=== PATIENT | female | born 1960 | race Caucasian/White ===

== ENCOUNTER → 2023-10-20 07:29 | Outpatient (REF) | payer OTHER, SELFPAY | LOC: DHCBC HW 07:29 | PROVIDERS: ATTENDING PHYSICIAN Internal Medicine; FAMILY PHYSICIAN Internal Medicine | DX: Z92.3 Personal history of irradiation (principal); R06.09 Other forms of dyspnea; I35.0 Nonrheumatic aortic (valve) stenosis; I35.1 Nonrheumatic aortic (valve) insufficiency; I44.0 Atrioventricular block, first degree | CPT/HCPCS: 93306 ==

== ENCOUNTER → 2023-11-06 09:04 | Outpatient (REF) | payer OTHER, SELFPAY | LOC: RCS 09:04 | PROVIDERS: ATTENDING PHYSICIAN Internal Medicine; FAMILY PHYSICIAN Internal Medicine | DX: R06.09 Other forms of dyspnea (principal); Z92.3 Personal history of irradiation; I35.0 Nonrheumatic aortic (valve) stenosis; I35.1 Nonrheumatic aortic (valve) insufficiency; I44.0 Atrioventricular block, first degree | CPT/HCPCS: 93017; 93350 ==

== ENCOUNTER → 2023-11-11 07:06 | Outpatient (REF) | payer OTHER, SELFPAY | LOC: RAD 07:06 | PROVIDERS: ATTENDING PHYSICIAN Internal Medicine | DX: M54.50 Low back pain, unspecified (principal) | CPT/HCPCS: 72110 ==

== ENCOUNTER → 2023-11-16 13:17 | Outpatient (REF) | payer OTHER, SELFPAY | LOC: RAD 13:17 | PROVIDERS: ATTENDING PHYSICIAN Internal Medicine; FAMILY PHYSICIAN Internal Medicine | DX: Z92.3 Personal history of irradiation (principal); I35.0 Nonrheumatic aortic (valve) stenosis; I35.1 Nonrheumatic aortic (valve) insufficiency | CPT/HCPCS: 93880 ==

== ENCOUNTER → 2023-11-24 18:39 | Outpatient (REF) | payer OTHER, SELFPAY | LOC: RAD 18:39 | PROVIDERS: ATTENDING PHYSICIAN Physician Assistant; FAMILY PHYSICIAN Internal Medicine; OTHER PHYSICIAN Nurse Practitioner Adult Health | DX: M25.511 Pain in right shoulder (principal); M54.2 Cervicalgia; M62.81 Muscle weakness (generalized); C81.00 Nodular lymphocyte predominant Hodgkin lymphoma, unspecified site; Z92.3 Personal history of irradiation; M54.9 Dorsalgia, unspecified; G89.29 Other chronic pain; R20.0 Anesthesia of skin; R20.2 Paresthesia of skin | CPT/HCPCS: 72052; 72072; 73030 ==

== ENCOUNTER → 2023-12-09 12:10 | Outpatient (REF) | payer OTHER, SELFPAY | LOC: MRI 3T 12:10 | PROVIDERS: ATTENDING PHYSICIAN Surgery; FAMILY PHYSICIAN Internal Medicine | DX: R92.2 Inconclusive mammogram (principal); Z91.89 Other specified personal risk factors, not elsewhere classified | CPT/HCPCS: 77049; A9585 ==

== ENCOUNTER → 2023-12-18 07:48 | Outpatient (REF) | payer OTHER, SELFPAY | LOC: PAVMRI 07:48 | PROVIDERS: ATTENDING PHYSICIAN Nurse Practitioner Adult Health; FAMILY PHYSICIAN Internal Medicine | DX: C81.00 Nodular lymphocyte predominant Hodgkin lymphoma, unspecified site (principal); M54.9 Dorsalgia, unspecified; G89.29 Other chronic pain; R20.0 Anesthesia of skin; R20.2 Paresthesia of skin; Z92.3 Personal history of irradiation | CPT/HCPCS: 72156; 72158; A9575 ==

== ENCOUNTER → 2023-12-21 07:38 | Outpatient (REF) | payer OTHER, SELFPAY | LOC: PAVMRI 07:38 | PROVIDERS: ATTENDING PHYSICIAN Nurse Practitioner Adult Health; FAMILY PHYSICIAN Internal Medicine | DX: C81.00 Nodular lymphocyte predominant Hodgkin lymphoma, unspecified site (principal); M54.9 Dorsalgia, unspecified; G89.29 Other chronic pain; R20.0 Anesthesia of skin; R20.2 Paresthesia of skin; Z92.3 Personal history of irradiation | CPT/HCPCS: 72157; A9575 ==

== ENCOUNTER → 2023-12-23 14:55 | Outpatient (REF) | payer OTHER, SELFPAY | LOC: HWRAD 14:55 | PROVIDERS: ATTENDING PHYSICIAN Nurse Practitioner Adult Health; FAMILY PHYSICIAN Internal Medicine | DX: C81.00 Nodular lymphocyte predominant Hodgkin lymphoma, unspecified site (principal); Z92.3 Personal history of irradiation | CPT/HCPCS: 76536 ==

== ENCOUNTER 2023-12-28 18:06 | Outpatient (RCR) | payer OTHER, SELFPAY | END 2023-12-28 23:59 | disposition home or self-care (01) | LOC: RPT 18:06 | PROVIDERS: ATTENDING PHYSICIAN Internal Medicine | DX: M54.51 Vertebrogenic low back pain (principal); M54.2 Cervicalgia; M54.16 Radiculopathy, lumbar region; M54.12 Radiculopathy, cervical region; Z73.6 Limitation of activities due to disability; M62.81 Muscle weakness (generalized) | CPT/HCPCS: 97110; 97163 ==

== ENCOUNTER 2024-01-25 16:14 | Outpatient (RCR) | payer OTHER, SELFPAY | END 2024-02-09 08:24 | disposition home or self-care (01) | LOC: RPT 16:14 | PROVIDERS: ATTENDING PHYSICIAN Internal Medicine | DX: M54.51 Vertebrogenic low back pain (principal); M54.2 Cervicalgia; M54.16 Radiculopathy, lumbar region; M54.12 Radiculopathy, cervical region; Z73.6 Limitation of activities due to disability | CPT/HCPCS: 97110 ==

== ENCOUNTER → 2024-05-18 14:01 | Outpatient (REF) | payer OTHER, SELFPAY | LOC: WDC 14:01 | PROVIDERS: ATTENDING PHYSICIAN Surgery; FAMILY PHYSICIAN Internal Medicine | DX: Z12.31 Encounter for screening mammogram for malignant neoplasm of breast (principal) | CPT/HCPCS: 77063; 77067 ==

== ENCOUNTER → 2024-05-20 13:44 | Outpatient (REF) | payer OTHER, SELFPAY | LOC: WDC 13:44 | PROVIDERS: ATTENDING PHYSICIAN Surgery; FAMILY PHYSICIAN Internal Medicine | DX: R92.8 Other abnormal and inconclusive findings on diagnostic imaging of breast (principal) | CPT/HCPCS: 76642 ==

== ENCOUNTER → 2024-06-06 17:56 | Outpatient (REF) | payer OTHER, SELFPAY | LOC: RAD 17:56 | PROVIDERS: ATTENDING PHYSICIAN Internal Medicine; FAMILY PHYSICIAN Internal Medicine | DX: Z95.2 Presence of prosthetic heart valve (principal) | CPT/HCPCS: 71046 ==

== ENCOUNTER 2024-06-10 19:19 | Observation (INO) | payer OTHER, SELFPAY ==
[2024-06-10] VITALS (12 sets, daily range): BP systolic 107–153; BP diastolic 47–71; BMI 20.3
[2024-06-10 13:52] LABS: % Basophils 0.7 % (0-2); % Eosinophils 0.2 % (0-6); % Immature Granulocytes 0.6 % (0-0.5); % Lymphocytes 9.9 % (20.5-51.1); % Neutrophils 77.6 % (42.2-75.2); Absolute Basophils 0.1 10^3/uL (0-0.2); Absolute Immature Granulocytes 0.1 10^3/uL (0-0.05); Absolute Lymphocytes 0.9 10^3/uL (1.2-3.4); Absolute Neutrophils 6.9 10^3/uL (1.4-6.5); Hematocrit 31.6 % (37.0-47.0); Hemoglobin 10.8 g/dL (12.0-16.0); Mean Corp Hgb Conc. 34.2 g/dL (33.0-37.0); Mean Corpuscular Hgb 29.8 pg (27.0-31.0); Mean Corpuscular Volume 87.3 fL (81.0-99.0); Mean Platelet Volume 9.1 fL (7.4-10.4); Nucleated Red Blood Cells % 0.2 %; Platelet Count 620 10^3/uL (130-400); Red Blood Cell Count 3.62 10^6/uL (4.20-5.40); White Blood Cell Count 8.9 10^3/uL (4.8-10.8)
[2024-06-10 13:55] LABS: ALT (SGPT) 36 U/L (0-35); AST (SGOT) 32 U/L (14-36); Alkaline Phosphatase 136 U/L (38-126); Blood Urea Nitrogen 31 mg/dl (7-17); Calcium 9.2 mg/dl (8.4-10.2); Carbon Dioxide 27 mmol/L (22-30); Chloride 97 mmol/L (98-107); Glucose 142 mg/dl (70-99); Sodium 137 mmol/L (135-145); Total Bilirubin 0.8 mg/dl (0.2-1.3); Total Protein 6.7 g/dl (6.3-8.2); eGFR > 60.00
--- NOTE | 2024-06-10 14:06 | ED.GENMED ---
History of Present Illness
General
Chief Complaint: Breathing Problem
Time Seen by Provider: 06/10/24 13:46
History of Present Illness
History of Present Illness:
Patient presents to the emergency department with dyspnea on exertion. She had mitral, aortic and tricuspid valves repaired on May 26 at [facility]. She was discharged 1 week ago. She notes that she did have a small amount of fluid in her
lung at that time. Since then she has noted worsening dyspnea on exertion. No chest pain. No fever. No leg swelling.
Past History
Past History
ED Past Medical History: Cancer
ED Past Surgical History: Other (Splenectomy)
Social History
Tobacco: Non-smoker
Alcohol: Occasional
Drug: None
Personal:
Living: with family
Employment: Employed
Family History
Family History: Other
Phy Exam
Physical Exam
Physical Exam:
GENERAL APPEARANCE: NAD, well developed/ well nourished
EYES lids/conjunctiva normal
EARS/NOSE/THROAT Mucous membranes moist, uvula midline without oral pharyngeal erythema, exudate or swelling
HEAD/NECK normocephalic atraumatic, neck is supple.
RESPIRATORY respiratory effort normal, speaks in full sentences, no accessory muscle use. Lungs clear to auscultation without rhonchi, wheezes, rales
CARDIAC Regular rate and rhythm, no edema, sternal scar well-healing without evidence of infection
ABDOMINAL Soft, ND/NT. No pulsatile masses on exam, rebound tenderness, Gomez sign or pain over Mcburney's point.
MUSCLES/EXTREMITIES No abnormal range of motion, no swelling.
SKIN Warm, pink and dry. No rashes
NEUROLOGICAL Speech is clear and appropriate. Normal level of consciousness. 5/5 strength in all extremities.
PSYCH Normal mood and affect. Judgement/competence is appropriate
Scores
Heart Failure Risk
Heart Failure Risk Score: Yes
History of Stroke or TIA: No
History of intubation for respiratory distress: No
Heart rate on ED arrival >/= 110: No
SaO2 <90% on arrival on room air: No
HR >/=110 during 3min walk test (or too ill to perform test): No
ECG has acute ischemic changes: No
Urea >/=12mmol/L (BUN 33.6mg/dL): Yes
Serum CO2>/=35mmol/L: No
Troponin I or T elevated to WI Level (0.4mg/dL): Yes
NT-proBNP >/=5,000ng/L (5,000pg/ml): No
HF Risk Score: 3
Admission Status: HIGH RISK 15.9% Consider SNF treatment or admission to hospital
Course
Orders/Labs/Results
Orders:
Orders
06/10/24 13:15
EKG [Electrocardiogram (*1)] Urgent
Reason for Study: Shortness of Breath
EKG- Treatment ONCE
06/10/24 13:35
Complete Blood Count/With Diff Urgent
Comprehensive Metabolic Panel Urgent
NT-proBNP Urgent
Comment: ADD ON
Troponin I Urgent
06/10/24 14:05
CR Chest - 2 Views Urgent
Comment:
Reason For Exam: sob
06/10/24 14:24
Add On- LAB Urgent
Tests Added?: Pro BNP
06/10/24 16:11
Furosemide [Lasix] 40 mg IV NOW STA
06/10/24 16:50
Troponin I Urgent
06/10/24 18:28
PT/INR [Prothrombin Time] Urgent
06/10/24 18:46
CARDIOLOGY CONSULT Routine
Consulting Provider: Darryl Carrasco
Was physician already notified: Yes
Reason for consult: Dyspnea post aortic, mitral valve replacement and tricuspid valve repair
06/10/24 18:50
Admit/Transfer Patient As Directed
Co-Sign Provider:
Level of Care: Observation services
Assign to:: Telemetry
Physician / Group: karoline bourne
Diagnosis: Dyspnea status post bioprosthetic valve repair/replace, suprath inr on coum
Reason for Telemetry: Arrhythmia
Date to Stop Telemetry: 06/13/24
Time to Stop Telemetry: 11:00
Reason for Hospitalization: Dyspnea status post bioprosthetic valve repair/replace, suprath inr on coum
Expected length of stay greater than two midnights?: Yes
ELOS- Estimated Length of Stay in days: 4
I certify the patient meets the requirements for IP care: Yes
Code Status As Directed
Resuscitation Status: Full Code
06/10/24 18:55
PRN Pain Medication Management As Directed
May give lesser potent ordered pain med per pt: Yes
preference::
Protocol:: Medication orders for pain may be administered in a
manner that supports deferring to patient preference
when the pt is:
- Requesting an ordered lesser potent pain medication.
Least to most potent pain medications are defined
as: acetaminophen < NSAID < tramadol < opioids
(morphine, oxycodone, hydromorphone).
- Requesting a lesser dose of the same medication IF
ORDERED.
- Requesting a less intrusive route of administration
if both routes are prescribed by the provider (PO <
IV).
06/11/24 06:00
Echo 2D MMode Color/Doppler IN AM
Reason for Study: recent valvular heart repair
06/13/24 11:00
DC Protocol for Telemetry ONCE
Abnormal Lab Results
06/10/24 06/10/24 06/10/24
13:35 16:50 18:28
RBC 3.62 L 10^6/uL
(4.20-5.40)
Hgb 10.8 L g/dL
(12.0-16.0)
Hct 31.6 L %
(37.0-47.0)
Plt Count 620 H 10^3/uL
(130-400)
Abs Immat Gran (auto) 0.1 H 10^3/uL
(0-0.05)
Absolute Neuts (auto) 6.9 H 10^3/uL
(1.4-6.5)
Absolute Lymphs (auto) 0.9 L 10^3/uL
(1.2-3.4)
Absolute Monos (auto) 1.0 H 10^3/uL
(0.1-0.6)
Immature Gran % 0.6 H %
(0-0.5)
Neutrophils % 77.6 H %
(42.2-75.2)
Lymphocytes % 9.9 L %
(20.5-51.1)
Monocytes % 11.0 H %
(1.7-9.3)
PT 52.3 H Sec
(11.4-14.6)
INR 5.78 H*
Chloride 97 L mmol/L
(98-107)
BUN 31 H mg/dl
(7-17)
Glucose 142 H mg/dl
(70-99)
ALT 36 H U/L
(0-35)
Alkaline Phosphatase 136 H U/L
(38-126)
Troponin I 0.174 H* ng/ml 0.154 H* ng/ml
06/10/24 13:35
06/10/24 13:35
Vital Signs
Initial and Last Documented VS:
Initial Vital Signs
Temp Pulse Resp BP Pulse Ox
98.7 F 51 18 107/47 100
06/10/24 13:21 06/10/24 13:21 06/10/24 13:21 06/10/24 13:21 06/10/24 13:21
Last Documented Vital Signs
Temp Pulse Resp BP Pulse Ox
98.7 F 50 20 153/56 97
06/10/24 13:21 06/10/24 19:00 06/10/24 19:00 06/10/24 19:00 06/10/24 19:00
*Critical Care Note
Total Time (30-74mins, 75-104mins- exclusive of procedures): Not Applicable
ED Attending Note
ED Attending Note
ED Attending Note:
Discussed case with cardiology on-call Dr. Carrasco, recommends diuresis, admission to hospitalist. Suspect patient is symptomatic from bilateral pleural effusions. Trop elevated in the setting of recent heart surgery, doubt ACS given lack of chest
pain or symptoms at rest
-
Portions of this chart may have been created with voice recognition software.� Occasional wrong word or��sound alike� substitutions may have occurred due to the inherent limitations of voice recognition software.
Discharge Plan
Departure
Patient Disposition: Admit
Date of Disposition: 06/10/24
Time of Disposition: 16:27
Presentation/result/management discussed w/ accepting MD/DO: Hospitalist
Discharge Problem:
Pleural effusion
Interventions
Interventions:
*Risk Screen - Suicide Last Done: 06/10/24 13:23
*General Assessment Last Done: 06/10/24 13:23
*Neglect/Abuse Screening Last Done: 06/10/24 13:23
ED- Fall Risk Assessment Last Done: 06/10/24 20:03
*ED COVID-19 Vaccine History Last Done: 06/10/24 13:56
*Nursing Disposition Last Done: 06/10/24 20:03
ED- Cardiac Assessment Last Done: 06/10/24 13:56
ED- Pulmonary Assessment Last Done: 06/10/24 13:56
[2024-06-10 14:26] LABS: Troponin I 0.174 ng/ml
[2024-06-10 15:02] LABS: NT-proBNP 1880 pg/ml
--- NOTE | 2024-06-10 16:18 | W.PN.CD ---
Addendum entered and electronically signed by Darryl Carrasco MD 06/10/24 17:39:
Patient seen and examined in collaboration with [employer]; agree with below.
-Patient referred from the Cardiology office after complaining of dyspnea; recently underwent bioprosthetic aortic valve replacement, bioprosthetic mitral valve replacement, and tricuspid valve repair on 05/16/2024 at [place].
-Patient has developed bilateral pleural effusions; patient also with postoperative atrial fibrillation and was placed on Coumadin-INR currently 6.69.
-Patient cannot undergo thoracentesis due to supratherapeutic INR.
-Continue IV Lasix; recommend 40 mg daily for now.
-Obtain medical records from [place].
-Echocardiogram this admission.
-scanning coordinator; will follow.
Original Note:
Today's Communication / Plan
-
Continue diuresis
Echocardiogram when we have achieved euvolemia
Impression / Plan
-
This is a consultation summary. Please see scanned consultation.
BACKGROUND: 63F with moderate/severe aortic stenosis and aortic regurgitation, moderate mitral regurgitation, mild mitral stenosis, moderate to severe tricuspid regurgitation, first-degree AV block, sinus tachycardia, dyslipidemia, stage Ia
Hodgkin's lymphoma status post extensive radiation (Mantle therapy with splenectomy) and hypothyroidism who underwent bioprosthetic mitral valve replacement, bioprosthetic aortic valve replacement, and tricuspid valvuloplasty with prosthetic ring on
05/16/[address] Prabhakar at [facility] in [place]. She had a course of postoperative atrial fibrillation and was placed on amiodarone. She also underwent a Medtronic leadless pacemaker. She is currently wearing a ZIO monitor. She is on warfarin
and has had elevated INRs. CXR a few days ago showed small to moderate bilateral pleural effusion. Her shortness of breath persisted and she presented to the emergency department.
Heart failure, presumed HFpEF, acute
-Diuresis with furosemide 40 mg IV twice daily
-Case management to [facility] SGLT2
-Trend daily weight, I/O, BMP with diuresis
-Heart failure education
Pleural effusion, left >right
-No thoracentesis due to elevated INR
-Diuresis with intravenous furosemide
Severe valve disease status post bioprosthetic MVR, bioprosthetic AVR, and tricuspid valvuloplasty with prosthetic ring, by Dr. Prabhakar at [facility] [place] (05/26/2024)
-Update echocardiogram we are closer to euvolemia
-Hold warfarin for elevated INR
Paroxysmal atrial fibrillation
-Stable in sinus rhythm, she is wearing ZIO monitor per [facility] [place] (atrial fibrillation monitoring?)
-Continue amiodarone at current dosing
-Warfarin for valve replacements as above
Abnormal coagulation profile, INR 6.69
-No abnormal bleeding
-She will need daily INRs while in the inpatient setting
Abnormal troponin, nonischemic myocardial injury in the setting of recent cardiac surgery and pacemaker placement
-Initial troponin 0.174, trend
Pacemaker, Medtronic leadless pacemaker implanted 06/02/[address] Elliott at [facility] [place]
Stage Ia Hodgkin's lymphoma status post extensive radiation without chemotherapy (1981)
Anemia, likely postoperative, per primary service
Subjective:
She endorses worsening shortness of breath. She denies dizziness.
We are still awaiting records.
Physical Exam
Vital Signs/Labs
Vital Signs
Temp Pulse Resp BP Pulse Ox
98.7 F 50 17 125/58 98
06/10/24 13:21 06/10/24 15:00 06/10/24 15:00 06/10/24 15:00 06/10/24 15:00
06/09/24 06/10/24 06/11/24
06:59 06:59 06:59
Actual Weight 55.9 kg
06/10/24 13:35
06/10/24 13:35
APTT Cancelled 06/10/24 13:25
06/10/24 06/10/24
13:35 14:05
[id number] Pept 1880 Cancelled
LAB Results
06/10/24
13:35
Troponin I 0.174 H*
Physical Exam
Constitutional: No acute distress and Comfortable
EENT: Anicteric and Moist mucous membranes
Cardiovascular: Rhythm & rate is regular, S1S2 is normal and Murmur/rub/gallop absent
Respiratory: Respiratory effort normal
GI: Soft, Distention absent, Flat and Non tender
Neuro/Psych: AO x 3
Other: Skin (Warm and dry without edema)
Data Reviewed
-
Date of Service: June 10, 2024
Labs: Labs Reviewed by me
Old Records: Requested
[2024-06-10] MEDS: LASIX 40 MG IV (16:41)
--- NOTE | 2024-06-10 17:17 | HPS.HSE ---
Family Physician
-
Family Physician: Kate Jade
Chief Complaint
-
Dyspnea on exertion post mitral, aortic tricuspid valve repair
History of Present Illness
63-year-old female S/P bioprosthetic mitral replacement,bioprosthetic aortic replacement, tricuspid valvuloplasty with prosthetic ring May 26, 2024 at [facility] [address]. Arthur Prabhakar cardiology. She was discharged 1 week ago and is
complaining of worsening dyspnea on exertion. She reports she had a small amount of fluid in her lung at that time. She developed postop A-fib and was placed on Coumadin on discharge 06/03. She had her Coumadin held for the past 2 days due to INR
elevation of 6 on 06/08. INR still elevated 6.69 she reports she has had no bowel movement in 1 week she also has some abdominal distention along with nausea and decreased appetite/metallic taste in mouth. She states all she had was a spoonful of
cottage cheese today. Only drinks approximately 32 ounces of water a day since this past week. She reports she had episode of constipation postsurgery that required MiraLAX and Dulcolax . she denies fever, chills, chest pain, palpitations,
abdominal pain, nausea, vomiting, diarrhea, urinary symptoms, leg swelling. She only has discharge papers from her recent admission but she has no medical records, consultation notes, imaging studies or physician notes regarding her recent surgery
or stay. She is requesting we speak with someone from her cardiology team at [place] [facility] but they are currently in surgery until an unknown time. I advised the patient that we will try to answer a phone call if they happen to call here about her
elbow on a Thursday evening they will unlikely be able to access her records to fax to us due to medical records being closed. She reports they absolutely will not fax records. She past medical history of Hodgkin's, hypothyroidism, anemia, CAD/CABG,
depression, HLD, GERD splenectomy, appendectomy
Medical History
Past Medical History
Past Medical History: Reports Other
Additional Past Medical History:
Valvular disorder
Hodgkin's
hypothyroidism
CAD/CABG
splenectomy
Appendectomy
Past Surgical History: Reports Other
Additional Past Surgical History:
bioprosthetic mitral replacement,bioprosthetic aortic replacement, tricuspid valvuloplasty with prosthetic ring May 26, 2024 at [facility] [address] Arthur Prabhakar cardiology
CABG
splenectomy
appendectomy
Social History
Tobacco: Non-smoker
Alcohol: None
Drug: None
Personal: Single
Living: Alone
Family History
Family History: Not pertinent
Allergies / Home Medications
Allergies reflects when Allergies were last updated in [employer].
Home Medications with original date entered in [employer]
Allergy/Medication List:
Allergies
Allergy/AdvReac Type Severity Reaction Status Date / Time
adhesive tape Allergy Rash Verified 06/10/24 13:48
nitrofurantoin Allergy Swelling Verified 06/10/24 13:49
Sulfa (Sulfonamide Allergy Nausea / Verified 06/10/24 13:49
Antibiotics) Vomiting
Home Medications
bupropion HCl 150 mg 24 hr tablet, extended release 150 mg PO DAILY Depression 11/23/13
levothyroxine 75 mcg tablet (Synthroid) 75 mcg PO DAILY@0600 Thyroid 11/23/13
amiodarone 200 mg tablet 200 mg PO DAILY@1000 Arrhythmia 06/10/24
aspirin 81 mg tablet,delayed release 81 mg PO Q48H Blood Clot Prevention/Tx 06/10/24
docusate sodium 50 mg capsule 50 mg PO DAILY Constipation 06/10/24
ezetimibe 10 mg tablet 10 mg PO DAILY@2100 High Cholesterol 06/10/24
furosemide 40 mg tablet 40 mg PO QPM Fluid Retention/Swelling 06/10/24
pantoprazole 40 mg tablet,delayed release 40 mg PO DAILY Gastrointestinal Issue 06/10/24
warfarin 3 mg tablet 3 mg PO QPM Blood Clot Prevention/Tx 06/10/24
Review of Systems
-
History Source: Patient and Family (Sister at bedside)
A 12 point ROS was completed and negative except as noted: Yes
Constitutional: Denies Fatigue or Chills
EENT: Denies Sore Throat or Runny Nose
Respiratory: Reports Trouble Breathing (POSADA intermittent at rest and with movement); Denies Cough
Cardiac: Reports Other (Scabbed sternal incision intact no surrounding erythema or drainage); Denies Chest Pain, Diaphoresis, Palpitations or Syncope
Abdomen/GI: Reports Abdominal Pain, Nausea, Constipated (X 1 week) and Other (Anorexia); Denies Vomiting, Diarrhea, Bloody Stools or Black Stools
: Denies Dysuria, Frequency, Flank Pain, Incontinence, Difficulty Voiding, Urgency or Bleeding
Musculoskeletal: Denies Joint Pain or Edema
Skin: Denies Itching or Rash
Neurological: Denies Dizzy, Headache or Weakness
Endocrine: Reports No Symptoms
Hematologic/Lymphatic: Reports No Symptoms
Psych: Reports Anxiety
Physical Exam
Vital Signs
Vital Signs
Temp Pulse Resp BP Pulse Ox
98.7 F 50 22 120/52 98
06/10/24 13:21 06/10/24 16:41 06/10/24 16:15 06/10/24 16:41 06/10/24 16:15
Physical Exam
General: Conversant; No Pain, Fever or Chills
HEENT: NormoCephalic, Anicteric, Moist mucous membranes, PERRLA, Larson Conjunctivae and No Ptosis
Respiratory: Clear; No Wheezes, Rales or Rhonchi
Cardiac: S1/S2, Regular Rhythm, Murmur (2/6 systolic), Peripheral Edema (Trace bilateral lower legs) and Other (Scabbed sternal incision intact no surrounding erythema or drainage); No Rub, Gallop, Ge's Sign or JVD
Breast: Deferred by me
GI: Soft, Normal Bowel Sounds, Distended and No Hepatosplenomegaly
Rectal: Deferred by Provider
Genito-urinary: Deferred by me
Musculoskeletal: No Clubbing, No Cyanosis, Edema, Left Lower Extremity (Trace) and Edema, Right Lower Extremity (Trace); No Edema, Left Upper Extremity or Edema, Right Upper Extremity
Skin: Warm and Dry; No Rash
Neuro: AO x 3, No Motor Deficits and No Sensory Deficits; No Slurred Speech, Facial Droop, Tremors or Sedated
Psych: Calm
Laboratory Results
-
06/10/24 13:35
06/10/24 13:35
Laboratory Results
APTT Cancelled 06/10/24 13:25
Total Bilirubin 0.8 mg/dl (0.2-1.3) 06/10/24 13:35
AST 32 U/L (14-36) 06/10/24 13:35
ALT 36 U/L (0-35) H 06/10/24 13:35
Alkaline Phosphatase 136 U/L (38-126) H 06/10/24 13:35
Troponin I 0.174 ng/ml H* 06/10/24 13:35
Impression/Plan
-
Impression/plan:
OBS telemetry
#Dyspnea on exertion status post multi valvular heart repair with acute CHF
#Had bioprosthetic mitral replacement,bioprosthetic aortic replacement, tricuspid valvuloplasty with prosthetic ring May 26, 2024 at [facility] [address]. Arthur Prabhakar cardiology
BNP 1879
--Check 2D echo
-Consult [facility] cardiology
-I/O, daily weight
-IV Lasix 40 mg now(patient on prior Lasix 40 mg every afternoon)
-IV 40 mg Lasix daily
-Obtain records from [place] Dr. Arthur Prabhakar service suppose to be on coumadin 3 months inr 2-[address] Arzate spoke with [facility] Dr Ramos [phone], Dr dobson [phone] was on the case for the pt
2D echo 10/20/2023: EF 60 to 65%, no wall normalities moderate to severe aortic stenosis peak mean gradients 30-21 mmHg. Moderate to severe AR. Moderate to severe TR
#Bilateral pleural effusions left> right post valvular heart repair/replacement
-Cannot undergo thoracentesis due to elevated INR 6.9
-Continue diuresis with IV Lasix
#Nonischemic myocardial injury likely secondary to recent valvular heart repair
Troponin 0.174 > 0.154 will continue to trend
-Check EKG
#Supratherapeutic INR on Coumadin /Hx postop A-fib 05/27/2024
INR 5.78 follow INR
- HOLD coumadin
-cont amiodarone 200 mg daily
#Acute constipation
-Check KUB
-Start bowel regimen
#Anemia hx normocytic
Hgb 10.8, MCV 87.3 at baseline
# CAD/CABG
-Continue aspirin 81 mg every 48 H, amiodarone 20 mg daily
#Hodgkin's hx
#History splenectomy
#Hypothyroidism
-Continue Synthroid 75 mcg p.o. daily
#Depression hx
Continue Wellbutrin 150 mg daily
#HLD
-Continue Zetia 10 mg daily
#GERD
-Continue Protonix 40 mg daily
DVT prophylaxis
Hold warfarin due to elevated INR
Full code
[2024-06-10 17:38] LABS: Troponin I 0.154 ng/ml
[2024-06-10 19:10] LABS: PT 52.3 Sec (11.4-14.6)
[2024-06-10 19:14] LABS: INR 5.78
--- NOTE | 2024-06-10 19:52 | W.PN.UPDATE ---
Update Note
Progress Note Update
The patient is seen and examined, and I have reviewed the patient with DICK Kruse, and agree with her history and physical, assessment and plan of care as per her note. See her note for details. The patient is a 63 year old status post tissue MR
replacement, bioprosthetic Aortic valve replacement w Bovine, and tricuspid valve banding performed at [facility] on 05/26/24. The patient had post-operative A.fib and was started on Amiodarone 400 BID for 5 days followed by Amiodarone 200 mg daily
(she is currently taking), Lasix 40 mg PO daily for a week (up until yesterday), and Coumadin for a total of 3 months post-operative. She weighed 117 lb at the time of dc, had hemoglobin of 10.2 at dc. She had constipation prior to discharge, and
was taking bowel regimen w Colace at home. She's had increased intermittent spells of dyspnea. I spoke to Dr. Arreola ([phone], Cardiology resident from [facility], and Dr. Tolbert is also on the team (she is preferred contact [phone]).
She received IV Lasix 40 mg in ED for b/l pleural effusions, otherwise she appears euvolemic at this time
VSS, AF, no respiratory distress, no POSADA when walking to the bathroom in ED room
Lungs CTA b/l, decreased BS at bases, CV murmur appreciated, normal rhythm, no edema, no JVD
EKG reviewed-paced
#Status post Bioprosthetic bovine aortic valve and tissue mitral valve replacement and tricuspid valve band 05/26 at [facility] presents with bilateral pleural effusions left> right
-Tele monitoring
-Cards cx appreciated
-cont IV Lasix
-Echo pending
-monitor I/O, daily weights
-obtain records from [facility]
-trend troponin
-EKG paced, rate 50
#Supratherapeutic INR
-hold Coumadin, repeat labs in am
#Constipation
-bowel regimen, monitor, hold KUB as abdomen is soft, normal at this time
[2024-06-10] MEDS: ZETIA 10 MG PO (21:22)
[2024-06-10] MEDS: ASPIR LOW (ENTERIC COATED) PO (21:35)
[2024-06-10] MEDS: SENOKOT-S 1 TABLET PO (22:08)
[2024-06-11] VITALS (8 sets, daily range): BP systolic 104–135; BP diastolic 47–70; PULSE 51; O2SAT 98; BMI 20.3
--- NOTE | 2024-06-11 01:13 | PTCARENOTE ---
Pt. arrived to unit via stretcher from ED. Pt. able to safely ambulate from stretcher to bed in 333 on . Pt. AAOx3, no c/o of pain. Able to answer all questions appropriately. Requested her amiodarone because she did not take it prior to
coming to the ED. MITCH Denise notified. No new orders. Oriented to unit. Call farah within reach. Plan of care ongoing.
[2024-06-11] MEDS: SYNTHROID 75 MCG PO (05:44)
[2024-06-11] MEDS: MIRALAX 17 GRAMS PO (08:46)
[2024-06-11] MEDS: PROTONIX 40 MG PO (08:46)
[2024-06-11] MEDS: WELLBUTRIN XL (24 hour extended release) 150 MG PO (08:46)
[2024-06-11] MEDS: SENOKOT-S 1 TABLET PO ×2 (08:46→21:08)
[2024-06-11] MEDS: LASIX 40 MG IV (08:46)
[2024-06-11] MEDS: PACERONE 200 MG PO (08:47)
--- NOTE | 2024-06-11 09:03 | W.PN.HOSP.TC ---
Today's Communication/Plan
-
see bold
Assessment / Plan
Assessment / Plan
Gen: NAD, AAOx3.
Eyes: EOMI, PERRLA, no scleral icterus.
Neck: supple.
CV: Bradycardic, regular rhythm, +S1/S2, no m/r/g.
Resp: Decreased breath sounds in the bases
Abd: +BS, soft, NT, ND
Skin: No rashes. No lower extremity edema
Neuro: CN 2-12 intact, non-focal.
Psych: Normal mood and affect.
CXR: Moderate left pleural effusion. Progressed. Small right pleural effusion. Stable.
SOB:
-s/p bioprosthetic MVR, bioprosthetic AVR, and TV banding at [facility] on 05/26/24. She had post-operative A.fib and was started on Amiodarone 400 BID for 5 days followed by Amiodarone 200 mg daily (she is currently taking), Lasix 40 mg PO daily for
a week (up until 06/09/24), and Coumadin for a total of 3 months post-operatively.
-CXR with B/L pleural effusions
-cont IV Lasix
-daily wts, I/Os
-check echo
-cardiology following
Post-op Afib:
-cont Amio
-holding coumadin with supratherapeutic INR
h/o CAD s/p CABG:
-cont Zetia
History of Hodgkin's disease s/p splenectomy
Depression: Continue Wellbutrin
Hyperlipidemia: cont Zetia
GERD: Continue Protonix
Hypothyroidism: Continue Synthroid
FULL
Anticipated Discharge: 24 - 48 hours
Subjective/Interval History
-
Date of Service: June 11, 2024
Currently denies chest pain or shortness of breath. She reports she was able to walk the burgos without shortness of breath.
Objective Data
-
Labs:
Laboratory Results
06/11/24 06/11/24
07:11 08:50
WBC Cancelled Pending
Hgb Cancelled Pending
Hct Cancelled Pending
Plt Count Cancelled Pending
PT Pending
INR Pending
Sodium Pending
Potassium Pending
Chloride Pending
Carbon Dioxide Pending
BUN Pending
Creatinine Pending
Glucose Pending
Calcium Pending
Vital Signs:
Vital Signs
Temp Pulse Resp BP Pulse Ox
98.4 F 51 16 131/56 98
06/11/24 07:48 06/11/24 07:48 06/11/24 07:48 06/11/24 07:48 06/11/24 07:48
I&O
06/10/24 06/11/24 06/12/24
06:59 06:59 06:59
Intake Total 400 / 400
Balance 400 / 400
[2024-06-11 09:07] LABS: PT 51.4 Sec (11.4-14.6)
[2024-06-11 09:11] LABS: INR 5.65
[2024-06-11 10:01] LABS: % Basophils 0.9 % (0-2); % Eosinophils 0.4 % (0-6); % Immature Granulocytes 0.6 % (0-0.5); % Lymphocytes 12.2 % (20.5-51.1); % Monocytes 13.5 % (1.7-9.3); % Neutrophils 72.4 % (42.2-75.2); Absolute Basophils 0.1 10^3/uL (0-0.2); Absolute Immature Granulocytes 0.1 10^3/uL (0-0.05); Absolute Monocytes 1.1 10^3/uL (0.1-0.6); Absolute Neutrophils 5.7 10^3/uL (1.4-6.5); Hemoglobin 10.7 g/dL (12.0-16.0); Mean Corp Hgb Conc. 34.5 g/dL (33.0-37.0); Mean Corpuscular Hgb 30.7 pg (27.0-31.0); Mean Corpuscular Volume 88.8 fL (81.0-99.0); Mean Platelet Volume 9.2 fL (7.4-10.4); Nucleated Red Blood Cells % 0.3 %; Platelet Count 580 10^3/uL (130-400); Red Blood Cell Count 3.49 10^6/uL (4.20-5.40); White Blood Cell Count 7.9 10^3/uL (4.8-10.8)
--- NOTE | 2024-06-11 11:24 | W.PN.CD ---
Today's Communication / Plan
-
-Continue diuresis
-Plan for echo on Thursday once close to euvolemic.
-Check INR daily
Impression / Plan
-
This is a consultation summary. Please see scanned consultation.
BACKGROUND: 63F with moderate/severe aortic stenosis and aortic regurgitation, moderate mitral regurgitation, mild mitral stenosis, moderate to severe tricuspid regurgitation, first-degree AV block, sinus tachycardia, dyslipidemia, stage Ia
Hodgkin's lymphoma status post extensive radiation (Mantle therapy with splenectomy) and hypothyroidism who underwent bioprosthetic mitral valve replacement, bioprosthetic aortic valve replacement, and tricuspid valvuloplasty with prosthetic ring on
05/16/[address] Prabhakar at [place] in [place]. She had a course of postoperative atrial fibrillation and was placed on amiodarone. She also underwent a Medtronic leadless pacemaker. She is currently wearing a ZIO monitor. She is on warfarin
and has had elevated INRs. CXR a few days ago showed small to moderate bilateral pleural effusion. Her shortness of breath persisted and she presented to the emergency department.
Heart failure, presumed HFpEF, acute
-Diuresis with furosemide 40 mg IV twice daily
-Case management to clifford SGLT2
-Trend daily weight, I/O, BMP with diuresis
-Heart failure education
Pleural effusion, left >right
-No thoracentesis due to elevated INR
-Diuresis with intravenous furosemide
Severe valve disease status post bioprosthetic MVR, bioprosthetic AVR, and tricuspid valvuloplasty with prosthetic ring, by Dr. Prabhakar at [facility] (05/26/2024)
-Update echocardiogram we are closer to euvolemia
-Hold warfarin for elevated INR
Paroxysmal atrial fibrillation
-Stable in sinus rhythm, she is wearing ZIO monitor per [facility] (atrial fibrillation monitoring?)
-Continue amiodarone at current dosing
-Warfarin for valve replacements as above
Abnormal coagulation profile,
-INR at admission was 6.69- today 5.6
-No abnormal bleeding
-She will need daily INRs while in the inpatient setting
Abnormal troponin, nonischemic myocardial injury in the setting of recent cardiac surgery and pacemaker placement
-Initial troponin 0.174, was peaked
- Follow up 0.15
Pacemaker, Medtronic leadless pacemaker implanted 06/02/[address] Elliott at [facility]
Stage Ia Hodgkin's lymphoma status post extensive radiation without chemotherapy (1981)
Anemia, likely postoperative, per primary service
Subjective:
She endorses worsening shortness of breath. She denies dizziness.
We are still awaiting records.
Physical Exam
Vital Signs/Labs
Vital Signs
Temp Pulse Resp BP Pulse Ox
98.4 F 51 16 131/56 98
06/11/24 07:48 06/11/24 07:48 06/11/24 07:48 06/11/24 07:48 06/11/24 07:48
06/10/24 06/11/24 06/12/24
06:59 06:59 06:59
Actual Weight 51.965 kg
06/11/24 09:39
PT 51.4 Sec (11.4-14.6) H 06/11/24 07:11
INR 5.65 H* 06/11/24 07:11
APTT Cancelled 06/10/24 13:25
TSH 12.80 uIU/ml (0.47-4.68) H 06/10/24 13:35
06/10/24 06/10/24
13:35 14:05
Oti-L-Czbrpsbwxzo Pept 1880 Cancelled
LAB Results
06/10/24 06/10/24
13:35 16:50
Troponin I 0.174 H* 0.154 H*
Physical Exam
Constitutional: No acute distress and Comfortable
EENT: Anicteric and Moist mucous membranes
Cardiovascular: Rhythm & rate is regular, Pedal edema is absent and JVD pressure is normal
Respiratory: Respiratory effort normal, Lungs clear to auscul., Wheeze Absent and Crackles Absent
GI: Soft, Non tender and Normal bowel sounds
Neuro/Psych: Alert, Oriented and AO x 3
Data Reviewed
-
Date of Service: June 11, 2024
Medical Decision Making: Reviewed Test Results, Independent Historian Assessment and Test Interpretation
EKG: Tracing Personally Visualized and interpreted
Echo: Report Reviewed by me
Labs: Labs Reviewed by me
Old Records: Reviewed
[2024-06-11 11:48] LABS: Blood Urea Nitrogen 28 mg/dl (7-17); Calcium 9.1 mg/dl (8.4-10.2); Carbon Dioxide 28 mmol/L (22-30); Chloride 96 mmol/L (98-107); Estimated Creatinine Clearance 53 ml/min; Glucose 123 mg/dl (70-99); Potassium 3.1 mmol/L (3.5-5.1); Sodium 136 mmol/L (135-145); eGFR > 60.00
--- NOTE | 2024-06-11 12:52 | PTCARENOTE ---
MD made aware of ciritical INR 5.65 and K of 3.1 as soon as it resulted. No orders as of yet.
[2024-06-11] MEDS: KCL 40 MEQ PO (14:50)
[2024-06-11] MEDS: ZOFRAN 4 MG IV (14:50)
--- NOTE | 2024-06-11 15:33 | CM ---
Alert awake oriented patient who lives alone in a 2 story home with 1 steps to enter and 13 steps to bed/bathroom. She is independent in driving and all activates of daily living.She has supportive sister Crissy.She had [facility] set up from prior
hospital.No adaptive devices.
Had [facility] . No SNF hx
Pharmacy [facility]
PCP Dr Jade
PLAN Home with [facility]
--- NOTE | 2024-06-11 17:37 | PTCARENOTE ---
Pt received as transfer from [facility]. Pt AAOx3. Able to ambulate on own to bed. V paced on nurse monitoring. HR 50. SpO2 98% on RA. VSS. Assessment documented. Pt resting in bed, call farah in reach.
[2024-06-11] MEDS: ZETIA 10 MG PO (21:08)
[2024-06-11] MEDS: LIDOCAINE 4% PATCH 1 PATCH TOPICAL (21:08)
[2024-06-11] MEDS: TYLENOL 650 MG PO (21:10)
[2024-06-11] MEDS: XANAX 0.125 MG PO (22:31)
[2024-06-12] VITALS (9 sets, daily range): BP systolic 108–143; BP diastolic 47–66; BMI 20.5
--- NOTE | 2024-06-12 01:55 | PTCARENOTE ---
Pt. V-paced on the monitor, VSS. Independent and ambulatory, complained of some SOB when ambulating in halls earlier this shift. Assisted back to room for assessment, lungs diminished bases, pulse ox 97% RA. Dyspnea resolved with rest. Also
complaining of left upper back pain made worse with deep breathing, requested Lidoderm patch. Order obtained and patch applied, Tylenol also given, pt. stated pain much improved on re-assessment. Pt. currently sleeping.
[2024-06-12 04:09] LABS: % Eosinophils 1.1 % (0-6); % Immature Granulocytes 0.6 % (0-0.5); % Lymphocytes 18.8 % (20.5-51.1); % Monocytes 13.8 % (1.7-9.3); % Neutrophils 64.7 % (42.2-75.2); Absolute Basophils 0.1 10^3/uL (0-0.2); Absolute Eosinophils 0.1 10^3/uL (0-0.7); Absolute Immature Granulocytes 0.1 10^3/uL (0-0.05); Absolute Lymphocytes 1.5 10^3/uL (1.2-3.4); Absolute Monocytes 1.1 10^3/uL (0.1-0.6); Absolute Neutrophils 5.2 10^3/uL (1.4-6.5); Hematocrit 30.3 % (37.0-47.0); Hemoglobin 10.3 g/dL (12.0-16.0); Mean Corpuscular Hgb 30.5 pg (27.0-31.0); Mean Corpuscular Volume 89.6 fL (81.0-99.0); Mean Platelet Volume 9.4 fL (7.4-10.4); Nucleated Red Blood Cells % 0 %; Platelet Count 547 10^3/uL (130-400); Red Blood Cell Count 3.38 10^6/uL (4.20-5.40); Red Cell Dist. Width 13.9 % (11.5-14.5)
[2024-06-12 04:21] LABS: INR 4.94; PT 46.2 Sec (11.4-14.6)
[2024-06-12 04:39] LABS: Blood Urea Nitrogen 32 mg/dl (7-17); Calcium 9.4 mg/dl (8.4-10.2); Carbon Dioxide 28 mmol/L (22-30); Chloride 96 mmol/L (98-107); Estimated Creatinine Clearance 48 ml/min; Glucose 102 mg/dl (70-99); Potassium 3.7 mmol/L (3.5-5.1); Sodium 137 mmol/L (135-145); eGFR > 60.00
[2024-06-12] MEDS: SYNTHROID 75 MCG PO (05:55)
--- NOTE | 2024-06-12 08:15 | W.PN.HOSP.TC ---
Today's Communication/Plan
-
see bold
Assessment / Plan
Assessment / Plan
Gen: NAD, AAOx3.
Eyes: EOMI, PERRLA, no scleral icterus.
Neck: supple.
CV: RRR, +S1/S2, no m/r/g.
Resp: Decreased breath sounds in the L base
Abd: +BS, soft, NT, ND
Skin: No rashes. remains No lower extremity edema
Neuro: CN 2-12 intact, non-focal.
Psych: Normal mood and affect.
CXR: Moderate left pleural effusion. Progressed. Small right pleural effusion. Stable.
SOB:
-s/p bioprosthetic MVR, bioprosthetic AVR, and TV banding at [facility] on 05/26/24. She had post-operative A.fib and was started on Amiodarone 400 BID for 5 days followed by Amiodarone 200 mg daily (she is currently taking), Lasix 40 mg PO daily for
a week (up until 06/09/24), and Coumadin for a total of 3 months post-operatively.
-CXR with B/L pleural effusions
-cont IV Lasix
-daily wts, I/Os
-check echo
-cardiology following
Post-op Afib:
-cont Amio
-holding coumadin with supratherapeutic INR
Other problems:
h/o CAD s/p CABG: cont Zetia
History of Hodgkin's disease s/p splenectomy
Depression: Continue Wellbutrin
Hyperlipidemia: cont Zetia
GERD: Continue Protonix
Hypothyroidism: Continue Synthroid
FULL
Anticipated Discharge: 24 - 48 hours
Subjective/Interval History
-
Date of Service: June 12, 2024
Reports intermittent SOB with ambulation which she states may be related to anxiety.
Objective Data
-
Labs:
Laboratory Results
06/12/24
03:37
WBC 8.0
Hgb 10.3 L
Hct 30.3 L
Plt Count 547 H
PT 46.2 H
INR 4.94
Sodium 137
Potassium 3.7
Chloride 96 L
Carbon Dioxide 28
BUN 32 H
Creatinine 1.0
Glucose 102 H
Calcium 9.4
Vital Signs:
Vital Signs
Temp Pulse Resp BP Pulse Ox
98.1 F 50 18 120/62 98
06/12/24 03:26 06/12/24 03:26 06/12/24 03:26 06/12/24 03:26 06/12/24 03:26
I&O
06/11/24 06/12/24 06/13/24
06:59 06:59 06:59
Intake Total 400 / 400 240 / 240
Output Total 200 / 200
Balance 400 / 400 40 / 40
[2024-06-12] MEDS: WELLBUTRIN XL (24 hour extended release) PO ×2 (08:47→08:55)
[2024-06-12] MEDS: PROTONIX 40 MG PO (08:47)
[2024-06-12] MEDS: SENOKOT-S 1 TABLET PO ×2 (08:47→20:26)
[2024-06-12] MEDS: LASIX 40 MG IV (08:47)
[2024-06-12] MEDS: MIRALAX PO (08:49)
--- NOTE | 2024-06-12 09:00 | W.PN.CD ---
Today's Communication / Plan
-
-No need for vitamin K at this time. No sign of bleeding. INR is trending down.
-Echo in the morning
Impression / Plan
-
This is a consultation summary. Please see scanned consultation.
BACKGROUND: 63F with moderate/severe aortic stenosis and aortic regurgitation, moderate mitral regurgitation, mild mitral stenosis, moderate to severe tricuspid regurgitation, first-degree AV block, sinus tachycardia, dyslipidemia, stage Ia
Hodgkin's lymphoma status post extensive radiation (Mantle therapy with splenectomy) and hypothyroidism who underwent bioprosthetic mitral valve replacement, bioprosthetic aortic valve replacement, and tricuspid valvuloplasty with prosthetic ring on
05/16/[address] Prabhakar at [place] in [place]. She had a course of postoperative atrial fibrillation and was placed on amiodarone. She also underwent a Medtronic leadless pacemaker. She is currently wearing a ZIO monitor. She is on warfarin
and has had elevated INRs. CXR a few days ago showed small to moderate bilateral pleural effusion. Her shortness of breath persisted and she presented to the emergency department.
Heart failure, presumed HFpEF, acute
-Diuresis with furosemide 40 mg IV twice daily
-Case management to clifford SGLT2
-Trend daily weight, I/O, BMP with diuresis
-Heart failure education
Pleural effusion, left >right
-No thoracentesis due to elevated INR
-Diuresis with intravenous furosemide
Severe valve disease status post bioprosthetic MVR, bioprosthetic AVR, and tricuspid valvuloplasty with prosthetic ring, by Dr. Prabhakar at [facility] (05/26/2024)
-Update echocardiogram in AM
-Hold warfarin for elevated INR
Paroxysmal atrial fibrillation
-Stable in sinus rhythm, she is wearing ZIO monitor per [facility] (atrial fibrillation monitoring?)
-Continue amiodarone at current dosing
-Warfarin for valve replacements as above
Abnormal coagulation profile,
-INR at admission was 6.69- today 4.9
-No abnormal bleeding
-She will need daily INRs while in the inpatient setting
Abnormal troponin, nonischemic myocardial injury in the setting of recent cardiac surgery and pacemaker placement
-Initial troponin 0.174, was peaked
- Follow up 0.15
Pacemaker, Medtronic leadless pacemaker implanted 06/02/[address] Elliott at [facility]
Stage Ia Hodgkin's lymphoma status post extensive radiation without chemotherapy (1981)
Anemia, likely postoperative, per primary service
Subjective:
She endorses worsening shortness of breath. She denies dizziness.
Physical Exam
Vital Signs/Labs
Vital Signs
Temp Pulse Resp BP Pulse Ox
98.1 F 56 18 108/52 98
06/12/24 03:26 06/12/24 08:47 06/12/24 03:26 06/12/24 08:47 06/12/24 03:26
06/11/24 06/12/24 06/13/24
06:59 06:59 06:59
Actual Weight 51.965 kg 52.4 kg
06/12/24 03:37
06/12/24 03:37
PT 46.2 Sec (11.4-14.6) H 06/12/24 03:37
INR 4.94 06/12/24 03:37
APTT Cancelled 06/10/24 13:25
TSH 12.80 uIU/ml (0.47-4.68) H 06/10/24 13:35
06/10/24 06/10/24
13:35 14:05
Ose-H-Hjldjtkkgmb Pept 1880 Cancelled
LAB Results
06/10/24 06/10/24
13:35 16:50
Troponin I 0.174 H* 0.154 H*
Physical Exam
Constitutional: No acute distress and Comfortable
EENT: Anicteric and Moist mucous membranes
Cardiovascular: Rhythm & rate is regular, Pedal edema is absent and JVD pressure is normal
Respiratory: Respiratory effort normal, Lungs clear to auscul., Wheeze Absent and Crackles Absent
GI: Soft, Non tender and Normal bowel sounds
Neuro/Psych: Alert, Oriented and AO x 3
Data Reviewed
-
Date of Service: June 12, 2024
Medical Decision Making: Reviewed Test Results, Independent Historian Assessment, Test Interpretation and Review of Case with other Provider
EKG: Tracing Personally Visualized and interpreted
Echo: Report Reviewed by me
Labs: Labs Reviewed by me
Old Records: Reviewed
[2024-06-12] MEDS: PACERONE 200 MG PO (10:23)
--- NOTE | 2024-06-12 13:14 | PTCARENOTE ---
Rec'd pt at change of shift. Pt on TELE monitor in A / AV paced rhythm, with VSS, and AAO*3. Pt denies any pain and ambulates in burgos with no assistance. Pt verbalized Pt with sternum site CDI with no drainage or pain at site. Pt sitting at
bedside for breakfast with call farah in reach.
--- NOTE | 2024-06-12 13:43 | PTCARENOTE ---
Pt complained of dizziness and lightheadedness at 1325. Vital signs taken and stable. Dr Gomez aware and pt sitting at bedside with call farah in reach. No new orders a this time. Pt agreed to call before ambulating for staff assistance.
[2024-06-12] MEDS: ASPIR LOW (ENTERIC COATED) 81 MG PO (20:26)
[2024-06-12] MEDS: ZETIA 10 MG PO (20:26)
[2024-06-12] MEDS: LIDOCAINE 4% PATCH 1 PATCH TOPICAL (20:26)
[2024-06-12] MEDS: XANAX 0.125 MG PO (22:28)
[2024-06-13] VITALS (8 sets, daily range): BP systolic 111–122; BP diastolic 49–64; BMI 20.5; BMI 20.4
--- NOTE | 2024-06-13 01:00 | PTCARENOTE ---
Pt.s' right groin puncture wound from leadless pacer insertion at previous hospital draining small amount of clear colorless serous fluid. Area mildly ecchymotic but not erythematic , no hematoma assessed, no pain.
--- NOTE | 2024-06-13 01:04 | PTCARENOTE ---
VSS, V-paced on the monitor. No complaints of SOB, RA pulse ox high 90's, ambulating without difficulty. Pt.'s right groin leadless pacer insertion site (puncture wound from previous hospitalization at [facility]) leaking small amount of
clear/colorless serous fluid. Area mildly ecchymotic but no erythema assessed, no hematoma, no pain. Pt. states this has been occurring off and on since discharge from [facility]. Area cleansed with NSS and sterile 4x4 and Tegaderm applied.
[2024-06-13 03:25] LABS: % Basophils 1.1 % (0-2); % Immature Granulocytes 0.7 % (0-0.5); % Lymphocytes 20.3 % (20.5-51.1); % Monocytes 11.7 % (1.7-9.3); % Neutrophils 65.2 % (42.2-75.2); Absolute Basophils 0.1 10^3/uL (0-0.2); Absolute Eosinophils 0.1 10^3/uL (0-0.7); Absolute Immature Granulocytes 0.1 10^3/uL (0-0.05); Absolute Lymphocytes 1.6 10^3/uL (1.2-3.4); Absolute Monocytes 0.9 10^3/uL (0.1-0.6); Absolute Neutrophils 5.3 10^3/uL (1.4-6.5); Hematocrit 30.3 % (37.0-47.0); Hemoglobin 10.4 g/dL (12.0-16.0); Mean Corp Hgb Conc. 34.3 g/dL (33.0-37.0); Mean Corpuscular Hgb 29.4 pg (27.0-31.0); Mean Corpuscular Volume 85.6 fL (81.0-99.0); Nucleated Red Blood Cells % 0 %; Platelet Count 534 10^3/uL (130-400); Red Blood Cell Count 3.54 10^6/uL (4.20-5.40); Red Cell Dist. Width 13.9 % (11.5-14.5); White Blood Cell Count 8.1 10^3/uL (4.8-10.8)
[2024-06-13 03:37] LABS: Blood Urea Nitrogen 31 mg/dl (7-17); Calcium 9.3 mg/dl (8.4-10.2); Carbon Dioxide 27 mmol/L (22-30); Chloride 95 mmol/L (98-107); Estimated Creatinine Clearance 48 ml/min; Glucose 108 mg/dl (70-99); Potassium 3.6 mmol/L (3.5-5.1); Sodium 136 mmol/L (135-145); eGFR > 60.00
[2024-06-13 03:38] LABS: PT 38.3 Sec (11.4-14.6)
[2024-06-13] MEDS: SYNTHROID 75 MCG PO (06:14)
--- NOTE | 2024-06-13 06:33 | PTCARENOTE ---
For the record, pt. states that she had a positive MRSA screen at [facility] in [place] during hospitalization there earlier this month. Modified contact precautions enforced.
[2024-06-13] MEDS: PROTONIX 40 MG PO (07:58)
[2024-06-13] MEDS: LASIX 40 MG IV (07:58)
[2024-06-13] MEDS: SENOKOT-S 1 TABLET PO ×2 (07:58→20:59)
[2024-06-13] MEDS: MIRALAX PO (08:00)
[2024-06-13] MEDS: WELLBUTRIN XL (24 hour extended release) PO (08:00)
--- NOTE | 2024-06-13 08:15 | W.PN.HOSP.TC ---
Today's Communication/Plan
-
see bold
Assessment / Plan
Assessment / Plan
Gen: NAD, AAOx3.
Eyes: EOMI, PERRLA, no scleral icterus.
Neck: supple.
CV: rene, reg rhythm, +S1/S2, no m/r/g.
Resp: CTAB
Abd: +BS, soft, NT, ND
Skin: No rashes. continues to remain No lower extremity edema
Neuro: CN 2-12 intact, non-focal.
Psych: Normal mood and affect.
CXR: Moderate left pleural effusion. Progressed. Small right pleural effusion. Stable.
SOB:
-s/p bioprosthetic MVR, bioprosthetic AVR, and TV banding at [facility] on 05/26/24. She had post-operative A.fib and was started on Amiodarone 400 BID for 5 days followed by Amiodarone 200 mg daily (she is currently taking), Lasix 40 mg PO daily for
a week (up until 06/09/24), and Coumadin for a total of 3 months post-operatively.
-CXR with B/L pleural effusions
-cont IV Lasix
-daily wts, I/Os
-check echo
-cardiology following
-interrogate PPM
Post-op Afib:
-cont Amio
-holding coumadin with supratherapeutic INR
Other problems:
Hypokalemia, resolved
h/o CAD s/p CABG: cont Zetia
History of Hodgkin's disease s/p splenectomy
Depression: Continue Wellbutrin
Hyperlipidemia: cont Zetia
GERD: Continue Protonix
Hypothyroidism: Continue Synthroid
FULL
Anticipated Discharge: Within 24 hours
Subjective/Interval History
-
Date of Service: June 13, 2024
No new complaints.
Objective Data
-
Labs:
Laboratory Results
06/13/24
03:15
WBC 8.1
Hgb 10.4 L
Hct 30.3 L
Plt Count 534 H
PT 38.3 H
INR 3.90
Sodium 136
Potassium 3.6
Chloride 95 L
Carbon Dioxide 27
BUN 31 H
Creatinine 1.0
Glucose 108 H
Calcium 9.3
Vital Signs:
Vital Signs
Temp Pulse Resp BP Pulse Ox
98.4 F 50 16 114/64 100
06/13/24 07:25 06/13/24 07:58 06/13/24 07:25 06/13/24 07:58 06/13/24 07:25
I&O
06/12/24 06/13/24 06/14/24
06:59 06:59 06:59
Intake Total 240 / 240 240 / 240
Output Total 200 / 200 750 / 750
Balance 40 / 40 -510 / -510
--- NOTE | 2024-06-13 09:13 | PTCARENOTE ---
Rec'd pt at change of shift. Pt on TELE monitor in AV paced rhythm with VSS and AAO*3. Pt denied any pain or discomfort ambulating unit without any assistance. Pt scheduled for bedside echo today and sitting at bedside for breakfast with call
farah in reach.
[2024-06-13] MEDS: PACERONE 200 MG PO (10:29)
--- NOTE | 2024-06-13 11:27 | W.PN.CD ---
Today's Communication / Plan
-
Resume warfarin tonight if right groin wont need intervention
Right groin drainage, concern for seroma with tract to skin => may need intervention, start with groin u/s, vascular surgery would be service I consult if needed
Pacer interrogation, see if we can promote AV synchrony, check AV conduction
Impression / Plan
-
Backgroud: 63F with moderate/severe aortic stenosis and aortic regurgitation, moderate mitral regurgitation, mild mitral stenosis, moderate to severe tricuspid regurgitation, first-degree AV block, sinus tachycardia, dyslipidemia, stage Ia Hodgkin's
lymphoma status post extensive radiation (Mantle therapy with splenectomy) and hypothyroidism who underwent bioprosthetic mitral valve replacement, bioprosthetic aortic valve replacement, and tricuspid valvuloplasty with prosthetic ring on 05/16/[address] Prabhakar at [facility] in [place]. She had a course of postoperative atrial fibrillation and was placed on amiodarone. She also underwent a Medtronic leadless pacemaker. She is currently wearing a [employer] monitor. She is on warfarin and has
had elevated INRs. CXR a few days ago showed small to moderate bilateral pleural effusion. Her shortness of breath persisted and she presented to the emergency department. Rm Humza
Heart failure, presumed HFpEF, acute
-Continue Diuresis with furosemide 40 mg IV twice daily
-Case management to clifford SGLT2
-Trend daily weight, I/O, BMP with diuresis
-Heart failure education
Right groin with serous drainage from venous site for micra implant
Pleural effusion, left >right
-Suspect diuresis will be adequate
S/p Bio MVR/AVR, and TV repair with ring by Dr. Prabhakar at [facility] (05/26/2024)
- Plan has been 30 days of ASA and nursing home warfarin
- She will check with surgeon if Eliquis option after 3 months
Paroxysmal atrial fibrillation
- I see PAF on tele
- I see some sinus complexes, some AV conduction, but mostly V paced at 50
Bradycardia
- Mostly V paced at 50 bpm with VVIR noted with activity
- I don't see AV synchrony
- MDT Micra to be interrogated
Abnormal coagulation profile,
-INR at admission was 6.69- today 4.9
-No abnormal bleeding
-She will need daily INRs while in the inpatient setting
Abnormal troponin, nonischemic myocardial injury in the setting of recent cardiac surgery and pacemaker placement
Stage Ia Hodgkin's lymphoma status post extensive radiation without chemotherapy (1981)
Anemia, likely postoperative, per primary service
Subjective:
Feeling better today
Physical Exam
Vital Signs/Labs
Vital Signs
Temp Pulse Resp BP Pulse Ox
98.3 F 50 16 111/49 97
06/13/24 10:26 06/13/24 10:29 06/13/24 10:26 06/13/24 10:29 06/13/24 10:26
06/12/24 06/13/24 06/14/24
06:59 06:59 06:59
Actual Weight 52.4 kg 52.3 kg
06/13/24 03:15
06/13/24 03:15
PT 38.3 Sec (11.4-14.6) H 06/13/24 03:15
INR 3.90 06/13/24 03:15
APTT Cancelled 06/10/24 13:25
TSH 12.80 uIU/ml (0.47-4.68) H 06/10/24 13:35
06/10/24 06/10/24
13:35 14:05
Eee-K-Wlobinkqytk Pept 1880 Cancelled
LAB Results
06/10/24 06/10/24
13:35 16:50
Troponin I 0.174 H* 0.154 H*
Physical Exam
Constitutional: No acute distress
EENT: Anicteric
Cardiovascular: Rhythm & rate is regular and Pedal edema is absent
Respiratory: Respiratory effort normal and Lungs clear to auscul. (decreased at both bases)
GI: Soft and Distention absent
Neuro/Psych: AO x 3
Data Reviewed
-
Date of Service: June 13, 2024
[2024-06-13] MEDS: NON-FORMULARY ITEM 1 UNIT PO (11:57)
--- NOTE | 2024-06-13 13:41 | PTCARENOTE ---
Pt with US of groin and echo complete. Pt resting comfortably in bed with call farah in reach and sister at bedside.
--- NOTE | 2024-06-13 14:45 | CM ---
Reviewed chart. Ms. Burt was transferred to IVU. Met withh Mrs. Burt and her sister to review discharge plans. She states prior to admission she resides alone in a two story home with one step to enter. Her sister is currently staying
with her. She states she has a full flight of steps to get to bedroom/full bathroom. She states she has a powder room on the first floor. She states prior to admission she was independent with ambulation and adls. She states she does not have any
DME in the home. She states she has a prescription plan and uses [facility]. She states she is current with [facility] for R.N. and P.T. She states she is planning on coming to the hospital for her INR blood work. She will need a
script for blood work. Dr. Ching Office managing her INR's. Medial work-up in progress. The discharge plan is to return home with her sister and resumption of [facility] when medically stable.
[2024-06-13] MEDS: DULCOLAX 10 MG PO (18:34)
[2024-06-13] MEDS: ZETIA 10 MG PO (20:59)
[2024-06-13] MEDS: LIDOCAINE 4% PATCH 1 PATCH TOPICAL (22:58)
[2024-06-13] MEDS: XANAX 0.125 MG PO (23:00)
--- NOTE | 2024-06-13 23:59 | PTCARENOTE ---
Received patient at change of shift. Patient awake, alert, and oriented in bed. Right groin dressing clean, dry, and intact. No ecchymosis, tenderness, or pain. Permanent pacemaker in place. Sternum incision open to air. BP 117/64, 60 V-paced, and
98% on room air. Discussed plan of care. Patient verbalized understanding. Call farah within reach.
[2024-06-14 03:49] VITALS: BP 117/61
[2024-06-14 03:57] VITALS: BMI 20.5
[2024-06-14 04:03] LABS: Hematocrit 29.5 % (37.0-47.0); Mean Corp Hgb Conc. 33.9 g/dL (33.0-37.0); Mean Corpuscular Hgb 30.1 pg (27.0-31.0); Mean Corpuscular Volume 88.9 fL (81.0-99.0); Mean Platelet Volume 8.9 fL (7.4-10.4); Platelet Count 479 10^3/uL (130-400); Red Blood Cell Count 3.32 10^6/uL (4.20-5.40); Red Cell Dist. Width 13.9 % (11.5-14.5); White Blood Cell Count 9.7 10^3/uL (4.8-10.8)
[2024-06-14 04:25] LABS: INR 3.31; PT 33.6 Sec (11.4-14.6)
[2024-06-14 04:29] LABS: Blood Urea Nitrogen 28 mg/dl (7-17); Carbon Dioxide 28 mmol/L (22-30); Chloride 97 mmol/L (98-107); Estimated Creatinine Clearance 54 ml/min; Glucose 102 mg/dl (70-99); Potassium 3.9 mmol/L (3.5-5.1); Sodium 136 mmol/L (135-145); eGFR > 60.00
[2024-06-14] MEDS: SYNTHROID 75 MCG PO (07:17)
--- NOTE | 2024-06-14 07:45 | W.PN.HOSP.TC ---
Addendum entered and electronically signed by Tyler Gomez MD 06/14/24 09:28:
Correction: Will d/c on coumadin 1.5mg HS starting 06/15/24PM
Original Note:
Today's Communication/Plan
-
d/c
Assessment / Plan
Assessment / Plan
Gen: NAD, AAOx3.
Eyes: EOMI, PERRLA, no scleral icterus.
Neck: supple.
CV: RRR, +S1/S2, no m/r/g.
Resp: decreased BS in the bases
Abd: +BS, soft, NT, ND
Skin: No rashes. No lower extremity edema
Neuro: CN 2-12 intact, non-focal.
Psych: Normal mood and affect.
CXR: Moderate left pleural effusion. Progressed. Small right pleural effusion. Stable.
Echo: Normal left ventricular size with concentric remodeling and normal systolic
function. No regional wall motion abnormalities are seen. LV ejection fraction
is 60-65% by visual assessment. Diastolic function indeterminate.
Normal right ventricular size and systolic function.
Mild left atrial dilation.
Normal atria.
Well seated, normally functioning bioprosthetic mitral valve.
Well seated, normally functioning bioprosthetic aortic valve.
Well seated, normally functioning tricuspid valve ring with a mean gradient of
2 mmHg and mild tricuspid regurgitation.
Structurally normal pulmonic valve with severe pulmonic regurgitation.
The IVC is mildly dilated and does not demonstrate normal respiratory
variation. Right atrial pressure estimated at 12 mmHg.
Pleural effusion present. There is an isolated echolucency along the anterior
aspect of the right ventricular free wall (seen in the subcostal view) which
appears to be an isolated pericardial effusion, less likely hepatic cyst.
Compared to prior study of 10/20/2023, the aortic and mitral valves have been
replaced. A tricuspid valve ring has placed with improvement of tricuspid
regurgitation. PThe IVC is now dilated with decreased inspiratory variation.
Right atrial pressure is now estimated at 12 mmHg compared to 3 mmHg on prior
study.
SOB:
-s/p bioprosthetic MVR, bioprosthetic AVR, and TV banding at [facility] on 05/26/24. She had post-operative A.fib and was started on Amiodarone 400 BID for 5 days followed by Amiodarone 200 mg daily (she is currently taking), Lasix 40 mg PO daily for
a week (up until 06/09/24), and Coumadin for a total of 3 months post-operatively.
-CXR with B/L pleural effusions
-echo above
-was on IV Lasix, transition to Lasix 60mg PO daily on d/c
-daily wts, I/Os
-cardiology following, discussed with Dr. Guerra today
-PPM programmed VVI 50 (unable to see atrial activity) so AV synchrony not possible. Underlying complete HB Noted. Device reprogrammed to VVIR 60-130.
Post-op Afib:
-cont Amio
-coumadin was on hold with supratherapeutic INR
-restart coumadin tomorrow at 2mg HS with repeat INR in 3 days
Other problems:
Hypokalemia, resolved
h/o CAD s/p CABG: cont Zetia
History of Hodgkin's disease s/p splenectomy
Depression: Continue Wellbutrin
Hyperlipidemia: cont Zetia
GERD: Continue Protonix
Hypothyroidism: Continue Synthroid
FULL
Total time spent on d/c = 38 min. This included today's physical exam, progress note, review of laboratory and diagnostic data, preparation of discharge documents and prescriptions, and discussions about the pt's hospital course and discharge plan
with the patient and other medical technologist microbiology involved in the patient's care.
Anticipated Discharge: Today
Subjective/Interval History
-
Date of Service: June 14, 2024
No new complaints.
Objective Data
-
Labs:
Laboratory Results
06/14/24
03:53
WBC 9.7
Hgb 10.0 L
Hct 29.5 L
Plt Count 479 H
PT 33.6 H
INR 3.31
Sodium 136
Potassium 3.9
Chloride 97 L
Carbon Dioxide 28
BUN 28 H
Creatinine 0.9
Glucose 102 H
Calcium 9.0
Vital Signs:
Vital Signs
Temp Pulse Resp BP Pulse Ox
98.2 F 60 16 117/61 98
06/14/24 03:48 06/14/24 06:00 06/14/24 03:48 06/14/24 03:49 06/14/24 03:48
I&O
06/13/24 06/14/24 06/15/24
06:59 06:59 06:59
Intake Total 240 / 240
Output Total 750 / 750
Balance -510 / -510
[2024-06-14 07:47] VITALS: BP 106/56
[2024-06-14] MEDS: SENOKOT-S 1 TABLET PO (08:31)
[2024-06-14] MEDS: PROTONIX 40 MG PO (08:31)
[2024-06-14] MEDS: LASIX 40 MG IV (08:31)
[2024-06-14] MEDS: MIRALAX 17 GRAMS PO (08:32)
[2024-06-14] MEDS: NON-FORMULARY ITEM 1 UNIT PO (08:32)
--- NOTE | 2024-06-14 09:47 | PTCARENOTE ---
Addendum entered by Josias Pink RN 06/14/24 09:49:
Rec'd pt at change of shift on TELE monitor in VPaced rhythm with VSS and AAO*3. Pt reported feeling of constipation. Miralax given per order. Pt denied any other pain or discomfort. Discussed discharge plan with patient and waiting for discharge
order. Pt resting at bed side with call farah in reach.
Original Note:
Rec'd pt at change of shift on TELE monitor in NSR with VSS and AAO*3. Pt reported feeling of constipation. Miralax given per order. Pt denied any other pain or discomfort. Discussed discharge plan with patient and waiting for discharge order.
Pt resting at bed side with call farah in reach.
--- NOTE | 2024-06-14 09:50 | PTCARENOTE ---
Rec'd pt at change of shift on TELE monitor in VPaced rhythm with VSS and AAO*3. Pt reported feeling of constipation. Miralax given per order. Pt denied any other pain or discomfort. Discussed discharge plan with patient and waiting for discharge
order. Pt resting at bed side with call farah in reach.
--- NOTE | 2024-06-14 10:12 | W.PN.CD ---
Today's Communication / Plan
-
OK for home on Lasix 60 mg PO daily
[place] will see pt as planned
Resume warfarin at lower dose
when further recovered from open heart surgery standard GDMT for HFpEF will be pursued by Dr. Ching
Impression / Plan
-
Backgroud: 63F with moderate/severe aortic stenosis and aortic regurgitation, moderate mitral regurgitation, mild mitral stenosis, moderate to severe tricuspid regurgitation, first-degree AV block, sinus tachycardia, dyslipidemia, stage Ia Hodgkin's
lymphoma status post extensive radiation (Mantle therapy with splenectomy) and hypothyroidism who underwent bioprosthetic mitral valve replacement, bioprosthetic aortic valve replacement, and tricuspid valvuloplasty with prosthetic ring on 05/16/[address] Prabhakar at [place] in [place]. She had a course of postoperative atrial fibrillation and was placed on amiodarone. She also underwent a Medtronic leadless pacemaker. She is currently wearing a AutoNaviO monitor. She is on warfarin and has
had elevated INRs. CXR a few days ago showed small to moderate bilateral pleural effusion. Her shortness of breath persisted and she presented to the emergency department. Rm Ching
Heart failure, presumed HFpEF, acute
-Continue Diuresis with furosemide 40 mg IV twice daily
-Case management to clifford SGLT2
-Trend daily weight, I/O, BMP with diuresis
-Heart failure education
Right groin with serous drainage from venous site for micra implant
- Ultrasound negative
- Drainage seems to be improving
- Pt aware if does not resolve in 5-10 days that more imaging will need to be pursued
Pleural effusion, left >right
-Suspect diuresis will be adequate
S/p Bio MVR/AVR, and TV repair with ring by Dr. Prabhakar at [facility] (05/26/2024)
- Plan has been 30 days of ASA and senior care warfarin
- She will check with surgeon if Eliquis option after 3 months
Paroxysmal atrial fibrillation
- I see PAF on tele but now mostly SINUS but COMPLETE heart block
- I see some sinus complexes, some AV conduction, but mostly V paced at 50
Bradycardia
- Mostly V paced
- Pacer interrogation by MDT:
- Rhythm sinus with complete heart block and V paced at 30 bpm
- Device doesn't see atrial activity so AV synchrony cannot be activated
- Pacer was reprogrammed: VVIR 60-130 bpm
Abnormal coagulation profile,
- For warfarin
- No abnormal bleeding
- She will need daily INRs while in the inpatient setting
Abnormal troponin, nonischemic myocardial injury in the setting of recent cardiac surgery and pacemaker placement
Stage Ia Hodgkin's lymphoma status post extensive radiation without chemotherapy (1981)
Anemia, likely postoperative, per primary service
Subjective:
Feeling better today
Physical Exam
Vital Signs/Labs
Vital Signs
Temp Pulse Resp BP Pulse Ox
98.0 F 61 18 106/56 98
06/14/24 07:45 06/14/24 08:31 06/14/24 07:45 06/14/24 08:31 06/14/24 09:15
06/13/24 06/14/24 06/15/24
06:59 06:59 06:59
Actual Weight 52.3 kg 52.5 kg
06/14/24 03:53
06/14/24 03:53
PT 33.6 Sec (11.4-14.6) H 06/14/24 03:53
INR 3.31 06/14/24 03:53
APTT Cancelled 06/10/24 13:25
TSH 12.80 uIU/ml (0.47-4.68) H 06/10/24 13:35
06/10/24 06/10/24
13:35 14:05
Ysf-S-Vcbktlqwwza Pept 1880 Cancelled
Physical Exam
Constitutional: No acute distress
EENT: Anicteric
Cardiovascular: Rhythm & rate is regular and Pedal edema is absent
Respiratory: Respiratory effort normal and Lungs clear to auscul. (diminished at bases)
GI: Soft and Distention absent
Neuro/Psych: AO x 3
Data Reviewed
-
Date of Service: June 14, 2024
[2024-06-14] MEDS: PACERONE PO (11:12)
--- NOTE | 2024-06-14 11:12 | PTCARENOTE ---
discussed at length concerning amiodarone and that Dr. uGerra would like her to continue until follow up appointment with Dr. Santos. patient understanding but refused to take the po amiodarone today.
[2024-06-14 11:13] VITALS: BP 116/72
--- NOTE | 2024-06-14 11:29 | W.DCSUMMARY ---
Discharge Summary
Discharge Data
Date of Admission: 06/10/24
Date of Discharge: 06/14/24
-
Pending Results: No
Hospital Course
Primary diagnoses:
Acute on chronic heart failure with preserved ejection fraction
Secondary diagnoses:
Bioprosthetic mitral valve and aortic valve replacements and tricuspid valve banding at [facility] on 05/26/24
Hypokalemia
h/o coronary artery disease s/p coronary artery bypass graft
History of Hodgkin's disease s/p splenectomy
Depression
Hyperlipidemia
Gastroesophageal reflux disease
Hypothyroidism
Consultants:
Cardiology
Imaging:
CXR: Moderate left pleural effusion. Progressed. Small right pleural effusion. Stable.
Echo: Normal left ventricular size with concentric remodeling and normal systolic
function. No regional wall motion abnormalities are seen. LV ejection fraction
is 60-65% by visual assessment. Diastolic function indeterminate.
Normal right ventricular size and systolic function.
Mild left atrial dilation.
Normal atria.
Well seated, normally functioning bioprosthetic mitral valve.
Well seated, normally functioning bioprosthetic aortic valve.
Well seated, normally functioning tricuspid valve ring with a mean gradient of
2 mmHg and mild tricuspid regurgitation.
Structurally normal pulmonic valve with severe pulmonic regurgitation.
The IVC is mildly dilated and does not demonstrate normal respiratory
variation. Right atrial pressure estimated at 12 mmHg.
Pleural effusion present. There is an isolated echolucency along the anterior
aspect of the right ventricular free wall (seen in the subcostal view) which
appears to be an isolated pericardial effusion, less likely hepatic cyst.
Compared to prior study of 10/20/2023, the aortic and mitral valves have been
replaced. A tricuspid valve ring has placed with improvement of tricuspid
regurgitation. PThe IVC is now dilated with decreased inspiratory variation.
Right atrial pressure is now estimated at 12 mmHg compared to 3 mmHg on prior
study.
R groin U/S: No evidence of pseudoaneurysm, seroma or hematoma within the right groin. The visualized portions of the right femoral artery and vein are patent. Mildly prominent right inguinal lymph nodes which may be reactive.
Hospital course: 61-year-old female who presented with chief complaint of dyspnea on exertion as on an H&P done on admission. Chest x-ray above and notable for pleural effusions. The patient recently underwent bioprosthetic MVR, bioprosthetic AVR,
and TV banding at [facility] on 05/26/24. She had post-operative A.fib and was started on Amiodarone 400 BID for 5 days followed by Amiodarone 200 mg daily, Lasix 40 mg PO daily for a week (up until 06/09/24), and Coumadin for a total of 3 months
post-operatively. Patient was diuresed with IV Lasix. Her symptoms improved. She was seen in consultation by cardiology. Her pacemaker was interrogated and had been programmed VVI 50 (unable to see atrial activity) so AV synchrony not possible.
Underlying complete heart block noted. Her device was reprogrammed to VVIR 60-130. Patient was discharged on Lasix 60mg daily in medically stable condition
Post-op Afib: Patient's amiodarone was continued. Her Coumadin was held with a supratherapeutic INR. Her INR trended down. She will restart Coumadin on the evening of November 14, 2023 at 1.5mg dosing.
Discharge Plan
-
Patient Disposition: Home (Routine Discharge)
Discharge Diagnosis/Procedures: Acute on chronic heart failure with preserved ejection fraction
Condition: Good
Diet: Low Cholesterol, Low Sodium and Restrict fluids to 48 oz
Additional Diets: fluid restrict to 1200cc/day
Activity: As tolerated
Driving Restrictions: As prior to admission
Blood Work: INR and BMP in 3 days, script from PCP
Specialty Instructions: Weigh Daily- Call MD for wt gain/loss 3 lbs overnight/5 lbs in 1 week
Activity Restrictions/Additional Instructions:
Start coumadin 10//24PM
Referrals:
[facility]Visiting Nurse [Outside]
Gopal,Kristi, SNATH HANDLE ASSEMBLER [Specified Professional Personl] - 06/28/24 9:20 am
Kate Jade MD [Family Provider] - in less than 1 week
Prescriptions:
New
furosemide [Lasix] 20 mg tablet
60 mg PO DAILY Qty: 90 0RF
warfarin 1 mg tablet
1.5 mg PO DAILY Qty: 90 0RF
Continued
levothyroxine [Synthroid] 75 mcg Tablet
75 mcg PO DAILY@0600
bupropion HCl 150 MG tablet extended release 24 hr
150 mg PO DAILY
amiodarone 200 mg tablet
200 mg PO DAILY@1000
docusate sodium 50 mg Capsule
50 mg PO DAILY
aspirin 81 mg Tablet,Delayed Release (Dr/Ec)
81 mg PO Q48H
pantoprazole 40 mg tablet,delayed release (DR/EC)
40 mg PO DAILY
ezetimibe 10 mg tablet
10 mg PO DAILY@2100
Xanax
0.125 mg PO HS
Discontinued
furosemide 40 mg tablet
40 mg PO QPM
warfarin 3 mg tablet
3 mg PO QPM
Patient Comments:
06/10/2024: On hold currently
Discharge Orders:
Discharge Patient (As Directed); Ordered 06/14/24
Ordered By: Tyler Gomez
Care Plan Goals
Care Plan Goals:
Problem: Readiness for enhanced knowledge related to diagnosis and treatment plan
Goal: Understand your diagnosis and treatment plan needs, including medications if applicable.
Instructions: Know your diagnosis, underlying causes and treatment plan options, including medications if applicable. Consult with your health care team to learn about your diagnosis and treatment plan, including medications if applicable.
Discharge Date and Time
Print Language: YI
--- NOTE | 2024-06-14 12:21 | PTCARENOTE ---
Addendum entered by Sharon Armenta RN 06/14/24 13:08:
D/C to home via wc accompanied by vol. services.
Original Note:
D/C instructions given to patient, verbalizes understanding. INT D/C'd, telemetry D/C'd. personal belongings packed and will be sent home with patient. right groin continues to drain, new dsg. applied. D/C faxed to [facility] by loading unit operator seating. patient
is waiting for sister.
== END 2024-06-14 12:38 | disposition home health service (06) ==
LOC: IVU 19:19
PROVIDERS: Clinical Nurse Specialist Family Health; ADMITTING PHYSICIAN Internal Medicine; ATTENDING PHYSICIAN Internal Medicine; EMERGENCY PHYSICIAN Emergency Medicine; FAMILY PHYSICIAN Internal Medicine
DX: I50.33 Acute on chronic diastolic (congestive) heart failure (principal); I97.190 Other postprocedural cardiac functional disturbances following cardiac surgery; R06.02 Shortness of breath; R06.09 Other forms of dyspnea; J90 Pleural effusion, not elsewhere classified; K59.09 Other constipation; I44.2 Atrioventricular block, complete; I5A Non-ischemic myocardial injury (non-traumatic); F32.A Depression, unspecified; E03.9 Hypothyroidism, unspecified; E78.5 Hyperlipidemia, unspecified; E87.6 Hypokalemia; R79.1 Abnormal coagulation profile; I37.1 Nonrheumatic pulmonary valve insufficiency; I48.0 Paroxysmal atrial fibrillation; R00.1 Bradycardia, unspecified; I25.10 Atherosclerotic heart disease of native coronary artery without angina pectoris; K21.9 Gastro-esophageal reflux disease without esophagitis; D64.9 Anemia, unspecified; Z88.1 Allergy status to other antibiotic agents; Z90.81 Acquired absence of spleen; Z95.3 Presence of xenogenic heart valve; Z79.01 Long term (current) use of anticoagulants; Z88.2 Allergy status to sulfonamides; Z88.3 Allergy status to other anti-infective agents; Z91.048 Other nonmedicinal substance allergy status; Z79.890 Hormone replacement therapy; Z79.82 Long term (current) use of aspirin; Z85.71 Personal history of Hodgkin lymphoma; Z95.1 Presence of aortocoronary bypass graft; Z60.2 Problems related to living alone
CPT/HCPCS: 93280; 36415; 71046; 80048; 80053; 83880; 84443; 84484; 85025; 85027; 85610; 93005; 93306; 93926; 96374; 97162; 99285; G0378

== ENCOUNTER → 2024-06-17 10:38 | Outpatient (REF) | payer OTHER, SELFPAY ==
[2024-06-17 11:39] LABS: PT 21.7 Sec (11.4-14.6)
== END ==
LOC: REG 10:38
PROVIDERS: ATTENDING PHYSICIAN Internal Medicine; FAMILY PHYSICIAN Internal Medicine
DX: I48.0 Paroxysmal atrial fibrillation (principal)
CPT/HCPCS: 36415; 85610

== ENCOUNTER → 2024-06-20 09:29 | Outpatient (REF) | payer OTHER, SELFPAY ==
[2024-06-20 10:21] LABS: INR 2.36; PT 25.7 Sec (11.4-14.6)
[2024-06-20 10:52] LABS: Blood Urea Nitrogen 20 mg/dl (7-17); Calcium 9.3 mg/dl (8.4-10.2); Carbon Dioxide 31 mmol/L (22-30); Chloride 98 mmol/L (98-107); Glucose 100 mg/dl (70-99); Potassium 4.1 mmol/L (3.5-5.1); Sodium 140 mmol/L (135-145); eGFR > 60.00
== END ==
LOC: REG 09:29
PROVIDERS: ATTENDING PHYSICIAN Internal Medicine; FAMILY PHYSICIAN Internal Medicine
DX: I50.33 Acute on chronic diastolic (congestive) heart failure (principal); I48.0 Paroxysmal atrial fibrillation; Z95.2 Presence of prosthetic heart valve
CPT/HCPCS: 36415; 80048; 85610

== ENCOUNTER → 2024-06-27 09:44 | Outpatient (REF) | payer OTHER, SELFPAY ==
[2024-06-27 10:42] LABS: INR 1.61
== END ==
LOC: REG 09:44
PROVIDERS: ATTENDING PHYSICIAN Internal Medicine; FAMILY PHYSICIAN Internal Medicine
DX: I48.0 Paroxysmal atrial fibrillation (principal); Z95.2 Presence of prosthetic heart valve
CPT/HCPCS: 36415; 85610

== ENCOUNTER → 2024-07-11 15:37 | Outpatient (REF) | payer OTHER, SELFPAY ==
[2024-07-11 16:46] LABS: % Basophils 1.7 % (0-2); % Eosinophils 3.1 % (0-6); % Immature Granulocytes 0.4 % (0-0.5); % Lymphocytes 14.6 % (20.5-51.1); % Monocytes 11.3 % (1.7-9.3); % Neutrophils 68.9 % (42.2-75.2); Absolute Basophils 0.2 10^3/uL (0-0.2); Absolute Eosinophils 0.3 10^3/uL (0-0.7); Absolute Lymphocytes 1.3 10^3/uL (1.2-3.4); Absolute Neutrophils 6.2 10^3/uL (1.4-6.5); Hematocrit 31.6 % (37.0-47.0); Mean Corp Hgb Conc. 31.6 g/dL (33.0-37.0); Mean Corpuscular Hgb 27.9 pg (27.0-31.0); Mean Platelet Volume 9.4 fL (7.4-10.4); Nucleated Red Blood Cells % 0 %; Platelet Count 512 10^3/uL (130-400); Red Blood Cell Count 3.59 10^6/uL (4.20-5.40); Red Cell Dist. Width 14.3 % (11.5-14.5)
[2024-07-11 16:47] LABS: ALT (SGPT) 26 U/L (0-35); AST (SGOT) 31 U/L (14-36); Alkaline Phosphatase 114 U/L (38-126); Blood Urea Nitrogen 31 mg/dl (7-17); Calcium 9.2 mg/dl (8.4-10.2); Carbon Dioxide 27 mmol/L (22-30); Chloride 102 mmol/L (98-107); Glucose 112 mg/dl (70-99); Sodium 142 mmol/L (135-145); Total Bilirubin 0.5 mg/dl (0.2-1.3); Total Protein 6.9 g/dl (6.3-8.2); eGFR > 60.00
== END ==
LOC: REG 15:37
PROVIDERS: ATTENDING PHYSICIAN Internal Medicine; FAMILY PHYSICIAN Internal Medicine
DX: I65.21 Occlusion and stenosis of right carotid artery (principal); Z95.2 Presence of prosthetic heart valve; Z98.890 Other specified postprocedural states
CPT/HCPCS: 36415; 71046; 80053; 85025

== ENCOUNTER → 2024-09-22 06:32 | Outpatient (REF) | payer OTHER, SELFPAY ==
[2024-09-22 07:14] LABS: % Basophils 2.4 % (0-2); % Eosinophils 3.6 % (0-6); % Immature Granulocytes 0.3 % (0-0.5); % Lymphocytes 15.2 % (20.5-51.1); % Monocytes 16.1 % (1.7-9.3); % Neutrophils 62.4 % (42.2-75.2); Absolute Basophils 0.1 10^3/uL (0-0.2); Absolute Eosinophils 0.2 10^3/uL (0-0.7); Absolute Lymphocytes 0.9 10^3/uL (1.2-3.4); Absolute Monocytes 0.9 10^3/uL (0.1-0.6); Absolute Neutrophils 3.6 10^3/uL (1.4-6.5); Hematocrit 30.9 % (37.0-47.0); Hemoglobin 9.6 g/dL (12.0-16.0); Mean Corp Hgb Conc. 31.1 g/dL (33.0-37.0); Mean Corpuscular Hgb 24.7 pg (27.0-31.0); Mean Corpuscular Volume 79.4 fL (81.0-99.0); Mean Platelet Volume 9.3 fL (7.4-10.4); Nucleated Red Blood Cells % 0 %; Platelet Count 541 10^3/uL (130-400); Red Blood Cell Count 3.89 10^6/uL (4.20-5.40); Red Cell Dist. Width 17.1 % (11.5-14.5); White Blood Cell Count 5.8 10^3/uL (4.8-10.8)
[2024-09-22 07:37] LABS: ALT (SGPT) 27 U/L (0-35); AST (SGOT) 30 U/L (14-36); Albumin 3.7 g/dl (3.5-5.0); Alkaline Phosphatase 123 U/L (38-126); Amylase 80 U/L (30-110); Blood Urea Nitrogen 22 mg/dl (7-17); Calcium 9.3 mg/dl (8.4-10.2); Carbon Dioxide 30 mmol/L (22-30); Chloride 101 mmol/L (98-107); Glucose 95 mg/dl (70-99); Lipase 73 U/L (23-300); Potassium 4.9 mmol/L (3.5-5.1); Sodium 139 mmol/L (135-145); Total Bilirubin 0.6 mg/dl (0.2-1.3); Total Protein 7.2 g/dl (6.3-8.2); eGFR > 60.00
[2024-09-23 13:25] LABS: H. pylori Breath Test Negative (Negative)
== END ==
LOC: REG 06:32
PROVIDERS: ATTENDING PHYSICIAN Nurse Practitioner Family; FAMILY PHYSICIAN Internal Medicine
DX: R14.0 Abdominal distension (gaseous) (principal); R10.84 Generalized abdominal pain
CPT/HCPCS: 36415; 80053; 82150; 83013; 83690; 85025

== ENCOUNTER → 2024-10-03 10:45 | Outpatient (REF) | payer OTHER, SELFPAY | LOC: HWRAD 10:45 | PROVIDERS: ATTENDING PHYSICIAN Nurse Practitioner Family | DX: R14.0 Abdominal distension (gaseous) (principal); R10.84 Generalized abdominal pain | CPT/HCPCS: 76700 ==

== ENCOUNTER → 2024-10-17 08:33 | Outpatient (REF) | payer OTHER, SELFPAY ==
[2024-10-17 15:24] LABS: ALT (SGPT) 39 U/L (0-35); AST (SGOT) 40 U/L (14-36); Albumin 4.2 g/dl (3.5-5.0); Alkaline Phosphatase 167 U/L (38-126); Direct Bilirubin 0.4 mg/dl (0.0-0.4); Total Bilirubin 0.9 mg/dl (0.2-1.3); Total Protein 7.9 g/dl (6.3-8.2)
== END ==
LOC: RAD 08:33
PROVIDERS: ATTENDING PHYSICIAN Nurse Practitioner Family; OTHER PHYSICIAN Internal Medicine Gastroenterology
DX: K82.8 Other specified diseases of gallbladder (principal); R10.84 Generalized abdominal pain; R10.10 Upper abdominal pain, unspecified
CPT/HCPCS: 36415; 74177; 80076; Q9967

== ENCOUNTER → 2024-10-21 13:04 | Outpatient (REF) | payer OTHER, SELFPAY | LOC: MRI 13:04 | PROVIDERS: ATTENDING PHYSICIAN Internal Medicine Gastroenterology; FAMILY PHYSICIAN Internal Medicine | DX: K80.00 Calculus of gallbladder with acute cholecystitis without obstruction (principal); R79.9 Abnormal finding of blood chemistry, unspecified; R10.10 Upper abdominal pain, unspecified | CPT/HCPCS: 74183; A9585 ==

== ENCOUNTER → 2024-11-07 13:12 | Outpatient (REF) | payer OTHER, SELFPAY ==
[2024-11-07 13:48] LABS: % Basophils 0.2 % (0-2); % Eosinophils 3.4 % (0-6); % Immature Granulocytes 0.4 % (0-0.5); % Lymphocytes 8.7 % (20.5-51.1); % Monocytes 19.9 % (1.7-9.3); % Neutrophils 67.4 % (42.2-75.2); Absolute Eosinophils 0.2 10^3/uL (0-0.7); Absolute Lymphocytes 0.4 10^3/uL (1.2-3.4); Absolute Neutrophils 3.4 10^3/uL (1.4-6.5); Hematocrit 36.5 % (37.0-47.0); Hemoglobin 11.6 g/dL (12.0-16.0); Mean Corp Hgb Conc. 31.8 g/dL (33.0-37.0); Mean Corpuscular Hgb 26.2 pg (27.0-31.0); Mean Corpuscular Volume 82.6 fL (81.0-99.0); Mean Platelet Volume 9.7 fL (7.4-10.4); Nucleated Red Blood Cells % 0 %; Platelet Count 456 10^3/uL (130-400); Red Blood Cell Count 4.42 10^6/uL (4.20-5.40); Red Cell Dist. Width 20.2 % (11.5-14.5)
[2024-11-07 14:56] LABS: ALT (SGPT) 34 U/L (0-35); AST (SGOT) 38 U/L (14-36); Albumin 3.9 g/dl (3.5-5.0); Alkaline Phosphatase 209 U/L (38-126); Blood Urea Nitrogen 21 mg/dl (7-17); Calcium 9.8 mg/dl (8.4-10.2); Carbon Dioxide 32 mmol/L (22-30); Chloride 100 mmol/L (98-107); Glucose 95 mg/dl (70-99); Iron 51 ug/dl (37-170); Potassium 4.8 mmol/L (3.5-5.1); Sodium 140 mmol/L (135-145); Total Bilirubin 0.8 mg/dl (0.2-1.3); Total Protein 8.1 g/dl (6.3-8.2); eGFR > 60.00
[2024-11-07 15:06] LABS: Percent Saturation 14 % (20-50); Total Iron Binding Capacity 358 ug/dl (265-497)
[2024-11-07 15:13] LABS: Vitamin D, 25-OH*** 24.8 ng/mL (30-80)
[2024-11-07 15:27] LABS: TSH Reflex To Free T4 1.57 uIU/ml (0.47-4.68)
[2024-11-07 15:31] LABS: Ferritin 67.7 ng/ml (11.1-264.0)
[2024-11-07 15:46] LABS: Vitamin B12 616 pg/ml (239-931)
== END ==
LOC: REG 13:12
PROVIDERS: ATTENDING PHYSICIAN Nurse Practitioner Family
DX: D50.8 Other iron deficiency anemias (principal); R79.89 Other specified abnormal findings of blood chemistry; R06.02 Shortness of breath; F41.1 Generalized anxiety disorder; I48.0 Paroxysmal atrial fibrillation; Z95.2 Presence of prosthetic heart valve; F51.01 Primary insomnia; E55.9 Vitamin D deficiency, unspecified; E53.8 Deficiency of other specified B group vitamins
CPT/HCPCS: 36415; 80053; 82306; 82607; 82728; 83540; 83550; 84443; 85025

== ENCOUNTER 2024-11-10 16:15 | Outpatient (RCR) | payer OTHER, SELFPAY | END 2024-11-11 10:18 | disposition home or self-care (01) | LOC: PURB 16:15 | PROVIDERS: ATTENDING PHYSICIAN Internal Medicine Critical Care Medicine; FAMILY PHYSICIAN Internal Medicine | DX: J98.4 Other disorders of lung (principal); R06.09 Other forms of dyspnea; R06.89 Other abnormalities of breathing | CPT/HCPCS: G0237; G0239 ==

== ENCOUNTER → 2024-11-22 08:38 | Outpatient (REF) | payer OTHER, SELFPAY ==
[2024-11-22 09:54] LABS: Hemoglobin 10.3 g/dL (12.0-16.0)
[2024-11-22 10:59] LABS: ALT (SGPT) 41 U/L (0-35); AST (SGOT) 41 U/L (14-36); Albumin 3.6 g/dl (3.5-5.0); Alkaline Phosphatase 161 U/L (38-126); Direct Bilirubin 0.2 mg/dl (0.0-0.4); GGTP 169 U/L (12-43); Total Bilirubin 0.6 mg/dl (0.2-1.3); Total Protein 7.5 g/dl (6.3-8.2)
[2024-11-22 11:15] LABS: Hepatitis B Surface Antigen Negative (Negative)
[2024-11-22 11:32] LABS: Hepatitis B Surface Antibody Negative; Hepatitis C Antibody Negative (Negative)
[2024-11-22 11:52] LABS: Folate 13.7 ng/ml (2.76-20); Vitamin B12 497 pg/ml (239-931)
[2024-11-23 10:15] LABS: Alk Phos Bone Specific Results 13.4 ug/L
[2024-11-23 14:10] LABS: tTG IgA Antibody <1.02 FLU (0.00-4.99)
[2024-11-23 16:32] LABS: Ceruloplasmin 44 mg/dL (16-45)
[2024-11-23 16:48] LABS: Endomysial IgA Antibody Titer <1:10 (<1:10)
[2024-11-23 18:20] LABS: Vitamin D 1,25 Dihydroxy 49.3 pg/mL (19.9-79.3)
[2024-11-23 23:43] LABS: IgA 165 mg/dl (70-400)
[2024-11-24 14:41] LABS: F-Actin Antibody IgG 28 Units (0-19); Mitochondrial M2 Ab, IgG 4.3 Units (0.0-24.9)
== END ==
LOC: REG 08:38
PROVIDERS: ATTENDING PHYSICIAN Internal Medicine Gastroenterology; FAMILY PHYSICIAN Internal Medicine
DX: R79.89 Other specified abnormal findings of blood chemistry (principal); D64.9 Anemia, unspecified
CPT/HCPCS: 36415; 80076; 82103; 82104; 82390; 82607; 82652; 82746; 82784; 82977; 83516; 84075; 85018; 86015; 86231; 86381; 86706; 86803; 87340

== ENCOUNTER → 2024-11-25 16:41 | Outpatient (REF) | payer OTHER, SELFPAY | LOC: REG 16:41 | PROVIDERS: ATTENDING PHYSICIAN Internal Medicine Gastroenterology; FAMILY PHYSICIAN Internal Medicine | DX: D64.9 Anemia, unspecified (principal) | CPT/HCPCS: 82270 ==

== ENCOUNTER 2024-12-01 06:23 | Day surgery (SDC) | payer OTHER, SELFPAY | END 2024-12-01 11:16 | disposition home or self-care (01) | LOC: GI 06:23 | PROVIDERS: ATTENDING PHYSICIAN Internal Medicine Gastroenterology | DX: K22.89 Other specified disease of esophagus (principal); R10.10 Upper abdominal pain, unspecified; K44.9 Diaphragmatic hernia without obstruction or gangrene | CPT/HCPCS: 43239; 88305; 88342 ==

== ENCOUNTER 2024-12-06 16:15 | Outpatient (RCR) | payer OTHER, SELFPAY | END 2024-12-12 09:22 | disposition home or self-care (01) | LOC: PURB 16:15 | PROVIDERS: ATTENDING PHYSICIAN Internal Medicine Critical Care Medicine; FAMILY PHYSICIAN Internal Medicine | DX: J98.4 Other disorders of lung (principal); R06.09 Other forms of dyspnea; R06.89 Other abnormalities of breathing | CPT/HCPCS: G0239 ==

== ENCOUNTER → 2024-12-08 13:18 | Outpatient (REF) | payer OTHER, SELFPAY ==
[2024-12-08 14:48] LABS: ALT (SGPT) 51 U/L (0-35); AST (SGOT) 46 U/L (14-36); Albumin 4.3 g/dl (3.5-5.0); Alkaline Phosphatase 174 U/L (38-126); Direct Bilirubin 0.3 mg/dl (0.0-0.4); Total Bilirubin 0.8 mg/dl (0.2-1.3); Total Protein 8.4 g/dl (6.3-8.2)
[2024-12-08 14:56] LABS: IgA 174 mg/dl (70-400); IgM 187 mg/dl (40-230)
[2024-12-08 15:15] LABS: IgG 2868 mg/dl (700-1600)
[2024-12-10 20:59] LABS: IgE 10 kU/L (<=214)
== END ==
LOC: REG 13:18
PROVIDERS: ATTENDING PHYSICIAN Internal Medicine Gastroenterology; FAMILY PHYSICIAN Internal Medicine
DX: R79.89 Other specified abnormal findings of blood chemistry (principal)
CPT/HCPCS: 36415; 80076; 82784; 82785

== ENCOUNTER → 2024-12-21 12:27 | Outpatient (REF) | payer OTHER, SELFPAY | LOC: RAD 12:27 | PROVIDERS: ATTENDING PHYSICIAN Internal Medicine Critical Care Medicine; FAMILY PHYSICIAN Internal Medicine | DX: R06.02 Shortness of breath (principal) | CPT/HCPCS: 71046 ==

== ENCOUNTER 2024-12-29 16:15 | Outpatient (RCR) | payer OTHER, SELFPAY | END 2025-01-11 11:09 | disposition home or self-care (01) | LOC: PURB 16:15 | PROVIDERS: ATTENDING PHYSICIAN Internal Medicine Critical Care Medicine; FAMILY PHYSICIAN Internal Medicine | DX: J98.4 Other disorders of lung (principal); R06.09 Other forms of dyspnea; R06.89 Other abnormalities of breathing | CPT/HCPCS: G0239 ==

== ENCOUNTER → 2025-01-09 10:57 | Outpatient (REF) | payer OTHER, SELFPAY | LOC: RAD 10:57 | PROVIDERS: ATTENDING PHYSICIAN Internal Medicine Gastroenterology; FAMILY PHYSICIAN Internal Medicine | DX: R10.10 Upper abdominal pain, unspecified (principal) | CPT/HCPCS: 74246 ==

== ENCOUNTER 2025-03-03 21:52 | Inpatient (IN) | payer OTHER, SELFPAY ==
[2025-03-03 15:42] VITALS: BP 137/65
[2025-03-03 16:07] LABS: % Basophils 0.3 % (0-2); % Eosinophils 0.4 % (0-6); % Immature Granulocytes 0.4 % (0-0.5); % Lymphocytes 8.6 % (20.5-51.1); % Monocytes 13.1 % (1.7-9.3); % Neutrophils 77.2 % (42.2-75.2); Absolute Lymphocytes 0.6 10^3/uL (1.2-3.4); Absolute Monocytes 0.9 10^3/uL (0.1-0.6); Absolute Neutrophils 5.4 10^3/uL (1.4-6.5); Hematocrit 36.2 % (37.0-47.0); Mean Corp Hgb Conc. 33.1 g/dL (33.0-37.0); Mean Corpuscular Hgb 29.1 pg (27.0-31.0); Mean Corpuscular Volume 87.7 fL (81.0-99.0); Mean Platelet Volume 9.6 fL (7.4-10.4); Nucleated Red Blood Cells % 0 %; Platelet Count 238 10^3/uL (130-400); Red Blood Cell Count 4.13 10^6/uL (4.20-5.40); Red Cell Dist. Width 15.9 % (11.5-14.5); White Blood Cell Count 6.9 10^3/uL (4.8-10.8)
[2025-03-03 16:20] LABS: ALT (SGPT) 29 U/L (0-35); AST (SGOT) 32 U/L (14-36); Alkaline Phosphatase 167 U/L (38-126); Blood Urea Nitrogen 25 mg/dl (7-17); Calcium 8.9 mg/dl (8.4-10.2); Carbon Dioxide 34 mmol/L (22-30); Chloride 99 mmol/L (98-107); Glucose 95 mg/dl (70-99); Potassium 3.2 mmol/L (3.5-5.1); Sodium 137 mmol/L (135-145); Total Bilirubin 1.3 mg/dl (0.2-1.3); Total Protein 7.8 g/dl (6.3-8.2); eGFR > 60.00
[2025-03-03 16:27] LABS: Urine Albumin 1+ (Neg - Trace); Urine Bilirubin Negative (Negative); Urine Character Clear (Clear); Urine Color Yellow; Urine Glucose Negative (Negative); Urine Ketone Negative (Negative); Urine Leukocyte Negative (Negative); Urine Nitrite Negative (Negative); Urine Occult Blood 2+ (Negative); Urine Urobilinogen Negative (Neg - 1+)
[2025-03-03 16:30] LABS: NT-proBNP 2100 pg/ml; Troponin I < 0.012 ng/ml
[2025-03-03 18:50] VITALS: BP 127/98
[2025-03-03 18:53] VITALS: BMI 20.7
[2025-03-03 19:00] VITALS: BP 125/72
--- NOTE | 2025-03-03 20:39 | ED.GENMED ---
History of Present Illness
General
Chief Complaint: Breathing Problem
Time Seen by Provider: 03/03/25 17:11
History of Present Illness
History of Present Illness:
Note:
CHIEF COMPLAINT(S)
Dyspnea and visual disturbances.
HISTORY OF PRESENT ILLNESS
The patient is a 64-year-old female with a significant past medical history of open-heart surgery in May, which included aortic and mitral valve replacement and tricuspid valve repair. She presents with ongoing difficulty breathing since the
surgery, attributed by her to restrictive lung disease resulting from previous thoracic procedures, including thoracentesis and subsequent pleurodesis. The patient also reports a recent onset of wheezing, which prompted her to seek medical care
today as advised by her primary care physician. She describes episodic visual disturbances as a 'white haze' in her vision, which has occurred twice today and was associated with a brief episode of dizziness, though these symptoms resolved
spontaneously within seconds. She denies associated loss of vision, double vision, or worsening shortness of breath during these episodes.
ADDITIONAL HISTORY OBTAINED FROM SOURCES OTHER THAN THE PATIENT
According to the patient, her physician noted her symptoms of wheezing and advised her to visit the ER today.
CHRONIC MEDICAL CONDITIONS SIGNIFICANTLY AFFECTING CARE
Chronic conditions affecting care: Restrictive lung disease and valvular heart disease post-surgery.
PHYSICAL EXAM
- Nursing notes reviewed and vital signs reviewed.
- Heart: Regular rate with systolic and diastolic murmurs present.
- Lungs: Diminished breath sounds bilaterally, no wheezing, and no rales noted.
- Neurologic: Normal [id number] exam, pupils equal and reactive, visual reardon intact, no pronator drift, and cranial nerves intact.
PLAN
Order laboratory work and a chest X-ray today. Consider a head CT to evaluate the visual disturbances to rule out acute neurological events. Review chest X-ray in detail with the radiologist, focusing on the history of restrictive lung disease.
DIFFERENTIAL DIAGNOSIS
The Differential Diagnosis includes, in no particular order and is not limited to:
1. Restrictive lung disease exacerbation
2. Pulmonary embolism
3. Congestive heart failure exacerbation
4. Stroke or transient ischemic attack
5. Retinal detachment or occlusion
6. Anemia
7. Medication side effects
8. Anxiety-related dyspnea
9. Hyperventilation syndrome
10. Asthma exacerbation
EKG
My independent EKG interpretation is:
- Rhythm: Ventricular paced rhythm
- Heart Rate: 68 bpm
- Comparison: Grossly unchanged from previous EKG
Disposition:
SUMMARY OF ENCOUNTER
The patient, a 64-year-old female, presented with dyspnea and episodic visual disturbances characterized by a 'white haze.' Historical notes reveal a significant cardiac surgical history and restrictive lung disease. Evaluation today included
additional history from a friend, noting that the patient discontinued warfarin post-surgery and didnt resume it. Radiology findings show an old infarct on CT, concerning for her symptoms.
DISPOSITION
Admission recommended for diuresis, potassium replacement, and consultation with neurology and cardiology.
ASSESSMENT
The patient exhibits signs consistent with left heart failure and a history of paroxysmal atrial fibrillation and restrictive lung disease.
PLAN
Admit for intravenous diuretics and diuresis. Initiate cardiology and neurology consultations, evaluate CT for chronic infarct implications, and manage hypochromic anemia and pacing rhythm.
INDEPENDENT REVIEW OF LABS AND INTERPRETATION OF TESTS
My independent review of labs shows hypochromic anemia, with renal function, blood sugar, and troponin levels within normal limits. BNP is elevated. The patients EKG rhythm is paced. My independent interpretation of the CT shows a chronic infarct.
MEDICAL DECISION MAKING
1. Number & Complexity of Problems:
Chronic conditions affecting care: Valvular heart disease post-surgery, restrictive lung disease, left heart failure, paroxysmal atrial fibrillation, and history of heart block.
2. Data Reviewed:
- Category 1: Labs, imaging, and EKG reviewed.
- Category 2: Additional history obtained from a friend and review of old cardiology evaluation records.
3. Risk:
Consideration of admission was made due to complex cases of heart-related symptoms and CT findings. The decision to admit was based on the need for IV Lasix, diuresis, and specialist evaluations. The patient initially resisted admission but agreed
to admit for necessary management.
PATHOLOGIES TO CONSIDER
1. Stroke or transient ischemic attack (concerning CT findings and neurologic symptoms).
2. Congestive heart failure exacerbation (dyspnea and elevated BNP).
3. Hypercoagulability and potential thromboembolic events due to discontinued warfarin.
Past History
Past History
ED Past Medical History: Cancer
ED Past Surgical History: Other (Splenectomy)
Social History
Tobacco: Non-smoker
Alcohol: Occasional
Drug: None
Personal:
Living: with family
Employment: Employed
Family History
Family History: Other
Phy Exam
Physical Exam
Physical Exam:
.
Scores
Heart Failure Risk
Heart Failure Risk Score: Yes
History of Stroke or TIA: Yes
History of intubation for respiratory distress: No
Heart rate on ED arrival >/= 110: No
SaO2 <90% on arrival on room air: No
HR >/=110 during 3min walk test (or too ill to perform test): No
ECG has acute ischemic changes: No
Urea >/=12mmol/L (BUN 33.6mg/dL): No
Serum CO2>/=35mmol/L: No
Troponin I or T elevated to VA Level (0.4mg/dL): No
NT-proBNP >/=5,000ng/L (5,000pg/ml): No
HF Risk Score: 1
Admission Status: MEDIUM RISK 5.1% Consider observation or discharge to home with homecare & f/u visit to PCP/Nuclear Worker Technician, or SNF for treatment
Course
Orders/Labs/Results
Orders:
Orders
03/03/25 Breakfast
Cholesterol Lowering
Fluid Restriction: 1200 mL/day (40 oz)
Cholesterol Lowering: Sodium, 2 Gram
03/03/25 15:47
Electrocardiogram (*1) Urgent
Reason for Study: Other
Other Reason for Exam: Respiratory Distress
EKG- Treatment ONCE
CR Chest - 2 Views Urgent
Comment:
Reason For Exam: respiratory distress
03/03/25 15:53
Complete Blood Count/With Diff Urgent
Comprehensive Metabolic Panel Urgent
NT-proBNP Urgent
Troponin I Urgent
03/03/25 16:00
Urinalysis Reflex To Culture Urgent
Date Specimen was Collected: 03/03/25
Time Specimen was Collected: 15:58
Urine Microscopic Reflex Cult Urgent
03/03/25 18:34
CT Head W/o Iv Contrast Urgent
Comment:
Reason For Exam: vision changes
03/03/25 20:33
Furosemide [Lasix] 20 mg IV NOW STA
Potassium Chloride 10% Elixir [KCl Elixir] 40 meq PO NOW STA
03/03/25 21:20
Admit/Transfer Patient As Directed
Co-Sign Provider:
Level of Care: Inpatient admission
Assign to:: Telemetry
Physician / Group: becky
Diagnosis: CHF exacerbation
Reason for Telemetry: Arrhythmia
Date to Stop Telemetry: 03/06/25
Time to Stop Telemetry: 11:00
Reason for Hospitalization: CHF exacerbation
Expected length of stay greater than two midnights?: Yes
ELOS- Estimated Length of Stay in days: 3
I certify the patient meets the requirements for IP care: Yes
PRN Pain Medication Management As Directed
May give lesser potent ordered pain med per pt: Yes
preference::
Protocol:: Medication orders for pain may be administered in a
manner that supports deferring to patient preference
when the pt is:
- Requesting an ordered lesser potent pain medication.
Least to most potent pain medications are defined
as: acetaminophen < NSAID < tramadol < opioids
(morphine, oxycodone, hydromorphone).
- Requesting a lesser dose of the same medication IF
ORDERED.
- Requesting a less intrusive route of administration
if both routes are prescribed by the provider (PO <
IV).
03/03/25 21:21
Code Status As Directed
Resuscitation Status: Full Code
03/03/25 21:27
Potassium Chloride [KCl] 40 meq 0.9% Sodium Chloride 250 ml [Nss] 250 ml IV NOW
03/03/25 21:39
CT Head & Neck Angio W/wo IV Routine
Comment:
Reason For Exam: dizzy, blurry vision
03/03/25 22:00
Flush (0.9% Sodium Chloride) [Flush (Nss)] See Dose Instructions IV PER PROTOCOL
03/03/25 23:10
Dapagliflozin [Farxiga] 10 mg PO QPM
03/03/25 23:10
Echo 2D MMode Color/Doppler Routine
Reason for Study: sob
CARDIOLOGY CONSULT Routine
Consulting Provider: Jeb Lynn
Was physician already notified: Yes
HF DIETARY CONSULT Routine
HF EDUCATOR CONSULT Routine
Comment:
Activity As Directed
Activity Level: As Tolerated
Intake/ Output As Directed
Frequency: Per unit guidelines
Orthostatic Vital Signs As Directed
Orthostatic VS Frequency: Daily
Patient Education As Directed
Type: CHF folder
Comment: give on admission. Document in Interdisciplinary Education record
Pneumatic Compression Sleeves As Directed
Type: Thigh high
Sleep Apnea Assessment by RN As Directed
Comment:
Physician Instructions:
Vital Signs As Directed
Frequency: Other
Additional Instructions:: Q12 or per unit guidelines if more frequent.
Weight As Directed
Frequency: Daily
Type of Scale: Standing Scale
Comment: Daily morning weight. If unable to stand, use balanced bed scale.
Weight As Directed
Frequency: Once
Type of Scale: Standing Scale
Comment: Upon Admission. If unable to stand, use balanced bed scale.
Pulse Ox/cont/shift [RESP] Routine
Quantity: 1
Special Instructions: Daily pulse oximetry at rest. If greater than 92% at rest also obtain pulse oximetry
while ambulating as tolerated.
DX Deep Vein Thrombosis Video Routine
03/04/25 04:00
Levothyroxine [Synthroid] 75 mcg PO DAILY@0400
03/04/25 06:00
BMP [Basic Metabolic Panel] IN AM
Cardiovascular Evaluation IN AM
Digoxin IN AM
Magnesium IN AM
TSH Reflex To Free T4 IN AM
03/04/25 08:00
Bupropion(24Hr)Extended Releas [WELLBUTRIN XL (24 hour extended release)] 150 mg PO DAILY
Ezetimibe [Zetia] 10 mg PO DAILY
Furosemide [Lasix] 40 mg IV BID AT 0800,1600
Pantoprazole [Protonix] 40 mg PO DAILY
Sertraline HCl [Zoloft] 50 mg PO DAILY
03/04/25 12:00
Digoxin [Lanoxin] 125 mcg PO NOON
03/04/25 18:00
Aspirin Low Dose EC [Aspir Low (Enteric Coated)] 81 mg PO QPM
Ferrous Sulfate [Feosol] 325 mg PO QPM
Potassium Chloride [KCl] 20 meq PO QPM
03/05/25 06:00
BMP [Basic Metabolic Panel] IN AM
03/06/25 06:00
BMP [Basic Metabolic Panel] IN AM
03/06/25 11:00
DC Protocol for Telemetry ONCE
Abnormal Lab Results
03/03/25 03/03/25
15:53 16:00
RBC 4.13 L 10^6/uL
(4.20-5.40)
Hct 36.2 L %
(37.0-47.0)
RDW 15.9 H %
(11.5-14.5)
Absolute Lymphs (auto) 0.6 L 10^3/uL
(1.2-3.4)
Absolute Monos (auto) 0.9 H 10^3/uL
(0.1-0.6)
Neutrophils % 77.2 H %
(42.2-75.2)
Lymphocytes % 8.6 L %
(20.5-51.1)
Monocytes % 13.1 H %
(1.7-9.3)
Potassium 3.2 L mmol/L
(3.5-5.1)
Carbon Dioxide 34 H mmol/L
(22-30)
BUN 25 H mg/dl
(7-17)
Alkaline Phosphatase 167 H U/L
(38-126)
Ur Occult Blood Reflex 2+ A
(Negative)
Urine RBC 7-10 A /HPF
(0-2)
Urine Albumin (Reflex) 1+ A
(Neg - Trace)
03/03/25 15:53
03/03/25 15:53
Vital Signs
Initial and Last Documented VS:
Initial Vital Signs
Temp Pulse Resp BP Pulse Ox
98.5 F 65 18 137/65 97
03/03/25 15:42 03/03/25 15:42 03/03/25 15:42 03/03/25 15:42 03/03/25 15:42
Last Documented Vital Signs
Temp Pulse Resp BP Pulse Ox
98.5 F 60 17 98/50 96
03/03/25 15:42 03/03/25 22:00 03/03/25 22:00 03/03/25 21:22 03/03/25 20:42
*Pulse Oximetry
SaO2: 96
Oxygen Mode of Delivery: Room air
Patient hypoxic: no
*[employer] Interpretation
Rate: normal
Interpretation: abnormal
Rhythm: ventricular paced
*Critical Care Note
Total Time (30-74mins, 75-104mins- exclusive of procedures): Not Applicable
Patient Management
Discussion with other providers: Hospitalist
ED Attending Note
-
Portions of this chart may have been created with voice recognition software.� Occasional wrong word or��sound alike� substitutions may have occurred due to the inherent limitations of voice recognition software.
Discharge Plan
Departure
Patient Disposition: Admit
Date of Disposition: 03/03/25
Time of Disposition: 20:44
Admit to: Telemetry
Presentation/result/management discussed w/ accepting MD/DO: Hospitalist
Discharge Problem:
Congestive heart failure (CHF), Hx of valvular heart disease, possible TIA
Interventions
Interventions:
*Risk Screen - Suicide Last Done: 03/03/25 15:42
*General Assessment Last Done: 03/03/25 18:55
*Neglect/Abuse Screening Last Done: 03/03/25 15:42
*ED- Fall Risk Assessment Last Done: 03/03/25 18:55
*ED COVID-19 Vaccine History Last Done: 03/03/25 18:55
*Nursing Disposition Last Done: 03/03/25 22:45
ED- Cardiac Assessment Last Done: 03/03/25 18:55
ED- Pulmonary Assessment Last Done: 03/03/25 18:55
Discharge Date and Time
Discharge Date/Time: 03/03/25 22:45
--- NOTE | 2025-03-03 20:53 | HPS.HSE ---
Family Physician
-
Family Physician: Kate Jade
Chief Complaint
-
sob
History of Present Illness
64-year-old female with a significant past medical history of open-heart surgery in May, which included aortic and mitral valve replacement and tricuspid valve repair, CHF, hypothyroidism, CAD worsening short of breath since Thursday. Short of
breath worse with exertion. Patient denied any chest pain. She gained 3 pounds in 1 day. Denied any lower extremities edema. patient denied any cough, congestion, fever, chills. On Thursday she got dizzy and vomited afterwards. Today he
noticed right blurry vision in the morning which lasted less than a minute and then bilateral blurry vision which also lasted less than a minute. Patient denied any focal weakness. Patient denied any abdominal pain, nausea, vomiting or diarrhea
dysuria hematuria.
Upon arrival she was noted in CHF exacerbation. Patient received a dose of Lasix in ER. Patient received KCl 40 mEq IV and p.o. admitted for further management
she is not on anticoagulants due to repeated thoracentesis and pleurodesis since the thoracic procedures.
Medical History
Past Medical History
Past Medical History: Reports Other
Additional Past Medical History:
Bipolar disorder
Hodgkin's
Hypothyroidism
Coronary artery disease
Past Surgical History: Reports Other
Additional Past Surgical History:
Coronary artery bypass graft
Splenectomy
Appendectomy
Bioprosthetic mitral replacement, bioprosthetic aortic valve placement, tricuspid valve plasty
Social History
Tobacco: Non-smoker
Alcohol: None
Drug: None
Family History
Family History: Not pertinent
Allergies / Home Medications
Allergies reflects when Allergies were last updated in [facility].
Home Medications with original date entered in [facility]
Allergy/Medication List:
Allergies
Allergy/AdvReac Type Severity Reaction Status Date / Time
adhesive tape Allergy Rash Verified 06/10/24 13:48
nitrofurantoin Allergy Swelling Verified 06/10/24 13:49
Sulfa (Sulfonamide Allergy Nausea / Verified 06/10/24 13:49
Antibiotics) Vomiting
Home Medications
bupropion HCl 150 mg 24 hr tablet, extended release 150 mg PO DAILY Depression 11/23/13
levothyroxine 75 mcg tablet (Synthroid) 75 mcg PO DAILY@0600 Thyroid 11/23/13
amiodarone 200 mg tablet 200 mg PO DAILY@1000 Arrhythmia 06/10/24
aspirin 81 mg tablet,delayed release 81 mg PO Q48H Blood Clot Prevention/Tx 06/10/24
docusate sodium 50 mg capsule 50 mg PO DAILY Constipation 06/10/24
ezetimibe 10 mg tablet 10 mg PO DAILY@2100 High Cholesterol 06/10/24
pantoprazole 40 mg tablet,delayed release 40 mg PO DAILY Gastrointestinal Issue 06/10/24
Xanax 0.125 mg PO HS 06/11/24
furosemide 20 mg tablet (Lasix) 60 mg (3 x 20 mg) PO DAILY #90 tabs 06/14/24
warfarin 1 mg tablet 1.5 mg (1.5 x 1 mg) PO DAILY #90 tabs 06/14/24
Review of Systems
-
Constitutional: Reports Weight Gain
EENT: Reports No Symptoms
Respiratory: Reports Trouble Breathing
Cardiac: Reports No Symptoms
Abdomen/GI: Reports No Symptoms
: Reports No Symptoms
Musculoskeletal: Reports No Symptoms
Skin: Reports No Symptoms
Neurological: Reports No Symptoms
Endocrine: Reports No Symptoms
Hematologic/Lymphatic: Reports No Symptoms
Psych: Reports No Symptoms
Physical Exam
Vital Signs
Vital Signs
Temp Pulse Resp BP Pulse Ox
98.5 F 60 25 125/72 96
03/03/25 15:42 03/03/25 20:15 03/03/25 20:15 03/03/25 19:00 03/03/25 20:42
Physical Exam
General: Well Developed, Well Nourished and No Apparent Distress
HEENT: NormoCephalic, Moist mucous membranes and Atraumatic
Respiratory: Clear
Cardiac: S1/S2 and Regular Rhythm; No Murmur or Rub
GI: Soft, Non Tender, Non Distended and Normal Bowel Sounds; No Organomegaly
Rectal: Deferred by Provider
Musculoskeletal: No Clubbing, No Cyanosis and No Edema
Skin: No Rash
Neuro: AO x 3 and Nonfocal/grossly intact
Psych: Calm
Laboratory Results
-
03/03/25 15:53
03/03/25 15:53
Laboratory Results
Total Bilirubin 1.3 mg/dl (0.2-1.3) 03/03/25 15:53
AST 32 U/L (14-36) 03/03/25 15:53
ALT 29 U/L (0-35) 03/03/25 15:53
Alkaline Phosphatase 167 U/L (38-126) H 03/03/25 15:53
Troponin I < 0.012 ng/ml 03/03/25 15:53
Data Reviewed
-
Diagnostic Radiology: Report Reviewed by me
Lab Data: Labs Reviewed by me
Impression/Plan
-
# Short of breath secondary to CHF exacerbation
- BNP 2100
- Chest x-ray with MODERATE ACUTE INTERSTITIAL and ALVEOLAR CARDIOGENIC PULMONARY EDEMA.Small bilateral pleural effusions.
- IV Lasix continued
-obtain ECHO
-Strict EMIGDIO, daily weight, fluid restriction
-Farxiga continued
-Cardiology consult
# Dizziness/blurry vision unclear cause
- CT head shows an old infract
- Obtain orthostatics
-obtain CTA head and neck
# Hypokalemia likely from nausea vomiting unclear cause
- K3.2
- IV and oral KCl in ER
- BMP in a.m.
# Coronary artery disease status post CABG
# History of valvular disease status post bioprosthetic MVR, bioprosthetic AVR, and TV banding
-asa continued
#Afib paroxysmal
-EKG with atrial sensed ventricular paced rhythm
-digoxin continued
#History of Hodgkin's disease s/p splenectomy
#Depression: Continue Wellbutrin,sertraline
#Hyperlipidemia: cont Zetia
#GERD: Continue Protonix
#Hypothyroidism: Continue Synthroid
# CODE STATUS
- DNR
# DVT prophylaxis
-lovenox
[2025-03-03] MEDS: KCL ELIXIR 40 MEQ PO (21:18)
[2025-03-03] MEDS: LASIX 20 MG IV (21:19)
[2025-03-03 21:22] VITALS: BP 98/50
[2025-03-03] MEDS: FLUSH (NSS) 1 FLUSH IV (21:25)
--- NOTE | 2025-03-03 21:54 | W.PN.UPDATE ---
Update Note
Progress Note Update
Patient seen in conjunction with [facility]. I agree with the findings on history and physical. I concur with assessment and plan unless stated otherwise.
This Is a 61-year-old with past Medical History of Atrial Fibrillation Not Currently on Anticoagulation, Controlled by Digoxin and Status Post ICD, CHF with Preserved EF, History of Aortic Stenosis and Mitral Valve Disease Status Post Aortic and
Mitral Valve Bioprosthetic Valve Replacement in May of Last Year, Not Currently Anticoagulated Secondary to History of Recurrent Pleural Effusion Requiring Multiple Thoracenteses after Surgery As Well As Now Status Post a Left Pleurodesis,
History of Breast Cancer Status Post Radiation to the Right with Subsequent Restrictive Lung Disease, Hypothyroid, Presenting to the Emergency Department with Shortness of Breath As Well As a Episode of [place] Vision and Vertigo Symptoms.
Patient reported that she recently traveled and when she arrived she noticed that she gained 3 pounds over about 1 week. She also reported that she has more fatigue dyspnea on exertion and orthopnea. She denies any lower extremity edema. She does
report that anytime she feels this way is associated with increased fluid retention and pulmonary edema. She had been otherwise compliant with torsemide 20 mg daily. She denies feeling any palpitations. She denies any chest pain. Patient denies
any cough fevers or chills.
She reported that she did have episode of vertigo 1 year ago associated with laying down that improved after she started up to walk around. Then she had an episode of blurry vision which she described as a 'initiating over the right eye initially
and then the left eye. This lasted for about 30 seconds to 1 minute. Is also occurred while she was visiting her PMD and at that time she had a vertigo episode. She was requested to go to the emergency department for evaluation.
She denied any other focal neurological deficits.
In the emergency department she was afebrile, blood pressure was 100/50 with a pulse of 63 and she was satting 98% on room air. Troponin was negative. BNP was elevated to over 2800 slightly higher than prior. Chest x-ray shows small bilateral
pleural effusions and interstitial pulmonary edema.
CT of the head shows no acute stroke but likely old chronic infarct.
ECG shows a paced rhythm at a rate of 68. CBC was unremarkable. Electrolytes were notable for potassium of 3.2, bicarb of 34 but otherwise unremarkable. BUN and creatinine were stable.
Patient's on examination has clear lungs with slightly increasing work of breathing but otherwise no overt volume overload on examination. A neurological exam was nonfocal. Currently NIHSS equals 0.
Assessment and plan
61-year-old with extensive cardiac history who has atrial fibrillation and status post bioprosthetic mitral aortic valve replacement and not currently on anticoagulation secondary to recent frequent thoracenteses according to the patient. She
presents to the emergency department with shortness of breath dyspnea on exertion orthopnea and elevated BNP consistent with mild CHF exacerbation in the setting of episode of recurrent blurry vision initially in the right eye and then bilaterally
lasting seconds to about 1 minute currently NIHSS reported, stated. She is not requiring supplemental oxygen and has no increased pleural effusion compared to prior.
CHF exacerbation -mild
- Telemetry observation
- Uptitrated diuretics to Lasix 40 mg twice daily, patient on torsemide 20 mg daily
- Ins and outs and daily weights
- Echocardiogram
- Continue GDMT
- Check digoxin level
Atrial fibrillation -patient on digoxin for rate control and rhythm control status post pacemaker
- Not currently anticoagulated, CHADS2 score requires some degree of anticoagulation but given recent procedures the patient has stopped taking anticoagulation for but otherwise for unclear
- Will have cardiology comment on the need for further anticoagulation especially in the setting of possible TIAs and a prior stroke
- Will continue digoxin, check digoxin level in a.m.
- Keep K and mag greater than 4 & 2 respectively
Transient blurry vision -possible TIAs
-Will obtain CTA angio of the head and neck
-Lipid panel, A1c
-Continue aspirin, continue ezetimibe
-Patient does have outpatient follow-up with neurology
-If CTA is normal, likely no further w/u unless symptoms recur and may mean AC required
DVT prophylaxis -Lovenox subcu
CODE STATUS�DNR
[2025-03-03] MEDS: KCL 270 MEQ IV (22:04)
[2025-03-03 23:33] VITALS: BP 105/51; BP 107/49; BP 111/54; BMI 20.4
[2025-03-03 23:54] VITALS: BMI 20.4
[2025-03-04] MEDS: FARXIGA 10 MG PO ×2 (00:19→17:57)
[2025-03-04] MEDS: FEOSOL 325 MG PO ×2 (00:56→17:56)
[2025-03-04] MEDS: VITAMIN D3 (cholecalciferol) 50 MCG PO (00:56)
[2025-03-04] MEDS: LOW STRENGTH ASPIRIN 81 MG PO (00:56)
--- NOTE | 2025-03-04 01:21 | PTCARENOTE ---
Received pt from ED via stretcher; telemetry orders> Paced on monitor- strip placed in chart. VSS, Orthos negative. No c/o pain, visual disturbances or dizziness. KRider infusing through RAC INT. Pt steady on feet. PMH and medications reviewed by
this RN and pt. Plan of care discussed. Call farah within reach.
[2025-03-04 03:22] VITALS: BP 110/46
[2025-03-04] MEDS: SYNTHROID 75 MCG PO (04:23)
[2025-03-04 06:00] VITALS: BMI 19.8
[2025-03-04 08:22] VITALS: BP 106/62
[2025-03-04] MEDS: PROTONIX 40 MG PO (08:26)
--- NOTE | 2025-03-04 09:07 | CON.CAR ---
Addendum entered and electronically signed by Jeb Lynn MD 03/04/25 13:14:
I saw and examined the patient.
The MODELING AND SIMULATION ANALYST's note was reviewed and I agree with the note.
Comment: 64 y/o female (circuit walker: Dr. Medhat Lynn. EP: Shane Gustafson) with moderate to severe and AR, moderate MR, mild MS, moderate to severe TR, 1st degree AVB, sinus tachycardia, dyslipidemia, Stage 1A Hodgkin lymphoma
1981 with hx extensive radiation, s/p bio MVR, bio AVR, and tricuspid valvuloplasty with prosthetic ring 05/26/24 (Dr. Prabhakar, [facility]), post-op had new AF on amio, as well as MDT leadless PPM implant.
She is here for CHF and found to have old CVA.
- IV diuresis today, home torsemide tomorrow
- Eliquis 5 mg bid when OK from neuro perspective
- Unclear why she was on warfarin and stopped? She does not appear to have had AF since surgery, but now CHADSVASC would indicate need for AC; will start and have her have discussion with her primary circuit walker
Please call with questions/concerns; we will sign off.
Original Note:
Consultation
Consultation Request
Date/Time Consultation Requested: 03/03/25 2310
Date/Time Consultation Performed: 03/04/25 0907
Requesting Provider: Elizabeth Dunham
Performing Provider: Chelsea MEYER for Dr. Lynn
Reason for Consultation: CHF
Medical History
-
Chief Complaint: SOB, right eye haze
History of Present Illness:
64 y/o female (circuit walker: Dr. Medhat Lynn. EP: Shane Gustafson) with moderate to severe and AR, moderate MR, mild MS, moderate to severe TR, 1st degree AVB, sinus tachycardia, dyslipidemia, Stage 1A Hodgkin lymphoma 1981 with
hx extensive radiation, s/p bio MVR, bio AVR, and tricuspid valvuloplasty with prosthetic ring 05/26/24 (Dr. Prabhakar, [facility]), post-op had new AF on amio, as well as MDT leadless PPM implant. In June, she had thoracenteses, and per chart, her
surgeon stopped warfarin and she was placed on ASA and indomethacin and colchicine at the time. Since then, her lasix was changed to torsemide in 12/2024 and she reports that about 3 weeks ago, her coreg was changed to digoxin. She does not know why.
She is here for SOB and dizziness with exertion. She was away at a conference and wasn't eating as healthy or weighing herself daily. She gained about 5 lbs with this and noted some edema. She saw her PCP since she had intermittent right eye 'haze'
yesterday and was sent to ER for further evaluation.
Past Medical History
Past Medical History: Arrhythmias, Cancer, CHF, Valvular Disease and Other (as above)
Social History
Tobacco: Non-Smoker
Family History
Family History: Reviewed & Not Pertinent
Allergies / Home Medications
Allergy/AdvReac Type Severity Reaction Status Date / Time
adhesive tape Allergy Rash Verified 06/10/24 13:48
nitrofurantoin Allergy Swelling Verified 06/10/24 13:49
Sulfa (Sulfonamide Allergy Nausea / Verified 06/10/24 13:49
Antibiotics) Vomiting
�Medication �Instructions �Recorded �Confirmed �Type
bupropion HCl 150 mg 24 hr tablet, 150 mg PO DAILY Depression 11/23/13 03/03/25 History
extended release
levothyroxine 75 mcg tablet 75 mcg PO DAILY@0400 Thyroid 11/23/13 03/03/25 History
(Synthroid)
aspirin 81 mg tablet,delayed 81 mg PO QPM Blood Clot 06/10/24 03/03/25 History
release Prevention/Tx
ezetimibe 10 mg tablet 10 mg PO DAILY High Cholesterol 06/10/24 03/03/25 History
pantoprazole 40 mg tablet,delayed 40 mg PO DAILY Gastrointestinal 06/10/24 03/03/25 History
release Issue
biotin 5,000 mcg chewable tablet 5,000 mcg PO DAILY 03/03/25 03/03/25 History
cholecalciferol (vitamin D3) 50 50 mcg PO QPM 03/03/25 03/03/25 History
mcg (2,000 unit) capsule
dapagliflozin propanediol 10 mg 10 mg PO QPM 03/03/25 03/03/25 History
tablet (Farxiga)
digoxin 125 mcg (0.125 mg) tablet 125 mcg PO NOON 03/03/25 03/03/25 History
efinaconazole 10 % topical 1 applic topical DAILY apply to R 03/03/25 03/03/25 History
solution with applicator (Jublia) big toe
ferrous sulfate 325 mg (65 mg 325 mg PO QPM 03/03/25 03/03/25 History
iron) tablet (iron)
potassium chloride 20 mEq 20 meq PO QPM 03/03/25 03/03/25 History
tablet,extended release
sertraline 50 mg tablet 50 mg PO DAILY 03/03/25 03/03/25 History
torsemide 20 mg tablet 20 mg PO DAILY 03/03/25 03/03/25 History
Review of Systems
-
History Source: Patient
All other systems: Negative unless noted
Constitutional: Weight Gain
Respiratory: Trouble Breathing
Neurological: Dizzy and Other (visual symptoms)
Physical Exam
Vital Signs
Temp Pulse Resp BP Pulse Ox
98 F 61 20 106/62 92
03/04/25 08:00 03/04/25 08:00 03/04/25 08:00 03/04/25 08:22 03/04/25 08:00
Lab Results
03/03/25 15:53
Troponin I < 0.012 ng/ml 03/03/25 15:53
Qkb-F-Bqhodruwldb Pept 2100 pg/ml 03/03/25 15:53
Physical Exam
General: Well Developed and No Apparent Distress
HEENT: Normocephalic and Anicteric
Respiratory: Crackles (right base)
Cardiac: Regular Rhythm and Murmur (II/ systolic murmur)
Musculoskeletal: No Edema
Skin: Warm and Dry
Neuro: AO x 3
Psych: Calm
Impression / Plan
-
Bvdsk-rr-bcsoals HFpEF:
-likely related to dietary indiscretion as noted
-agree with IV lasix, which requires intensive monitoring- I don't think she will need much more- consider transition to PO tomorrow
-echo ordered
-hypokalemia was noted, but replaced
Hx stroke on imaging, concern for TIA:
-this diagnosis is threat to bodily function
-recommend neuro evaluation
-imaging is pending
AFIB/flutter, type unknown, paroxysmal:
-noted post-op, then AC stopped. However, she was recently started on digoxin and details of this are unclear. She said she was not restarted on AC.
-[id number] score is 4 for female, stroke, CHF- so likely resume OAC, but would need neuro to comment since she is having new neurologic symptoms to ensure safety, though will discuss with Dr. Lynn.
Hx leadless PPM:
-continue to follow with EP at [facility]
S/p Bio MVR/AVR, and TV repair with ring by Dr. Prabhakar at [facility] (05/26/2024):
-echo ordered
Data:
Echo 06/13/24: EF 60-65% by visual assessment. Well seated, normally functioning bioprosthetic mitral valve. Well seated, normally functioning bioprosthetic aortic valve. Well seated, normally functioning tricuspid valve ring with a mean gradient of
2 mmHg and mild tricuspid regurgitation. Structurally normal pulmonic valve with severe pulmonic regurgitation. The IVC is mildly dilated and does not demonstrate normal respiratory variation. Right atrial pressure estimated at 12 mmHg.Pleural
effusion present. There is an isolated echolucency along the anterior aspect of the right ventricular free wall (seen in the subcostal view) which appears to be an isolated pericardial effusion, less likely hepatic cyst.
Data Reviewed
-
EKG: Tracing Personally Visualized and interpreted ( HOUSE NURSE 68 BPM)
Radiology: Report Reviewed by me (CXR: MODERATE ACUTE INTERSTITIAL and ALVEOLAR CARDIOGENIC PULMONARY EDEMA.)
Medical Tests (Nuc Med, Echo etc): Report Reviewed by me (echo as noted)
Labs: Labs Reviewed by me
[2025-03-04 09:11] LABS: Blood Urea Nitrogen 18 mg/dl (7-17); Calcium 8.8 mg/dl (8.4-10.2); Carbon Dioxide 34 mmol/L (22-30); Chloride 102 mmol/L (98-107); Digoxin 1.5 ng/ml (0.8-2.0); Estimated Creatinine Clearance 56 ml/min; Glucose 88 mg/dl (70-99); HDL Cholesterol 31 mg/dl; LDL Cholesterol, Calculated 71 mg/dl; Magnesium 2.2 mg/dl (1.6-2.3); Potassium 4.2 mmol/L (3.5-5.1); Sodium 140 mmol/L (135-145); Total Cholesterol 115 mg/dl (50-199); Triglyceride 67 mg/dl (10-149); Very Low Density Lipoprotein 13 mg/dl (0-30); eGFR > 60.00
[2025-03-04 09:56] LABS: Free T4 1.77 ng/dl (0.78-2.19)
[2025-03-04] MEDS: LASIX 40 MG IV ×2 (10:17→17:54)
[2025-03-04] MEDS: WELLBUTRIN XL (24 hour extended release) 150 MG PO (10:19)
[2025-03-04] MEDS: ZETIA 10 MG PO (10:20)
[2025-03-04] MEDS: ZOLOFT 50 MG PO (10:20)
[2025-03-04] MEDS: FLUSH (NSS) 2 FLUSH IV ×2 (10:21→17:56)
[2025-03-04 11:33] VITALS: BP 108/50; BP 94/50; BP 96/45; PULSE 62; PULSE 63; PULSE 66
--- NOTE | 2025-03-04 11:50 | W.PN.HOSP.TC ---
Today's Communication/Plan
-
MRI
ECHO
Lasix
Need to address AC
Assessment / Plan
Assessment / Plan
64-year-old with shortness of breath. Patient has a history of atrial fibrillation on digoxin. Not on anticoagulation. She gained 3 pounds in in 1 week. No edema. Patient is compliant with torsemide
Echo 06/13/2024-normal LV size and concentric remodeling and normal systolic function. EF 60 to 65%. Diastolic function indeterminate. Well-seated bioprosthetic mitral valve, aortic valve and tricuspid valve ring. Mild TR. Severe pulmonary
regurgitation. IVC mildly dilated. RA pressure 20 mmHg. Pleural effusion. Isolated echolucency along the anterior aspect of the right ventricular free wall appears to be isolated pericardial effusion less likely hepatic cyst.
Head CT-no evidence of acute intracranial hemorrhage or transcortical infarct. 2.7 cm chronic transcortical infarct in the anteromedial right frontal lobe. Mild cerebral and cerebellar volume loss.
Chest [id number] acute interstitial and alveolar cardiogenic pulmonary edema, small bilateral pleural effusions. Chronic bands/scarring right upper lobe. Previous mitral and tricuspid valve repair. Right intraventricular cardiac conduction
device in place. Bilateral breast implants in place.
CTA head and neck-6 mm thyroid nodule
No acute intracranial hemorrhage. Minor chronic microvascular white matter change. Stable mild focal encephalomalacia involving superior right paramidline frontal lobe which may be developmentally or traumatic insult. Cervical carotid and
vertebral arteries are patent. Right proximal ICA moderate calcific plaque and left proximal ICA mild noncalcific plaque. No [facility] aneurysm or stenosis no cervical artery significant plaque stenosis thrombus or occlusion.
EKG-Paced rhythm
CVS: S1-S2 normal, mr at apex
Chest: CTA B/L
Abdomen: Soft, NT / Bowel sounds present
Extremities: No edema, normal pulses
PRECINCT I POLICE SERGEANT: Non focal exam
# Acute on chronic HFpEF
proBNP 2100
Troponin negative
Watch on telemetry
Patient is on torsemide 20 mg daily as outpatient
Continue Lasix 40 mg IV twice daily
Intake and output charting and daily weights
Echo routine
Continue Farxiga.
# Hypokalemia-replaced.
# Episode of blurry vision-CT angiogram of the head and neck
Neurochecks
MRI of the brain
Check echo
# Paroxysmal atrial fibrillation
Patient is on digoxin for rate control
Unclear if she is off amiodarone and Coreg now
Follows with [facility] Dr. Medhat Cesar, EP- Dr. Darryl Kapoor at [facility]
History of [employer] leadless pacemaker placement
Not anticoagulated as she required some recent procedures?
[id number] Score at least 4-Needs AC
Was on warfarin in the past
Digoxin level-
# Bioprosthetic mitral valve replacement, bioprosthetic aortic valve replacement, tricuspid valvuloplasty with prosthetic ring on 06-[address] Prabhakar at [facility].
# History of pleural effusion with thoracentesis in the past
# Hyperlipidemia-continue Zetia
# Hypothyroidism-Increase levothyroxine to 88 mcg ( from 75 mcg)
# Bipolar disorder/depression-continue Wellbutrin, sertraline
# History of old stroke on CT-2.7 cm chronic transcortical infarct in the anteromedial right frontal lobe. On ASA. Not sure why not on a Statin
# History of stage Ia Hodgkin's disease status post mantle therapy and splenectomy 1983
# GERD-continue PPI
# History of splenectomy
# DVT prophylaxis-Lovenox. Need to address anticoagulation
# DNR
D/W RN at bed side
D/W Cards
Part of this note was created using voice recognition system. Occasional wrong word or��sound alike� substitutions may have inadvertently occurred due to the inherent limitations of voice recognition software. If noted kindly bring it to my
attention for correction.
Anticipated Discharge: 24 - 48 hours
Subjective/Interval History
-
Date of Service: March 04, 2025
Objective Data
-
Labs:
Laboratory Results
03/04/25
07:43
Sodium 140
Potassium 4.2 D
Chloride 102
Carbon Dioxide 34 H
BUN 18 H
Creatinine 0.8
Glucose 88
Calcium 8.8
Vital Signs:
Vital Signs
Temp Pulse Resp BP Pulse Ox
98.2 F 61 24 106/62 96
03/04/25 11:32 03/04/25 08:00 03/04/25 11:32 03/04/25 08:22 03/04/25 11:32
I&O
03/03/25 03/04/25 03/05/25
06:59 06:59 06:59
Intake Total 240 / 240
Output Total 225 / 225
Balance
[2025-03-04 12:02] VITALS: BMI 19.8
[2025-03-04] MEDS: LANOXIN 125 MCG PO (13:04)
[2025-03-04 15:27] VITALS: BP 98/53
--- NOTE | 2025-03-04 15:52 | CM ---
Patient seen bedside, initial assessment completed. Patient is a 64-year-old female with a significant past medical history of open-heart surgery in May, which included aortic and mitral valve replacement and tricuspid valve repair, CHF,
hypothyroidism, CAD worsening short of breath.
Patient resides alone in a 2STH, no steps. Independent in all areas, no DME use. Patient stated she has a shower chair in the basement, currently does not use. Patient prev engaged in pulmonary rehab at [facility]. Denies SNF hx, prev known to [facility] for
PT and VN almost a year ago.
Address, points of contact and insurance verified
PCP: Kate Jade
Pharmacy: [facility]
Plan: Home, no needs likely
[2025-03-04] MEDS: KCL 20 MEQ PO (17:56)
[2025-03-04] MEDS: LOVENOX 40 MG SC (17:57)
[2025-03-04] MEDS: ASPIR LOW (ENTERIC COATED) 81 MG PO (17:57)
[2025-03-04 19:37] VITALS: BP 114/55
[2025-03-04 23:03] VITALS: BP 106/56
[2025-03-05 03:41] VITALS: BP 101/62
[2025-03-05] MEDS: SYNTHROID 88 MCG PO (04:02)
[2025-03-05 06:00] VITALS: BMI 20.2
[2025-03-05 07:33] LABS: Blood Urea Nitrogen 17 mg/dl (7-17); Calcium 8.6 mg/dl (8.4-10.2); Carbon Dioxide 32 mmol/L (22-30); Chloride 103 mmol/L (98-107); Estimated Creatinine Clearance 57 ml/min; Glucose 98 mg/dl (70-99); Sodium 141 mmol/L (135-145); eGFR > 60.00
[2025-03-05] MEDS: ZOLOFT 50 MG PO (07:58)
[2025-03-05] MEDS: DEMADEX 20 MG PO (07:58)
[2025-03-05] MEDS: PROTONIX 40 MG PO (07:58)
[2025-03-05] MEDS: ZETIA 10 MG PO (07:58)
[2025-03-05 08:02] VITALS: BP 109/63; BP 113/50; BP 96/52; PULSE 68; PULSE 70; PULSE 82
[2025-03-05] MEDS: WELLBUTRIN XL (24 hour extended release) 150 MG PO (08:03)
[2025-03-05 11:04] VITALS: BP 124/70
[2025-03-05] MEDS: LANOXIN 125 MCG PO (12:28)
--- NOTE | 2025-03-05 14:03 | W.PN.HOSP.TC ---
Today's Communication/Plan
-
ECHO
MRI Brain
Neuro eval
Get records from [facility]
Address AC once MRI back
Assessment / Plan
Assessment / Plan
64-year-old with shortness of breath. Patient has a history of atrial fibrillation on digoxin. Not on anticoagulation. She gained 3 pounds in in 1 week. No edema. Patient is compliant with torsemide
Echo 06/13/2024-normal LV size and concentric remodeling and normal systolic function. EF 60 to 65%. Diastolic function indeterminate. Well-seated bioprosthetic mitral valve, aortic valve and tricuspid valve ring. Mild TR. Severe pulmonary
regurgitation. IVC mildly dilated. RA pressure 20 mmHg. Pleural effusion. Isolated echolucency along the anterior aspect of the right ventricular free wall appears to be isolated pericardial effusion less likely hepatic cyst.
Head CT-no evidence of acute intracranial hemorrhage or transcortical infarct. 2.7 cm chronic transcortical infarct in the anteromedial right frontal lobe. Mild cerebral and cerebellar volume loss.
Chest [id number] acute interstitial and alveolar cardiogenic pulmonary edema, small bilateral pleural effusions. Chronic bands/scarring right upper lobe. Previous mitral and tricuspid valve repair. Right intraventricular cardiac conduction
device in place. Bilateral breast implants in place.
CTA head and neck-6 mm thyroid nodule
No acute intracranial hemorrhage. Minor chronic microvascular white matter change. Stable mild focal encephalomalacia involving superior right paramidline frontal lobe which may be developmentally or traumatic insult. Cervical carotid and
vertebral arteries are patent. Right proximal ICA moderate calcific plaque and left proximal ICA mild noncalcific plaque. No [place] aneurysm or stenosis no cervical artery significant plaque stenosis thrombus or occlusion.
EKG-Paced rhythm
CVS: S1-S2 normal, mr at apex
Chest: CTA B/L
Abdomen: Soft, NT / Bowel sounds present
Extremities: No edema, normal pulses
DIRECTOR OF PHYSIOTHERAPY SERVICES: Non focal exam
# Acute on chronic HFpEF
proBNP 2100
Troponin negative
Watch on telemetry
Patient is on torsemide 20 mg daily as outpatient
Lasix 40 mg IV twice daily- changed to OP dose of Torsemide.
Intake and output charting and daily weights
Echo routine
Continue Farxiga.
# Hypokalemia-replaced.
# Episode of blurry vision- Transient.
CT angiogram of the head and neck neg
Neurochecks
Neuro eval
MRI of the brain
Check echo
# Paroxysmal atrial fibrillation
Patient is on digoxin for rate control
She is off amiodarone and Coreg now
Follows with [facility] cards Dr. Medhat Cesar, EP- Dr. Darryl Kapoor at [facility]
History of Medtronic leadless pacemaker placement
Not anticoagulated as she required some recent procedures?
[id number] Score at least 4-Needs AC
Was on warfarin in the past
Digoxin level-1.5
# Bioprosthetic mitral valve replacement, bioprosthetic aortic valve replacement, tricuspid valvuloplasty with prosthetic ring on 06-[address] Prabhakar at [facility].
# History of pleural effusion with thoracentesis in the past
# Hyperlipidemia-continue Zetia
# Hypothyroidism-Increase levothyroxine to 88 mcg ( from 75 mcg)
# Bipolar disorder/depression-continue Wellbutrin, sertraline
# History of old stroke on CT-2.7 cm chronic transcortical infarct in the anteromedial right frontal lobe. On ASA. Not sure why not on a Statin
# History of stage Ia Hodgkin's disease status post mantle therapy and splenectomy 1983
# GERD-continue PPI
# History of splenectomy
# DVT prophylaxis-Lovenox. Need to address anticoagulation
# DNR
D/W RN at bed side
Dr Arsenio Lynn- [phone]
Get records
D/W Cards and neuro
Time over 50 min
D/W Sister at bed side
Part of this note was created using voice recognition system. Occasional wrong word or��sound alike� substitutions may have inadvertently occurred due to the inherent limitations of voice recognition software. If noted kindly bring it to my
attention for correction.
Anticipated Discharge: Within 24 hours
Subjective/Interval History
-
Date of Service: March 05, 2025
Objective Data
-
Labs:
Laboratory Results
03/05/25
06:45
Sodium 141
Potassium 4.0
Chloride 103
Carbon Dioxide 32 H
BUN 17
Creatinine 0.8
Glucose 98
Calcium 8.6
Vital Signs:
Vital Signs
Temp Pulse Resp BP Pulse Ox
98 F 60 17 124/70 96
03/05/25 11:04 03/05/25 12:28 03/05/25 11:04 03/05/25 11:04 03/05/25 11:04
I&O
03/04/25 03/05/25 03/06/25
06:59 06:59 06:59
Intake Total 240 / 240 840 / 840
Output Total 225 / 225 1750 / 1750 290 / 290
Balance 15 / 15 -910 / -910 -290 / -290
[2025-03-05 15:00] VITALS: BP 91/51
--- NOTE | 2025-03-05 15:07 | CON.NEURO ---
Consultation
Order
Date of Consultation: 03/05/25
Requesting Provider: Jesus Martinez MD
Reason for Consult: Visual changes
Neurology Consultation Note.
This is a 64-year-old woman who presented to [facility] on 03/03/2025 with worsening of dyspnea on exertion.
Neurology consultation was requested for evaluation and management of visual symptoms.
Ms. Burt reports transient painless foggy haze on the R lasting approximately 30 seconds that started on the day of the presentation. She has had intermittent painless diplopia with left lateral gaze
as well as sensation of her eyes being crossed over at least 1 year.
Quin endorses a recent episode of vertigo during a business trip to [facility] on 03/01/2025, where she experienced room spinning and vomiting upon lying down. She has had intermittent left-sided tinnitus no reports of head trauma, ear
ache, headaches, fever. Ms. Burt attributes her mild dysphonia to dryness from diuretics. She also mentions choking on a potassium tab yesterday.
EKG: Atrial-sensed ventricular-paced rhythm with prolonged AV conduction
PDMP: No recently prescribed medication
Labs: Normal sodium, WBCs, creatinine, calcium, proBNP�2100, TSH�10.4, free T4-1 0.77, digoxin level�1.5 (0.8/2.0 ng/mL)
CT head wo contrast- 2.7 cm chronic transcortical infarct in the anteromedial right frontal lobe. Mild cerebral and cerebellar volume loss.
CTA head/neck�no hemodynamically significant stenosis
PMH: A-Fib, Stage 1A Hodgkin lymphoma, status post RT(1981), pulmonary fibrosis/restrictive lung disease, history of valvulopathy, CAD, hypothyroidism, BPPV, congenital amblyopia, vit D deficiency,JOHNATHAN
PSH: bio MVR, bio AVR(05/26/24), PPM, splenectomy: Left sided pleurodesis, oophorectomy
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
FH: Not contributory to current presentation
All: Sulfa's, nitrofurantoin,
ROS: Constitutional: Negative. Negative for chills, fever and unexpected weight change.
HENT: Positive for tinnitus, hearing impairment, intermittent vertigo
Eyes: Positive for visual disturbances
Respiratory: Positive for chronic dyspnea
Cardiovascular: Negative for chest pain, palpitations and leg swelling.
Gastrointestinal: Positive for intermittent dysphagia
Endocrine: Negative. Negative for cold intolerance.
Genitourinary: Negative for dysuria, flank pain and urgency.
Musculoskeletal: Negative for back pain, gait problem, neck pain and neck stiffness.
Skin: Negative for rash.
Allergic/Immunologic: Negative. Negative for immunocompromised state.
Neurological: Negative for dizziness, tremors, seizures, speech difficulty, numbness and headaches.
Psychiatric/Behavioral: Negative for behavioral problems, confusion and hallucinations.
General: Well developed. In no acute distress.
Cardio: Regular rate and rhythm without murmur. Extremities are without cyanosis or edema.
Neuro:
Mental Status: Alert, oriented to person, place, and date. Normal attention and recall. Good fund of knowledge. Follows complex requests across the midline. Comprehension, naming, and repetition intact. Immediate recall 3/3.
Cranial Nerves: Pupils are equally round and reactive to light. EOMs full. Visual reardon full to confrontation. No ptosis. Nonsustained nystagmus on left lateral gaze V1-V3 intact to light touch and pinprick bilaterally, symmetric. Face
symmetric. Mildly impaired hearing AU. The palate elevated well. SCMs and traps 5/5. Tongue midline. No dysarthria. Mild dysphonia
Motor: Normal bulk and tone. No pronator or arm drift. Strength 5/5 throughout. No clonus.
Reflexes: Negative clonus bilaterally
Sensory: Normal pinprick, vibration and JPS.
Coordination: No dysmetria or tremor.
Gait: deferred
Assessment and Plan:
I. Transient visual symptoms. Differential diagnosis includes refractive error, eyestrain, presbyopia, retinopathy or AMD.
II. Chronic right MCA territory infarct. Likely etiology�embolic.
III. BPPV
IV. PA-Fib
- Continue Telemetry monitoring
- Continue aspirin 81 mg once a day
- Please check ESR, CRP
- Brain MRI without johnathan
- Ophthalmology consult
- DVT prophylaxis.
I personally reviewed all radiology and labs along with past medical records pertinent to current medical problems. Total time spent in patient care is 60 minutes.
Thank you for allowing us to participate in the care of this patient. We will continue to follow. Please do not hesitate to contact us with any questions or concerns.
Subjective/Objective
Subjective Data
Date of Service: March 05, 2025
Objective Data
Vital Signs
Temp Pulse Resp BP Pulse Ox
36.6 C 60 17 124/70 96
03/05/25 11:04 03/05/25 12:28 03/05/25 11:04 03/05/25 11:04 03/05/25 11:04
Lab Results
03/03/25 15:53
03/05/25 06:45
Sodium 141 mmol/L (135-145) 03/05/25 06:45
Potassium 4.0 mmol/L (3.5-5.1) 03/05/25 06:45
BUN 17 mg/dl (7-17) 03/05/25 06:45
Glucose 98 mg/dl (70-99) 03/05/25 06:45
Calcium 8.6 mg/dl (8.4-10.2) 03/05/25 06:45
Smu-W-Ozkkezfbwls Pept 2100 pg/ml 03/03/25 15:53
LDL Cholesterol, Calc 71 mg/dl 03/04/25 07:43
Patient Allergies
adhesive tape Allergy (Verified 06/10/24 13:48)
Rash
nitrofurantoin Allergy (Verified 06/10/24 13:49)
Swelling
Sulfa (Sulfonamide Antibiotics) Allergy (Verified 06/10/24 13:49)
Nausea / Vomiting
Medications
-
Active Medications
Generic Name Dose Route Start Last Admin
Trade Name Radha MONTEZN Reason Stop Dose Admin
Aspirin 81 mg 03/04/25 18:00 03/04/25 17:57
Aspirin 81 Mg (Enteric Coated) Tablet PO 04/01/25 17:59 81 mg
QPM JASEN Administration
Bupropion HCl 150 mg 03/04/25 08:00 03/05/25 08:03
Bupropion (24hr) Extended Release 150 Mg Tablet PO 04/01/25 07:59 150 mg
DAILY JASEN Administration
Dapagliflozin 10 mg 03/03/25 23:10 03/04/25 17:57
Dapagliflozin (Farxiga) 10 Mg Tablet PO 03/31/25 23:09 10 mg
QPM JASEN Administration
Digoxin 125 mcg 03/04/25 12:00 03/05/25 12:28
Digoxin 125 Mcg Tablet PO 04/01/25 11:59 125 mcg
NOON JASEN Administration
Ezetimibe 10 mg 03/04/25 08:00 03/05/25 07:58
Ezetimibe (Zetia) 10 Mg Tablet PO 04/01/25 07:59 10 mg
DAILY JASEN Administration
Enoxaparin Sodium 40 mg 03/04/25 18:00 03/04/25 17:57
Enoxaparin Sodium 40 Mg/0.4 Ml Syringe SC 04/01/25 17:59 40 mg
QPM JASEN Administration
Ferrous Sulfate 325 mg 03/04/25 18:00 03/04/25 17:56
Ferrous Sulfate 325 Mg Tablet PO 04/01/25 17:59 325 mg
QPM JASEN Administration
Levothyroxine Sodium 88 mcg 03/05/25 04:00 03/05/25 04:02
Levothyroxine 88 Mcg Tablet PO 04/02/25 03:59 88 mcg
DAILY@0400 JASEN Administration
Pantoprazole Sodium 40 mg 03/04/25 08:00 03/05/25 07:58
Pantoprazole 40 Mg Delayed Release Tablet PO 04/01/25 07:59 40 mg
DAILY JASEN Administration
Potassium Chloride 20 meq 03/04/25 18:00 03/04/25 17:56
Potassium Chloride 20 Meq Extended Release Tablet PO 04/01/25 17:59 20 meq
QPM JASEN Administration
Sertraline HCl 50 mg 03/04/25 08:00 03/05/25 07:58
Sertraline 50 Mg Tablet PO 04/01/25 07:59 50 mg
DAILY JASEN Administration
Sodium Chloride 0 flush 03/03/25 22:00 03/04/25 17:56
Sodium Chloride 0.9% (Flush) Syringe IV 03/31/25 21:59 2 flush
PER PROTOCOL JASEN Administration
Torsemide 20 mg 03/05/25 08:00 03/05/25 07:58
Torsemide 20 Mg Tablet PO 04/02/25 07:59 20 mg
DAILY JASEN Administration
Home Medications
�Medication �Instructions �Recorded
bupropion HCl 150 mg 24 hr tablet, 150 mg PO DAILY Depression 11/23/13
extended release
levothyroxine 75 mcg tablet 75 mcg PO DAILY@0400 Thyroid 11/23/13
(Synthroid)
aspirin 81 mg tablet,delayed 81 mg PO QPM Blood Clot 06/10/24
release Prevention/Tx
ezetimibe 10 mg tablet 10 mg PO DAILY High Cholesterol 06/10/24
pantoprazole 40 mg tablet,delayed 40 mg PO DAILY Gastrointestinal 06/10/24
release Issue
biotin 5,000 mcg chewable tablet 5,000 mcg PO DAILY 03/03/25
cholecalciferol (vitamin D3) 50 50 mcg PO QPM 03/03/25
mcg (2,000 unit) capsule
dapagliflozin propanediol 10 mg 10 mg PO QPM 03/03/25
tablet (Farxiga)
digoxin 125 mcg (0.125 mg) tablet 125 mcg PO NOON 03/03/25
efinaconazole 10 % topical 1 applic topical DAILY apply to R 03/03/25
solution with applicator (Jublia) big toe
ferrous sulfate 325 mg (65 mg 325 mg PO QPM 03/03/25
iron) tablet (iron)
potassium chloride 20 mEq 20 meq PO QPM 03/03/25
tablet,extended release
sertraline 50 mg tablet 50 mg PO DAILY 03/03/25
torsemide 20 mg tablet 20 mg PO DAILY 03/03/25
[2025-03-05] MEDS: ASPIR LOW (ENTERIC COATED) 81 MG PO (17:40)
[2025-03-05] MEDS: KCL 20 MEQ PO (17:40)
[2025-03-05] MEDS: FARXIGA 10 MG PO (17:41)
[2025-03-05] MEDS: FEOSOL 325 MG PO (17:41)
[2025-03-05] MEDS: LOVENOX 40 MG SC (17:42)
[2025-03-05 19:00] VITALS: BP 112/47
[2025-03-05 23:00] VITALS: BP 93/49
[2025-03-06] VITALS (9 sets, daily range): BP systolic 86–155; BP diastolic 45–79; PULSE 62–75; O2SAT 98; BMI 19.9
[2025-03-06] MEDS: SYNTHROID 88 MCG PO (04:31)
[2025-03-06] MEDS: WELLBUTRIN XL (24 hour extended release) 150 MG PO (07:56)
[2025-03-06] MEDS: ZETIA 10 MG PO (07:56)
[2025-03-06] MEDS: ZOLOFT 50 MG PO (07:56)
[2025-03-06] MEDS: DEMADEX 20 MG PO (07:56)
[2025-03-06] MEDS: PROTONIX 40 MG PO (07:56)
[2025-03-06 08:22] LABS: Erythrocyte Sed Rate 82 mm/hour (0-20)
[2025-03-06 09:15] LABS: Blood Urea Nitrogen 22 mg/dl (7-17); Calcium 8.5 mg/dl (8.4-10.2); Carbon Dioxide 29 mmol/L (22-30); Chloride 106 mmol/L (98-107); Estimated Creatinine Clearance 56 ml/min; Glucose 95 mg/dl (70-99); Potassium 3.9 mmol/L (3.5-5.1); Sodium 142 mmol/L (135-145); eGFR > 60.00
--- NOTE | 2025-03-06 10:40 | W.PN.HOSP.TC ---
Today's Communication/Plan
-
see A/P
Assessment / Plan
Assessment / Plan
HPI: 64-year-old p/w shortness of breath. She gained 3 pounds in in 1 week. No edema. Patient is compliant with torsemide
Patient has PMH atrial fibrillation on digoxin, not on anticoagulation.
Echo 06/13/2024-normal LV size and concentric remodeling and normal systolic function. EF 60 to 65%. Diastolic function indeterminate. Well-seated bioprosthetic mitral valve, aortic valve and tricuspid valve ring. Mild TR. Severe pulmonary
regurgitation. IVC mildly dilated. RA pressure 20 mmHg. Pleural effusion. Isolated echolucency along the anterior aspect of the right ventricular free wall appears to be isolated pericardial effusion less likely hepatic cyst.
Head CT-no evidence of acute intracranial hemorrhage or transcortical infarct. 2.7 cm chronic transcortical infarct in the anteromedial right frontal lobe. Mild cerebral and cerebellar volume loss.
Chest e-xfg-[id number] acute interstitial and alveolar cardiogenic pulmonary edema, small bilateral pleural effusions. Chronic bands/scarring right upper lobe. Previous mitral and tricuspid valve repair. Right intraventricular cardiac conduction
device in place. Bilateral breast implants in place.
CTA head and neck-6 mm thyroid nodule
No acute intracranial hemorrhage. Minor chronic microvascular white matter change. Stable mild focal encephalomalacia involving superior right paramidline frontal lobe which may be developmentally or traumatic insult. Cervical carotid and
vertebral arteries are patent. Right proximal ICA moderate calcific plaque and left proximal ICA mild noncalcific plaque. No [place] aneurysm or stenosis no cervical artery significant plaque stenosis thrombus or occlusion.
A/P:
# Acute on chronic HFpEF
proBNP 2100
Troponin negative
Cont monitoring tech
Patient is on torsemide 20 mg daily as outpatient
s/p Lasix 40 mg IV twice daily- changed to OP dose of Torsemide 20 mg daily
Intake and output charting and daily weights
Follow routine Echo
Continue Farxiga.
# Hypokalemia-replaced.
# Episode of blurry vision- Transient.
CT angiogram of the head and neck neg
Neurochecks
MRI of the brain
Neuro eval
Check echo as above
Consider ophth eval outpt
# Paroxysmal atrial fibrillation
# History of Medtronic leadless pacemaker placement
Patient is on digoxin for rate control
She is off amiodarone and Coreg now
Follows with [facility] cards Dr. Medhat Cesar, EP- Dr. Darryl Kapoor at [facility]
Per pt, she was taken off Coumadin since Jun 2024 following thoracentesis/pleurodesis and was informed to not restart
[id number] Score at least 4, hence needs AC
consider restart Coumadin after MRI brain
Card CS for OAC recc
Digoxin level at 1.5
# Bioprosthetic mitral valve replacement, bioprosthetic aortic valve replacement, tricuspid valvuloplasty with prosthetic ring on 06/[address] Prabhakar at [facility].
# History of pleural effusion with thoracentesis in the past
# Hyperlipidemia
continue Zetia
# Hypothyroidism
Increase levothyroxine to 88 mcg (from 75 mcg)
# Bipolar disorder/depression
continue Wellbutrin, sertraline
# History of old stroke on CT-2.7 cm chronic transcortical infarct in the anteromedial right frontal lobe.
On ASA.
Not sure why not on a Statin
# History of stage Ia Hodgkin's disease status post mantle therapy and splenectomy 1983
# GERD-continue PPI
# History of splenectomy
DVT prophylaxis-Lovenox. Need to address anticoagulation
DNR
Dr Cesar Shane- [phone]
total time spent 51 min
Anticipated Discharge: Within 24 hours
Subjective/Interval History
-
Date of Service: March 06, 2025
Objective Data
-
Labs:
Laboratory Results
03/06/25
07:31
Sodium 142
Potassium 3.9
Chloride 106
Carbon Dioxide 29
BUN 22 H
Creatinine 0.8
Glucose 95
Calcium 8.5
Vital Signs:
Vital Signs
Temp Pulse Resp BP Pulse Ox
36.6 C 61 16 105/54 94
03/06/25 07:54 03/06/25 07:54 03/06/25 07:54 03/06/25 07:54 03/06/25 08:00
I&O
03/05/25 03/06/25 03/07/25
06:59 06:59 06:59
Intake Total 840 / 840 420 / 420
Output Total 1750 / 1750 1390 / 1390
Balance -910 / -910 -970 / -970
Review of Systems
-
History Source: Patient
All other systems: Reviewed and negative
Physical Exam
-
General: Well Developed, Well Nourished, No Apparent Distress, Comfortable and Conversant; Negative Respiratory Distress
HEENT: Normocephalic, Atraumatic, Nose Appears Normal and Ears Appear Normal; Negative Oxygen
Respiratory: Clear to Auscultation and Non Labored Respirations; Negative Accessory Resp Muscle Use
Cardiac: Regular Rhythm and S1/S2
GI: Soft, Nontender, Nondistended and Normal Bowel Sounds
Skin: Warm and Dry
Neuro: Awake, Alert, Oriented and AO x 3
Psych: Calm and Intact Judgement/Insight
Data Reviewed
-
Labs: Labs Reviewed by me
--- NOTE | 2025-03-06 11:50 | W.PN.CD ---
Addendum entered and electronically signed by Isaac Ching MD 03/06/25 16:48:
64 yo female with paroxysmal A fib, radiation induced valvular heart disease s/p bio-AVR and MVR, and TV repair, h/o TIA, admitted with acute on chronic HFPEF, prior CVA, possible TIA. She feels better after IV diuresis. There are plans for MRI to
evaluate transient visual symptoms, possible TIA. Tele: As, Stop Attacher.
Given prior A fib, findings of prior CVA (chronic), and now possible TIA sxs, would start eliquis 5mg bid once MRI completed and safe from neurologic perspective.
Acute on chronic HFPEF. Improved s/p IV diuresis. Continue torsemide.
Please call us back with additional questions.
Addendum entered and electronically signed by MITCH Rodriguez 03/06/25 12:14:
Per CM, Eliquis has zero dollar co-pay for patient.
Original Note:
Today's Communication / Plan
-
Start Eliquis 5 mg PO BID when okay from neuro standpoint (MRI is pending). CM consulted for clifford check on this. When starting Eliquis, okay to stop ASA. Follow-up with her usual cardiology team after d/c: Drs. Cesar and Antwon (EP).
Impression / Plan
-
Sddll-qt-[id number] HFpEF: improved, she is feeling much better
-likely related to dietary indiscretion as detailed
-echo today pending
-now back on her typical PO diuretic- continue
Hx stroke on imaging, concern for TIA:
-this diagnosis is threat to bodily function
-neuro is following and MRI is pending
-OAC discussion as below
AFIB/flutter, type unknown, paroxysmal:
-noted post-op, then AC stopped (was warfarin immediately post-op). [id number] score is now 4 for female, stroke, CHF- so plan to start Eliquis 5 mg PO BID when safe from neuro standpoint- MRI is pending. I have consulted CM for pricing assistance.
When starting Eliquis, can stop aspirin.
Hx leadless PPM:
-continue to follow with EP at [facility]
S/p Bio MVR/AVR, and TV repair with ring by Dr. Prabhakar at [facility] (05/26/2024):
-echo pending
Data:
Echo 06/13/24: EF 60-65% by visual assessment. Well seated, normally functioning bioprosthetic mitral valve. Well seated, normally functioning bioprosthetic aortic valve. Well seated, normally functioning tricuspid valve ring with a mean gradient of
2 mmHg and mild tricuspid regurgitation. Structurally normal pulmonic valve with severe pulmonic regurgitation. The IVC is mildly dilated and does not demonstrate normal respiratory variation. Right atrial pressure estimated at 12 mmHg.Pleural
effusion present. There is an isolated echolucency along the anterior aspect of the right ventricular free wall (seen in the subcostal view) which appears to be an isolated pericardial effusion, less likely hepatic cyst.
Physical Exam
Vital Signs/Labs
Vital Signs
Temp Pulse Resp BP Pulse Ox
97.9 F 95 14 109/63 95
03/06/25 11:19 03/06/25 11:19 03/06/25 11:19 03/06/25 11:19 03/06/25 11:19
03/05/25 03/06/25 03/07/25
06:59 06:59 06:59
Actual Weight 49.924 kg 49.243 kg
03/03/25 15:53
03/06/25 07:31
Magnesium 2.2 mg/dl (1.6-2.3) 03/04/25 07:43
Triglycerides 67 mg/dl (10-149) 03/04/25 07:43
LDL Cholesterol, Calc 71 mg/dl 03/04/25 07:43
VLDL Cholesterol, Calc 13 mg/dl (0-30) 03/04/25 07:43
HDL Cholesterol 31 mg/dl 03/04/25 07:43
Free T4 1.77 ng/dl (0.78-2.19) 03/04/25 07:43
Digoxin 1.5 ng/ml (0.8-2.0) 03/04/25 07:43
03/03/25
15:53
[id number]-A-[id number] Pept 2100
LAB Results
03/03/25
15:53
Troponin I < 0.012
Physical Exam
Constitutional: No acute distress
EENT: Anicteric
Cardiovascular: Rhythm & rate is regular
Respiratory: Respiratory effort normal and Wheeze Absent
Neuro/Psych: AO x 3
Data Reviewed
-
Date of Service: March 06, 2025
EKG: Other (paced)
Labs: Labs Reviewed by me
--- NOTE | 2025-03-06 12:13 | CM ---
Cost of Eliquis is zero copay. Cardiology is aware.
Plan; Home when stable.
[2025-03-06] MEDS: LANOXIN 125 MCG PO (12:26)
[2025-03-06] MEDS: ASPIR LOW (ENTERIC COATED) 81 MG PO (17:14)
[2025-03-06] MEDS: LOVENOX 40 MG SC (17:14)
[2025-03-06] MEDS: KCL 20 MEQ PO (17:14)
[2025-03-06] MEDS: FEOSOL 325 MG PO (17:14)
[2025-03-06] MEDS: FARXIGA 10 MG PO (17:14)
[2025-03-07 03:36] VITALS: BP 111/64
[2025-03-07] MEDS: SYNTHROID 88 MCG PO (04:59)
[2025-03-07 06:00] VITALS: BMI 19.8
[2025-03-07 07:05] VITALS: BP 94/57; BP 94/64; BP 99/51; PULSE 62; PULSE 66; PULSE 67
[2025-03-07] MEDS: WELLBUTRIN XL (24 hour extended release) 150 MG PO (08:36)
[2025-03-07] MEDS: PROTONIX 40 MG PO (08:36)
[2025-03-07] MEDS: ZOLOFT 50 MG PO (08:36)
[2025-03-07] MEDS: ZETIA 10 MG PO (08:36)
[2025-03-07] MEDS: DEMADEX PO (08:47)
--- NOTE | 2025-03-07 09:07 | W.PN.HOSP.TC ---
Today's Communication/Plan
-
see A/P
Assessment / Plan
Assessment / Plan
HPI: 64-year-old p/w shortness of breath. She gained 3 pounds in in 1 week. No edema. Patient is compliant with torsemide
Patient has PMH atrial fibrillation on digoxin, not on anticoagulation.
Echo 06/13/2024-normal LV size and concentric remodeling and normal systolic function. EF 60 to 65%. Diastolic function indeterminate. Well-seated bioprosthetic mitral valve, aortic valve and tricuspid valve ring. Mild TR. Severe pulmonary
regurgitation. IVC mildly dilated. RA pressure 20 mmHg. Pleural effusion. Isolated echolucency along the anterior aspect of the right ventricular free wall appears to be isolated pericardial effusion less likely hepatic cyst.
Head CT-no evidence of acute intracranial hemorrhage or transcortical infarct. 2.7 cm chronic transcortical infarct in the anteromedial right frontal lobe. Mild cerebral and cerebellar volume loss.
Chest [id number] acute interstitial and alveolar cardiogenic pulmonary edema, small bilateral pleural effusions. Chronic bands/scarring right upper lobe. Previous mitral and tricuspid valve repair. Right intraventricular cardiac conduction
device in place. Bilateral breast implants in place.
CTA head and neck-6 mm thyroid nodule
No acute intracranial hemorrhage. Minor chronic microvascular white matter change. Stable mild focal encephalomalacia involving superior right paramidline frontal lobe which may be developmentally or traumatic insult. Cervical carotid and
vertebral arteries are patent. Right proximal ICA moderate calcific plaque and left proximal ICA mild noncalcific plaque. No [place] aneurysm or stenosis no cervical artery significant plaque stenosis thrombus or occlusion.
A/P:
# Acute on chronic HFpEF
proBNP 2100
Troponin negative
Patient is on torsemide 20 mg daily as outpatient
s/p Lasix 40 mg IV twice daily- changed back to OP dose of Torsemide 20 mg daily (add holding parameter)
Intake and output charting and daily weights
routine Echo this admission: EF 55%. Bioprosthetic mitral valve. Peak/mean gradients across the mitral valve are 26/6 mmHg. Compared to 06/03/24: RV now looks dilated with reduced function. RV dilation and dysfunction is described on echo report
08/2024 from [facility].
Continue Farxiga.
# Hypokalemia-replaced.
# Episode of blurry vision- Transient.
CT angiogram of the head and neck neg
Pending MRI of the brain
Neuro on board
echo as above
Recc ophth eval outpt- informed pt
# Paroxysmal atrial fibrillation
# History of Medtronic leadless pacemaker placement
Patient is on digoxin for rate control. Digoxin level at 1.5
She is off amiodarone and Coreg now
Follows with [facility] Dr. Medhat Cesar, EP- Dr. Darryl Kapoor at [facility]
Per pt, she was taken off Coumadin since Jun 2024 following thoracentesis/pleurodesis and was informed to not restart
[id number] Score at least 4, hence needs AC
appreciate Card input, recc Eliquis 5 mg BID if MRI brain negative
# Bioprosthetic mitral valve replacement, bioprosthetic aortic valve replacement, tricuspid valvuloplasty with prosthetic ring on 06/[address] Prabhakar at [facility].
# History of pleural effusion with thoracentesis in the past
# Hyperlipidemia
continue Zetia
# Hypothyroidism
Increased levothyroxine to 88 mcg (from 75 mcg)
# Bipolar disorder/depression
continue Wellbutrin, sertraline
# History of old stroke on CT-2.7 cm chronic transcortical infarct in the anteromedial right frontal lobe.
On ASA.
Not sure why not on a Statin
# History of stage Ia Hodgkin's disease status post mantle therapy and splenectomy 1983
# GERD-continue PPI
# History of splenectomy
DVT prophylaxis-Lovenox. Eliquis 5 mg BID if MRI brain negative
DNR
Dr Arsenio Lynn- [phone]
DW RN
Anticipated Discharge: Within 24 hours
Subjective/Interval History
-
Date of Service: March 07, 2025
Objective Data
-
Vital Signs:
Vital Signs
Temp Pulse Resp BP Pulse Ox
36.9 C 62 20 99/51 97
03/07/25 07:05 03/07/25 07:05 03/07/25 07:05 03/07/25 07:05 03/07/25 07:05
I&O
03/06/25 03/07/25 03/08/25
06:59 06:59 06:59
Intake Total 420 / 420 880 / 880
Output Total 1390 / 1390
Balance -970 / -970 880 / 880
Review of Systems
-
History Source: Patient
All other systems: Reviewed and negative
Physical Exam
-
General: Well Developed, Well Nourished, No Apparent Distress, Comfortable and Conversant; Negative Respiratory Distress
HEENT: Normocephalic, Atraumatic, Nose Appears Normal and Ears Appear Normal; Negative Oxygen
Respiratory: Clear to Auscultation and Non Labored Respirations; Negative Accessory Resp Muscle Use
Cardiac: Regular Rhythm and S1/S2
GI: Soft, Nontender, Nondistended and Normal Bowel Sounds
Skin: Warm and Dry
Neuro: Awake, Alert, Oriented and AO x 3
Psych: Calm and Intact Judgement/Insight
Data Reviewed
-
Labs: Labs Reviewed by me
[2025-03-07 11:05] VITALS: BP 99/51
[2025-03-07] MEDS: LANOXIN 125 MCG PO (12:18)
--- NOTE | 2025-03-07 14:14 | W.DCSUMMARY ---
Discharge Summary
Discharge Data
Date of Admission: 03/03/25
Date of Discharge: 03/07/25
-
Pending Results: No
Hospital Course
Principal Diagnosis:
Acute on chronic HFpEF
Transient episode of blurry vision
Chronic Diagnoses:�
Paroxysmal atrial fibrillation. On digoxin for rate control. Off amiodarone and Coreg
History of Medtronic leadless pacemaker placement
Bioprosthetic mitral valve replacement, bioprosthetic aortic valve replacement, tricuspid valvuloplasty with prosthetic ring on 06/[address] Prabhakar at [facility].
History of pleural effusion with thoracentesis
Hyperlipidemia
Hypothyroidism, levothyroxine increased to 88 mcg (from 75 mcg)
Bipolar disorder/depression, continue Wellbutrin, sertraline
History of old stroke on CT- 2.7 cm chronic transcortical infarct in the anteromedial right frontal lobe.
History of stage Ia Hodgkin's disease status post mantle therapy and splenectomy 1983
GERD
History of splenectomy
Consultations:�
Cardiology
Neurology
Procedures:�
None
Clinical course:�
This is a 64-year-old female with past medical history as stated above who presented with shortness of breath and weight gain.
Problem 1:
Acute on chronic HFpEF.
The patient briefly received IV Lasix twice daily while in the hospital, and this was changed back to her outpatient torsemide at 20 mg daily.
Her routine Echo this admission showed: EF 55%. Bioprosthetic mitral valve. Peak/mean gradients across the mitral valve are 26/6 mmHg. Compared to 06/03/24: RV now looks dilated with reduced function. RV dilation and dysfunction is described on echo
report 08/2024 from [facility].
In addition to Lasix, she can also continue Farxiga.
Problem 2:
Transient episode of blurry vision.
Her CT angiogram head and neck was negative.
Her MRI brain also showed no acute intracranial abnormality.
She has been informed to follow-up with ophthalmology outpatient.
Problem 3:
Paroxysmal atrial fibrillation.
She can continue digoxin for rate control.
She is off amiodarone and Coreg.
She was started with Eliquis 5 mg twice daily for her paroxysmal A-fib.
As for the rest of her medical problems, they were stable during her hospital stay.
Discharge Plan
-
Patient Disposition: Home (Routine Discharge)
Discharge Diagnosis/Procedures: Acute on chronic heart failure with preserved ejection fraction;
Transient episode of blurry vision;
Paroxysmal atrial fibrillation;
History of Medtronic leadless pacemaker placement;
Bioprosthetic mitral valve replacement, bioprosthetic aortic valve replacement, tricuspid valvuloplasty with prosthetic ring on 06/07
Condition: Fair
Diet: As tolerated, Low Fat, Low Cholesterol and Low Sodium
Activity: As tolerated
Driving Restrictions: As prior to admission
Activity Restrictions/Additional Instructions:
Follow up with ophthalmology outpatient
Instructions: *PCP/Other Character Impersonator Heart Failure Instructions
Referrals:
Kate Jade MD [Family Provider, Internal Medicine] - in less than 1 week
Additional Discharge Medication Instructions: We have added Eliquis 5 mg twice daily.
Stop aspirin.
We have increased Synthroid from 75 mcg to 88 mcg daily
Prescriptions:
New
levothyroxine 88 mcg Tablet
88 mcg PO DAILY@0400 Qty: 30 0RF
Eliquis 5 mg tablet
5 mg PO BID Qty: 60 0RF
Continued
bupropion HCl 150 MG tablet extended release 24 hr
150 mg PO DAILY
pantoprazole 40 mg tablet,delayed release (DR/EC)
40 mg PO DAILY
ezetimibe 10 mg tablet
10 mg PO DAILY
torsemide 20 mg Tablet
20 mg PO DAILY
ferrous sulfate [iron] 325 mg (65 mg iron) Tablet
325 mg PO QPM
digoxin 125 mcg (0.125 mg) Tablet
125 mcg PO NOON
sertraline 50 mg Tablet
50 mg PO DAILY
cholecalciferol (vitamin D3) 50 mcg (2,000 unit) Capsule
50 mcg PO QPM
dapagliflozin propanediol [Farxiga] 10 mg Tablet
10 mg PO QPM
potassium chloride 20 mEq Tablet Extended Release
20 meq PO QPM
Jublia 10 % Solution With Applicator
1 applic TOPICAL DAILY
biotin 5,000 mcg Tablet,Chewable
5,000 mcg PO DAILY
Discontinued
levothyroxine [Synthroid] 75 mcg Tablet
75 mcg PO DAILY@0400
aspirin 81 mg Tablet,Delayed Release (Dr/Ec)
81 mg PO QPM
Discharge Orders:
Discharge Patient (As Directed); Ordered 03/07/25
Ordered By: Amairani Bingham
Discharge Date and Time
Discharge Date/Time: 03/07/25 15:00
Print Language: TURKISH
--- NOTE | 2025-03-07 14:24 | CM ---
CM reviewed chart and noted dc order
Bedside meeting with pt- no dc needs noted
Pt's ride already bedside
Discharge Disposition- home, no needs- friend transport
--- NOTE | 2025-03-08 10:01 | W.HF.CON ---
Heart Failure
- LV Function
Left ventricular function study result: LV Ejection fraction >/= 50%
Ejection Fraction Percentage: 55
- ARNI
Patient already on ARNI: No
Heart Failure ARNI Not Indicated: LV Ejection Fraction >/= 40%
- ACEI/ARB
Patient already on ACEI/ARB: No
Heart Failure ACEI/ARB Not Indicated: LV Ejection Fraction > 40%
- Beta Johnathan
Patient already on Evidence Based Beta Johnathan: No
Heart Failure Evidence Based Beta Johnathan Not Indicated: LV Ejection Fraction > 40%
- Mineralocorticord Receptor Antagonist
Patient already on MRA: No
Heart Failure MRA Not Indicated: LV Ejection Fraction > 40%
- SGLT-2 Inhibitor
Patient already on SGLT-2 Inhibitor: Yes
- Afib Anticoagulation
Patient already on Anticoagulation for Afib: Yes
- NYHA CHF Classification
NYHA CHF Classification Level: Class III - Symptoms w/ min exertion, interferes w/ nml daily activity
- ACC/AHA Stage
ACC/AHA Stage: Stage C: Symptomatic Heart Failure
== END 2025-03-07 15:00 | disposition home or self-care (01) | DRG 292 ==
LOC: 4 WEST ACU 21:52
PROVIDERS: Registered Nurse; Student in an Organized Health Care Education/Training Program; ADMITTING PHYSICIAN Internal Medicine; ATTENDING PHYSICIAN Internal Medicine; CONSULT PHYSICIAN Internal Medicine Cardiovascular Disease; CONSULT PHYSICIAN Psychiatry & Neurology Neurology; EMERGENCY PHYSICIAN Emergency Medicine; FAMILY PHYSICIAN Internal Medicine
DX: I50.33 Acute on chronic diastolic (congestive) heart failure (principal); I31.39 Other pericardial effusion (noninflammatory); I48.0 Paroxysmal atrial fibrillation; Z95.0 Presence of cardiac pacemaker; E78.00 Pure hypercholesterolemia, unspecified; E03.9 Hypothyroidism, unspecified; F31.9 Bipolar disorder, unspecified; Z79.890 Hormone replacement therapy; Z86.73 Personal history of transient ischemic attack (TIA), and cerebral infarction without residual deficits; K21.9 Gastro-esophageal reflux disease without esophagitis; Z90.81 Acquired absence of spleen; Z95.3 Presence of xenogenic heart valve; I25.10 Atherosclerotic heart disease of native coronary artery without angina pectoris; Z95.1 Presence of aortocoronary bypass graft; Z88.3 Allergy status to other anti-infective agents; Z88.2 Allergy status to sulfonamides; Z79.82 Long term (current) use of aspirin; Z79.84 Long term (current) use of oral hypoglycemic drugs; Z79.899 Other long term (current) drug therapy; Z79.01 Long term (current) use of anticoagulants; Z91.048 Other nonmedicinal substance allergy status; E87.6 Hypokalemia; Z66 Do not resuscitate; D50.9 Iron deficiency anemia, unspecified; I44.0 Atrioventricular block, first degree
CPT/HCPCS: 70450; 70496; 70498; 70551; 71046; 80048; 80053; 80061; 80162; 81003; 81015; 83735; 83880; 84439; 84443; 84484; 85025; 85652; 86140; 93005; 93306; 96374; 96375; 97162; 99285; Q9967

== ENCOUNTER 2025-03-24 18:09 | Emergency (ER) | payer OTHER, SELFPAY ==
[2025-03-24 18:18] VITALS: BP 104/56
[2025-03-24 18:38] LABS: Hematocrit 33.1 % (37.0-47.0); Hemoglobin 10.8 g/dL (12.0-16.0); Mean Corp Hgb Conc. 32.6 g/dL (33.0-37.0); Mean Corpuscular Volume 91.2 fL (81.0-99.0); Nucleated Red Blood Cells % 0 %; Platelet Count 200 10^3/uL (130-400); Red Cell Dist. Width 15.9 % (11.5-14.5)
[2025-03-24 18:59] LABS: ALT (SGPT) 24 U/L (0-35); AST (SGOT) 32 U/L (14-36); Albumin 3.8 g/dl (3.5-5.0); Alkaline Phosphatase 190 U/L (38-126); Blood Urea Nitrogen 27 mg/dl (7-17); Calcium 8.4 mg/dl (8.4-10.2); Carbon Dioxide 30 mmol/L (22-30); Chloride 98 mmol/L (98-107); Glucose 127 mg/dl (70-99); Potassium 3.8 mmol/L (3.5-5.1); Sodium 135 mmol/L (135-145); Total Protein 7.9 g/dl (6.3-8.2); eGFR > 60.00
== END 2025-03-24 20:31 ==
LOC: EMR 18:09
PROVIDERS: Emergency Medicine
DX: R06.00 Dyspnea, unspecified (principal); M79.89 Other specified soft tissue disorders; R63.5 Abnormal weight gain; Z53.21 Procedure and treatment not carried out due to patient leaving prior to being seen by health care provider
CPT/HCPCS: 80053; 83880; 85025

== ENCOUNTER → 2025-03-30 17:08 | Outpatient (REF) | payer OTHER, SELFPAY | LOC: RAD 17:08 | PROVIDERS: ATTENDING PHYSICIAN Nurse Practitioner Family; FAMILY PHYSICIAN Internal Medicine | DX: R06.02 Shortness of breath (principal); R05.3 Chronic cough | CPT/HCPCS: 71046 ==

== ENCOUNTER → 2025-04-04 11:51 | Outpatient (REF) | payer OTHER, SELFPAY ==
[2025-04-04 13:05] LABS: ALT (SGPT) 22 U/L (0-35); AST (SGOT) 36 U/L (14-36); Albumin 3.9 g/dl (3.5-5.0); Alkaline Phosphatase 201 U/L (38-126); Total Protein 8.0 g/dl (6.3-8.2)
== END ==
LOC: REG 11:51
PROVIDERS: ATTENDING PHYSICIAN Internal Medicine Gastroenterology; FAMILY PHYSICIAN Internal Medicine
DX: R10.10 Upper abdominal pain, unspecified (principal)
CPT/HCPCS: 36415; 80076

== ENCOUNTER → 2025-04-10 16:08 | Outpatient (REF) | payer OTHER, SELFPAY ==
[2025-04-10 16:33] LABS: Hematocrit 31.9 % (37.0-47.0); Hemoglobin 10.8 g/dL (12.0-16.0); Mean Corp Hgb Conc. 33.9 g/dL (33.0-37.0); Mean Corpuscular Volume 92.7 fL (81.0-99.0); Nucleated Red Blood Cells % 0.2 %; Platelet Count 208 10^3/uL (130-400); Red Cell Dist. Width 17.0 % (11.5-14.5)
[2025-04-10 16:59] LABS: Blood Urea Nitrogen 18 mg/dl (7-17); Calcium 8.2 mg/dl (8.4-10.2); Carbon Dioxide 31 mmol/L (22-30); Chloride 96 mmol/L (98-107); Glucose 103 mg/dl (70-99); Potassium 3.4 mmol/L (3.5-5.1); Sodium 135 mmol/L (135-145); eGFR > 60.00
[2025-04-10 17:08] LABS: C-Reactive Protein 49.80 mg/L (0.0-10.00)
[2025-04-10 17:20] LABS: Vitamin D, 25-OH*** 66.5 ng/mL (30-80)
[2025-04-10 17:54] LABS: Vitamin B12 > 1000 pg/ml (239-931)
[2025-04-11 14:54] LABS: Urine Character Clear (Clear)
== END ==
LOC: REG 16:08
PROVIDERS: ATTENDING PHYSICIAN Nurse Practitioner Family; FAMILY PHYSICIAN Internal Medicine
DX: I50.23 Acute on chronic systolic (congestive) heart failure (principal); E03.9 Hypothyroidism, unspecified; I48.0 Paroxysmal atrial fibrillation; F51.01 Primary insomnia; R41.3 Other amnesia; F32.A Depression, unspecified; F41.1 Generalized anxiety disorder; Z95.2 Presence of prosthetic heart valve; R35.0 Frequency of micturition; I77.6 Arteritis, unspecified
CPT/HCPCS: 36415; 80048; 81003; 81015; 82306; 82607; 83880; 85025; 85610; 85613; 85652; 85730; 86038; 86140; 86430; 87086

== ENCOUNTER → 2025-04-26 13:42 | Outpatient (REF) | payer OTHER, SELFPAY | LOC: REG 13:42 | PROVIDERS: ATTENDING PHYSICIAN Nurse Practitioner Family; FAMILY PHYSICIAN Internal Medicine | DX: R05.3 Chronic cough (principal) | CPT/HCPCS: 87070; 87205 ==

== ENCOUNTER → 2025-04-28 13:23 | Outpatient (REF) | payer OTHER, SELFPAY ==
[2025-04-28 14:05] LABS: Hematocrit 27.2 % (37.0-47.0); Hemoglobin 9.1 g/dL (12.0-16.0); Mean Corp Hgb Conc. 33.5 g/dL (33.0-37.0); Mean Corpuscular Volume 100.7 fL (81.0-99.0); Nucleated Red Blood Cells % 1.0 %; Platelet Count 210 10^3/uL (130-400); Red Cell Dist. Width 20.4 % (11.5-14.5)
[2025-04-28 14:09] LABS: Urine Character Clear (Clear)
[2025-04-28 14:22] LABS: Urine Red Blood Cell 0-2 /HPF (0-2); Urine White Cell 0-2 /HPF (0-5)
[2025-04-28 14:39] LABS: ASO Quantitative 200 IU/ml (<200)
[2025-04-28 14:44] LABS: ALT (SGPT) 30 U/L (0-35); AST (SGOT) 54 U/L (14-36); Albumin 3.9 g/dl (3.5-5.0); Alkaline Phosphatase 194 U/L (38-126); Blood Urea Nitrogen 29 mg/dl (7-17); Calcium 8.5 mg/dl (8.4-10.2); Carbon Dioxide 27 mmol/L (22-30); Chloride 97 mmol/L (98-107); Glucose 106 mg/dl (70-99); Potassium 4.1 mmol/L (3.5-5.1); Sodium 134 mmol/L (135-145); Total Protein 8.0 g/dl (6.3-8.2); eGFR > 60.00
[2025-04-28 14:46] LABS: C-Reactive Protein 67.20 mg/L (0.0-10.00)
== END ==
LOC: REG 13:23
PROVIDERS: ATTENDING PHYSICIAN Dermatology; FAMILY PHYSICIAN Internal Medicine
DX: L30.9 Dermatitis, unspecified (principal)
CPT/HCPCS: 36415; 80053; 81003; 81015; 82595; 82784; 83516; 83521; 84155; 84165; 85025; 85652; 86060; 86063; 86140; 86334; 86430

== ENCOUNTER 2025-05-05 02:57 | Inpatient (IN) | payer OTHER, SELFPAY ==
[2025-05-04 21:39] VITALS: BP 119/59; BMI 19.7
[2025-05-04 22:15] LABS: Hematocrit 28.0 % (37.0-47.0); Hemoglobin 9.4 g/dL (12.0-16.0); Mean Corp Hgb Conc. 33.6 g/dL (33.0-37.0); Mean Corpuscular Volume 98.9 fL (81.0-99.0); Nucleated Red Blood Cells % 1.5 %; Platelet Count 204 10^3/uL (130-400); Red Cell Dist. Width 19.5 % (11.5-14.5)
[2025-05-04 22:36] LABS: INR 1.97; PT 22.9 Sec (11.4-14.6)
[2025-05-04 22:37] LABS: APTT 36.9 Sec (23.4-35.0)
[2025-05-04 22:37] LABS: ALT (SGPT) 49 U/L (0-35); AST (SGOT) 78 U/L (14-36); Albumin 3.9 g/dl (3.5-5.0); Alkaline Phosphatase 193 U/L (38-126); Blood Urea Nitrogen 24 mg/dl (7-17); Calcium 8.7 mg/dl (8.4-10.2); Carbon Dioxide 29 mmol/L (22-30); Chloride 96 mmol/L (98-107); Estimated Creatinine Clearance 56 ml/min; Glucose 98 mg/dl (70-99); Potassium 3.5 mmol/L (3.5-5.1); Sodium 133 mmol/L (135-145); Total Protein 8.1 g/dl (6.3-8.2); eGFR > 60.00
[2025-05-04 22:48] LABS: Troponin I < 0.012 ng/ml
[2025-05-04 23:03] VITALS: BP 118/61
--- NOTE | 2025-05-04 23:41 | ED.GENMED ---
History of Present Illness
General
Chief Complaint: Swelling
Source: patient and records
Exam Limitations: none
Time Seen by Provider: 05/04/25 23:31
Nursing documentation reviewed up to this point in time: agreed with
History of Present Illness
History of Present Illness:
64-year-old female with past medical history as noted presents to the ER for evaluation of leg swelling and shortness of breath. Patient reports symptoms have been worsening over the past 24 hours. She reports lower extremity edema to some extent
chronically but this morning woke up with swelling much worse than usual. She reports 2 pound weight gain (dry weight 105, currently 107). She reports increasing shortness of breath and orthopnea. She denies any chest pain. Denies any cough.
She denies any other acute complaints. She normally takes torsemide 20 mg daily�will occasionally take 30 mg when symptoms are severe. No recent adjustments. Denies any recent dietary indiscretions or any other lifestyle changes. She was notably
just admitted for congestive heart failure exacerbation in late February. She had been seeing a log rider through [place] but recently changed to Dr. Ching.
Past History
Past History
ED Past Medical History: Cancer
ED Past Surgical History: Other (Splenectomy)
Social History
Tobacco: Non-smoker
Alcohol: Occasional
Drug: None
Personal:
Living: with family
Employment: Employed
Family History
Family History: Other
Review of Systems
Review of Systems
All Other Systems: ROS reviewed and negative except as documented in HPI and ROS
Constitutional: Reports weight gain; Denies fever
Respiratory: Reports trouble breathing; Denies cough
Cardiac: Denies chest pain
ABD/GI: Denies abdominal pain, nausea or vomiting
: Denies flank pain
Musculoskeletal: Reports edema; Denies neck pain or back pain
Neurological: Denies dizzy or headache
Phy Exam
Physical Exam
Physical Exam:
General: Awake, alert, oriented x3; no acute distress
Head: Normocephalic, atraumatic
Eyes: Conjunctiva normal, sclera anicteric
Throat: Airway intact, handling secretions
Neck: Trachea midline, no JVD
Lungs: No tachypnea or hypoxia, breath sounds are diminished at the lung bases
Heart: Regular rate and rhythm, systolic murmur noted
Abd: Soft, non distended, nontender
Neuro: Grossly intact
Extremities: +2 edema in the legs bilaterally, good pulses throughout
Scores
Heart Failure Risk
Heart Failure Risk Score: Yes
History of Stroke or TIA: No
History of intubation for respiratory distress: No
Heart rate on ED arrival >/= 110: No
SaO2 <90% on arrival on room air: No
HR >/=110 during 3min walk test (or too ill to perform test): Yes
ECG has acute ischemic changes: No
Urea >/=12mmol/L (BUN 33.6mg/dL): No
Serum CO2>/=35mmol/L: No
Troponin I or T elevated to [place] Level (0.4mg/dL): No
NT-proBNP >/=5,000ng/L (5,000pg/ml): No
HF Risk Score: 2
Admission Status: MEDIUM RISK 9.2% Consider observation or discharge to home with homecare & f/u visit to PCP/Line Service Technician, or SNF for treatment
Heart Score for Chest Pain Patients
STEMI patient?: Not applicable
Withdrawal Assessment of Alcohol
Withdrawal Assessment Completed?: Not applicable
Course
Orders/Labs/Results
Orders:
Orders
05/04/25 22:01
Electrocardiogram (*1) Urgent
Reason for Study: Other
Other Reason for Exam: Respiratory Distress
Cardiac Monitoring- Treatment ONCE
EKG- Treatment ONCE
IV Insert/Care/Rem.- Treatment PRN
CR Chest - 2 Views Urgent
Comment:
Reason For Exam: respiratory distress
O2 Therapy [RESP] Urgent
Titrate/Wean O2 to maintain O2 sat greater than (%): 93
Special Instructions: TO MAINTAIN CONTINUOUS O2 SATS >/= 93%
Pulse Ox/cont/shift [RESP] Urgent
Quantity: 1
Special Instructions: continuous pulse ox
05/04/25 22:07
Complete Blood Count/With Diff Urgent
Comprehensive Metabolic Panel Urgent
NT-proBNP Urgent
Troponin I Urgent
05/04/25 22:11
PTT Urgent
Prothrombin Time Urgent
05/04/25 23:40
Furosemide [Lasix] 40 mg IV NOW STA
Abnormal Lab Results
05/04/25 05/04/25
22:07 22:11
WBC 11.0 H 10^3/uL
(4.8-10.8)
RBC 2.83 L 10^6/uL
(4.20-5.40)
Hgb 9.4 L g/dL
(12.0-16.0)
Hct 28.0 L %
(37.0-47.0)
MCH 33.2 H pg
(27.0-31.0)
RDW 19.5 H %
(11.5-14.5)
Abs Immat Gran (auto) 0.4 H 10^3/uL
(0-0.05)
Absolute Neuts (auto) 9.4 H 10^3/uL
(1.4-6.5)
Absolute Lymphs (auto) 0.3 L 10^3/uL
(1.2-3.4)
Absolute Monos (auto) 0.9 H 10^3/uL
(0.1-0.6)
Immature Gran % 3.2 H %
(0-0.5)
Neutrophils % 85.0 H %
(42.2-75.2)
Lymphocytes % 3.1 L %
(20.5-51.1)
PT 22.9 H Sec
(11.4-14.6)
APTT 36.9 H Sec
(23.4-35.0)
Sodium 133 L mmol/L
(135-145)
Chloride 96 L mmol/L
(98-107)
BUN 24 H mg/dl
(7-17)
Total Bilirubin 7.0 H mg/dl
(0.2-1.3)
AST 78 H U/L
(14-36)
ALT 49 H U/L
(0-35)
Alkaline Phosphatase 193 H U/L
(38-126)
05/04/25 22:07
05/04/25 22:07
Vital Signs
Initial and Last Documented VS:
Initial Vital Signs
Temp Pulse Resp BP Pulse Ox
37.3 C 74 20 119/59 97
05/04/25 21:39 05/04/25 21:39 05/04/25 21:39 05/04/25 21:39 05/04/25 21:39
Last Documented Vital Signs
Temp Pulse Resp BP Pulse Ox
37.3 C 60 22 118/61 98
05/04/25 21:39 05/04/25 23:03 05/04/25 23:03 05/04/25 23:03 05/04/25 23:03
MDM/Problems Addressed
Differential Diagnosis Includes:
Congestive heart failure, pneumonia, pulmonary embolism
MDM/Problems Addressed:
64-year-old female presents for evaluation of increased leg swelling, shortness of breath, orthopnea and weight gain over the past few days much worse over the past 24 hours. Vitals and exam as above. Certainly by exam she appears to be in
congestive heart failure. EKG shows a paced rhythm�will interrogate device. Labs were sent off including CBC which shows stable anemia, CMP which showed no clinically significant abnormalities. Marginal transaminitis likely on the basis of
hepatic congestion from CHF. Chest x-ray shows pleural effusions no giselle edema, increased pulmonary vascularity. proBNP 3780 which is higher than any previous. Overall clinical picture is consistent with congestive heart failure exacerbation.
Had a long discussion with the patient�fortunately she is not hypoxic has reassuring vital signs. We discussed potentially increasing diuretic and treating on outpatient basis but patient does not feel comfortable with this plan prefers to be
treated in the hospital because she says her symptoms are worse than ever. Will plan to treat with IV Lasix and admit for continued management. Case discussed with hospitalist.
Chronic conditions affecting care:
Congestive heart failure, valvular disease, atrial fibrillation, pacemaker
Acute Exacerbation and/or Progression of Chronic Illness:
Acute CHF managed as above
*Radiology
Radiology exam reviewed: preliminary read by ED provider and radiology read reviewed
*Pulse Oximetry
SaO2: 98
Oxygen Mode of Delivery: Room air
Patient hypoxic: no (98%)
*EKG
Interpreted by ED Provider?: Yes
Heart Rate: 64
Rate: normal
Rhythm: ventricular paced
*Critical Care Note
Total Time (30-74mins, 75-104mins- exclusive of procedures): Not Applicable
Data Reviewed
Review of Other/Old Records Reveals: Labs and Records
Source: patient and records
Patient Management
Discussion with other providers: Hospitalist (Discussed with hospitalist)
Escalation/DeEscalation of care consider admission/obs:
Admission indicated
ED Attending Note
-
Portions of this chart may have been created with voice recognition software.� Occasional wrong word or��sound alike� substitutions may have occurred due to the inherent limitations of voice recognition software.
Discharge Plan
Departure
Patient Disposition: Admit
Date of Disposition: 05/04/25
Time of Disposition: 23:48
Admit to doctor: Gigi
Presentation/result/management discussed w/ accepting MD/DO: Hospitalist
Discharge Problem:
CHF exacerbation
Prescriptions:
No Action
bupropion HCl 150 MG tablet extended release 24 hr
150 mg PO DAILY
pantoprazole 40 mg tablet,delayed release (DR/EC)
40 mg PO DAILY
ezetimibe 10 mg tablet
10 mg PO DAILY
torsemide 20 mg Tablet
20 mg PO DAILY
ferrous sulfate [iron] 325 mg (65 mg iron) Tablet
325 mg PO QPM
digoxin 125 mcg (0.125 mg) Tablet
125 mcg PO NOON
sertraline 50 mg Tablet
50 mg PO DAILY
cholecalciferol (vitamin D3) 50 mcg (2,000 unit) Capsule
50 mcg PO QPM
dapagliflozin propanediol [Farxiga] 10 mg Tablet
10 mg PO QPM
potassium chloride 20 mEq Tablet Extended Release
20 meq PO QPM
biotin 5,000 mcg Tablet,Chewable
5,000 mcg PO DAILY
levothyroxine 88 mcg Tablet
88 mcg PO DAILY@0400 Qty: 30 0RF
Eliquis 5 mg tablet
5 mg PO BID Qty: 60 0RF
Referrals:
Kate Jade MD [Family Provider, Internal Medicine]
Interventions
Interventions:
*Risk Screen - Suicide Last Done: 05/04/25 21:39
*General Assessment Last Done: 05/04/25 21:39
*Neglect/Abuse Screening Last Done: 05/04/25 21:39
*ED- Fall Risk Assessment Last Done: 05/04/25 21:39
*ED COVID-19 Vaccine History Last Done: 05/04/25 21:39
ED- Cardiac Assessment Last Done: 05/04/25 23:05
ED- Pulmonary Assessment Last Done: 05/04/25 23:05
ED-Skin Assessment Last Done: 05/04/25 23:05
Discharge Date and Time
Print Language: [place]
[2025-05-04 23:58] VITALS: BP 108/60
[2025-05-04 23:59] VITALS: BP 108/60
[2025-05-05] VITALS (8 sets, daily range): BP systolic 101–112; BP diastolic 47–57; BMI 19.6
[2025-05-05] MEDS: LASIX 40 MG IV ×3 (00:08→16:43)
--- NOTE | 2025-05-05 02:28 | HPS.HSE ---
Family Physician
-
Family Physician: Kate Jade
Chief Complaint
-
Swelling
History of Present Illness
Patient is a 64y F with PMH significant for CHF / valvular heart disease, hypothyroidism and Hodgkin's disease who presents to ED complaining of increased LE swelling over the past 2 days. Patient states that she has taken her usual torsemide
without missing doses. She notes that she has taken 1 1/2 tabs (30mg) for the past two days - but with no notable change in urine output. She reports increased swelling in both LEs. Her weight has increased from 105 to 108. She complains of
fatigue and SOB with any activity / exertion. Patient denies any chest pain, resting dyspnea, orthopnea, etc.
Medical History
Past Medical History
Past Medical History: Reports Other
Additional Past Medical History:
Bipolar disorder
Hodgkin's
Hypothyroidism
Valvular Heart Disease
Chronic HFpEF
Past Surgical History: Reports Other
Additional Past Surgical History:
Splenectomy
Appendectomy
Bioprosthetic mitral replacement, bioprosthetic aortic valve placement, tricuspid valve ring annuloplasty
Leadless PPM
Social History
Tobacco: Non-smoker
Alcohol: None
Drug: None
Family History
Family History: Not pertinent
Allergies / Home Medications
Allergies reflects when Allergies were last updated in [facility].
Home Medications with original date entered in [facility]
Allergy/Medication List:
Allergies
Allergy/AdvReac Type Severity Reaction Status Date / Time
adhesive tape Allergy Rash Verified 05/04/25 23:09
nitrofurantoin Allergy Swelling Verified 05/04/25 23:09
Sulfa (Sulfonamide Allergy Nausea / Verified 05/04/25 23:09
Antibiotics) Vomiting
Home Medications
bupropion HCl 150 mg 24 hr tablet, extended release 150 mg PO DAILY Depression 11/23/13
ezetimibe 10 mg tablet 10 mg PO DAILY High Cholesterol 06/10/24
pantoprazole 40 mg tablet,delayed release 40 mg PO DAILY Gastrointestinal Issue 06/10/24
biotin 5,000 mcg chewable tablet 5,000 mcg PO DAILY 03/03/25
cholecalciferol (vitamin D3) 50 mcg (2,000 unit) capsule 50 mcg PO QPM 03/03/25
dapagliflozin propanediol 10 mg tablet (Farxiga) 10 mg PO QPM 03/03/25
digoxin 125 mcg (0.125 mg) tablet 125 mcg PO NOON 03/03/25
ferrous sulfate 325 mg (65 mg iron) tablet (iron) 325 mg PO QPM 03/03/25
potassium chloride 20 mEq tablet,extended release 20 meq PO QPM 03/03/25
sertraline 50 mg tablet 50 mg PO DAILY 03/03/25
torsemide 20 mg tablet 20 mg PO DAILY 03/03/25
apixaban 5 mg tablet (Eliquis) 5 mg PO BID #60 tabs 03/07/25
levothyroxine 88 mcg tablet 88 mcg PO DAILY@0400 #30 tabs 03/07/25
Review of Systems
-
History Source: Patient
A 12 point ROS was completed and negative except as noted: Yes
Constitutional: Reports Weight Gain and Fatigue; Denies Fever or Chills
Respiratory: Reports Trouble Breathing; Denies Cough
Cardiac: Denies Chest Pain, Diaphoresis, Palpitations or Syncope
Abdomen/GI: Denies Abdominal Pain, Nausea, Vomiting or Diarrhea
: Denies Dysuria or Frequency
Musculoskeletal: Reports Edema; Denies Joint Pain
Neurological: Denies Dizzy or Headache
Psych: Denies Depression or Anxiety
Physical Exam
Vital Signs
Vital Signs
Temp Pulse Resp BP Pulse Ox
99.1 F 64 20 108/53 93
05/04/25 21:39 05/05/25 02:15 05/04/25 23:59 05/05/25 02:00 05/05/25 02:15
Physical Exam
General: Other (64y F in no acute distress.)
HEENT: Moist mucous membranes, PERRLA and Other (Pos JVD.)
Respiratory: Clear; No Wheezes, Rales or Rhonchi
Cardiac: S1/S2, Regular Rhythm and Murmur (III/ SAL, diastolic murmur)
GI: Soft, Non Tender, Non Distended and Normal Bowel Sounds
Musculoskeletal: No Clubbing, No Cyanosis and Other (2+ pitting edema b/l LEs.)
Neuro: AO x 3
Laboratory Results
-
05/04/25 22:07
05/04/25 22:07
Laboratory Results
PT 22.9 Sec (11.4-14.6) H 05/04/25 22:11
INR 1.97 05/04/25 22:11
APTT 36.9 Sec (23.4-35.0) H 05/04/25 22:11
Total Bilirubin 7.0 mg/dl (0.2-1.3) H 05/04/25 22:07
AST 78 U/L (14-36) H 05/04/25 22:07
ALT 49 U/L (0-35) H 05/04/25 22:07
Alkaline Phosphatase 193 U/L (38-126) H 05/04/25 22:07
Troponin I < 0.012 ng/ml 05/04/25 22:07
Impression/Plan
-
A/P: Patient is a 64y F with PMH significant for CHF / valvular heart disease who presents to ED complaining of increased LE swelling and weight gain.
Acute on Chronic HFpEF
Valvular Heart Disease
- Admit for further evaluation and treatment.
- Weight increase, LE swelling and exertional dyspnea.
- IV Lasix BID.
- Follow daily weights, I/Os, etc.
- Echo was done in February - defer any repeat at present to Cardiology.
- Cardiology eval for additional recommendations.
Abnormal LFTs
- LFTs gradually increasing since last admission / February 2025.
- ? passive hepatic congestion - though bilirubin elevation seems excessive.
- Check abdominal US in AM for further evaluation.
- Follow for changes with diuresis.
Paroxysmal Atrial Fibrillation
- Stable. Continue digoxin and Eliquis.
Hypothyroidism
- T4 dose increased during most recent admission (February).
- Continue current dose and update TFTs.
Bipolar Depression
- Stable. Continue Wellbutrin.
DVT Prophylaxis: On Eliquis
Code Status: Full
[2025-05-05 05:50] LABS: Hematocrit 27.2 % (37.0-47.0); Hemoglobin 8.6 g/dL (12.0-16.0); Mean Corp Hgb Conc. 31.6 g/dL (33.0-37.0); Mean Corpuscular Volume 98.6 fL (81.0-99.0); Platelet Count 191 10^3/uL (130-400); Red Cell Dist. Width 19.1 % (11.5-14.5)
[2025-05-05 06:06] LABS: Blood Urea Nitrogen 21 mg/dl (7-17); Calcium 7.9 mg/dl (8.4-10.2); Carbon Dioxide 30 mmol/L (22-30); Chloride 99 mmol/L (98-107); Estimated Creatinine Clearance 55 ml/min; Glucose 85 mg/dl (70-99); Potassium 3.2 mmol/L (3.5-5.1); Sodium 136 mmol/L (135-145); eGFR > 60.00
[2025-05-05 06:27] LABS: Troponin I < 0.012 ng/ml
--- NOTE | 2025-05-05 06:37 | PTCARENOTE ---
Patient received from ED via stretcher and was assisted to bed by staff. She was oriented to room and surroundings. Patient refused am Levothyroxine because she needs to take Synthroid Brand. She has her own meds in parking lot. Security will
try to assist patient in obtaining today. See nursing assessment for physical findings. Patient resting quietly at this time
[2025-05-05] MEDS: CALCIUM GLUCONATE 100 IV (08:19)
[2025-05-05] MEDS: KCL 20 MEQ PO ×4 (08:21→20:01)
[2025-05-05] MEDS: ZETIA 10 MG PO (08:22)
[2025-05-05] MEDS: PROTONIX 40 MG PO (08:22)
[2025-05-05] MEDS: ELIQUIS 5 MG PO ×2 (08:22→20:01)
[2025-05-05] MEDS: ZOLOFT 50 MG PO (08:22)
[2025-05-05] MEDS: WELLBUTRIN XL (24 hour extended release) 150 MG PO (08:25)
--- NOTE | 2025-05-05 08:31 | W.PN.HOSP.TC ---
Today's Communication/Plan
-
Continue IV Lasix
Assessment / Plan
Assessment / Plan
Impression:
Patient is a 64y F with PMH significant for CHF / valvular heart disease who presents to ED complaining of increased LE swelling and weight gain.
Assessment/plan:
Acute on Chronic HFpEF
Valvular Heart Disease
- Admit for further evaluation and treatment.
- Weight increase, LE swelling and exertional dyspnea.
- IV Lasix BID.
- Follow daily weights, I/Os, etc.
- Echo was done in February - defer any repeat at present to Cardiology.
- Cardiology consulted, appreciate input.
Abnormal LFTs
- LFTs gradually increasing since last admission / February 2025.
- ? passive hepatic congestion - though bilirubin elevation seems excessive.
- Check abdominal US :
Hepatic echotexture appears within normal limits. 1 cm right lobe hepatic cyst.
Large volume Biliary sludge. Top normal gallbladder wall thickness (Gallbladder wall thickening was also present previously). Negative sonographic Gomez sign. No bile duct dilatation.
Paroxysmal Atrial Fibrillation
- Stable. Continue Eliquis.
Cardio recommends to discontinue
Hypothyroidism
- T4 dose increased during most recent admission (February).
- TSH 2.08
Bipolar Depression
- Stable. Continue Wellbutrin.
CODE STATUS: Full code
DVT prophylaxis: Eliquis
Diet: Regular diet
Disposition: Continue IV Lasix
Total time spent on today's encounter was 65 minutes which included time spent in counseling the patient/family regarding diagnosis and treatment plan as listed above, goals of care, and symptom management. Case was discussed with nursing staff,
specialists, and care coordinators/case management. All labs and imaging personally reviewed by me. Remainder the time spent in detailed review of previous records, lab data, imaging, and other medical provider documentation.
Anticipated Discharge: > 48 hours
Subjective/Interval History
-
Date of Service: May 05, 2025
Patient seen and examined at bedside, denies any chest pain , shortness of breath Improved, no abdominal pain, no nausea, no vomiting, no diarrhea or constipation.
lower extremity edema improved.
Objective Data
-
Labs:
Laboratory Results
05/04/25 05/04/25 05/05/25
22:07 22:11 05:40
WBC 11.0 H 10.0
Hgb 9.4 L 8.6 L
Hct 28.0 L 27.2 L
Plt Count 204 191
PT 22.9 H
INR 1.97
APTT 36.9 H
Sodium 133 L 136
Potassium 3.5 3.2 L
Chloride 96 L 99
Carbon Dioxide 29 30
BUN 24 H 21 H
Creatinine 0.8 0.8
Glucose 98 85
Calcium 8.7 7.9 L
Total Bilirubin 7.0 H
AST 78 H
ALT 49 H
Alkaline Phosphatase 193 H
Vital Signs:
Vital Signs
Temp Pulse Resp BP Pulse Ox
98.1 F 74 16 112/57 96
05/05/25 05:06 05/05/25 05:06 05/05/25 05:06 05/05/25 05:06 05/05/25 05:06
I&O
05/04/25 05/05/25 05/06/25
06:59 06:59 06:59
Intake Total 240 / 240
Balance 240 / 240
Physical Exam
-
General: Well Developed, Well Nourished, No Apparent Distress and Comfortable
HEENT: Normocephalic, Atraumatic, Moist Mucous Membranes, No Ptosis, PERRLA and Nose Appears Normal
Respiratory: Rales, Rhonchi and Non Labored Respirations
Cardiac: Regular Rhythm and S1/S2
Breast: Deferred by me
GI: Soft, Nontender, Nondistended and Normal Bowel Sounds
Genito-urinary: No Costovertebral Tender
Musculoskeletal: No Clubbing, No Cyanosis, Edema, Right Lower Extrem and Edema, Left Lower Extrem
Skin: Warm
Neuro: Awake, Alert, Oriented, AO x 3 and No Motor Deficits
Psych: Calm
Data Reviewed
-
Diagnostic Radiology: Image personally visualized and interpreted and Report Reviewed by me
CT Scan: Image personally visualized and interpreted and Report Reviewed by me
Ultrasound: Image personally visualized and interpreted and Report Reviewed by me
MRI: Image personally visualized and interpreted and Report Reviewed by me
Medical Tests (Nuc Med, Echo etc): Image personally visualized and interpreted and Report Reviewed by me
Labs: Labs Reviewed by me
Old Records: Reviewed
--- NOTE | 2025-05-05 08:56 | CON.CAR ---
Addendum entered and electronically signed by Sekou Rodriguez MD 05/05/25 09:57:
I saw and examined the patient.
The [employer]PECT[employer]'s note was reviewed and I agree with the note.
Comment:
64 y/o female with multi-valve disease from radiation s/p bio MVR, bio AVR, and tricuspid valvuloplasty with prosthetic ring 05/26/24 (Dr. Prabhakar, [facility]), post-op and leadless PPM. Here with HFpEF exacerbation. She is on torsemide 20 mg daily at
home. No dietary indiscretion or medication noncompliance; weight has been stable. Unclear what the trigger for her HF exacerbation was.
Physical exam: RRR, systolic murmur, crackles at bilateral lung bases, bilateral lower extremity edema
Continue IV diuresis and SGLT2 inhibitor. She had a recent echocardiogram in February. No need to update. We will likely need to increase her OP diuretic regimen (maybe torsemide twice daily on MWF).
Original Note:
Consultation
Consultation Request
Date/Time Consultation Requested: 05/05/25 0502
Date/Time Consultation Performed: 05/05/25 0856
Requesting Provider: Dr. Yu
Performing Provider: Chelsea MEYER for Dr. Rodriguez
Reason for Consultation: CHF
Medical History
-
Chief Complaint: LE edema, POSADA
History of Present Illness:
64 y/o female (telephone messenger: Dr. Medhat Lynn, but she plans to follow back up with Dr. Ching who she formerly followed with, EP: Shane Gustafson) with moderate to severe and AR, moderate MR, mild MS, moderate to severe TR, s/p bio
MVR, bio AVR, and tricuspid valvuloplasty with prosthetic ring 05/26/24 (Dr. Prabhakar, [facility]), post-op had new AF on amio, as well as MDT leadless PPM implant, 1st degree AVB, sinus tachycardia, dyslipidemia, and Stage 1A Hodgkin lymphoma 1981 with
hx extensive radiation. She was here about 2 months ago with CHF exacerbation in setting of dietary indiscretion, as well as symptoms concerning for TIA, then old stroke seen on imaging, so Sharon initiated with her AF and stroke hx. She is here
since she started having POSADA since earlier this week and yesterday AM, noted LE edema. She has been compliant with meds and diet. She is admitted for [id number] HFpEF. She is in no distress at the time of my assessment.
Past Medical History
Past Medical History: Arrhythmias, Cancer, CHF, Valvular Disease and Other (as above)
Social History
Tobacco: Non-Smoker
Family History
Family History: Reviewed & Not Pertinent
Allergies / Home Medications
Allergy/AdvReac Type Severity Reaction Status Date / Time
adhesive tape Allergy Rash Verified 05/04/25 23:09
nitrofurantoin Allergy Swelling Verified 05/04/25 23:09
Sulfa (Sulfonamide Allergy Nausea / Verified 05/04/25 23:09
Antibiotics) Vomiting
�Medication �Instructions �Recorded �Confirmed �Type
bupropion HCl 150 mg 24 hr tablet, 150 mg PO DAILY Depression 11/23/13 05/04/25 History
extended release
ezetimibe 10 mg tablet 10 mg PO DAILY High Cholesterol 06/10/24 05/04/25 History
pantoprazole 40 mg tablet,delayed 40 mg PO DAILY Gastrointestinal 06/10/24 05/04/25 History
release Issue
biotin 5,000 mcg chewable tablet 5,000 mcg PO DAILY 03/03/25 05/04/25 History
cholecalciferol (vitamin D3) 50 50 mcg PO QPM 03/03/25 05/04/25 History
mcg (2,000 unit) capsule
dapagliflozin propanediol 10 mg 10 mg PO QPM 03/03/25 05/04/25 History
tablet (Farxiga)
digoxin 125 mcg (0.125 mg) tablet 125 mcg PO NOON 03/03/25 05/04/25 History
ferrous sulfate 325 mg (65 mg 325 mg PO QPM 03/03/25 05/04/25 History
iron) tablet (iron)
potassium chloride 20 mEq 20 meq PO QPM 03/03/25 05/04/25 History
tablet,extended release
sertraline 50 mg tablet 50 mg PO DAILY 03/03/25 05/04/25 History
torsemide 20 mg tablet 20 mg PO DAILY 03/03/25 05/04/25 History
apixaban 5 mg tablet (Eliquis) 5 mg PO BID #60 tabs 03/07/25 05/04/25 Rx
levothyroxine 88 mcg tablet 88 mcg PO DAILY@0400 #30 tabs 03/07/25 05/04/25 Rx
Review of Systems
-
History Source: Patient
All other systems: Negative unless noted
Respiratory: Trouble Breathing
Musculoskeletal: Edema
Physical Exam
Vital Signs
Temp Pulse Resp BP Pulse Ox
98.2 F 61 16 101/47 94
05/05/25 08:37 05/05/25 08:37 05/05/25 08:37 05/05/25 08:37 05/05/25 08:37
Lab Results
05/05/25 05:40
05/05/25 05:40
Troponin I < 0.012 ng/ml 05/05/25 05:40
Plr-O-Voomygqjeyg Pept 3780 pg/ml 05/04/25 22:07
Physical Exam
General: Well Developed and No Apparent Distress
HEENT: Normocephalic and Anicteric
Respiratory: Crackles (b/l bases)
Cardiac: Regular Rhythm, Murmur and Peripheral Edema (mild L, moderate R ( right always worse than left per patient))
Skin: Warm and Dry
Neuro: AO x 3
Psych: Calm
Impression / Plan
-
Npjab-ez-lmvalxm HFpEF:
-Echo 03/06/25: Normal left ventricular size, wall thickness and systolic function. Estimated LVEF 55%. Bioprosthetic mitral valve. Peak/mean gradients across the mitral valve are 26/6 mmHg. No mitral regurgitation is seen. Bioprosthetic aortic
valve. Peak/mean gradients across the aortic valve are 6/3 mmHg. No aortic regurgitation is seen. Enlarged right ventricular size. Reduced right ventricular systolic function. Abnormal (paradoxical) septal motion consistent with RV pacemaker. s/p
tricuspid valve ring with mean gradient of 3 mmHg. Mild/moderate tricuspid regurgitation. Mildly elevated PASP. Estimated pulmonary artery pressure of 35-40 mmHg. Small pericardial effusion without evidence of hemodynamic compromise.
-CXR and BNP suggestive CHF. She reports compliance with diet and meds, so likely will need higher dose diuretic at d/c. Continue torsemide. Continue SGLT2I.
-agree with IV Lasix, which requires intensive monitoring
-hypokalemia is noted. Replace and monitor.
Anemia:
-denies blood in urine or stool. W/u and management per primary team.
AFIB/flutter, type unknown, paroxysmal:
-stable in SR
-noted post-op. [id number] score is now 4 for female, stroke, CHF. Continue Eliquis for OAC. She is on digoxin per her primary telephone messenger.
Hx leadless PPM:
-stable by interrogation
-continue to follow with EP
S/p Bio MVR/AVR, and TV repair with ring by Dr. Prabhakar at [place] (05/26/2024):
-most recent echo as noted
Data Reviewed
-
EKG: Tracing Personally Visualized and interpreted (V Paced)
Radiology: Report Reviewed by me (CXR: Stable small bilateral pleural effusions.)
Labs: Labs Reviewed by me
--- NOTE | 2025-05-05 10:40 | W.PN.UPDATE ---
Update Note
Progress Note Update
Discussed EKG with Dr. Guerra and stopping digoxin recommended and [employer] to assess device.
--- NOTE | 2025-05-05 11:13 | CM ---
senior program manager reviewed patient's chart and met with patient and patient lives alone in a 2 story home, patient is independent with adl's and ambulation, no dme, plan is to home when stable, caser in offered patient visiting nurses at home but
patient declined visiting nurses.
Plan; Home when stable.
PCP: Dr. Jade
Pharmacy: [facility] on [address].
[2025-05-05 12:11] LABS: Troponin I < 0.012 ng/ml
[2025-05-05] MEDS: FEOSOL 325 MG PO (18:22)
[2025-05-05] MEDS: FARXIGA 10 MG PO (18:22)
[2025-05-05 20:02] LABS: Troponin I 0.012 ng/ml
[2025-05-06] VITALS (7 sets, daily range): BP systolic 96–125; BP diastolic 49–61; BMI 19.5
[2025-05-06] MEDS: NON-FORMULARY ITEM 1 UNIT PO (03:40)
[2025-05-06 08:58] LABS: Hematocrit 25.7 % (37.0-47.0); Hemoglobin 8.4 g/dL (12.0-16.0); Mean Corp Hgb Conc. 32.7 g/dL (33.0-37.0); Mean Corpuscular Volume 102.8 fL (81.0-99.0); Platelet Count 187 10^3/uL (130-400); Red Cell Dist. Width 20.9 % (11.5-14.5)
[2025-05-06 09:27] LABS: ALT (SGPT) 40 U/L (0-35); AST (SGOT) 57 U/L (14-36); Albumin 3.4 g/dl (3.5-5.0); Alkaline Phosphatase 161 U/L (38-126); Blood Urea Nitrogen 23 mg/dl (7-17); Calcium 8.2 mg/dl (8.4-10.2); Carbon Dioxide 30 mmol/L (22-30); Chloride 101 mmol/L (98-107); Estimated Creatinine Clearance 55 ml/min; Glucose 99 mg/dl (70-99); Potassium 3.5 mmol/L (3.5-5.1); Sodium 137 mmol/L (135-145); Total Protein 7.1 g/dl (6.3-8.2); eGFR > 60.00
[2025-05-06] MEDS: PROTONIX 40 MG PO (09:34)
[2025-05-06] MEDS: WELLBUTRIN XL (24 hour extended release) 150 MG PO (09:34)
[2025-05-06] MEDS: ELIQUIS 5 MG PO ×2 (09:36→20:11)
[2025-05-06] MEDS: ZOLOFT 50 MG PO (09:36)
[2025-05-06] MEDS: KCL 20 MEQ PO ×2 (09:36→20:11)
[2025-05-06] MEDS: LASIX 40 MG IV ×2 (09:37→17:02)
[2025-05-06] MEDS: ZETIA 10 MG PO (09:38)
--- NOTE | 2025-05-06 12:07 | W.PN.HOSP.TC ---
Today's Communication/Plan
-
Continue IV Lasix
Assessment / Plan
Assessment / Plan
Impression:
Patient is a 64y F with PMH significant for CHF / valvular heart disease who presents to ED complaining of increased LE swelling and weight gain.
Assessment/plan:
Acute on Chronic HFpEF
Valvular Heart Disease
- Admit for further evaluation and treatment.
- Weight increase, LE swelling and exertional dyspnea.
- IV Lasix BID.
- Follow daily weights, I/Os, etc.
- Echo was done in February - defer any repeat at present to Cardiology.
- Cardiology consulted, appreciate input.
Abnormal LFTs
- LFTs gradually increasing since last admission / February 2025.
- ? passive hepatic congestion - though bilirubin elevation seems excessive.
- Check abdominal US :
Hepatic echotexture appears within normal limits. 1 cm right lobe hepatic cyst.
Large volume Biliary sludge. Top normal gallbladder wall thickness (Gallbladder wall thickening was also present previously). Negative sonographic Gomez sign. No bile duct dilatation.
05/06
LFTs improved
Paroxysmal Atrial Fibrillation
- Stable. Continue Eliquis.
Cardio recommends to discontinue Digoxin.
Hypothyroidism
- T4 dose increased during most recent admission (February).
- TSH 2.08
Bipolar Depression
- Stable. Continue Wellbutrin.
CODE STATUS: Full code
DVT prophylaxis: Eliquis
Diet: Regular diet
Disposition: Continue IV Lasix
Total time spent on today's encounter was 65 minutes which included time spent in counseling the patient/family regarding diagnosis and treatment plan as listed above, goals of care, and symptom management. Case was discussed with nursing staff,
specialists, and care coordinators/case management. All labs and imaging personally reviewed by me. Remainder the time spent in detailed review of previous records, lab data, imaging, and other medical provider documentation.
Anticipated Discharge: Within 24 hours
Subjective/Interval History
-
Date of Service: May 06, 2025
Patient seen and examined at bedside, denies any chest pain , shortness of breath Improved, no abdominal pain, no nausea, no vomiting, no diarrhea or constipation.
lower extremity edema improved.
Objective Data
-
Labs:
Laboratory Results
05/06/25
08:31
WBC 10.0
Hgb 8.4 L
Hct 25.7 L
Plt Count 187
Sodium 137
Potassium 3.5
Chloride 101
Carbon Dioxide 30
BUN 23 H
Creatinine 0.8
Glucose 99
Calcium 8.2 L
Total Bilirubin 4.2 H
AST 57 H
ALT 40 H
Alkaline Phosphatase 161 H
Vital Signs:
Vital Signs
Temp Pulse Resp BP Pulse Ox
97.6 F 61 16 125/61 94
05/06/25 08:00 05/06/25 08:00 05/06/25 08:00 05/06/25 08:00 05/06/25 08:00
I&O
05/05/25 05/06/25 05/07/25
06:59 06:59 06:59
Intake Total 240 / 240 720 / 720
Balance 240 / 240 720 / 720
Physical Exam
-
General: Well Developed, Well Nourished, No Apparent Distress and Comfortable
HEENT: Normocephalic, Atraumatic, Moist Mucous Membranes, No Ptosis, PERRLA and Nose Appears Normal
Respiratory: Rales, Rhonchi and Non Labored Respirations
Cardiac: Regular Rhythm and S1/S2
Breast: Deferred by me
GI: Soft, Nontender, Nondistended and Normal Bowel Sounds
Genito-urinary: No Costovertebral Tender
Musculoskeletal: No Clubbing, No Cyanosis, Edema, Right Lower Extrem and Edema, Left Lower Extrem
Skin: Warm
Neuro: Awake, Alert, Oriented, AO x 3 and No Motor Deficits
Psych: Calm
--- NOTE | 2025-05-06 13:41 | W.PN.CD ---
Today's Communication / Plan
-
Continue IV diuresis today
Can likely convert to p.o. tomorrow
Impression / Plan
-
Ojjos-mp-gclypqf HFpEF:
- Severe exacerbation requiring IV diuresis and close monitoring of labs and telemetry
- CXR and BNP suggestive CHF. She reports compliance with diet and meds, so likely will need higher dose diuretic at d/c.
- Continue SGLT2I. No MRA due to borderline blood pressures.
- agree with IV Lasix, which requires intensive monitoring
- Can likely switch to p.o. torsemide tomorrow with BID dosing MWF on discharge
Anemia:
-denies blood in urine or stool. W/u and management per primary team.
AFIB/flutter, type unknown, paroxysmal:
- stable in SR
- [id number] score is now 4 for female, stroke, CHF. Continue Eliquis for OAC.
- Digoxin stopped to improve AV synchrony
Hx leadless PPM:
-stable by interrogation
-continue to follow with EP
S/p Bio MVR/AVR, and TV repair with ring by Dr. Prabhakar at [place] (05/26/2024):
-Echo 03/06/25: Normal left ventricular size, wall thickness and systolic function. Estimated LVEF 55%. Bioprosthetic mitral valve. Peak/mean gradients across the mitral valve are 26/6 mmHg. No mitral regurgitation is seen. Bioprosthetic aortic
valve. Peak/mean gradients across the aortic valve are 6/3 mmHg. No aortic regurgitation is seen. Enlarged right ventricular size. Reduced right ventricular systolic function. Abnormal (paradoxical) septal motion consistent with RV pacemaker. s/p
tricuspid valve ring with mean gradient of 3 mmHg. Mild/moderate tricuspid regurgitation. Mildly elevated PASP. Estimated pulmonary artery pressure of 35-40 mmHg. Small pericardial effusion without evidence of hemodynamic compromise.
Subjective: lower extremity edema has improved from yesterday. Does not feel totally back to baseline.
Physical Exam
Vital Signs/Labs
Vital Signs
Temp Pulse Resp BP Pulse Ox
98.0 F 61 16 114/51 95
05/06/25 12:00 05/06/25 12:00 05/06/25 12:00 05/06/25 12:00 05/06/25 12:00
05/05/25 05/06/25 05/07/25
06:59 06:59 06:59
Actual Weight 106 lb 12.8 oz 106 lb 9 oz
05/06/25 08:31
05/06/25 08:31
PT 22.9 Sec (11.4-14.6) H 05/04/25 22:11
INR 1.97 05/04/25 22:11
APTT 36.9 Sec (23.4-35.0) H 05/04/25 22:11
05/04/25
22:07
Fky-C-Zgftmpbebtj Pept 3780
LAB Results
05/04/25 05/05/25 05/05/25
22:07 05:40 11:37
Troponin I < 0.012 < 0.012 < 0.012
05/05/25
19:04
Troponin I 0.012
Physical Exam
Constitutional: No acute distress and Comfortable
Cardiovascular: Rhythm & rate is regular, Pedal edema present (Improved), Systolic murmur present and S1S2 is normal
Respiratory: Respiratory effort normal and Lungs clear to auscul.
Neuro/Psych: AO x 3
Data Reviewed
-
Date of Service: May 06, 2025
Medical Decision Making: Reviewed Test Results, Independent Historian Assessment, Test Interpretation and Review of Case with other Provider
EKG: Tracing Personally Visualized and interpreted
Echo: Report Reviewed by me
Labs: Labs Reviewed by me
[2025-05-06] MEDS: FARXIGA 10 MG PO (18:11)
[2025-05-06] MEDS: FEOSOL 325 MG PO (18:11)
[2025-05-07 03:24] VITALS: BP 98/45
[2025-05-07] MEDS: NON-FORMULARY ITEM 1 UNIT PO (03:42)
[2025-05-07 05:21] VITALS: BMI 19.6
[2025-05-07 07:30] VITALS: BP 110/50
[2025-05-07] MEDS: ELIQUIS 5 MG PO (07:59)
[2025-05-07] MEDS: KCL 20 MEQ PO (08:00)
[2025-05-07] MEDS: WELLBUTRIN XL (24 hour extended release) 150 MG PO (08:00)
[2025-05-07] MEDS: ZETIA 10 MG PO (08:00)
[2025-05-07] MEDS: LASIX 40 MG IV (08:00)
[2025-05-07] MEDS: PROTONIX 40 MG PO (08:00)
[2025-05-07] MEDS: ZOLOFT 50 MG PO (08:00)
[2025-05-07 09:18] LABS: Hematocrit 26.2 % (37.0-47.0); Hemoglobin 8.4 g/dL (12.0-16.0); Mean Corp Hgb Conc. 32.1 g/dL (33.0-37.0); Mean Corpuscular Volume 105.2 fL (81.0-99.0); Platelet Count 175 10^3/uL (130-400); Red Cell Dist. Width 21.4 % (11.5-14.5)
[2025-05-07 09:43] LABS: ALT (SGPT) 37 U/L (0-35); AST (SGOT) 54 U/L (14-36); Albumin 3.4 g/dl (3.5-5.0); Alkaline Phosphatase 173 U/L (38-126); Blood Urea Nitrogen 21 mg/dl (7-17); Calcium 8.3 mg/dl (8.4-10.2); Carbon Dioxide 31 mmol/L (22-30); Chloride 101 mmol/L (98-107); Estimated Creatinine Clearance 55 ml/min; Glucose 96 mg/dl (70-99); Potassium 3.9 mmol/L (3.5-5.1); Sodium 139 mmol/L (135-145); Total Protein 7.1 g/dl (6.3-8.2); eGFR > 60.00
--- NOTE | 2025-05-07 10:17 | W.PN.CD ---
Addendum entered and electronically signed by Sekou Rodriguez MD 05/07/25 10:34:
Digoxin stopped this admission to improve AV synchrony per EP.
Original Note:
Today's Communication / Plan
-
Switch back to p.o. torsemide 20 mg daily
Add spironolactone 12.5 mg daily and stop supplemental K
BMP in 2 weeks
Impression / Plan
-
[id number] HFpEF:
- Now improved with IV diuresis. Unclear trigger for CHF exacerbation. We will add MRA.
- Continue SGLT2I.
- Start spironolactone 12.5 mg daily and stop supplemental K. BMP prior to office visit in 2 weeks. Will need to monitor for hypotension.
- Switch back to p.o. torsemide 20 mg daily
Anemia:
-denies blood in urine or stool. W/u and management per primary team.
AFIB/flutter, type unknown, paroxysmal:
- stable in SR
- [id number] score is now 4 for female, stroke, CHF. Continue Eliquis for OAC.
- Digoxin stopped to improve AV synchrony
Hx leadless PPM:
-stable by interrogation
-continue to follow with EP
S/p Bio MVR/AVR, and TV repair with ring by Dr. Prabhakar at [facility] (05/26/2024):
-Echo 03/06/25: Normal left ventricular size, wall thickness and systolic function. Estimated LVEF 55%. Bioprosthetic mitral valve. Peak/mean gradients across the mitral valve are 26/6 mmHg. No mitral regurgitation is seen. Bioprosthetic aortic
valve. Peak/mean gradients across the aortic valve are 6/3 mmHg. No aortic regurgitation is seen. Enlarged right ventricular size. Reduced right ventricular systolic function. Abnormal (paradoxical) septal motion consistent with RV pacemaker. s/p
tricuspid valve ring with mean gradient of 3 mmHg. Mild/moderate tricuspid regurgitation. Mildly elevated PASP. Estimated pulmonary artery pressure of 35-40 mmHg. Small pericardial effusion without evidence of hemodynamic compromise.
Subjective: Feels improved. Swelling not totally back to baseline but better.
Physical Exam
Vital Signs/Labs
Vital Signs
Temp Pulse Resp BP Pulse Ox
98.0 F 63 18 110/50 95
05/07/25 07:30 05/07/25 07:30 05/07/25 07:30 05/07/25 07:30 05/07/25 08:00
05/06/25 05/07/25 05/08/25
06:59 06:59 06:59
Actual Weight 106 lb 9 oz 107 lb
05/07/25 08:39
05/07/25 08:39
PT 22.9 Sec (11.4-14.6) H 05/04/25 22:11
INR 1.97 05/04/25 22:11
APTT 36.9 Sec (23.4-35.0) H 05/04/25 22:11
05/04/25
22:07
Gug-F-Grlsubvpwkf Pept 3780
LAB Results
05/04/25 05/05/25 05/05/25
22:07 05:40 11:37
Troponin I < 0.012 < 0.012 < 0.012
05/05/25
19:04
Troponin I 0.012
Physical Exam
Constitutional: No acute distress and Comfortable
Cardiovascular: Rhythm & rate is regular, Pedal edema present, Systolic murmur present and S1S2 is normal
Respiratory: Respiratory effort normal and Lungs clear to auscul.
Neuro/Psych: AO x 3
Data Reviewed
-
Date of Service: May 07, 2025
Medical Decision Making: Reviewed Test Results, Independent Historian Assessment, Test Interpretation and Review of Case with other Provider
EKG: Tracing Personally Visualized and interpreted
Echo: Report Reviewed by me
Labs: Labs Reviewed by me
--- NOTE | 2025-05-07 10:21 | W.PN.HOSP.TC ---
Today's Communication/Plan
-
Dc home today
Assessment / Plan
Assessment / Plan
Impression:
Patient is a 64y F with PMH significant for CHF / valvular heart disease who presents to ED complaining of increased LE swelling and weight gain. Seen by cardiology and treated for CHF exacerbation, has recent echo done in February 2025, patient was
given IV Lasix, symptoms improved, plan to be discharged on oral Lasix but will add spironolactone as per cardio recommendation.
Follow-up with BMP in 2 weeks.
Follow-up with clinical secretary in 2 week.
Assessment/plan:
Acute on Chronic HFpEF
Valvular Heart Disease
- Admit for further evaluation and treatment.
- Weight increase, LE swelling and exertional dyspnea.
- IV Lasix BID.
- Follow daily weights, I/Os, etc.
- Echo was done in February - defer any repeat at present to Cardiology.
- Cardiology consulted, appreciate input.
05/07
plan to be discharged on oral Lasix but will add spironolactone as per cardio recommendation.
Follow-up with BMP in 2 weeks.
Follow-up with clinical secretary in 2 week.
Abnormal LFTs
- LFTs gradually increasing since last admission / February 2025.
- ? passive hepatic congestion - though bilirubin elevation seems excessive.
- Check abdominal US :
Hepatic echotexture appears within normal limits. 1 cm right lobe hepatic cyst.
Large volume Biliary sludge. Top normal gallbladder wall thickness (Gallbladder wall thickening was also present previously). Negative sonographic Gomez sign. No bile duct dilatation.
05/06
LFTs improved
Paroxysmal Atrial Fibrillation
- Stable. Continue Eliquis.
Cardio recommends to discontinue Digoxin.
Hypothyroidism
- T4 dose increased during most recent admission (February).
- TSH 2.08
Bipolar Depression
- Stable. Continue Wellbutrin.
CODE STATUS: Full code
DVT prophylaxis: Eliquis
Diet: Regular diet
Disposition: Dc home
Total time spent on today's encounter was 65 minutes which included time spent in counseling the patient/family regarding diagnosis and treatment plan as listed above, goals of care, and symptom management. Case was discussed with nursing staff,
specialists, and care coordinators/case management. All labs and imaging personally reviewed by me. Remainder the time spent in detailed review of previous records, lab data, imaging, and other medical provider documentation.
Anticipated Discharge: Today
Subjective/Interval History
-
Date of Service: May 07, 2025
Patient seen and examined at bedside, denies any chest pain , shortness of breath Improved, no abdominal pain, no nausea, no vomiting, no diarrhea or constipation.
lower extremity edema improved.
Objective Data
-
Labs:
Laboratory Results
05/07/25
08:39
WBC 10.1
Hgb 8.4 L
Hct 26.2 L
Plt Count 175
Sodium 139
Potassium 3.9
Chloride 101
Carbon Dioxide 31 H
BUN 21 H
Creatinine 0.8
Glucose 96
Calcium 8.3 L
Total Bilirubin 4.7 H
AST 54 H
ALT 37 H
Alkaline Phosphatase 173 H
Vital Signs:
Vital Signs
Temp Pulse Resp BP Pulse Ox
98.0 F 63 18 110/50 95
05/07/25 07:30 05/07/25 07:30 05/07/25 07:30 05/07/25 07:30 05/07/25 08:00
I&O
05/06/25 05/07/25 05/08/25
06:59 06:59 06:59
Intake Total 720 / 720 1080 / 1080
Balance 720 / 720 1080 / 1080
Physical Exam
-
General: Well Developed, Well Nourished, No Apparent Distress and Comfortable
HEENT: Normocephalic, Atraumatic, Moist Mucous Membranes, No Ptosis, PERRLA and Nose Appears Normal
Respiratory: Rales, Rhonchi and Non Labored Respirations
Cardiac: Regular Rhythm and S1/S2
Breast: Deferred by me
GI: Soft, Nontender, Nondistended and Normal Bowel Sounds
Genito-urinary: No Costovertebral Tender
Musculoskeletal: No Clubbing, No Cyanosis, Edema, Right Lower Extrem and Edema, Left Lower Extrem
Skin: Warm
Neuro: Awake, Alert, Oriented, AO x 3 and No Motor Deficits
Psych: Calm
--- NOTE | 2025-05-07 10:27 | W.DCSUMMARY ---
Discharge Summary
Discharge Data
Date of Admission: 05/05/25
Date of Discharge: 05/07/25
Total time spent discharging patient (in min): 40
-
Pending Results: No
Hospital Course
Hospital course
Patient is a 64y F with PMH significant for CHF / valvular heart disease who presents to ED complaining of increased LE swelling and weight gain. Seen by cardiology and treated for CHF exacerbation, has recent echo done in February 2025, patient was
given IV Lasix, symptoms improved, plan to be discharged on oral Lasix but will add spironolactone as per cardio recommendation.
Follow-up with BMP in 2 weeks.
Follow-up with director school of nursing in 2 week.
During hospitalization patient was treated from the following
Acute on Chronic HFpEF
Valvular Heart Disease
- Admit for further evaluation and treatment.
- Weight increase, LE swelling and exertional dyspnea.
- IV Lasix BID.
- Follow daily weights, I/Os, etc.
- Echo was done in February - defer any repeat at present to Cardiology.
- Cardiology consulted, appreciate input.
05/07
plan to be discharged on oral Lasix but will add spironolactone as per cardio recommendation.
Follow-up with BMP in 2 weeks.
Follow-up with director school of nursing in 2 week.
Abnormal LFTs
- LFTs gradually increasing since last admission / February 2025.
- ? passive hepatic congestion - though bilirubin elevation seems excessive.
- Check abdominal US :
Hepatic echotexture appears within normal limits. 1 cm right lobe hepatic cyst.
Large volume Biliary sludge. Top normal gallbladder wall thickness (Gallbladder wall thickening was also present previously). Negative sonographic Gomez sign. No bile duct dilatation.
05/06
LFTs improved
Paroxysmal Atrial Fibrillation
- Stable. Continue Eliquis.
Cardio recommends to discontinue Digoxin.
Hypothyroidism
- T4 dose increased during most recent admission (February).
- TSH 2.08
Bipolar Depression
- Stable. Continue Wellbutrin.
CODE STATUS: Full code
DVT prophylaxis: Eliquis
Diet: Regular diet
Disposition: Dc home
Total time spent on today's encounter was 40 minutes which included time spent in counseling the patient/family regarding diagnosis and treatment plan as listed above, goals of care, and symptom management. Case was discussed with nursing staff,
specialists, and care coordinators/case management. All labs and imaging personally reviewed by me. Remainder the time spent in detailed review of previous records, lab data, imaging, and other medical provider documentation.
Anticipated Discharge: Today
Discharge Plan
-
Patient Disposition: Home (Routine Discharge)
Discharge Diagnosis/Procedures: CHF exacerbation.
Elevated LFTs.
Paroxysmal
Condition: Fair
Diet: Low Cholesterol and Low Sodium
Activity: As tolerated
Blood Work: BMP in 2 weeks
Referrals:
Kate Jade MD [Family Provider, Internal Medicine]
Prescriptions:
New
spironolactone 25 mg Tablet
12.5 mg PO DAILY Qty: 30 0RF
Continued
bupropion HCl 150 MG tablet extended release 24 hr
150 mg PO DAILY
pantoprazole 40 mg tablet,delayed release (DR/EC)
40 mg PO DAILY
ezetimibe 10 mg tablet
10 mg PO DAILY
torsemide 20 mg Tablet
20 mg PO DAILY
ferrous sulfate [iron] 325 mg (65 mg iron) Tablet
325 mg PO QPM
sertraline 50 mg Tablet
50 mg PO DAILY
cholecalciferol (vitamin D3) 50 mcg (2,000 unit) Capsule
50 mcg PO QPM
dapagliflozin propanediol [Farxiga] 10 mg Tablet
10 mg PO QPM
potassium chloride 20 mEq Tablet Extended Release
20 meq PO QPM
biotin 5,000 mcg Tablet,Chewable
5,000 mcg PO DAILY
levothyroxine 88 mcg Tablet
88 mcg PO DAILY@0400 Qty: 30 0RF
Eliquis 5 mg tablet
5 mg PO BID Qty: 60 0RF
Discontinued
digoxin 125 mcg (0.125 mg) Tablet
125 mcg PO NOON
Discharge Orders:
Discharge Patient (As Directed); Ordered 05/07/25
Ordered By: Piyush Rodrigues
Discharge Date and Time
Print Language: VINCENTIAN
[2025-05-07] MEDS: ALDACTONE 12.5 MG PO (11:09)
--- NOTE | 2025-05-07 11:44 | CM ---
Chart reviewed and [place] is for discharge today home no needs.
Plan; Home no needs.
== END 2025-05-07 13:03 | disposition home or self-care (01) | DRG 292 ==
LOC: 4 WEST ACU 02:57
PROVIDERS: Emergency Medicine; Nurse Practitioner; ADMITTING PHYSICIAN Hospitalist; ATTENDING PHYSICIAN General Practice; EMERGENCY PHYSICIAN Emergency Medicine; FAMILY PHYSICIAN Internal Medicine; OTHER PHYSICIAN Student in an Organized Health Care Education/Training Program
DX: I50.33 Acute on chronic diastolic (congestive) heart failure (principal); F31.30 Bipolar disorder, current episode depressed, mild or moderate severity, unspecified; I48.0 Paroxysmal atrial fibrillation; Z79.01 Long term (current) use of anticoagulants; E03.9 Hypothyroidism, unspecified; K76.1 Chronic passive congestion of liver; K76.89 Other specified diseases of liver; Z79.84 Long term (current) use of oral hypoglycemic drugs; Z79.890 Hormone replacement therapy; Z95.3 Presence of xenogenic heart valve; Z90.81 Acquired absence of spleen; Z88.3 Allergy status to other anti-infective agents; Z88.2 Allergy status to sulfonamides; E78.00 Pure hypercholesterolemia, unspecified; I44.0 Atrioventricular block, first degree; Z91.048 Other nonmedicinal substance allergy status; Z79.899 Other long term (current) drug therapy
CPT/HCPCS: 71046; 76700; 80048; 80053; 83880; 84443; 84484; 85025; 85027; 85610; 85730; 93005; 94760; 96374; 99285

== ENCOUNTER 2025-05-10 23:18 | Inpatient (IN) | payer OTHER, SELFPAY ==
[2025-05-10 20:31] VITALS: BP 108/75
[2025-05-10 20:45] LABS: Hematocrit 28.2 % (37.0-47.0); Hemoglobin 9.2 g/dL (12.0-16.0); Mean Corp Hgb Conc. 32.6 g/dL (33.0-37.0); Mean Corpuscular Volume 102.2 fL (81.0-99.0); Nucleated Red Blood Cells % 1.5 %; Platelet Count 167 10^3/uL (130-400); Red Cell Dist. Width 20.8 % (11.5-14.5)
[2025-05-10 20:55] LABS: APTT 37.6 Sec (23.4-35.0)
[2025-05-10 21:16] LABS: ALT (SGPT) 33 U/L (0-35); AST (SGOT) 64 U/L (14-36); Albumin 3.7 g/dl (3.5-5.0); Alkaline Phosphatase 180 U/L (38-126); Blood Urea Nitrogen 24 mg/dl (7-17); Calcium 8.1 mg/dl (8.4-10.2); Carbon Dioxide 30 mmol/L (22-30); Chloride 97 mmol/L (98-107); Glucose 132 mg/dl (70-99); Potassium 4.2 mmol/L (3.5-5.1); Sodium 133 mmol/L (135-145); Total Protein 7.6 g/dl (6.3-8.2); eGFR > 60.00
--- NOTE | 2025-05-10 22:13 | ED.GENMED ---
History of Present Illness
General
Chief Complaint: Swelling
Source: patient
Exam Limitations: none
Time Seen by Provider: 05/10/25 22:04
History of Present Illness
History of Present Illness:
See MDM
Past History
Past History
ED Past Medical History: Cancer and CHF
ED Past Surgical History: Other (Splenectomy)
Social History
Tobacco: Non-smoker
Alcohol: Occasional
Drug: None
Personal:
Living: with family
Employment: Employed
Family History
Family History: Other
Phy Exam
Physical Exam
Physical Exam:
See MDM
Scores
Heart Failure Risk
Heart Failure Risk Score: Yes
History of Stroke or TIA: No
History of intubation for respiratory distress: No
Heart rate on ED arrival >/= 110: No
SaO2 <90% on arrival on room air: No
HR >/=110 during 3min walk test (or too ill to perform test): Yes
ECG has acute ischemic changes: No
Urea >/=12mmol/L (BUN 33.6mg/dL): No
Serum CO2>/=35mmol/L: No
Troponin I or T elevated to NC Level (0.4mg/dL): No
NT-proBNP >/=5,000ng/L (5,000pg/ml): No
HF Risk Score: 2
Admission Status: MEDIUM RISK 9.2% Consider observation or discharge to home with homecare & f/u visit to PCP/[facility], or SNF for treatment
Course
Orders/Labs/Results
Orders:
Orders
05/10/25 20:38
BNP [NT-proBNP] Urgent
Complete Blood Count/With Diff Urgent
Comprehensive Metabolic Panel Urgent
PTT Urgent
05/10/25 22:11
Furosemide [Lasix] 40 mg IV NOW STA
05/10/25 22:13
CR Chest - 2 Views Urgent
Comment:
Reason For Exam: SOB
Abnormal Lab Results
05/10/25
20:38
RBC 2.76 L 10^6/uL
(4.20-5.40)
Hgb 9.2 L g/dL
(12.0-16.0)
Hct 28.2 L %
(37.0-47.0)
MCV 102.2 H fL
(81.0-99.0)
MCH 33.3 H pg
(27.0-31.0)
MCHC 32.6 L g/dL
(33.0-37.0)
RDW 20.8 H %
(11.5-14.5)
MPV 10.8 H fL
(7.4-10.4)
Abs Immat Gran (auto) 0.1 H 10^3/uL
(0-0.05)
Absolute Neuts (auto) 7.5 H 10^3/uL
(1.4-6.5)
Absolute Lymphs (auto) 0.4 L 10^3/uL
(1.2-3.4)
Absolute Monos (auto) 1.0 H 10^3/uL
(0.1-0.6)
Immature Gran % 1.5 H %
(0-0.5)
Neutrophils % 82.3 H %
(42.2-75.2)
Lymphocytes % 4.5 L %
(20.5-51.1)
Monocytes % 10.7 H %
(1.7-9.3)
APTT 37.6 H Sec
(23.4-35.0)
Sodium 133 L mmol/L
(135-145)
Chloride 97 L mmol/L
(98-107)
BUN 24 H mg/dl
(7-17)
Glucose 132 H mg/dl
(70-99)
Calcium 8.1 L mg/dl
(8.4-10.2)
Total Bilirubin 5.9 H mg/dl
(0.2-1.3)
AST 64 H U/L
(14-36)
Alkaline Phosphatase 180 H U/L
(38-126)
05/10/25 20:38
05/10/25 20:38
Vital Signs
Initial and Last Documented VS:
Initial Vital Signs
Temp Pulse Resp BP Pulse Ox
98.4 F 93 20 108/75 93
05/10/25 20:31 05/10/25 20:31 05/10/25 20:31 05/10/25 20:31 05/10/25 20:31
Last Documented Vital Signs
Temp Pulse Resp BP Pulse Ox
98.4 F 93 20 108/75 93
05/10/25 20:31 05/10/25 20:31 05/10/25 20:31 05/10/25 20:31 05/10/25 20:31
MDM/Problems Addressed
Differential Diagnosis Includes:
Note:
CHIEF COMPLAINT(S)
Leg swelling and shortness of breath.
HISTORY OF PRESENT ILLNESS
The patient is a 64-year-old female with chronic restrictive lung disease who presents with recurrent leg swelling and mild shortness of breath. She reports that her symptoms improved after her last hospital discharge but have since worsened. The
patient has a history of radiation therapy from 1983, which caused heart valve damage. She describes her heart as zev well but not relaxing properly, which she attributes to the current cardiac issues. She is under the care of Dr. Aj
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 Her lungs are trapped due to fluid accumulation, affecting expansion.
The patients previous hospitalization resulted in a change from furosemide (Lasix) to torsemide and spironolactone. She states, 'I was doing really good,' but notices a recurrence of symptoms despite following her medication regimen.
PAST MEDICAL AND SURIGICAL HISTORY
- History of heart valve damage secondary to radiation therapy.
- Restrictive lung disease.
- Right-sided pulmonary fibrosis.
- Left-sided pleuradesis.
CHRONIC MEDICAL CONDITIONS SIGNIFICANTLY AFFECTING CARE
- Restrictive lung disease.
- Radiation-induced heart valve damage.
REVIEW OF SYSTEMS
- Cardiovascular: Leg swelling.
- Respiratory: Shortness of breath.
PHYSICAL EXAM
General: Alert, no acute distress.
Skin: Warm, dry.
Head: Normocephalic, atraumatic
Neck: Appears supple, trachea midline.
Eyes, Ears, Nose, Mouth, and Throat: Oral mucosa moist.
Cardiovascular: No signs of cyanosis. Regular rate and rhythm
Respiratory: Respirations are non-labored.
Abdomen: Non-distended
Musculoskeletal: +2 pitting edema bilateral lower extremities
Neurological: No focal neurological deficit observed.
Psychiatric: Cooperative, appropriate mood and affect.
PROBLEM LIST
Acute:
- Recurrent leg swelling
- Shortness of breath
Chronic:
- Restrictive lung disease
- Radiation-induced heart valve damage
PLAN
- Administer intravenous Lasix.
- Arrange for a chest X-ray to assess the condition of the lungs and heart.
- Review past hospital records to determine previous doses of diuretics and adjust as necessary.
- Consider contacting a specialist for further evaluation of the potential role of congestive heart failure in the current presentation.
- Monitor to avoid over-diuresis to prevent renal injury.
DIFFERENTIAL DIAGNOSIS
The Differential Diagnosis includes, in no particular order and is not limited to:
- Congestive heart failure
- Cardiac valve insufficiency
- Pulmonary edema
- Chronic obstructive pulmonary disease exacerbation
- Restrictive lung disease
- Pulmonary fibrosis
- Medication side effect
- Acute kidney injury
- Pulmonary embolism
- Primary pulmonary hypertension
SUMMARY OF ENCOUNTER
The patient, a 64-year-old female with a history of restrictive lung disease and radiation-induced heart valve damage, presented to the emergency department with recurrent leg swelling and mild shortness of breath. Despite an increased dosage of
torsemide and the addition of spironolactone, her edema has returned, causing significant discomfort. The patients lung and cardiac history contribute significantly to her current presentation. Given the discomfort and persistence of symptoms, the
decision was made to initiate treatment with intravenous furosemide (Lasix) and re-admit her for further management and monitoring.
DISPOSITION
The patient will be admitted for further evaluation and management.
EMERGENCY TREATMENTS ADMINISTERED
Intravenous furosemide (Lasix) was administered to address the edema.
PLAN
The plan includes admitting the patient for continuous monitoring and management of her edema and shortness of breath. Initiate intravenous furosemide therapy and consult with specialists as necessary to optimize her management while hospitalized.
MEDICAL DECISION MAKING
- Number and Complexity of Problems Addressed: Chronic conditions affecting care include restrictive lung disease and radiation-induced heart valve damage. Differential diagnosis includes congestive heart failure, cardiac valve insufficiency,
pulmonary edema, chronic obstructive pulmonary disease exacerbation, restrictive lung disease, pulmonary fibrosis, medication side effect, acute kidney injury, pulmonary embolism, and primary pulmonary hypertension.
DATA
Category 1: Previous medication regimens, including increased dosages of torsemide and the addition of spironolactone, were reviewed to understand previous management efforts.
RISK
Hospitalization was decided upon due to the complexity and risk of the patients symptoms and underlying conditions, which warranted close monitoring and further intervention to prevent potential complications.
DIAGNOSIS
- Recurrent leg edema (possibly secondary to heart failure or renal impairment; ICD-10: R60.9)
- Shortness of breath (unresolved, possibly related to restrictive lung disease; ICD-10: R06.02)
- History of restrictive lung disease (ICD-10: J98.4)
- Radiation-induced heart valve damage (ICD-10: T66.XXXA)
*Pulse Oximetry
SaO2: 93
Oxygen Mode of Delivery: Room air
Patient hypoxic: no
*Critical Care Note
Total Time (30-74mins, 75-104mins- exclusive of procedures): Not Applicable
ED Attending Note
-
Portions of this chart may have been created with voice recognition software.� Occasional wrong word or��sound alike� substitutions may have occurred due to the inherent limitations of voice recognition software.
Discharge Plan
Departure
Patient Disposition: Admit
Date of Disposition: 05/10/25
Time of Disposition: 22:20
Admit to: Telemetry
Presentation/result/management discussed w/ accepting MD/DO: Hospitalist
Discharge Problem:
CHF exacerbation
Prescriptions:
No Action
bupropion HCl 150 MG tablet extended release 24 hr
150 mg PO DAILY
pantoprazole 40 mg tablet,delayed release (DR/EC)
40 mg PO DAILY
ezetimibe 10 mg tablet
10 mg PO DAILY
torsemide 20 mg Tablet
20 mg PO DAILY
ferrous sulfate [iron] 325 mg (65 mg iron) Tablet
325 mg PO QPM
sertraline 50 mg Tablet
50 mg PO DAILY
cholecalciferol (vitamin D3) 50 mcg (2,000 unit) Capsule
50 mcg PO QPM
dapagliflozin propanediol [Farxiga] 10 mg Tablet
10 mg PO QPM
potassium chloride 20 mEq Tablet Extended Release
20 meq PO QPM
biotin 5,000 mcg Tablet,Chewable
5,000 mcg PO DAILY
levothyroxine 88 mcg Tablet
88 mcg PO DAILY@0400 Qty: 30 0RF
Eliquis 5 mg tablet
5 mg PO BID Qty: 60 0RF
spironolactone 25 mg Tablet
12.5 mg PO DAILY Qty: 30 0RF
Referrals:
Kate Jade MD [Family Provider, Internal Medicine]
Interventions
Interventions:
*General Assessment Last Done: 05/10/25 20:31
Discharge Date and Time
Print Language: ALBANIAN
[2025-05-10] MEDS: LASIX 40 MG IV (22:30)
[2025-05-10 22:34] VITALS: BP 114/61
--- NOTE | 2025-05-10 22:49 | HPS.HSE ---
Family Physician
-
Family Physician: Kate Jade
Chief Complaint
-
LE swelling / rash
History of Present Illness
Patient is a 64y F with PMH significant for CHF / valvular heart disease, hypothyroidism and Hodgkin's disease who presents to ED complaining of LE swelling and petechiae. Patient was recently admitted 05/05 - 05/07 for LE swelling. She was
treated with IV Lasix with improvement in her edema and was discharged on Torsemide and spironolactone. Patient states that her LE swelling has rapidly recurred. She has been taking medications as prescribed and feels that she is urinating
significantly. She weighs herself daily and notes that her weight has not changed despite evident edema accumulation.
She denies any new SOB, chest pain, palpitations, etc.
Patient has also noted recurrence of 'rash' / petechiae on the lower extremities. She states that she woke one morning three weeks ago with these same lesions. She was seen by her Senior Asset Manager 2 weeks ago (prior to last admission) - Dr. Dominguez
Cruz.
The rash apparently improved / resolved in the interim and was not present during her recent admission.
She states that it has recurred since her discharge. It is not painful or raised. No lesions outside of the lower extremities.
Medical History
Past Medical History
Past Medical History: Reports Other
Additional Past Medical History:
Bipolar disorder
Hodgkin's
Hypothyroidism
Valvular Heart Disease
Chronic HFpEF
Past Surgical History: Reports Other
Additional Past Surgical History:
Splenectomy
Appendectomy
Bioprosthetic mitral replacement, bioprosthetic aortic valve placement, tricuspid valve ring annuloplasty
Leadless PPM
Social History
Tobacco: Non-smoker
Alcohol: None
Drug: None
Family History
Family History: Not pertinent
Allergies / Home Medications
Allergies reflects when Allergies were last updated in [facility].
Home Medications with original date entered in [facility]
Allergy/Medication List:
Allergies
Allergy/AdvReac Type Severity Reaction Status Date / Time
adhesive tape Allergy Rash Verified 05/10/25 20:31
nitrofurantoin Allergy Swelling Verified 05/10/25 20:31
Sulfa (Sulfonamide Allergy Nausea / Verified 05/10/25 20:31
Antibiotics) Vomiting
Home Medications
bupropion HCl 150 mg 24 hr tablet, extended release 150 mg PO DAILY Depression 11/23/13
ezetimibe 10 mg tablet 10 mg PO DAILY High Cholesterol 06/10/24
pantoprazole 40 mg tablet,delayed release 40 mg PO DAILY Gastrointestinal Issue 06/10/24
biotin 5,000 mcg chewable tablet 5,000 mcg PO DAILY 03/03/25
cholecalciferol (vitamin D3) 50 mcg (2,000 unit) capsule 50 mcg PO QPM 03/03/25
dapagliflozin propanediol 10 mg tablet (Farxiga) 10 mg PO QPM 03/03/25
ferrous sulfate 325 mg (65 mg iron) tablet (iron) 325 mg PO QPM 03/03/25
potassium chloride 20 mEq tablet,extended release 20 meq PO QPM 03/03/25
sertraline 50 mg tablet 50 mg PO DAILY 03/03/25
torsemide 20 mg tablet 20 mg PO DAILY 03/03/25
apixaban 5 mg tablet (Eliquis) 5 mg PO BID #60 tabs 03/07/25
levothyroxine 88 mcg tablet 88 mcg PO DAILY@0400 #30 tabs 03/07/25
spironolactone 25 mg tablet 12.5 mg (1/2 x 25 mg) PO DAILY #30 tabs 05/07/25
Review of Systems
-
History Source: Patient
A 12 point ROS was completed and negative except as noted: Yes
Constitutional: Reports Fatigue; Denies Fever, Weight Gain, Weight Loss or Chills
Respiratory: Reports Trouble Breathing (chronic dyspnea / ILD); Denies Cough
Cardiac: Denies Chest Pain or Palpitations
Abdomen/GI: Denies Abdominal Pain, Nausea, Vomiting or Diarrhea
: Denies Dysuria, Frequency or Flank Pain
Musculoskeletal: Reports Edema; Denies Joint Pain
Skin: Reports Rash
Neurological: Denies Dizzy or Headache
Psych: Denies Depression or Anxiety
Physical Exam
Vital Signs
Vital Signs
Temp Pulse Resp BP Pulse Ox
98.4 F 73 22 114/61 99
05/10/25 20:31 05/10/25 22:34 05/10/25 22:36 05/10/25 22:34 05/10/25 22:36
Physical Exam
General: Other (Thin, frail, chronically ill-appearing female in no acute distress. Pos jaundice apparing.)
HEENT: Moist mucous membranes and PERRLA
Respiratory: Other (Scattered rales throughout bilaterally.)
Cardiac: S1/S2, Regular Rhythm and Murmur (III/ SAL)
GI: Soft, Non Tender, Non Distended and Normal Bowel Sounds
Musculoskeletal: Other (2+ pitting edema of the b/l LEs to the mid-thighs.)
Skin: Other (Scattered petechiae - flat, not tender - b/l LEs extending above the knees.)
Neuro: AO x 3
Laboratory Results
-
05/10/25 20:38
05/10/25 20:38
Laboratory Results
APTT 37.6 Sec (23.4-35.0) H 05/10/25 20:38
Total Bilirubin 5.9 mg/dl (0.2-1.3) H 05/10/25 20:38
AST 64 U/L (14-36) H 05/10/25 20:38
ALT 33 U/L (0-35) 05/10/25 20:38
Alkaline Phosphatase 180 U/L (38-126) H 05/10/25 20:38
Impression/Plan
-
A/P: Patient is a 64y F with PMH significant for valvular heart disease and CHF who presents to ED complaining of recurrent LE edema and rash.
Acute on Chronic HFpEF
Valvular Heart Disease
- Admit for further evaluation and treatment.
- Weight increase, LE swelling from recent admission despite increased diuretic regimen.
- IV Lasix BID. Continue spironolactone.
- Follow daily weights, I/Os, etc.
- Echo was done in February - normal LVEF (55%) bioprosthetic mitral and aortic valves.
- Cardiology eval for additional recommendations.
Abnormal LFTs
Vasculitis
Suspected Hemolytic Anemia
- Patient with significant bilirubin elevation following hospitalization in February for CHF.
- Only new med at that time was Eliquis - will hold for now.
- Developed vasculitic rash of the lower extremities 3 weeks ago - waxes and wanes.
- Obtain outpatient records / biopsy results from Derm.
- Check hemolysis labs with jaundice, rising bilirubin, vasculitis, etc.
- Hematology evaluation for additional recommendations.
Paroxysmal Atrial Fibrillation
- Stable. Digoxin discontinued last admission.
- Hold Eliquis acutely as noted above with new vasculitis +/- hemolysis since this was added in February.
Hypothyroidism
- Continue current T4 replacement.
- TFTs normal last admission.
Bipolar Depression
- Stable. Continue Wellbutrin.
DVT Prophylaxis: SCDs
Code Status: Full
[2025-05-10 23:02] VITALS: BP 102/61
[2025-05-10 23:55] VITALS: BP 96/54; BMI 19.6
[2025-05-11] VITALS (7 sets, daily range): BP systolic 95–108; BP diastolic 46–56; BMI 19.6; BMI 19.5
[2025-05-11 00:50] LABS: Reticulocyte Count 11.1 % (0.4-2.8)
[2025-05-11 00:51] LABS: LDH 943 U/L (120-246)
--- NOTE | 2025-05-11 00:53 | PTCARENOTE ---
Pt arrived from the ED via stretcher. Patient ambulated into the room with assistance. Weakness to her LE's. Some SOB on exertion. AAOx3, VSS. Patient has recurrence of 'rash' / petechiae on the lower extremities. 2 bandages to the LLE (covering
stitches from biopsies) are intact. Patient oriented to the room, updated on medications, call farah is within reach.
[2025-05-11 01:04] LABS: Troponin I < 0.012 ng/ml
[2025-05-11] MEDS: NON-FORMULARY ITEM 88 UNIT PO (03:55)
[2025-05-11 06:31] LABS: ALT (SGPT) 32 U/L (0-35); AST (SGOT) 57 U/L (14-36); Albumin 3.4 g/dl (3.5-5.0); Alkaline Phosphatase 175 U/L (38-126); Blood Urea Nitrogen 23 mg/dl (7-17); Calcium 8.2 mg/dl (8.4-10.2); Carbon Dioxide 32 mmol/L (22-30); Chloride 99 mmol/L (98-107); Estimated Creatinine Clearance 55 ml/min; Glucose 89 mg/dl (70-99); Magnesium 2.1 mg/dl (1.6-2.3); Potassium 3.6 mmol/L (3.5-5.1); Sodium 135 mmol/L (135-145); Total Protein 6.9 g/dl (6.3-8.2); eGFR > 60.00
[2025-05-11 06:33] LABS: Hematocrit 24.5 % (37.0-47.0); Hemoglobin 7.8 g/dL (12.0-16.0); Mean Corp Hgb Conc. 31.8 g/dL (33.0-37.0); Mean Corpuscular Volume 102.5 fL (81.0-99.0); Platelet Count 165 10^3/uL (130-400); Red Cell Dist. Width 19.7 % (11.5-14.5)
[2025-05-11 06:42] LABS: Troponin I < 0.012 ng/ml
--- NOTE | 2025-05-11 07:03 | W.PN.HOSP.TC ---
Addendum entered and electronically signed by Darius Brewster MD 05/11/25 22:30:
Attending Addendum-
I saw and evaluated the patient. I reviewed the resident�s note and agree with findings and plan as documented in the resident�s note. Sub: feels fatigued. Denies CP palps bleeding SOB. Full 12 point ROS reviewed and negative except as documented
Exam: Vitals reviewed in chart GEN-NAD heart RRR no MRG lungs fine crackles at bases abd soft ND ND pos BS LE- Rt>Left pitting edema b/l LE non blanchable purpura
Plan:
# Mild Acute on Chronic HFpEF exacerbation
# Valvular Heart Disease
- cont IV Lasix BID. Continue spironolactone and dapag.
- Follow daily weights, I/Os
- Echo was done in February - normal LVEF (55%) bioprosthetic mitral and aortic valves ring valvuloplasty TV
- appreciate cards input
#Abnormal LFTs
#Vasculitis
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
- Only new med at that time was Eliquis - will hold for now.
- Developed vasculitic rash of the lower extremities 3 weeks ago - waxes and wanes.
- Obtain biopsy results from Derm
- Check hemolysis labs- rea JORGE haptoglobin periph smear LDH retic count
- Hematology evaluation for additional recommendations.
#RLE Edema - r/o DVT
#Paroxysmal Atrial Fibrillation
- Stable. Digoxin discontinued last admission
- has PPM
- Hold Eliquis acutely as noted above with new vasculitis +/- hemolysis since this was added in February.
#Hypothyroidism
- Continue levothyroxine
#Bipolar Depression
- Stable. Continue Wellbutrin and Seroquel
DVT Prophylaxis: SCDs
CODE Full->DNR
ACP
Patient consented to discuss, was alone, time spent explanation of advance directives, changes in health status, patient�s health care wishes if the patient becomes unable to make health decisions, goals of care, code status, and prognosis 'i dont
want to be resuscitated i have a living will'- 16 minutes
Time spent coordinating care, review of plan of care with resident, personally reviewed previous records in EMR, med rec, labs, radiology, d/w nursing, family total time documented is exclusive of any additional time listed that was spent in advance
care planning discussion -�52 minutes
Original Note:
Today's Communication/Plan
-
Awaiting labs, monitor hemoglobin levels
Transfuse if Hgb levels <7
Continue IV Lasix, Aldactone
Will obtain Derm biopsy results
Oxygen supplementation as needed
Assessment / Plan
Assessment / Plan
Assessment: 64-year-old female with past medical history of CHF/valvular heart disease, hypothyroidism and Hodgkin's disease who presented to the ED due to lower extremity swelling and petechia. Had recently been admitted in the hospital from
05/05 to 05/07 for lower extremity swelling. She had been treated with IV Lasix and was discharged following improvement in her swelling. She was started on torsemide and spironolactone but patient states that her swelling rapidly came back. Has
some rash/petechia on her lower extremities for which she saw dermatology, Dr. Angelica Cruz. Patient was admitted for further management of possible acute on chronic HFpEF. Patient's hemoglobin dropped from 9.2-7.8 and a large increase in
bilirubin levels due to possible hemolysis. Hematology and cardiology were consulted for further management.
Plan:
#Acute on Chronic HFpEF
- Since being in the ER and initiation of Lasix therapy, weight decreased from 52.6 kg to 48.3 EKGs
- Continue IV Lasix BID. Continue spironolactone. Continue dapagliflozin
- Follow daily weights, I/Os, etc.
- Echo in February - normal LVEF (55%) bioprosthetic mitral and aortic valves.
- Cardiology consulted, input appreciated
#Hemolytic anemia in the presence of valvular heart disease
-Significant direct bilirubin elevation, likely due to hemolysis. Was high during the last admission as well
-Awaiting haptoglobin, fibrinogen within normal limits, platelet normal
-Hematology consulted, input appreciated
-Antistreptolysin O antibodies positive, proteinase 3 antibody (ANCA) pending
-possibly suspect Granulomatosis with Polyangiitis (GPA) cause of respiratory and vasculitic symptoms
-MVR/AVR, and TV repair with ring by Dr. Prabhakar at [place] (05/26/2024)
-May need follow-up echo to check replaced valves
-Repeat H&H at 12pm, transfuse if hemoglobin< 7, will continue to monitor hemoglobin
#Paroxysmal Atrial Fibrillation
- Stable
- Holding Eliquis acutely due to vasculitis, hemolysis
- Digoxin was stopped to improve AV synchrony at last visit
#Hypothyroidism
- Continue levothyroxine
- TFTs normal last admission.
#Bipolar Depression
- Stable. Continue Wellbutrin.
#DVT Prophylaxis: SCDs
Code Status: Full
Anticipated Discharge: 24 - 48 hours
Subjective/Interval History
-
Date of Service: May 11, 2025
Patient seen this morning, was not in any acute distress when seen. Which is a bit concerned about her right lower extremity swelling as well as wanting to know about her dermatology biopsy results. Did not have any chest pain, shortness of
breath, but did have some left rib pain which she says that she had a fall few weeks back and it has been hurting since then. She reports that she did have her spleen removed due to her history of stage Ia Hodgkin's disease status post medical
therapy and splenectomy 1983. She does not have any pain in her lower extremities but does have the nonblanching petechial rash on bilateral lower extremities. Overall was not in any distress chest but was a bit concerned about the lab findings.
Objective Data
-
Labs:
Laboratory Results
05/10/25 05/11/25
20:38 05:59
WBC 9.1 9.2
Hgb 9.2 L 7.8 L
Hct 28.2 L 24.5 L
Plt Count 167 165
APTT 37.6 H
Sodium 133 L 135
Potassium 4.2 3.6
Chloride 97 L 99
Carbon Dioxide 30 32 H
BUN 24 H 23 H
Creatinine 0.9 0.8
Glucose 132 H 89
Calcium 8.1 L 8.2 L
Total Bilirubin 5.9 H 5.8 H
AST 64 H 57 H
ALT 33 32
Alkaline Phosphatase 180 H 175 H
Vital Signs:
Vital Signs
Temp Pulse Resp BP Pulse Ox
98.2 F 66 16 98/56 95
05/11/25 03:57 05/11/25 03:57 05/11/25 03:57 05/11/25 04:02 05/11/25 03:57
I&O
05/10/25 05/11/25 05/12/25
06:59 06:59 06:59
Output Total 300 / 300
Balance -300 / -300
Review of Systems
-
History Source: Patient
Constitutional: Reports No Symptoms
EENT: Reports No Symptoms Reported
Respiratory: Reports No Symptoms
Cardiac: Reports No Symptoms
Abdomen/GI: Reports No Symptoms
Genitourinary: Reports No Symptoms
Musculoskeletal: Reports Edema (Right lower extremity pitting edema starting from right lower louie) and Other (Left lower rib pain)
Skin: Reports Other (Bilateral lower extremity nonblanching petechia/rash)
Neuro: Reports No Symptoms
Hematologic / Lymphatic: Reports Lymphedema (Right lower extremity)
Psych: Reports Anxious
Physical Exam
-
General: Well Developed, No Apparent Distress, Comfortable and Conversant
HEENT: Normocephalic and Atraumatic
Respiratory: Clear to Auscultation and Non Labored Respirations
Cardiac: Regular Rhythm, S1/S2 and Murmur (Systolic murmur)
Breast: Deferred by me
GI: Soft, Nontender, Nondistended and Normal Bowel Sounds
Genito-urinary: No Costovertebral Tender
Musculoskeletal: No Clubbing, No Cyanosis and Edema, Right Lower Extrem (1+ pitting edema right foot)
Skin: Other (Nonblanching numerous 1-2 cm circular petechia on bilateral lower extremities)
Neuro: Awake, Alert, Oriented, AO x 3, No Motor Deficits and No Sensory Deficits
Psych: Calm
Data Reviewed
-
Diagnostic Radiology: Report Reviewed by me, Discussed with Physician, Discussed with Nurse and Discussed with Patient
Labs: Labs Reviewed by me, Discussed with Physician, Discussed with Nurse and Discussed with Patient
[2025-05-11] MEDS: ZOLOFT 50 MG PO (08:04)
[2025-05-11] MEDS: ALDACTONE 12.5 MG PO (08:04)
[2025-05-11] MEDS: LASIX 40 MG IV ×2 (08:04→16:59)
[2025-05-11] MEDS: WELLBUTRIN XL (24 hour extended release) 150 MG PO (08:04)
--- NOTE | 2025-05-11 08:15 | CON.CAR ---
Addendum entered and electronically signed by Kg Nguyen MD 05/11/25 13:48:
I saw and evaluated the patient, and I provided the substantive portion of the medical decision making.
I reviewed and agree with the note by Chelsea Shane and it accurately reflects our care.
I personally performed the medical decision making of the this encounter and my assessment and plan is below:
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 Ching who she formerly followed with, EP: Dr. Darryl Kapoor, [place]) with moderate to severe and AR, moderate MR, mild MS, moderate to severe TR, s/p bio
MVR, bio AVR, and tricuspid valvuloplasty with prosthetic ring 05/26/24 (Dr. Prabhakar, [facility]), post-op had new AF, as well as MDT leadless PPM implant, 1st degree AVB, chronic restrictive lung disease, dyslipidemia, and Stage 1A Hodgkin lymphoma 1982
with hx extensive radiation. She was just discharged on 05/07/25 after diuresis and MRA addition. However she returns with le edema and sob. More notable is the diffuse nonblanching petechial rash over b/l le. She reports this comes and goes and she
is under going evaluation with derm.
On exam she is jaundice with mild scleral icterus. She has a rrr, III/ systolic)murmur and Peripheral Edema (+1 on Lt, +2 Rt-chronic asymmetry), nonblanching <1 cm erythematous diffuse round lesion over legs>thighs b/l.
Labs notable for Hgb 8, TB 5.8 Clark 3.2 AST 57 LDL 943 BNP 3210
Overall issues are:
Acute on chronic HFPEF, continue IV lasix bid with intensive monitoring. SGLT2 and MRA
Anemia: likely hemolytic, transfusing per heme
rash: likely c/w vasculitis. steroids per medicine and heme
paf wtih CAF: holding doac and asa with hemolytic process occuring.
will follow
[ ]
Original Note:
Consultation
Consultation Request
Date/Time Consultation Requested: 05/10/25 2760
Date/Time Consultation Performed: 05/11/25 0815
Requesting Provider: Dr. Yu
Performing Provider: Chelsea MEYER for Dr. Nguyen
Reason for Consultation: CHF
Medical History
-
Chief Complaint: SOB, swelling
History of Present Illness:
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 Medhat Cesar- [place], but she plans to follow back up with Dr. Ching who she formerly followed with, EP: Dr. Darryl Kapoor, [place]) with moderate to severe and AR, moderate MR, mild MS, moderate to severe TR, s/p bio
MVR, bio AVR, and tricuspid valvuloplasty with prosthetic ring 05/26/24 (Dr. Prabhakar, [facility]), post-op had new AF, as well as MDT leadless PPM implant, 1st degree AVB, chronic restrictive lung disease, dyslipidemia, and Stage 1A Hodgkin lymphoma 1982
with hx extensive radiation. She was here about 2 months ago with CHF exacerbation in setting of dietary indiscretion, as well as symptoms concerning for TIA, then old stroke seen on imaging, so Eliquis initiated with her AF and stroke hx. Then she
came in last week with POSADA and LE edema and was admitted for [id number] HFpEF. She was diuresed and sent home with addition of spironolactone. She was d/c on 05/07/25, but is back with recurrence of SOB and LE edema. She has also been having
issues with BLE rash, for which she has seen dermatology and had biopsy (no results yet).
Past Medical History
Past Medical History: Arrhythmias, Cancer, CHF, Valvular Disease and Other (as above)
Social History
Tobacco: Non-Smoker
Family History
Family History: Reviewed & Not Pertinent
Allergies / Home Medications
Allergy/AdvReac Type Severity Reaction Status Date / Time
adhesive tape Allergy Rash Verified 05/10/25 20:31
nitrofurantoin Allergy Swelling Verified 05/10/25 20:31
Sulfa (Sulfonamide Allergy Nausea / Verified 05/10/25 20:31
Antibiotics) Vomiting
�Medication �Instructions �Recorded �Confirmed �Type
bupropion HCl 150 mg 24 hr tablet, 150 mg PO DAILY Depression 11/23/13 05/10/25 History
extended release
ezetimibe 10 mg tablet 10 mg PO DAILY High Cholesterol 06/10/24 05/10/25 History
pantoprazole 40 mg tablet,delayed 40 mg PO DAILY Gastrointestinal 06/10/24 05/10/25 History
release Issue
biotin 5,000 mcg chewable tablet 5,000 mcg PO DAILY Supplement 03/03/25 05/10/25 History
cholecalciferol (vitamin D3) 50 50 mcg PO QPM Supplement 03/03/25 05/10/25 History
mcg (2,000 unit) capsule
dapagliflozin propanediol 10 mg 10 mg PO QPM Diabetes 03/03/25 05/10/25 History
tablet (Farxiga)
ferrous sulfate 325 mg (65 mg 325 mg PO QPM Supplement 03/03/25 05/10/25 History
iron) tablet (iron)
potassium chloride 20 mEq 20 meq PO QPM Supplement 03/03/25 05/10/25 History
tablet,extended release
sertraline 50 mg tablet 50 mg PO DAILY Mental 03/03/25 05/10/25 History
Health/Anxiety
torsemide 20 mg tablet 20 mg PO DAILY Fluid 03/03/25 05/10/25 History
Retention/Swelling
apixaban 5 mg tablet (Eliquis) 5 mg PO BID #60 tabs 03/07/25 05/10/25 Rx
levothyroxine 88 mcg tablet 88 mcg PO DAILY@0400 #30 tabs 03/07/25 05/10/25 Rx
spironolactone 25 mg tablet 12.5 mg (1/2 x 25 mg) PO DAILY #30 05/07/25 05/10/25 Rx
tabs
Review of Systems
-
History Source: Patient
All other systems: Negative unless noted
Respiratory: Trouble Breathing
Musculoskeletal: Edema
Skin: Rash
Physical Exam
Vital Signs
Temp Pulse Resp BP Pulse Ox
98 F 64 18 99/52 94
05/11/25 08:05 05/11/25 08:05 05/11/25 08:05 05/11/25 08:05 05/11/25 08:05
Lab Results
05/11/25 05:59
05/11/25 05:59
Troponin I Cancelled 05/11/25 11:50
[id number]-P-[id number] Pept 3210 pg/ml 05/10/25 20:38
Physical Exam
General: Well Developed and No Apparent Distress
HEENT: Normocephalic and Anicteric
Respiratory: Crackles (mild bibasilar)
Cardiac: Regular Rhythm, Murmur (III/ systolic) and Peripheral Edema (+1 L, +2 R (right typically worse than left per patient)))
Skin: Rash (BLE's- spotted red dots )
Neuro: AO x 3
Psych: Calm
Impression / Plan
-
[id number] HFpEF:
-weight is back down s/p 1 dose of IV Lasix, but she does have LE edema and some mild crackles, so will continue for now.
-agree with IV Lasix, which requires intensive monitoring
-Continue SGLT2I.
-OP diuretics include torsemide 20 mg PO daily and spironolactone 12.5 mg PO daily.
-recent echo as below
Rash:
-BLE's, she has seen derm and had biopsy as OP, but no known results yet
-management per primary team
Anemia:
-worsened
-suspected hemolytic per hospitalists and heme is consulted
-Eliquis is held in this setting
AFIB/flutter, type unknown, paroxysmal:
- stable in SR
- [id number] score is now 4 for female, stroke, CHF. Eliquis held as above
- Digoxin recently stopped to improve AV synchrony
Hx leadless PPM:
-stable by interrogation
-continue to follow with EP
S/p Bio MVR/AVR, and TV repair with ring by Dr. Prabhakar at [place] (05/26/2024):
-Echo 03/06/25: Normal left ventricular size, wall thickness and systolic function. Estimated LVEF 55%. Bioprosthetic mitral valve. Peak/mean gradients across the mitral valve are 26/6 mmHg. No mitral regurgitation is seen. Bioprosthetic aortic
valve. Peak/mean gradients across the aortic valve are 6/3 mmHg. No aortic regurgitation is seen. Enlarged right ventricular size. Reduced right ventricular systolic function. Abnormal (paradoxical) septal motion consistent with RV pacemaker. s/p
tricuspid valve ring with mean gradient of 3 mmHg. Mild/moderate tricuspid regurgitation. Mildly elevated PASP. Estimated pulmonary artery pressure of 35-40 mmHg. Small pericardial effusion without evidence of hemodynamic compromise.
Data Reviewed
-
EKG: Tracing Personally Visualized and interpreted (SR with 1st degree AVB with PVC's and occ v paced complexes, NS ST and T abnormality)
Radiology: Report Reviewed by me (CXR: Stable chronic findings, as described. No radiographically demonstrable superimposed acute cardiopulmonary process.)
Medical Tests (Nuc Med, Echo etc): Report Reviewed by me (echo as noted)
Labs: Labs Reviewed by me
[2025-05-11 08:25] LABS: Fibrinogen 411 MG/DL (199-459)
[2025-05-11] MEDS: FLUSH (NSS) 2 FLUSH IV ×2 (08:28→17:01)
--- NOTE | 2025-05-11 08:46 | CON.ONC ---
Consultation
-
Date Consultation Requested: 05/10/25
Date Consultation Performed: 05/11/25
Requesting Provider: Gigi Garg DO
Performing Provider: Dr. Matamoros
Reason for Consultation: Hemolytic Anemia
Impression
Impression
This is a 64 y/o female with pmhx of CHD with valvular heart disease, hypothyroidism and Hodgkin�s lymphoma who presented to the ED on 05/10/2025 with shortness of breath on exertion and lower extremity swelling and weakness with recent
hospitalization from 05/05-06/07 for the same concern.
Plan
Plan
Hemolytic Anemia
-Reticulocyte count, RDW and Bilirubin suggests hemolytic process
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
-While antibody screen was negative, it did show significant rouleaux.
-Ordered Vitamin B12, Folate, JORGE
-Await biopsy results to confirm vasculitis
-Start pulse Dexamethasone 40mg x 4 days
-Will monitor
History of Hodgkin's Disease in Remission
-Unclear if s/p radiation and chemotherapy or just radiation
-Unclear diagnosis date of 1979, 1981 or 1983, but at this point it is clear it is more than 5 years in remission
Patient History
History of Present Illness
This is a 64 y/o female with pmhx of CHD with valvular heart disease, hypothyroidism and Hodgkin�s lymphoma who presented to the ED on 05/10/2025 with shortness of breath on exertion and lower extremity swelling and weakness. She was recently
hospitalized at this same hospital from 05/05-06/07 for the same concern.
She was treated with IV lasix at that time and discharged on torsemide and spironolactone. She has been taking these medications as prescribed, but had a recurrence of her symptoms prompting her visit to the ED on 05/10. She does also have a
bilateral lower extremity rash which is being managed by outpatient dermatology and has had a biopsy with no results to date.
X-ray in the ED showed stable, chronic findings including thin band of linear parenchymal scarring in the right upper lobe, mild chronic thickening along the major fissures.
Patient reports she was diagnosed with Hodgkin�s lymphoma in 1981. She states she had a lump under her left armpit which she had thought was a reaction to deodorant at first. She reports she received radiation to her chest, as well as to her
abdomen, and followed with [facility] (Dr. Valle) for oncology. She followed with them routinely for many years before she was told she no longer had to see them several years ago. She is not certain when her last outpatient oncology appointment
was. She does not recall having any other treatment aside from radiation. Chart review from a H&P from 10/18/2012 states she is status post appendectomy and splenectomy.
She was doing well today when I arrived. She states that following her heart surgery 1 year ago she was initially able to walk 5-7 miles without difficulty, but in recent history has had much difficulty with ambulating due to weakness in her legs
and shortness of breath only on exertion. She reports if she bends over she has to pull herself back up with her arms as her legs are too weak to lift her on her own. She does report a personal history of anemia, but is uncertain when her last
outpatient CBC was. She confirms her leg rash is being managed by dermatology, and is not sure what it is due to pending biopsy. She is feeling better today than she did yesterday.
Past-Medical/Surgical History
Bipolar Disorder
Hodgkin�s Lymphoma s/p radiation (Diagnosed in 1983)
Hypothyroidism
Valvular Heart Disease
HFpEF
Leadless PPM placed in 05/2024
Splenectomy
Appendectomy
Patient Medication
�Medication �Instructions �Recorded �Confirmed �Last Taken �Type
bupropion HCl 150 mg 24 hr tablet, 150 mg PO DAILY Depression 11/23/13 05/10/25 03/03/25 History
extended release
ezetimibe 10 mg tablet 10 mg PO DAILY High Cholesterol 06/10/24 05/10/25 03/03/25 History
pantoprazole 40 mg tablet,delayed 40 mg PO DAILY Gastrointestinal 06/10/24 05/10/25 03/03/25 History
release Issue
biotin 5,000 mcg chewable tablet 5,000 mcg PO DAILY Supplement 03/03/25 05/10/25 03/03/25 History
cholecalciferol (vitamin D3) 50 50 mcg PO QPM Supplement 03/03/25 05/10/25 03/02/25 History
mcg (2,000 unit) capsule
dapagliflozin propanediol 10 mg 10 mg PO QPM Diabetes 03/03/25 05/10/25 03/02/25 History
tablet (Farxiga)
ferrous sulfate 325 mg (65 mg 325 mg PO QPM Supplement 03/03/25 05/10/25 03/02/25 History
iron) tablet (iron)
potassium chloride 20 mEq 20 meq PO QPM Supplement 03/03/25 05/10/25 03/02/25 History
tablet,extended release
sertraline 50 mg tablet 50 mg PO DAILY Mental 03/03/25 05/10/25 03/03/25 History
Health/Anxiety
torsemide 20 mg tablet 20 mg PO DAILY Fluid 03/03/25 05/10/25 03/03/25 History
Retention/Swelling
apixaban 5 mg tablet (Eliquis) 5 mg PO BID #60 tabs 03/07/25 05/10/25 Unknown Rx
levothyroxine 88 mcg tablet 88 mcg PO DAILY@0400 #30 tabs 03/07/25 05/10/25 Unknown Rx
spironolactone 25 mg tablet 12.5 mg (1/2 x 25 mg) PO DAILY #30 05/07/25 05/10/25 Unknown Rx
tabs
Active Medications
Generic Name Dose Route Start Last Admin
Trade Name Freq PRN Reason Stop Dose Admin
Acetaminophen 650 mg 05/10/25 23:50
Acetaminophen 325 Mg Tablet PO 06/07/25 23:49
Q4HPRN PRN
Mild Pain / Temp > 101
Bupropion HCl 150 mg 05/11/25 08:00 05/11/25 08:04
Bupropion (24hr) Extended Release 150 Mg Tablet PO 06/08/25 07:59 150 mg
DAILY JASEN Administration
Dapagliflozin 10 mg 05/11/25 18:00
Dapagliflozin (Farxiga) 10 Mg Tablet PO 06/08/25 17:59
QPM JASEN
Furosemide 40 mg 05/11/25 08:00 05/11/25 08:04
Furosemide 40 Mg (10 Mg/Ml) 4 Ml Vial IV 06/08/25 07:59 40 mg
BID AT 0800,1600 JASEN Administration
Synthroid 88 Mcg- 88 unit 05/11/25 04:00 05/11/25 03:55
Take 1 Tab Po Every PO 06/08/25 03:59 88 unit
Morning @0400 DAILY@0400 JASEN Administration
Potassium Chloride 20 meq 05/11/25 18:00
Potassium Chloride 20 Meq Extended Release Tablet PO 06/08/25 17:59
QPM JASEN
Sertraline HCl 50 mg 05/11/25 08:00 05/11/25 08:04
Sertraline 50 Mg Tablet PO 06/08/25 07:59 50 mg
DAILY JASEN Administration
Sodium Chloride 0 flush 05/11/25 09:00 05/11/25 08:28
Sodium Chloride 0.9% (Flush) Syringe IV 06/08/25 08:59 2 flush
PER PROTOCOL JASEN Administration
Spironolactone 12.5 mg 05/11/25 08:00 05/11/25 08:04
Spironolactone 25 Mg Tablet PO 06/08/25 07:59 12.5 mg
DAILY JASEN Administration
Review of Systems
-
History Source: Patient
Constitutional: Reports Weight Gain, Fatigue and Weakness; Denies Fever or Chills
Respiratory: Reports Trouble Breathing; Denies Cough
Cardiac: Denies Chest Pain or Palpitations
GI: Denies Nausea or Vomiting
Skin: Reports Rash; Denies Itching or Sores
Neuro: Reports Weakness; Denies Numbness
Hematologic/Lymphatic: Denies Bleeding
Physical Exam
-
General: Well Developed, Well Nourished, No Apparent Distress and Comfortable
Cardiology: Normal Sinus Rhythm, S1, S2 and Murmur (Systolic ejection murmur III)
Pulmonary: Clear
Musculoskeletal: Edema, Right Lower Extrem (Worse than left, to the knee) and Edema, Left Lower Extrem (To the knee)
Skin: Warm, Dry and Rash (Multiple petechiae bilaterally on lower extremities, most prevalent below the knee )
Psych: Calm and Intact Judgement/Insight
Labs
Lab Results
WBC 9.2 10^3/uL (4.8-10.8) 05/11/25 05:59
RBC 2.39 10^6/uL (4.20-5.40) L 05/11/25 05:59
Hgb 7.8 g/dL (12.0-16.0) L 05/11/25 05:59
Hct 24.5 % (37.0-47.0) L 05/11/25 05:59
MCV 102.5 fL (81.0-99.0) H 05/11/25 05:59
MCH 32.6 pg (27.0-31.0) H 05/11/25 05:59
MCHC 31.8 g/dL (33.0-37.0) L 05/11/25 05:59
RDW 19.7 % (11.5-14.5) H 05/11/25 05:59
Plt Count 165 10^3/uL (130-400) 05/11/25 05:59
MPV 10.6 fL (7.4-10.4) H 05/11/25 05:59
Abs Immat Gran (auto) 0.1 10^3/uL (0-0.05) H 05/10/25 20:38
Absolute Neuts (auto) 7.5 10^3/uL (1.4-6.5) H 05/10/25 20:38
Absolute Lymphs (auto) 0.4 10^3/uL (1.2-3.4) L 05/10/25 20:38
Absolute Monos (auto) 1.0 10^3/uL (0.1-0.6) H 05/10/25 20:38
Absolute Eos (auto) 0.1 10^3/uL (0-0.7) 05/10/25 20:38
Absolute Basos (auto) 0.0 10^3/uL (0-0.2) 05/10/25 20:38
Immature Gran % 1.5 % (0-0.5) H 05/10/25 20:38
Neutrophils % 82.3 % (42.2-75.2) H 05/10/25 20:38
Lymphocytes % 4.5 % (20.5-51.1) L 05/10/25 20:38
Monocytes % 10.7 % (1.7-9.3) H 05/10/25 20:38
Eosinophils % 0.7 % (0-6) 05/10/25 20:38
Basophils % 0.3 % (0-2) 05/10/25 20:38
Creatinine 0.8 mg/dL (0.6-1.0) 05/11/25 05:59
Vital Signs
Vital Signs
Temp Pulse Resp BP Pulse Ox
98 F 64 18 99/52 94
05/11/25 08:05 05/11/25 08:05 05/11/25 08:05 05/11/25 08:05 05/11/25 08:05
--- NOTE | 2025-05-11 11:35 | HFEDUCATE ---
64 yo female admitted with POSADA and increased LE edema. Past medical history includes PPM, chronic restrictive lung disease, dyslipidemia, A-fib, Bio MVR/AVR and TV repair. Her current echocardiogram shows an ejection fraction of 55 %. She reports
following a low sodium diet and a 48oz fluid restriction per day. She has a scale and weighs herself daily.
I provided HF education and discussed the usual lifestyle recommendations. I advised she continue her low sodium diet of 2000-3000mg. per day and follow a 500-750mg. per meal restriction. I provided her with a sample menu plan with sodium amounts
per meal. I advised a 48 oz. fluid restriction per day and discussed ways to achieve the recommendations. I also advised she continue weighing herself daily and monitoring for any slight weight gain. I reviewed how to monitor for exacerbations. We
discussed other alarming symptoms to watch for and when to notify her provider. We discussed need for medications.
Recommendations:
Continue all HF recommended medications as ordered on discharge.
Limit sodium intake to <500-750 mg. per meal.
Limit fluid intake to <48 oz per day.
Daily weights and contact provider for any weight gain >3lbs in one day or 5lbs in one week.
Follow up with provider as recommended.
[2025-05-11 11:49] LABS: Hematocrit 23.6 % (37.0-47.0); Hemoglobin 8.0 g/dL (12.0-16.0)
[2025-05-11 13:21] LABS: Folate 15.5 ng/ml (2.76-20); Vitamin B12 > 1000 pg/ml (239-931)
[2025-05-11] MEDS: PROTONIX 40 MG PO (13:48)
[2025-05-11] MEDS: DECADRON 60 MG IV (13:48)
--- NOTE | 2025-05-11 16:28 | CM ---
Chart reviewed patient admitted with CHF, Vasculitis, from home recently discharge from hospital, patient lives alone in a 2 story home, is independent with adl's and ambulation, no dme.
PCP: Dr Jade
Pharmacy: [facility]
[2025-05-11] MEDS: KCL 20 MEQ PO (17:00)
[2025-05-11] MEDS: FARXIGA 10 MG PO (17:00)
[2025-05-12 03:24] VITALS: BP 103/57
[2025-05-12] MEDS: NON-FORMULARY ITEM 88 UNIT PO (03:35)
[2025-05-12 05:15] VITALS: BMI 19.8
[2025-05-12 07:30] VITALS: BP 112/65
[2025-05-12 07:40] LABS: Hematocrit 25.0 % (37.0-47.0); Hemoglobin 8.2 g/dL (12.0-16.0); Mean Corp Hgb Conc. 32.8 g/dL (33.0-37.0); Mean Corpuscular Volume 104.2 fL (81.0-99.0); Nucleated Red Blood Cells % 1.5 %; Platelet Count 168 10^3/uL (130-400); Red Cell Dist. Width 20.3 % (11.5-14.5)
--- NOTE | 2025-05-12 07:55 | W.PN.HOSP.TC ---
Addendum entered and electronically signed by Darius Brewster MD 05/12/25 20:54:
Attending Addendum-
I saw and evaluated the patient. I reviewed the resident�s note and agree with findings and plan as documented in the resident�s note. Sub: feels improved. Denies CP palps bleeding SOB. Full 12 point ROS reviewed and negative except as documented
Exam: Vitals reviewed in chart GEN-NAD heart RRR no MRG lungs fine crackles at bases abd soft ND ND pos BS LE- Rt>Left pitting edema b/l LE non blanchable palpable purpura starting to fade
Plan:
# Mild Acute on Chronic HFpEF exacerbation
# Valvular Heart Disease
- cont IV Lasix BID. Continue spironolactone and dapagliflozin.
- Follow daily weights, I/Os
- Echo was done in February - normal LVEF (55%) bioprosthetic mitral and aortic valves, TV valvuloplasty
- appreciate cards input
- increase torsemide from 20->40mg on DC
#Abnormal LFTs
#Vasculitis
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
- Developed vasculitic rash of the lower extremities 3 weeks ago
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 Etiology likely autoimmune and a component of process driving hemolytic anemia. Appearance c/w small vessel vasculitis. Ddx includes: IgA (HSP), UV, CSVV
- started on IV steroids 2/
- transition to PO steroids on DC
- tx for HB < 8.5
#RLE Edema - neg for DVT
#Paroxysmal Atrial Fibrillation
- Stable
- has PPM
- restart eliquis
#Hypothyroidism
- Continue levothyroxine
#Bipolar Depression
- Stable. Continue Wellbutrin and Seroquel
DVT Prophylaxis: SCDs
CODE Full->DNR
Dispo Likely DC in am
Time spent coordinating care, review of plan of care with resident, personally reviewed records in EMR, med rec, consults, notes, labs, radiology, d/w nursing heme � 52 mins
Original Note:
Today's Communication/Plan
-
- Continue IV Lasix 40mg BID
- Continue spironolactone 12.5mg daily
- Continue dapagliflozin 10mg daily
- Continue 40mg dexamethasone for 4 days (day 2/4; started 05/11)
- Haptoglobin pending
- Peripheral smear pending
- ANCA pending
- Ishmael pending
- Monitor H&H, transfuse if hgb<8.5 (per heme/onc)
- Dispo today or tomorrow
Assessment / Plan
Assessment / Plan
Quin Burt is a 64yo F with pmh of HFpEF, valvular dz (s/p bio AVR, MVR, & tricuspid valvuloplasty w prosthetic ring), & Hodgkin's disease who presented with exertional dyspnea, FEDERICO, and petechial LE rash, now being managed for acute on
chronic HFpEF and evaluated for suspected immune-mediated hemolytic anemia.
#Acute on Chronic HFpEF
Recently admitted 05/05- for FEDERICO, improved s/p IV lasix and discharged w torsemide & spironolactone. Swelling returned at home. This admission, weight decreased 52.6kg>49kg s/p lasix. Echo in February - normal LVEF (55%) bioprosthetic mitral and
aortic valves. Hx of moderate to severe and AR, moderate MR, mild MS, moderate to severe TR, s/p bio MVR, bio AVR, and tricuspid valvuloplasty with prosthetic ring 05/26/24 (Dr. Prabhakar, [facility]). LE US negative DVT.
- Continue IV Lasix 40mg BID
- Continue spironolactone 12.5mg daily
- Continue dapagliflozin 10mg daily
- Per heme-onc, maintain ferritin >100 (pending ferritin levels)
- Follow daily weights, I/Os
- Cardiology consulted, appreciate recs
#Hemolytic anemia, suspected autoimmune
Hgb from 7.8 on admission, 8.2 today. Elevated direct bilirubin (4.3 today, downtrend). Plt, fibrinogen wnl. Alk phos elevated (172), RDW elevated (20.3), retic elevated (11.1). Antistreptolysin O ab positive. Elevated polyclonal gammaglobulin.
Light chain ratio from prior admission wnl. Per heme/onc (05/11): likely autoimmune process, given elevated reticulocyte count, RDW, & bilirubin (although direct). Polyclonal gammopathy supports autoimmune process, as does rouleaux on antibody
screen. Babesia negative. B12>1000. Folate 15.5 wnl.
- Continue 40mg dexamethasone for 4 days (day 24; started 05/11)
- Haptoglobin pending
- Peripheral smear pending
- ANCA pending
- Ishmael pending
- Monitor H&H, transfuse if hgb<8.5 (per heme/onc) - 1 unit pRBC today, given hgb 8.2
- Heme/onc following, appreciate recs
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
Has been following OP w Dr. Angelica Cruz. Non-blanching petechial purpuric rash on bilateral calves/shins (feet spared, nothing at level of knee up). Has been present for [address] Cruz - prelim results: leukocytoclastic
vasculitis. Pending immunofluorescence. C/f early leukocytoclastic vasculitis. Etiology likely autoimmune and a component of process driving hemolytic anemia as above. Apparance c/w small vessel vasculitis. Ddx includes: IgA (HSP), UV, CSVV. Given
lack of other systemic sx or urticaria, favoring CSVV. Would expect C3, IgG, IgA, IgM possible on immunofluorescence.
- Mgmt of presumed autoimmune process as above
- F/u final bx results with Dr. Cruz derm
#Chronic
#Paroxysmal Atrial Fibrillation - holding eliquis in s/o hemolysis; Digoxin was stopped to improve AV synchrony at last visit
#Hypothyroidism - continue levothyroxine
#Bipolar Depression - continue Wellbutrin, sertraline.
#Global
- DVT Prophylaxis: SCDs
- Code Status: full
- Dispo: to home (pt lives alone), today or tomorrow pending heme-onc clearance
Anticipated Discharge: Within 24 hours
Subjective/Interval History
-
Date of Service: May 12, 2025
Pt feeling okay this am. Says that no longer having SOB at rest. Speaking comfortably. Says FEDERICO has improved, although R still more swollen than L. Endorses some L side pain where she fell recently at home. Requesting removal of sutures in skin bx
sites on L calf.
Objective Data
-
Labs:
Laboratory Results
05/12/25
06:28
WBC 8.6
Hgb 8.2 L
Hct 25.0 L
Plt Count 168
Sodium Pending
Potassium Pending
Chloride Pending
Carbon Dioxide Pending
BUN Pending
Creatinine Pending
Glucose Pending
Calcium Pending
Total Bilirubin Pending
AST Pending
ALT Pending
Alkaline Phosphatase Pending
Vital Signs:
Vital Signs
Temp Pulse Resp BP Pulse Ox
98.0 F 62 16 103/57 96
05/12/25 03:24 05/12/25 03:24 05/12/25 03:24 05/12/25 03:24 05/12/25 03:24
I&O
05/11/25 05/12/25 05/13/25
06:59 06:59 06:59
Intake Total 1440 / 1440
Output Total 300 / 300 880 / 880
Balance -300 / -300 560 / 560
Physical Exam
-
General: No Apparent Distress, Comfortable and Conversant
HEENT: Normocephalic, Atraumatic and Anicteric (very mild jaundice )
Respiratory: Crackles (crackles/rub heard in L lower lobe; all else clear to auscultation )
Cardiac: Regular Rhythm and S1/S2
GI: Nontender and Nondistended
Musculoskeletal: No Edema (FEDERICO R>L; pitting to mid-louie +1 )
Skin: Rash (petechial rash on bilateral shins, non-blanching )
Neuro: Awake, Alert and Oriented
Psych: Calm
Data Reviewed
-
Total Time Spent with Patient (in minutes): 20
Critical Care Time (in minutes): 45
Labs: Labs Reviewed by me and Discussed with Patient
[2025-05-12 08:07] LABS: ALT (SGPT) 33 U/L (0-35); AST (SGOT) 50 U/L (14-36); Albumin 3.3 g/dl (3.5-5.0); Alkaline Phosphatase 172 U/L (38-126); Blood Urea Nitrogen 27 mg/dl (7-17); Calcium 8.6 mg/dl (8.4-10.2); Carbon Dioxide 30 mmol/L (22-30); Chloride 99 mmol/L (98-107); Estimated Creatinine Clearance 50 ml/min; Glucose 134 mg/dl (70-99); Potassium 3.7 mmol/L (3.5-5.1); Sodium 136 mmol/L (135-145); Total Protein 6.9 g/dl (6.3-8.2); eGFR > 60.00
[2025-05-12] MEDS: PROTONIX 40 MG PO (08:56)
[2025-05-12] MEDS: LASIX 40 MG IV ×2 (08:56→16:22)
[2025-05-12] MEDS: WELLBUTRIN XL (24 hour extended release) 150 MG PO (08:56)
[2025-05-12] MEDS: ZOLOFT 50 MG PO (08:56)
[2025-05-12] MEDS: FLUSH (NSS) 2 FLUSH IV ×2 (08:57→16:25)
[2025-05-12] MEDS: ALDACTONE 12.5 MG PO (09:05)
[2025-05-12] MEDS: DECADRON 60 MG IV (09:06)
--- NOTE | 2025-05-12 10:11 | W.PN.CD ---
Today's Communication / Plan
-
transition to torsemide 40mg daily tomorrow and asses response
-Eliquis is held in this setting, resume when ok with Heme
Impression / Plan
-
[id number]-crllosz HFpEF:
-weight is back down s/p 1 dose of IV Lasix, but she does have LE edema and some mild crackles, so will continue for now.
-agree with IV Lasix, which requires intensive monitoring
-Continue SGLT2I.
-OP diuretics include torsemide 20 mg PO daily and spironolactone 12.5 mg PO daily.
-will transtion to 40mg of Torsemide in the am.
-not certain the wt is accurate she reports improved symptoms and good response.
-recent echo as below
Rash:
-BLE's, she has seen derm and had biopsy as OP, but no known results yet
-management per primary team
Anemia:
-stable
-suspected hemolytic per hospitalists and heme is consulted
-Eliquis is held in this setting, resume when ok with Heme
AFIB/flutter, type unknown, paroxysmal:
- stable in SR
- [id number] score is now 4 for female, stroke, CHF. Eliquis held as above
- Digoxin recently stopped to improve AV synchrony
Hx leadless PPM:
-stable by interrogation
-continue to follow with EP
S/p Bio MVR/AVR, and TV repair with ring by Dr. Prabhakar at [facility] (05/26/2024):
Subjective:
She is feeling better, thinks she is urinating a lot.
Data:
-Echo 03/06/25: Normal left ventricular size, wall thickness and systolic function. Estimated LVEF 55%. Bioprosthetic mitral valve. Peak/mean gradients across the mitral valve are 26/6 mmHg. No mitral regurgitation is seen. Bioprosthetic aortic
valve. Peak/mean gradients across the aortic valve are 6/3 mmHg. No aortic regurgitation is seen. Enlarged right ventricular size. Reduced right ventricular systolic function. Abnormal (paradoxical) septal motion consistent with RV pacemaker. s/p
tricuspid valve ring with mean gradient of 3 mmHg. Mild/moderate tricuspid regurgitation. Mildly elevated PASP. Estimated pulmonary artery pressure of 35-40 mmHg. Small pericardial effusion without evidence of hemodynamic compromise.
Physical Exam
Vital Signs/Labs
Vital Signs
Temp Pulse Resp BP Pulse Ox
97.9 F 62 18 112/65 94
05/12/25 07:30 05/12/25 09:05 05/12/25 07:30 05/12/25 09:05 05/12/25 07:30
05/11/25 05/12/25 05/13/25
06:59 06:59 06:59
Actual Weight 106 lb 8 oz 108 lb 1 oz
05/12/25 06:28
05/12/25 06:28
APTT 37.6 Sec (23.4-35.0) H 05/10/25 20:38
Magnesium 2.1 mg/dl (1.6-2.3) 05/11/25 05:59
05/10/25
20:38
Ttg-[id number]-Lqvzjawzaky Pept 3210
LAB Results
05/11/25 05/11/25 05/11/25
00:12 05:59 11:50
Troponin I < 0.012 < 0.012 Cancelled
Physical Exam
Constitutional: No acute distress
Cardiovascular: Rhythm & rate is regular and Pedal edema present (traceb/l, rash improved but persists)
Respiratory: Respiratory effort normal, Lungs clear to auscul., Wheeze Absent, Crackles Absent and Rhonchi Absent
Neuro/Psych: AO x 3
Data Reviewed
-
Date of Service: May 12, 2025
EKG: Other (pacing)
[2025-05-12 11:12] VITALS: BP 107/60
--- NOTE | 2025-05-12 11:38 | CM ---
Home when stable, no needs.
Plan; Home at discharge
--- NOTE | 2025-05-12 11:45 | W.PN.ONC ---
Documented by User: Hayde Johnson DO, Resident 05/12/25 13:21
Today's Communication / Plan
-
Continue dexamethasone 40mg x 4 day course
Impression
Impression
This is a 64 y/o female with pmhx of CHD with valvular heart disease, hypothyroidism and Hodgkin�s lymphoma who presented to the ED on 05/10/2025 with shortness of breath on exertion and lower extremity swelling and weakness with recent
hospitalization from 05/05-06/07 for the same concer found to have hemolytic anemia concerning for autoimmune origin.
Plan
Plan
Hemolytic Anemia
-Reticulocyte count, RDW and Bilirubin suggests hemolytic process
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
-While antibody screen was negative, it did show significant rouleaux.
-On chart review, KIMANI and other lupus panels from 03/2025 were positive. She does have rheumatology appointment scheduled for 07/2025, but has had no other outpatient workup so far.
-Vitamin B12: >1000
-Folate: 15.5
-Reordered JORGE, which will be sent out to the [facility] for analysis
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
-Continue pulse Dexamethasone 40mg x 4 days (Day 2)
-Ultimately, patient would benefit from early rheumatology outpatient appointment
-Will monitor
Subjective/Objective
Subjective/Objective
Patient reports feeling well today following initiation of Dexamethasone 40mg x4 yesterday. She has had 2 doses so far including one earlier this AM. She states she is not happy that she has to take steroids, but has no side effects at this point.
She did have her skin biopsy with Dr. Cruz, but has not heard any results yet personally. She does report a family history of Lupus in her sister. She did have positive KIMANI and lupus panel in 03/2025, and had a rheumatology appointment scheduled
for 07/2025.
Vital Signs:
Vital Signs
Temp Pulse Resp BP Pulse Ox
98.0 F 65 16 107/60 93
05/12/25 11:12 05/12/25 11:12 05/12/25 11:12 05/12/25 11:12 05/12/25 11:12
Lab Results:
Laboratory Data
WBC 8.6 10^3/uL (4.8-10.8) 05/12/25 06:28
Hgb 8.2 g/dL (12.0-16.0) L 05/12/25 06:28
Plt Count 168 10^3/uL (130-400) 05/12/25 06:28
APTT 37.6 Sec (23.4-35.0) H 05/10/25 20:38
eGFR > 60.00 05/12/25 06:28
Orders
Orders
Orders From Last 24 Hours
05/11/25 11:00
Dexamethasone Sod Phosphate [Decadron] 40 mg 0.9% Sodium Chloride 50 ml [Nss] 50 ml IV DAILY
05/11/25 11:40
B12 [Vitamin B12] Routine
Folate Routine
Babesia Smear [Blood Parasites] Routine
05/11/25 13:00
Pantoprazole [Protonix] 40 mg PO DAILY
05/11/25 14:00
Dexamethasone Sod Phosphate [Decadron] 40 mg 0.9% Sodium Chloride 50 ml [Nss] 50 ml IV DAILY

Documented by User: Paul Clark MD 05/12/25 16:40
Plan
Plan
Hemolytic Anemia
-Reticulocyte count, RDW and Bilirubin suggests hemolytic process
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
-While antibody screen was negative, it did show significant rouleaux.
-On chart review, KIMANI and other lupus panels from 03/2025 were positive. She does have rheumatology appointment scheduled for 07/2025, but has had no other outpatient workup so far.
-Vitamin B12: >1000
-Folate: 15.5
-Reordered JORGE, which will be sent out to the [facility] for analysis
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
-Continue pulse Dexamethasone 40mg x 4 days (Day 2)
-Ultimately, patient would benefit from early rheumatology outpatient appointment
-Will monitor
Hematology Addendum:
Patient seen and evaluated w/ resident
-anemia - possible autoimmune hemolysis - w/positive hemolytic parameters in setting of possible autoimmune rheumatologic process - positive KIMANI
-haptoglobin pending
-JORGE - attempted 3 times at w/ inability to obtain results - sample sent to [facility] for complex antibody analysis
-hemoglobin improved slightly today - 8.2g/dl
-cont dex 40mg daily
-follow CBC
[2025-05-12 11:49] LABS: Ferritin 71.7 ng/ml (11.1-264.0)
--- NOTE | 2025-05-12 12:57 | PTCARENOTE ---
blood bank informed nurse that unit of PR[facility] will not be available today- further testing needs to be done by [facility] . Dr Brewster and Dr Benson notified.
[2025-05-12 15:22] VITALS: BP 110/54
--- NOTE | 2025-05-12 16:01 | W.PN.UPDATE ---
Update Note
Progress Note Update
- Removed sutures from 2 L leg biopsy sites at bedside
- Left voicemail w Dr. Angelica Cruz's office requesting updated bx IHC results
- Per heme-onc team, will wait to discharge until tmrw, monitor hgb overnight & await JORGE results from [place] to optimize steroid regimen
[2025-05-12] MEDS: FEOSOL 325 MG PO (16:21)
[2025-05-12] MEDS: KCL 20 MEQ PO (17:25)
[2025-05-12] MEDS: FARXIGA 10 MG PO (17:25)
[2025-05-12 19:45] VITALS: BP 98/58
[2025-05-12] MEDS: ELIQUIS 5 MG PO (20:14)
[2025-05-12 23:30] VITALS: BP 117/60
[2025-05-13] VITALS (8 sets, daily range): BP systolic 99–117; BP diastolic 46–70; PULSE 67; O2SAT 95; BMI 19.4
[2025-05-13] MEDS: NON-FORMULARY ITEM 88 UNIT PO (05:07)
[2025-05-13 07:44] LABS: Hematocrit 27.5 % (37.0-47.0); Hemoglobin 8.6 g/dL (12.0-16.0); Mean Corp Hgb Conc. 31.3 g/dL (33.0-37.0); Mean Corpuscular Volume 104.2 fL (81.0-99.0); Nucleated Red Blood Cells % 0.8 %; Platelet Count 163 10^3/uL (130-400); Red Cell Dist. Width 19.7 % (11.5-14.5)
[2025-05-13 08:23] LABS: Blood Urea Nitrogen 29 mg/dl (7-17); Calcium 8.6 mg/dl (8.4-10.2); Carbon Dioxide 32 mmol/L (22-30); Chloride 99 mmol/L (98-107); Estimated Creatinine Clearance 55 ml/min; Glucose 107 mg/dl (70-99); Potassium 3.6 mmol/L (3.5-5.1); Sodium 137 mmol/L (135-145); eGFR > 60.00
[2025-05-13] MEDS: ALDACTONE 12.5 MG PO (09:30)
[2025-05-13] MEDS: ELIQUIS 5 MG PO ×2 (09:31→20:37)
[2025-05-13] MEDS: WELLBUTRIN XL (24 hour extended release) 150 MG PO (09:31)
[2025-05-13] MEDS: FEOSOL 325 MG PO (09:31)
[2025-05-13] MEDS: ZOLOFT 50 MG PO (09:31)
[2025-05-13] MEDS: PROTONIX 40 MG PO (09:31)
[2025-05-13] MEDS: DECADRON 60 MG IV (09:32)
[2025-05-13] MEDS: FLUSH (NSS) 2 FLUSH IV (09:32)
[2025-05-13] MEDS: DEMADEX 40 MG PO (09:34)
--- NOTE | 2025-05-13 10:53 | W.PN.ONC ---
Today's Communication / Plan
-
hemoglobin improved - 8.6g/dl
cont pulse dex - to finish 4 days
await JORGE analysis from [facility]
repeat retic count today
f/u as outpt
Impression
Impression
anemia - w/ positivve hemolytic parameters
positive KIMANI
LE vasculitis
hypothyroidism
Plan
Plan
1. Anemia - w/positive hemolytic parameters
-possible autoimmune hemolysis - w/positive hemolytic parameters in setting of possible autoimmune rheumatologic process - positive KIAMNI
-haptoglobin pending
-JORGE - attempted 3 times at w/ inability to obtain results - sample sent to [facility] for complex antibody analysis
-hemoglobin improved slightly today - 8.6g/dl on steroids
-cont dex 40mg daily - day 3 today
-would continue po dexamethasone x 1 more day if d/c
-outpt CBC next week - 05/16 w/ results to [facility] [place]
Will arrange for outpt f/u
Subjective/Objective
Subjective/Objective
feels better
Vital Signs:
Vital Signs
Temp Pulse Resp BP Pulse Ox
97.7 F 83 18 112/70 100
05/13/25 08:44 05/13/25 09:30 05/13/25 08:44 05/13/25 09:30 05/13/25 08:44
Lab Results:
Laboratory Data
WBC 17.4 10^3/uL (4.8-10.8) H 05/13/25 06:09
Hgb 8.6 g/dL (12.0-16.0) L 05/13/25 06:09
Plt Count 163 10^3/uL (130-400) 05/13/25 06:09
APTT 37.6 Sec (23.4-35.0) H 05/10/25 20:38
eGFR > 60.00 05/13/25 06:09
Exam: unchanged
[2025-05-13 12:09] LABS: Reticulocyte Count 11.1 % (0.4-2.8)
--- NOTE | 2025-05-13 12:55 | W.PN.HOSP.TC ---
Addendum entered and electronically signed by Kyle Holloway MD 05/14/25 12:23:
Early leukocytoclastic small vessel vasculitis now on high-dose steroids.
4 days of dexamethasone. Additionally noted to have hemolytic anemia followed by hematology oncology. Peripheral smear ANCA Ishmael pending.
Does not require any supplemental blood transfusions. Will need outpatient rheumatologic follow-up
Acute on chronic HFpEF now converted to torsemide oral
Continue Aldactone Farxiga
Follow urinary output Daily weight
Keep K greater than 4 magnesium greater than 2
Original Note:
Today's Communication/Plan
-
Continue Dexamethasone, oral diuresis, check chest CT, C3 and C4 complement, urine protein-Cr ratio
Assessment / Plan
Assessment / Plan
Quin Burt is a 64yo F with pmh of HFpEF, valvular dz (s/p bio AVR, MVR, & tricuspid valvuloplasty w prosthetic ring), & Hodgkin's disease who presented with exertional dyspnea, FEDERICO, and petechial LE rash, now being managed for acute on
chronic HFpEF and evaluated for suspected immune-mediated hemolytic anemia.
#Acute on Chronic HFpEF:
Recently admitted 05/05- for LE edema, improved s/p IV lasix and discharged w torsemide & spironolactone. Swelling returned at home. .
Echo in February - normal LVEF (55%) bioprosthetic mitral and aortic valves. LE US negative DVT.
- Was on Lasix 40mg BID, converted to PO Torsemide 40mg daily, continues to respond to diuresis
- Continue spironolactone 12.5mg daily
- Continue dapagliflozin 10mg daily
- Follow daily weights, I/Os
- Cardiology consulted, appreciate recs - Okay to discharge on this current regimen
#Hemolytic anemia, suspected autoimmune
Elevated Alk phos, retic count, RDW, bilirubin, low haptoglobin
Hgb continues to improve, 8.6 today. Bilirubin downtrend.
Elevated polyclonal gammaglobulin. Light chain ratio from prior admission wnl. Polyclonal gammopathy supports autoimmune process, as does rouleaux on antibody screen. Babesia negative. B12>1000. Folate 15.5 wnl.
- Continue 40mg dexamethasone for 4 days (day 3/4)
- Peripheral smear pending
- ANCA pending
- Ishmael pending
- Monitor H&H
- Heme/onc following, appreciate recs. will follow up with outpt hemonc
- Rheumatology consult for recs and discharge planning. Upcoming outpt appt in May
#Petechial rash on bilateral LE,
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
Has been following OP w Dr. Angelica Cruz (derm). Etiology likely autoimmune and a component of process driving hemolytic anemia as above. Appearance c/w small vessel vasculitis.
- Pt noted to have quarter-sized amount of brown/possibly blood-tinged sputum at 1:30pm today. Will check chest CT without contrast. Low risk Wells score for PE.
- Consulted rheumatology (Dr. Salas), await JORGE, get C3, C4 complement and urine protein-Cr ratio. Okay to stick with Dexamethasone 40mg x 4 days therapy per hemonc. Pt is known to her practice from a year ago. Will likely get follow up outpt rheum
appt next week.
- F/u final bx results with Dr. Cruz derm
- Appreciate rheum recs
Valvular disease:
Hx of moderate to severe and AR, moderate MR, mild MS, moderate to severe TR
- s/p bio MVR, bio AVR, and tricuspid valvuloplasty with prosthetic ring 05/26/24 (Dr. Prabhakar, [facility])
#Chronic
#Paroxysmal Atrial Fibrillation - okay to restart Eliquis from hematologic and cardiology standpoint. will restart
#Hypothyroidism - continue levothyroxine
#Bipolar Depression - continue Wellbutrin, sertraline.
#Global
- DVT Prophylaxis: SCDs
- Code Status: full
- Dispo: to home (pt lives alone), today or tomorrow
Anticipated Discharge: Within 24 hours
Subjective/Interval History
-
Date of Service: May 13, 2025
Pt feels well. She reports that she feels weak in her legs but wants to attempt ambulation today and requests assistance.
Reports to be at baseline SOB from pulmonary fibrosis 2/2 radiation pneumonitis.
Objective Data
-
Labs:
Laboratory Results
05/13/25
06:09
WBC 17.4 H
Hgb 8.6 L
Hct 27.5 L
Plt Count 163
Sodium 137
Potassium 3.6
Chloride 99
Carbon Dioxide 32 H
BUN 29 H
Creatinine 0.8
Glucose 107 H
Calcium 8.6
Vital Signs:
Vital Signs
Temp Pulse Resp BP Pulse Ox
98 F 67 18 103/46 98
05/13/25 11:59 05/13/25 11:59 05/13/25 11:59 05/13/25 11:59 05/13/25 11:59
I&O
05/12/25 05/13/25 05/14/25
06:59 06:59 06:59
Intake Total 1440 / 1440 1380 / 1380
Output Total 880 / 880 2500 / 2500
Balance 560 / 560 -1120 / -1120
Review of Systems
-
History Source: Patient
Constitutional: Reports Weakness
Respiratory: Reports Trouble Breathing (chronic, at baseline); Denies Pleurisy
Cardiac: Denies Chest Pain
Abdomen/GI: Denies Abdominal Pain, Nausea or Vomiting
Skin: Reports Rash
Physical Exam
-
General: No Apparent Distress and Comfortable
HEENT: Normocephalic, Atraumatic, Moist Mucous Membranes and Anicteric
Respiratory: Crackles (mild crackles on left lung base) and Non Labored Respirations; Negative Wheezes or Rales
Cardiac: Regular Rhythm and S1/S2; Negative Murmur, Rub or Calf Tenderness
GI: Soft, Nontender, Nondistended and Normal Bowel Sounds
Musculoskeletal: No Clubbing, No Cyanosis and No Edema
Skin: Rash (non-blanching petichial rash on bilateral legs)
Neuro: Awake, Alert and Oriented
Psych: Calm
--- NOTE | 2025-05-13 13:43 | W.PN.CD ---
Today's Communication / Plan
-
OK for home on current cardiac regimen
She has an appointment soon in our office that she will keep
Cardiology will sign off
Impression / Plan
-
Cxiuw-dx-amxppct HFpEF:
- Improved
- Now on oral regimen
Rash:
-BLE's, she has seen derm and had biopsy as OP, but no known results yet
-management per primary team
Anemia:
-stable
-suspected hemolytic per hospitalists and heme is consulted
-She is back on Eliquis
AFIB/flutter, type unknown, paroxysmal:
- stable in SR
- [id number] score is now 4 for female, stroke, CHF. Eliquis held as above
- Digoxin recently stopped to improve AV synchrony
Hx leadless PPM:
-stable by interrogation
-continue to follow with EP
S/p Bio MVR/AVR, and TV repair with ring by Dr. Prabhakar at [place] (05/26/2024):
Subjective:
She is feeling better, thinks she is urinating a lot.
Data:
-Echo 03/06/25: Normal left ventricular size, wall thickness and systolic function. Estimated LVEF 55%. Bioprosthetic mitral valve. Peak/mean gradients across the mitral valve are 26/6 mmHg. No mitral regurgitation is seen. Bioprosthetic aortic
valve. Peak/mean gradients across the aortic valve are 6/3 mmHg. No aortic regurgitation is seen. Enlarged right ventricular size. Reduced right ventricular systolic function. Abnormal (paradoxical) septal motion consistent with RV pacemaker. s/p
tricuspid valve ring with mean gradient of 3 mmHg. Mild/moderate tricuspid regurgitation. Mildly elevated PASP. Estimated pulmonary artery pressure of 35-40 mmHg. Small pericardial effusion without evidence of hemodynamic compromise.
Physical Exam
Vital Signs/Labs
Vital Signs
Temp Pulse Resp BP Pulse Ox
98 F 67 18 103/46 98
05/13/25 11:59 05/13/25 11:59 05/13/25 11:59 05/13/25 11:59 05/13/25 11:59
05/12/25 05/13/25 05/14/25
06:59 06:59 06:59
Actual Weight 49.016 kg 48.137 kg
05/13/25 06:09
05/13/25 06:09
APTT 37.6 Sec (23.4-35.0) H 05/10/25 20:38
Magnesium 2.1 mg/dl (1.6-2.3) 05/11/25 05:59
05/10/25
20:38
Eun-B-Cuncfsdfdbj Pept 3210
LAB Results
05/11/25 05/11/25 05/11/25
00:12 05:59 11:50
Troponin I < 0.012 < 0.012 Cancelled
Physical Exam
Constitutional: No acute distress
EENT: Anicteric
Cardiovascular: Rhythm & rate is regular and Pedal edema is absent
Respiratory: Respiratory effort normal and Lungs clear to auscul.
GI: Soft and Distention absent
Neuro/Psych: Alert
Data Reviewed
-
Date of Service: May 13, 2025
--- NOTE | 2025-05-13 14:10 | PTCARENOTE ---
"When physical therapy was just working with this pt, SPO2 was 89% on RA with exertion, up to 92% once at rest. She is POSADA, no chest discomfort. Also, pt produced a quarter size amount of brown sputum, possibly blood tinged. Made Dr. Angeles and Dr. Benz"Holloway aware, will continue to monitor."
[2025-05-13 15:26] LABS: Urine Character Clear (Clear)
[2025-05-13 15:34] LABS: Urine Red Blood Cell 0-2 /HPF (0-2)
[2025-05-13] MEDS: FARXIGA 10 MG PO (18:29)
[2025-05-13] MEDS: KCL 20 MEQ PO (18:29)
[2025-05-14 01:43] LABS: Serine Protease-3, IgG 3 AU/mL (0-19)
[2025-05-14 03:32] VITALS: BP 98/56
[2025-05-14] MEDS: NON-FORMULARY ITEM 88 UNIT PO (04:10)
[2025-05-14 06:00] VITALS: BMI 18.9
[2025-05-14 07:33] LABS: Hematocrit 27.5 % (37.0-47.0); Hemoglobin 8.9 g/dL (12.0-16.0); Mean Corp Hgb Conc. 32.4 g/dL (33.0-37.0); Mean Corpuscular Volume 103.4 fL (81.0-99.0); Nucleated Red Blood Cells % 1.0 %; Platelet Count 171 10^3/uL (130-400); Red Cell Dist. Width 19.2 % (11.5-14.5)
[2025-05-14 08:00] VITALS: BP 114/69
[2025-05-14 08:10] LABS: ALT (SGPT) 40 U/L (0-35); AST (SGOT) 59 U/L (14-36); Albumin 3.3 g/dl (3.5-5.0); Alkaline Phosphatase 177 U/L (38-126); Blood Urea Nitrogen 37 mg/dl (7-17); Calcium 8.1 mg/dl (8.4-10.2); Carbon Dioxide 31 mmol/L (22-30); Chloride 102 mmol/L (98-107); Estimated Creatinine Clearance 47 ml/min; Glucose 96 mg/dl (70-99); Potassium 3.5 mmol/L (3.5-5.1); Sodium 138 mmol/L (135-145); Total Protein 6.8 g/dl (6.3-8.2); eGFR > 60.00
[2025-05-14] MEDS: ZOLOFT 50 MG PO (09:32)
[2025-05-14] MEDS: PROTONIX 40 MG PO (09:33)
[2025-05-14] MEDS: FEOSOL 325 MG PO (09:33)
[2025-05-14] MEDS: DEMADEX 40 MG PO (09:33)
[2025-05-14] MEDS: ALDACTONE 12.5 MG PO (09:33)
[2025-05-14] MEDS: WELLBUTRIN XL (24 hour extended release) 150 MG PO (09:34)
[2025-05-14] MEDS: ELIQUIS 5 MG PO ×2 (09:34→19:59)
[2025-05-14] MEDS: DECADRON 60 MG IV (09:35)
[2025-05-14] MEDS: FLUSH (NSS) 2 FLUSH IV (09:35)
[2025-05-14 11:26] LABS: LDH 901 U/L (120-246)
--- NOTE | 2025-05-14 11:33 | W.PN.HOSP.TC ---
Addendum entered and electronically signed by Kyle Holloway MD 05/14/25 12:36:
Pleural effusion�loculated
Could be an infected empyema or related to autoimmune loculated effusion
Will consult IR for thoracentesis
Will need cytology, blood culture, cell count, LDH, protein
Early leukocytoclastic small vessel vasculitis complicated by hemolytic anemia
Today is day 4/4 of dexamethasone
Original Note:
Today's Communication/Plan
-
For thoracentesis
Assessment / Plan
Assessment / Plan
Quin Burt is a 64yo F with pmh of HFpEF, valvular dz (s/p bio AVR, MVR, & tricuspid valvuloplasty w prosthetic ring), & Hodgkin's disease who presented with exertional dyspnea, FEDERICO, and petechial LE rash, now being managed for acute on
chronic HFpEF and evaluated for suspected immune-mediated hemolytic anemia. Noted to have hemoptysis
#Acute on Chronic HFpEF:
Recently admitted 05/05- for LE edema, improved s/p IV lasix and discharged w torsemide & spironolactone. Swelling returned at home. .
Echo in February - normal LVEF (55%) bioprosthetic mitral and aortic valves. LE US negative DVT.
- Continue Torsemide 40mg daily, continues to respond to diuresis
- Continue spironolactone 12.5mg daily
- Continue dapagliflozin 10mg daily
- Follow daily weights, I/Os
- Cardiology is satisfied with this regimen and recommends continuing upon discharge
#Hemolytic anemia, suspected autoimmune
Elevated Alk phos, retic count, RDW, bilirubin, low haptoglobin
Hgb continues to improve, 8.6 today. Bilirubin downtrend.
Elevated polyclonal gammaglobulin. Light chain ratio from prior admission wnl. Polyclonal gammopathy supports autoimmune process, as does rouleaux on antibody screen. Babesia negative. B12>1000. Folate 15.5 wnl.
- Continue 40mg dexamethasone for 4 days (day 3/4)
- Peripheral smear pending
- Proteinase 3 and myeloperoxidase wnl, C3 and C4 complements pending
- Awaiting JORGE result
- Monitor H&H
- Heme/onc following, appreciate recs. will follow up with outpt hemonc
- Rheumatology consult for recs and discharge planning. Upcoming outpt appt in May, get eary appt
#Petechial rash on bilateral LE,
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
Has been following OP w Dr. Angelica Cruz (derm). Etiology likely autoimmune and a component of process driving hemolytic anemia as above. Appearance c/w small vessel vasculitis.
- Completed 4 days Dexamethasone 40mg IV today
- Appreciate rheum recs
- F/u final bx results with Dr. Cruz derm
Hemoptysis:
Brown/bloody sputum noted on 05/13
-CT chest shows loculated pleural effusions on anterior right hemithorax, small basilar affusion, bilateral ground glass opacities.
- Known history of radiation pneumonitis and scarring. However, there is concern for pneumonia given above findings.
- IRAD consult. thoracentesis with fluid studies including cytology and culture.
Valvular disease:
Hx of moderate to severe and AR, moderate MR, mild MS, moderate to severe TR
- s/p bio MVR, bio AVR, and tricuspid valvuloplasty with prosthetic ring 05/26/24 (Dr. Prabhakar, [facility])
#Chronic
#Paroxysmal Atrial Fibrillation - back on Eliquis
#Hypothyroidism - continue levothyroxine
#Bipolar Depression - continue Wellbutrin, sertraline.
#Global
- DVT Prophylaxis: SCDs
- Code Status: full
- Dispo: to home (pt lives alone)
Anticipated Discharge: > 48 hours
Subjective/Interval History
-
Date of Service: May 14, 2025
Objective Data
-
Labs:
Laboratory Results
05/14/25
06:21
WBC 14.6 H
Hgb 8.9 L
Hct 27.5 L
Plt Count 171
Sodium 138
Potassium 3.5
Chloride 102
Carbon Dioxide 31 H
BUN 37 H
Creatinine 0.9
Glucose 96
Calcium 8.1 L
Total Bilirubin 3.0 H
AST 59 H
ALT 40 H
Alkaline Phosphatase 177 H
Vital Signs:
Vital Signs
Temp Pulse Resp BP Pulse Ox
97.4 F 84 16 114/69 92
05/14/25 08:00 05/14/25 08:00 05/14/25 08:00 05/14/25 08:00 05/14/25 08:00
I&O
05/13/25 05/14/25 05/15/25
06:59 06:59 06:59
Intake Total 1380 / 1380 720 / 720
Output Total 2500 / 2500 1750 / 1750
Balance -1120 / -1120 -1030 / -1030
Review of Systems
-
History Source: Patient
Constitutional: Denies Fever
Respiratory: Reports Other (mild dyspnea on exertion); Denies Cough, Hemoptysis or Pleurisy
Cardiac: Denies Chest Pain or Palpitations
Abdomen/GI: Denies Abdominal Pain, Nausea, Vomiting or Constipated
Genitourinary: Reports No Symptoms
Skin: Reports Rash (LE peticheal rash)
Physical Exam
-
General: No Apparent Distress and Comfortable; Negative Respiratory Distress
HEENT: Normocephalic, Atraumatic and Other (scleral icterus)
Respiratory: Crackles (left lower lobe) and Non Labored Respirations; Negative Wheezes, Rales or Rhonchi
Cardiac: S1/S2; Negative Murmur, Rub or Calf Tenderness
GI: Soft, Nontender, Nondistended and Normal Bowel Sounds
Musculoskeletal: No Clubbing, No Cyanosis and No Edema
Skin: Warm, Dry and Rash (petichial nonblanchable rash on bilateral legs)
Neuro: Awake and Alert
Psych: Calm
[2025-05-14 11:52] VITALS: BP 104/53
[2025-05-14 15:55] VITALS: BP 110/64
[2025-05-14] MEDS: FARXIGA 10 MG PO (17:40)
[2025-05-14] MEDS: KCL 20 MEQ PO (17:40)
[2025-05-14 20:21] VITALS: BP 108/64
[2025-05-14 23:23] VITALS: BP 107/66
[2025-05-15] VITALS (10 sets, daily range): BP systolic 89–116; BP diastolic 50–75; O2SAT 97–99; BMI 18.4
[2025-05-15] MEDS: NON-FORMULARY ITEM 88 UNIT PO (05:13)
--- NOTE | 2025-05-15 07:09 | W.PN.HOSP.TC ---
Today's Communication/Plan
-
-Plan for thoracentesis R-side on Thursday
-Continue to follow-up JORGE results from [place]
-Replete K
-F/u outpatient rheumatology, dermatology, cardiology
Assessment / Plan
Assessment / Plan
Quin Burt is a 64yo F with pmh of HFpEF, valvular dz (s/p bio AVR, MVR, & tricuspid valvuloplasty w prosthetic ring), & Hodgkin's disease who presented with exertional dyspnea, FEDERICO, and petechial LE rash, now being managed for improving
acute on chronic HFpEF and suspected immune-mediated hemolytic anemia & small cell vasculitis, now with hemoptysis found to have loculated R-sided pleural effusions, planning for thoracentesis.
#Hemoptysis
#Loculated R-sided pleural effusions
Brown/bloody sputum noted on 05/13. CT chest (05/13): loculated pleural effusions on anterior right hemithorax, small basilar affusion, bilateral ground glass opacities. Pt w known history of radiation pneumonitis and scarring in s/o Hodgkin's.
Current ddx includes infected empyema vs. autoimmune-related loculated effusion. Favor latter given afebrile, lack of sx, and elevated WBC (12.7) likely 2/2 4-day steroid course. Pt states that has hx of chronic pleural effusion, s/p pleurodesis R
side.
- IR consult for thoracentesis, likely planned for 05/16
- Follow pleural fluid studies, cytology and culture
#Hemolytic anemia, suspected autoimmune
Elevated Alk phos, retic count, RDW, bilirubin (downtrending); low haptoglobin. Today, Hgb continues uptrending (8.2>8.6>8.9>9.4).
Elevated polyclonal gammaglobulin. Light chain ratio from prior admission wnl. Polyclonal gammopathy supports autoimmune process, as does rouleaux on antibody screen. Babesia negative. B12>1000. Folate 15.5 wnl. Hypocomplementemia (C3 56, C4 <8).
p-ANCA & m-ANCA wnl. Elevated KIMANI from prior admission (04/10). Pt s/p 4-day 40mg/day dexamethasone course (last day 05/14).
- Awaiting JORGE result from [place]
- Monitor H&H
- Heme/onc following, appreciate recs
- Rheumatology consult for recs and discharge planning (upcoming rheum outpt appt w Dr. Guaman 05/23); appreciate recs
#Petechial rash on bilateral LE, leukocytoclastic small vessel vasculitis
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 Has been following OP w Dr. Angelica Cruz (derm). Etiology likely autoimmune and a component of process driving hemolytic anemia as above. Appearance c/w small vessel
vasculitis. S/p 4 days Dexamethasone 40mg IV (finished 05/14).
- Rheum consulted, appreciate recs
- F/u final IHC bx results with Dr. Cruz derm
#Acute on Chronic HFpEF, improving
#Valvular disease, chronic
Recently admitted 05/05- for LE edema, improved s/p IV lasix and discharged w torsemide & spironolactone. Swelling returned at home. Echo in February - normal LVEF (55%) bioprosthetic mitral and aortic valves. LE US negative DVT. Hx of moderate to
severe and AR, moderate MR, mild MS, moderate to severe TR (S/p bio MVR, bio AVR, and tricuspid valvuloplasty with prosthetic ring 05/26/24; Dr. Prabhakar, [facility]).
- Continue Torsemide 40mg daily
- Continue spironolactone 12.5mg daily
- Continue dapagliflozin 10mg daily
- Follow daily weights, I/Os
- Cardiology is satisfied with this regimen and recommends continuing upon discharge
#Hypokalemia
3.2 today from 3.5 yesterday. Likely 2/2 increased torsemide dose.
- Replete K
#Chronic
#Paroxysmal Atrial Fibrillation - on Eliquis (per IR, no need to hold pre-thora)
#Hypothyroidism - continue levothyroxine
#Bipolar Depression - continue Wellbutrin, sertraline.
#Global
- DVT Prophylaxis: SCDs
- Code Status: full
- Dispo: to home (pt lives alone), pending thora
Anticipated Discharge: 24 - 48 hours
Subjective/Interval History
-
Date of Service: May 15, 2025
A bit down about remaining in hospital. Said she had been trying to clear out the bloody sputum 'for awhile.' Otherwise, no cough. Denies fever/chills, denies CP. Nervous about planned thoracentesis tmrw. Endorses good appetite inpt.
Objective Data
-
Labs:
Laboratory Results
05/15/25
06:56
WBC Pending
Hgb Pending
Hct Pending
Plt Count Pending
Sodium Pending
Potassium Pending
Chloride Pending
Carbon Dioxide Pending
BUN Pending
Creatinine Pending
Glucose Pending
Calcium Pending
Total Bilirubin Pending
AST Pending
ALT Pending
Alkaline Phosphatase Pending
Vital Signs:
Vital Signs
Temp Pulse Resp BP Pulse Ox
98.3 F 87 16 102/60 95
05/15/25 04:04 05/15/25 04:04 05/15/25 04:04 05/15/25 04:04 05/15/25 04:04
I&O
05/14/25 05/15/25 05/16/25
06:59 06:59 06:59
Intake Total 720 / 720 960 / 960
Output Total 1750 / 1750 2950 / 2950
Balance -1030 / -1030 -1989 /
Review of Systems
-
History Source: Patient
Constitutional: Reports Fever (denies)
Respiratory: Reports No Symptoms
Cardiac: Reports No Symptoms
Skin: Reports Rash (purpuric petechial rash on bilateral LE, improving )
Psych: Reports Anxious
Physical Exam
-
General: Well Nourished (thin) and Conversant
HEENT: Normocephalic, Atraumatic and Anicteric
Respiratory: Clear to Auscultation and Decreased Breath Sounds (moderately diminished RLL)
Cardiac: Regular Rhythm
GI: Nontender and Nondistended
Skin: Rash (bilateral LE with purpuric petechial rash mostly on calves/shins with minimal spread to upper thighs; improved since Thursday )
Neuro: AO x 3
Psych: Anxious
Data Reviewed
-
Total Time Spent with Patient (in minutes): 15
Critical Care Time (in minutes): 40
CT Scan: Image personally visualized and interpreted and Report Reviewed by me
Labs: Labs Reviewed by me and Discussed with Patient
[2025-05-15 08:08] LABS: Hematocrit 29.6 % (37.0-47.0); Hemoglobin 9.4 g/dL (12.0-16.0); Mean Corp Hgb Conc. 31.8 g/dL (33.0-37.0); Mean Corpuscular Volume 102.1 fL (81.0-99.0); Platelet Count 196 10^3/uL (130-400); Red Cell Dist. Width 18.2 % (11.5-14.5)
[2025-05-15 08:33] LABS: ALT (SGPT) 48 U/L (0-35); AST (SGOT) 67 U/L (14-36); Albumin 3.3 g/dl (3.5-5.0); Alkaline Phosphatase 177 U/L (38-126); Blood Urea Nitrogen 39 mg/dl (7-17); Calcium 8.3 mg/dl (8.4-10.2); Carbon Dioxide 37 mmol/L (22-30); Chloride 101 mmol/L (98-107); Estimated Creatinine Clearance 52 ml/min; Glucose 94 mg/dl (70-99); LDH 901 U/L (120-246); Potassium 3.2 mmol/L (3.5-5.1); Sodium 142 mmol/L (135-145); Total Protein 7.0 g/dl (6.3-8.2); eGFR > 60.00
[2025-05-15] MEDS: PROTONIX 40 MG PO (10:02)
[2025-05-15] MEDS: DEMADEX 40 MG PO (10:02)
[2025-05-15] MEDS: FEOSOL 325 MG PO (10:02)
[2025-05-15] MEDS: ALDACTONE 12.5 MG PO (10:02)
[2025-05-15] MEDS: ELIQUIS 5 MG PO ×2 (10:02→19:43)
[2025-05-15] MEDS: WELLBUTRIN XL (24 hour extended release) 150 MG PO (10:03)
[2025-05-15] MEDS: FLUSH (NSS) 1 FLUSH IV (10:03)
[2025-05-15] MEDS: ZOLOFT 50 MG PO (10:03)
--- NOTE | 2025-05-15 12:01 | PTCARENOTE ---
Pt's BP 89/52 at 1100, pt asymptomatic. Rechecked BP and 97/55, HR 60s, SR with V-pacing on telemetry. Made Dr. Obrien and Dr. Benson aware of BP readings, no change in orders at this time, continuing to monitor.
[2025-05-15 12:33] LABS: INR 1.76; PT 20.8 Sec (11.4-14.6)
[2025-05-15 12:34] LABS: APTT 32.8 Sec (23.4-35.0)
[2025-05-15] MEDS: KCL ELIXIR 40 MEQ PO (13:06)
--- NOTE | 2025-05-15 14:31 | W.PN.ONC ---
Today's Communication / Plan
-
hemoglobin improved
follow CBC
Impression
Impression
anemia - w/ positive hemolytic parameters
positive KIMANI
LE vasculitis
hypothyroidism
loculated pleural effusion
Plan
Plan
1. Anemia - w/positive hemolytic parameters
-possible autoimmune hemolysis - w/positive hemolytic parameters in setting of possible autoimmune rheumatologic process - positive KIMANI
-haptoglobin <10
-JORGE - attempted 3 times at w/ inability to obtain results - sample sent to [facility] for complex antibody analysis
-hemoglobin improved slightly today - 9.4g/dl
-s/p 4 days dex 40mg daily
-monitor off steroids for now
2. Loculated pleural effusion - unclear etiology - for thoracentesis tomorrow
Subjective/Objective
Subjective/Objective
no new complaints
Vital Signs:
Vital Signs
Temp Pulse Resp BP Pulse Ox
97.8 F 66 18 97/55 97
05/15/25 11:05 05/15/25 11:25 05/15/25 11:05 05/15/25 11:25 05/15/25 11:05
Lab Results:
Laboratory Data
WBC 12.7 10^3/uL (4.8-10.8) H 05/15/25 06:56
Hgb 9.4 g/dL (12.0-16.0) L 05/15/25 06:56
Plt Count 196 10^3/uL (130-400) 05/15/25 06:56
PT 20.8 Sec (11.4-14.6) H 05/15/25 12:17
INR 1.76 05/15/25 12:17
APTT 32.8 Sec (23.4-35.0) 05/15/25 12:17
eGFR > 60.00 05/15/25 06:56
[2025-05-15] MEDS: FARXIGA 10 MG PO (17:59)
[2025-05-15] MEDS: KCL 20 MEQ PO (17:59)
--- NOTE | 2025-05-15 18:30 | PTCARENOTE ---
Pt ambulated [address] with supervision only from staff. SpO2 99% on RA at rest, 97% SpO2 with ambulation. HR max at 120 with exertion, minimal POSADA. BP 116/75 after ambulating. Pt denied any dizziness.
[2025-05-16] VITALS (7 sets, daily range): BP systolic 86–102; BP diastolic 45–59; BMI 18.2
[2025-05-16] MEDS: NON-FORMULARY ITEM 88 UNIT PO (04:55)
[2025-05-16 08:08] LABS: Hematocrit 28.7 % (37.0-47.0); Hemoglobin 9.1 g/dL (12.0-16.0); Mean Corp Hgb Conc. 31.7 g/dL (33.0-37.0); Mean Corpuscular Volume 106.7 fL (81.0-99.0); Nucleated Red Blood Cells % 1.3 %; Platelet Count 180 10^3/uL (130-400); Red Cell Dist. Width 18.5 % (11.5-14.5)
[2025-05-16] MEDS: ELIQUIS 5 MG PO (08:29)
[2025-05-16] MEDS: WELLBUTRIN XL (24 hour extended release) 150 MG PO (08:29)
[2025-05-16] MEDS: ZOLOFT 50 MG PO (08:29)
[2025-05-16] MEDS: PROTONIX 40 MG PO (08:29)
[2025-05-16] MEDS: FEOSOL 325 MG PO (08:29)
[2025-05-16] MEDS: DEMADEX PO (08:41)
[2025-05-16] MEDS: ALDACTONE PO (08:41)
[2025-05-16 08:52] LABS: ALT (SGPT) 55 U/L (0-35); AST (SGOT) 66 U/L (14-36); Albumin 3.2 g/dl (3.5-5.0); Alkaline Phosphatase 171 U/L (38-126); Blood Urea Nitrogen 41 mg/dl (7-17); Calcium 8.1 mg/dl (8.4-10.2); Carbon Dioxide 36 mmol/L (22-30); Chloride 100 mmol/L (98-107); Estimated Creatinine Clearance 46 ml/min; Glucose 73 mg/dl (70-99); Magnesium 2.2 mg/dl (1.6-2.3); Potassium 3.7 mmol/L (3.5-5.1); Sodium 140 mmol/L (135-145); Total Protein 6.5 g/dl (6.3-8.2); eGFR > 60.00
--- NOTE | 2025-05-16 09:03 | W.PN.HOSP.TC ---
Today's Communication/Plan
-
- Pending outpatient steroid recs on discharge for AIHA
- Holding torsemide today
- Discharge tomorrow or today
Assessment / Plan
Assessment / Plan
Quin Burt is a 64yo F with pmh of HFpEF, valvular dz (s/p bio AVR, MVR, & tricuspid valvuloplasty w prosthetic ring), SLE (positive KIMANI), & Hodgkin's disease who presented with exertional dyspnea, FEDERICO, and petechial LE rash, now being
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
#Hemoptysis
#Loculated R-sided pleural effusions
Brown/bloody sputum noted on 05/13. CT chest (05/13): loculated pleural effusions on anterior right hemithorax, small basilar affusion, bilateral ground glass opacities. Pt w known history of radiation pneumonitis and scarring in s/o Hodgkin's.
Current ddx includes infected empyema vs. autoimmune-related loculated effusion. Favor latter given afebrile, lack of sx, and elevated WBC (12.7) likely 2/2 4-day steroid course. Pt states that has hx of chronic pleural effusion, s/p pleurodesis R
side.
- Thoracentesis initially planned for today - defer to outpatient per pt request
- Follow pleural fluid studies, cytology and culture
#Hemolytic anemia, suspected autoimmune
#Positive KIMANI, SLE
Elevated Alk phos, retic count, RDW, bilirubin; low haptoglobin. Today, Hgb slight downtrend (8.2>8.6>8.9>9.4>9.1).
Elevated polyclonal gammaglobulin. Light chain ratio from prior admission wnl. Polyclonal gammopathy supports autoimmune process, as does rouleaux on antibody screen. Babesia negative. B12>1000. Folate 15.5 wnl. Hypocomplementemia (C3 56, C4 <8).
p-ANCA & m-ANCA wnl. Elevated KIMANI from prior admission (04/10). Pt s/p 4-day 40mg/day dexamethasone course (last day 05/14). JORGE results returned (05/16): 'anti-IgG positive, anti-C3 positive, polyspecific AHG. Serum plasma studies anti-e-like.'
Recommend E negative blood transfusions moving forward to prevent formation of anti-E abs.
- Monitor H&H
- Heme/onc following, appreciate recs - holding steroids for now, will update on discharge
- Rheumatology consult for recs & discharge planning (upcoming rheum outpt appt w Dr. Guaman 05/23); appreciate recs
#Petechial rash on bilateral LE, leukocytoclastic small vessel vasculitis
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 Has been following OP w Dr. Angelica Cruz (derm). Etiology likely autoimmune and a component of process driving hemolytic anemia as above. Appearance c/w small vessel
vasculitis. S/p 4 days Dexamethasone 40mg IV (finished 05/14).
- Rheum consulted, appreciate recs
- F/u final IHC bx results with Dr. Cruz derm
#Hypotension
Pt systolic BPs in the 80s overnight, low 90s this am. Potentially 2/2 increased diuretic regimen inpt.
- Hold torsemide today
- Consider decreasing dosing of diuresis, t/b with cards, pending recs
#Acute on Chronic HFpEF, improved
#Valvular disease, chronic
Recently admitted 05/05- for LE edema, improved s/p IV lasix and discharged w torsemide & spironolactone. Swelling returned at home. Echo in February - normal LVEF (55%) bioprosthetic mitral and aortic valves. LE US negative DVT. Hx of moderate to
severe and AR, moderate MR, mild MS, moderate to severe TR (S/p bio MVR, bio AVR, and tricuspid valvuloplasty with prosthetic ring 05/26/24; Dr. Prabhakar, [facility]). FEDERICO resolved.
- Hold Torsemide 40mg today; likely reduce on discharge
- Continue spironolactone 12.5mg daily
- Continue dapagliflozin 10mg daily
- Follow daily weights, I/Os
- Cardiology is satisfied with this regimen and recommends continuing upon discharge
#Hypokalemia, resolved
Normalized today 3.5>3.2>3.7 s/p repletion. Decrease likely 2/2 increased torsemide dose.
- Monitor CMP
#Chronic
#Paroxysmal Atrial Fibrillation - on Eliquis (per IR, no need to hold pre-thora)
#Hypothyroidism - continue levothyroxine
#Bipolar Depression - continue Wellbutrin, sertraline.
#Global
- DVT Prophylaxis: SCDs
- Code Status: full
- Dispo: to home (pt lives alone), pending thora
Anticipated Discharge: Within 24 hours
Subjective/Interval History
-
Date of Service: May 16, 2025
Pt feeling anxious about thoracentesis, requesting to defer to outpatient. Otherwise feeling well, states that FEDERICO & rash are much improved.
Objective Data
-
Labs:
Laboratory Results
05/16/25
06:17
WBC 8.9
Hgb 9.1 L
Hct 28.7 L
Plt Count 180
Sodium 140
Potassium 3.7
Chloride 100
Carbon Dioxide 36 H
BUN 41 H
Creatinine 0.9
Glucose 73
Calcium 8.1 L
Total Bilirubin 3.0 H
AST 66 H
ALT 55 H
Alkaline Phosphatase 171 H
Vital Signs:
Vital Signs
Temp Pulse Resp BP Pulse Ox
98.3 F 62 16 94/53 96
05/16/25 07:00 05/16/25 08:41 05/16/25 07:00 05/16/25 08:41 05/16/25 07:00
I&O
05/15/25 05/16/25 05/17/25
06:59 06:59 06:59
Intake Total 960 / 960 900 / 900
Output Total 2950 / 2950 2725 / 2725
Balance -1989 / -1989 -1824 / -1824
Review of Systems
-
History Source: Patient
Constitutional: Reports Weight Loss
Respiratory: Reports No Symptoms
Cardiac: Reports No Symptoms
Abdomen/GI: Reports No Symptoms
Musculoskeletal: Reports Other (FEDERICO, improving)
Skin: Reports Other (petechial/purpuric rash on bilateral LEs, improving)
Psych: Reports Anxious
Physical Exam
-
General: Conversant and Other (thin)
HEENT: Normocephalic, Atraumatic and Anicteric
Respiratory: Clear to Auscultation and Non Labored Respirations
Cardiac: Regular Rhythm
GI: Nondistended
Musculoskeletal: Other (FEDERICO resolved )
Skin: Rash (purpuric rash on bilateral LEs largely faded, faint lesions still visible )
Neuro: AO x 3
Psych: Anxious
Data Reviewed
-
Total Time Spent with Patient (in minutes): 10
Critical Care Time (in minutes): 35
Labs: Labs Reviewed by me
--- NOTE | 2025-05-16 09:52 | W.PN.CD ---
Today's Communication / Plan
-
agree with torsemide hold today
will reduce to 20mg daily tomorrow
will follow up with Dr Ching this week
ok to discharge from a cardiac perspective
will sign off
Impression / Plan
-
[id number] HFpEF:
- Improved
- Now on oral regimen, with ongoing weight loss
-Will reduce Torsemide to 20mg daily. Discussed holding dose for ongoing weight loss, has followup this week with Dr Ching.
Rash:
-BLE's, she has seen derm and had biopsy as OP, but no known results yet
-management per primary team
Anemia:
-stable
-suspected hemolytic per hospitalists and heme is consulted
-She is back on Eliquis
AFIB/flutter, type unknown, paroxysmal:
- stable in SR
- [id number] score is now 4 for female, stroke, CHF. Eliquis held as above
- Digoxin recently stopped to improve AV synchrony
Hx leadless PPM:
-stable by interrogation
-continue to follow with EP
S/p Bio MVR/AVR, and TV repair with ring by Dr. Prabhakar at [place] (05/26/2024):
Subjective:
She is feeling well, no dizziness
Data:
-Echo 03/06/25: Normal left ventricular size, wall thickness and systolic function. Estimated LVEF 55%. Bioprosthetic mitral valve. Peak/mean gradients across the mitral valve are 26/6 mmHg. No mitral regurgitation is seen. Bioprosthetic aortic
valve. Peak/mean gradients across the aortic valve are 6/3 mmHg. No aortic regurgitation is seen. Enlarged right ventricular size. Reduced right ventricular systolic function. Abnormal (paradoxical) septal motion consistent with RV pacemaker. s/p
tricuspid valve ring with mean gradient of 3 mmHg. Mild/moderate tricuspid regurgitation. Mildly elevated PASP. Estimated pulmonary artery pressure of 35-40 mmHg. Small pericardial effusion without evidence of hemodynamic compromise.
Physical Exam
Vital Signs/Labs
Vital Signs
Temp Pulse Resp BP Pulse Ox
98.3 F 62 16 94/53 96
05/16/25 07:00 05/16/25 08:41 05/16/25 07:00 05/16/25 08:41 05/16/25 07:00
05/15/25 05/16/25 05/17/25
06:59 06:59 06:59
Actual Weight 100 lb 8 oz 99 lb 7 oz
05/16/25 06:17
05/16/25 06:17
PT 20.8 Sec (11.4-14.6) H 05/15/25 12:17
INR 1.76 05/15/25 12:17
APTT 32.8 Sec (23.4-35.0) 05/15/25 12:17
Magnesium 2.2 mg/dl (1.6-2.3) 05/16/25 06:17
05/10/25
20:38
Wlb-S-Avdkrprzmfz Pept 3210
Physical Exam
Constitutional: No acute distress
Cardiovascular: Rhythm & rate is regular, Pedal edema is absent, JVD pressure is normal, Systolic murmur absent and Diastolic murmur absent
Respiratory: Respiratory effort normal, Lungs clear to auscul., Wheeze Absent, Crackles Absent and Rhonchi Absent
Neuro/Psych: AO x 3
Data Reviewed
-
Date of Service: May 16, 2025
Medical Decision Making: Review of Case with other Provider (Dr Benson, will hold hold torsemide today and reduce dose for tomorow. f/u with [facility] this week)
--- NOTE | 2025-05-16 10:25 | W.PN.ONC ---
Today's Communication / Plan
-
[facility] confirms that this is a positive Ishmael test, most likely related to her lupus. It is positive both for IgG and complement, which is typical for lupus associated hemolytic anemia. I did find 1 case report of dapagliflozin causing
drug-induced hemolytic anemia, but that was direct Ishmael negative. She has completed 4 days of pulsed dexamethasone. I will have further recommendations about steroids on discharge.
Impression
Impression
anemia - w/ positive hemolytic parameters; JORGE positive
positive KIMANI
LE vasculitis
hypothyroidism
loculated pleural effusion
Plan
Plan
1. Anemia - w/positive hemolytic parameters
-possible autoimmune hemolysis - w/positive hemolytic parameters in setting of possible autoimmune rheumatologic process - positive KIMANI
-haptoglobin <10
-JORGE - attempted 3 times at w/ inability to obtain results - sample sent to [facility] for complex antibody analysis
-hemoglobin improved slightly today - 9.4g/dl
-s/p 4 days dex 40mg daily
-monitor off steroids for now
2. Loculated pleural effusion - unclear etiology - for thoracentesis tomorrow
Subjective/Objective
Subjective/Objective
She is feeling reasonably well. She reports no new symptoms. Examination is unchanged.
Vital Signs:
Vital Signs
Temp Pulse Resp BP Pulse Ox
98.3 F 62 16 94/53 96
05/16/25 07:00 05/16/25 08:41 05/16/25 07:00 05/16/25 08:41 05/16/25 07:00
Lab Results:
Laboratory Data
WBC 8.9 10^3/uL (4.8-10.8) 05/16/25 06:17
Hgb 9.1 g/dL (12.0-16.0) L 05/16/25 06:17
Plt Count 180 10^3/uL (130-400) 05/16/25 06:17
PT 20.8 Sec (11.4-14.6) H 05/15/25 12:17
INR 1.76 05/15/25 12:17
APTT 32.8 Sec (23.4-35.0) 05/15/25 12:17
eGFR > 60.00 05/16/25 06:17
--- NOTE | 2025-05-16 13:49 | W.DCSUMMARY ---
Documented by User: Kristen Benson MD, Resident 05/16/25 14:51
Discharge Summary
Discharge Data
Date of Admission: 05/10/25
Date of Discharge: 05/16/25
Total time spent discharging patient (in min): 30
-
Pending Results: No
Hospital Course
Discharging Physician : Paul Obrien; Kristen Bensno
Disposition : to home
Primary care physician : Kate Jade
Principal Discharge diagnoses : Autoimmune hemolytic anemia; leukocytoclastic small vessel vasculitis; acute on chronic HFpEF; loculated right-sided pleural effusions/hemoptysis
Chronic Discharge diagnoses : Valvular disease; paroxysmal A-fib; bipolar depression; hypothyroidism; history of Hodgkin's lymphoma
Hospital Course :
1. Autoimmune hemolytic anemia
Patient with hemoglobin 9.2, BP 108/75 on admission (05/10). Hgb decreased to 7.8 the next day. Found to have elevated alk phos, reticulocyte count, RDW, bilirubin and decreased haptoglobin. Suspected autoimmune etiology due to elevated polyclonal
gammaglobulin, as well as rouleaux on antibody screen. Patient with hypocomplementemia (C3 56, C4 <8). KIMANI positive on prior admission (04/10).
B12 >1000, folate within normal limits, p-ANCA and m-ANCA negative. Light chain ratio normal on prior admission (04/10). Due to presumed autoimmune etiology of hemolytic anemia patient started on 4-day 40mg/day dexamethasone course (05/11-05/14).
Patient hemoglobin had katheryn of 7.8 on 05/11, trended steadily upward since then to 9.4 on 05/15. Decreased slightly to 9.1 on day of discharge. JORGE results returned 05/16: 'anti-IgG positive, anti-C3 positive, polyspecific AHG. Serum plasma studies
anti-e-like.'
Given Ishmael+ confirmation of AIHA, likely 2/2 SLE given +KIMANI and hypocomplementemia, patient discharged on a 40mg/day prednisone course to continue for 1-2 weeks until seen by rheumatology & heme-onc outpatient to develop long-term treatment plan &
steroid taper. In the future, recommend E negative blood transfusions to prevent formation of anti-E abs in this pt. To follow with rheumatology and heme-onc.
2. Leukocytoclastic small vessel vasculitis
Patient has been following with outpatient grain processor Dr. Angelica Cruz for rash on bilateral lower extremities present for approximately 3 weeks. Rash is petechial, purpuric in nature, nonblanching, extending from ankles to upper thighs. Per
preliminary biopsy results from outpatient grain processor, diagnosis leukocytoclastic small vessel vasculitis. Immunohistochemistry staining is pending. Appearance of rash did not improve while inpatient status post 4-day course of dexamethasone.
Rash still present but faint, less violaceous on discharge. To follow-up results of IHC staining of skin biopsy with outpatient grain processor.
3. Acute on chronic HFpEF; hypotension
Patient had been discharged on 824 for CHF exacerbation. Then readmitted on 05/10 (this admission) for return of bilateral lower extremity edema, presumed HFpEF exacerbation. Patient had been discharged on 20 mg daily of torsemide and 12.5 mg daily
spironolactone, which she had been taking, along with dapagliflozin. However lower extremity edema rapidly returned. Weight had not changed at time of prior discharge on time of admission. Denied any dyspnea. Was given IV 40 mg Lasix twice daily
while inpatient from 05/10 through 05/13, when she was converted to p.o. torsemide 40 mg daily. Patient continued on 40 mg torsemide throughout remainder of admission until 05/16 when it was held due to hypotension (systolic BP in the 80s and low 90s).
Over the course of this admission patient's lower extremity edema fully resolved, patient never had dyspnea or orthopnea. Plan to continue 20 mg daily torsemide upon discharge and to hold spironolactone pending outpatient appointment with
shovel engineer Dr. Ching tomorrow (05/17). Patient instructed to hold torsemide if systolic blood pressure below 100, measured at home. To continue management per outpatient shovel engineer.
4. Loculated right-sided pleural effusions/hemoptysis
Patient reported brown/bloody sputum on 05/13. CT chest on 05/13 demonstrated loculated pleural effusions on anterior right hemithorax, small basilar affusion, bilateral ground glass opacities. Per patient loculated pleural effusions on right side
have been present, had pleurodesis procedure and attempted to address. Patient with known history of radiation pneumonitis and scarring in setting of Hodgkin's. Favored autoimmune related loculated effusion rather than infectious given patient
clinical picture, known history, afebrile, lack of respiratory symptoms. IR was consulted for right-sided thoracentesis for fluid evaluation, however, per patient preference this was deferred to the outpatient setting. To be followed up.
Important imaging findings :
CXR 05/10: Stable chronic findings, as described. No radiographically demonstrable superimposed acute cardiopulmonary process.
CT chest without IV contrast (): 'There are loculated pleural effusions which extends anteriorly on the right. There is associated mild pleural thickening which can be seen with infection/empyema although may be secondary to chronic effusions.
There are small nodular opacities with surrounding groundglass opacities within the bilateral lower lobes, right middle lobe and lingula which likely represent multifocal pneumonia. There appears to be an additional element of mild vascular
congestion.'
Procedure findings : N/A
Discharge Plan
-
Patient Disposition: Home (Routine Discharge)
Discharge Diagnosis/Procedures: Acute on chronic HFpEF; autoimmune hemolytic anemia; small vessel leukocytoclastic vasculitis
Condition: Good
Diet: No restrictions
Activity: As tolerated
Driving Restrictions: As prior to admission
Bathing Restrictions: None
Other Services: VN
Activity Restrictions/Additional Instructions:
If patient requires future blood transfusions, ensure that transfused blood is E negative to avoid formation of anti-E Abs.
Follow up with IR or lining vamper outpatient to schedule thoracentesis of loculated R-sided pleural effusion.
Referrals:
Isaac Ching MD [Active, Cardiology] - 05/18/25 2:00 pm
Sarah Jacquse MD [Consulting Staff, Rheumatology] - in one day
Martinez Scott MD [Non-Admitting Privileges, Interventional Radiology] - in one week
Referral Note: For R-sided effusion thoracentesis
Alexis Maldonado MD [Active, Hematology / Oncology] - in one to two weeks
Kate Jade MD [Family Provider, Internal Medicine]
Angelica Cruz MD [Non-Admitting Privileges, Dermatology] - in one to two weeks
Additional Discharge Medication Instructions: Take 40mg of prednisone daily until you see heme-onc/rheum, so that they can design a taper & long-term plan. This is for your autoimmune condition, which is causing your hemolytic anemia & your
vasculitis rash.
Follow up as soon as possible (1-2 weeks) with outpatient rheumatology & heme-onc to solidify a treatment plan for your autoimmune hemolytic anemia.
Continue taking 20mg of torsemide. Hold if your Blood pressure is < 100 (on the top number).
Stop taking spironolactone until you see your shovel engineer in office this week.
Prescriptions:
New
prednisone 20 mg tablet
40 mg PO DAILY 21 Days Qty: 42 0RF
Continued
bupropion HCl 150 MG tablet extended release 24 hr
150 mg PO DAILY
pantoprazole 40 mg tablet,delayed release (DR/EC)
40 mg PO DAILY
ezetimibe 10 mg tablet
10 mg PO DAILY
torsemide 20 mg Tablet
20 mg PO DAILY
ferrous sulfate [iron] 325 mg (65 mg iron) Tablet
325 mg PO QPM
sertraline 50 mg Tablet
50 mg PO DAILY
cholecalciferol (vitamin D3) 50 mcg (2,000 unit) Capsule
50 mcg PO QPM
dapagliflozin propanediol [Farxiga] 10 mg Tablet
10 mg PO QPM
potassium chloride 20 mEq Tablet Extended Release
20 meq PO QPM
biotin 5,000 mcg Tablet,Chewable
5,000 mcg PO DAILY
levothyroxine 88 mcg Tablet
88 mcg PO DAILY@0400 Qty: 30 0RF
Eliquis 5 mg tablet
5 mg PO BID Qty: 60 0RF
Held
spironolactone 25 mg Tablet
12.5 mg PO DAILY Qty: 30 0RF
Hold Instructions: Until seen by Dr. Ching in office
Discharge Orders:
Discharge Patient (As Directed); Ordered 05/16/25
Ordered By: Kristen Benson
Discharge Date and Time
Discharge Date/Time: 05/16/25 18:03
Print Language: PALESTINIAN

Documented by User: Paul Obrien DO 05/17/25 14:19
Discharge Summary
Discharge Data
Date of Admission: 05/10/25
Date of Discharge: 05/16/25
Total time spent discharging patient (in min): 37
Discharge Plan
-
Patient Disposition: Home (Routine Discharge)
Discharge Diagnosis/Procedures: Acute on chronic HFpEF; autoimmune hemolytic anemia; small vessel leukocytoclastic vasculitis
Condition: Good
Diet: No restrictions
Activity: As tolerated
Driving Restrictions: As prior to admission
Bathing Restrictions: None
Other Services: VN
Activity Restrictions/Additional Instructions:
If patient requires future blood transfusions, ensure that transfused blood is E negative to avoid formation of anti-E Abs.
Follow up with IR or lining vamper outpatient to schedule thoracentesis of loculated R-sided pleural effusion.
Referrals:
Isaac Ching MD [Active, Cardiology] - 05/18/25 2:00 pm
Sarah Jacques MD [Consulting Staff, Rheumatology] - in one day
Martinez Scott MD [Non-Admitting Privileges, Interventional Radiology] - in one week
Referral Note: For R-sided effusion thoracentesis
Alexis Maldonado MD [Active, Hematology / Oncology] - in one to two weeks
Kate Jade MD [Family Provider, Internal Medicine]
Angelica Cruz MD [Non-Admitting Privileges, Dermatology] - in one to two weeks
Additional Discharge Medication Instructions: Take 40mg of prednisone daily until you see heme-onc/rheum, so that they can design a taper & long-term plan. This is for your autoimmune condition, which is causing your hemolytic anemia & your
vasculitis rash.
Follow up as soon as possible (1-2 weeks) with outpatient rheumatology & heme-onc to solidify a treatment plan for your autoimmune hemolytic anemia.
Continue taking 20mg of torsemide. Hold if your Blood pressure is < 100 (on the top number).
Stop taking spironolactone until you see your shovel engineer in office this week.
Prescriptions:
New
prednisone 20 mg tablet
40 mg PO DAILY 21 Days Qty: 42 0RF
Continued
bupropion HCl 150 MG tablet extended release 24 hr
150 mg PO DAILY
pantoprazole 40 mg tablet,delayed release (DR/EC)
40 mg PO DAILY
ezetimibe 10 mg tablet
10 mg PO DAILY
torsemide 20 mg Tablet
20 mg PO DAILY
ferrous sulfate [iron] 325 mg (65 mg iron) Tablet
325 mg PO QPM
sertraline 50 mg Tablet
50 mg PO DAILY
cholecalciferol (vitamin D3) 50 mcg (2,000 unit) Capsule
50 mcg PO QPM
dapagliflozin propanediol [Farxiga] 10 mg Tablet
10 mg PO QPM
potassium chloride 20 mEq Tablet Extended Release
20 meq PO QPM
biotin 5,000 mcg Tablet,Chewable
5,000 mcg PO DAILY
levothyroxine 88 mcg Tablet
88 mcg PO DAILY@0400 Qty: 30 0RF
Eliquis 5 mg tablet
5 mg PO BID Qty: 60 0RF
Held
spironolactone 25 mg Tablet
12.5 mg PO DAILY Qty: 30 0RF
Hold Instructions: Until seen by Dr. Ching in office
Discharge Orders:
Discharge Patient (As Directed); Ordered 05/16/25
Ordered By: Kristen Benson
Discharge Date and Time
Discharge Date/Time: 05/16/25 18:03
Print Language: PALESTINIAN
--- NOTE | 2025-05-16 14:03 | CM ---
Md entered order for discharge .
spoke with patient she said her friend will drive her home.
Offered VN she requested [facility]
Referral
placed on care port
PLAN Home with [facility] VN fax [phone]
[2025-05-16] MEDS: NSS 250 IV (14:11)
--- NOTE | 2025-05-17 10:13 | CM ---
TC from [facility] re referral for VN. ([phone].
Requested updated clinicals, H+P, PCP, VN order be faxed to [phone].
Order requested via TT to MD.
Information faxed.
== END 2025-05-16 18:03 | disposition home health service (06) | DRG 808 ==
LOC: 4 EAST ACU 23:18
PROVIDERS: Family Medicine; Nurse Practitioner; Student in an Organized Health Care Education/Training Program; ADMITTING PHYSICIAN Hospitalist; ATTENDING PHYSICIAN Internal Medicine; EMERGENCY PHYSICIAN Student in an Organized Health Care Education/Training Program; FAMILY PHYSICIAN Internal Medicine; OTHER PHYSICIAN Internal Medicine Cardiovascular Disease; OTHER PHYSICIAN Internal Medicine Hematology & Oncology
DX: D59.10 Autoimmune hemolytic anemia, unspecified (principal); I50.33 Acute on chronic diastolic (congestive) heart failure; J18.9 Pneumonia, unspecified organism; F31.30 Bipolar disorder, current episode depressed, mild or moderate severity, unspecified; M31.0 Hypersensitivity angiitis; I48.0 Paroxysmal atrial fibrillation; E03.9 Hypothyroidism, unspecified; Z79.899 Other long term (current) drug therapy; Z92.3 Personal history of irradiation; Z85.71 Personal history of Hodgkin lymphoma; Z79.84 Long term (current) use of oral hypoglycemic drugs; Z79.890 Hormone replacement therapy; Z79.01 Long term (current) use of anticoagulants; Z90.81 Acquired absence of spleen; Z95.3 Presence of xenogenic heart valve; Z88.3 Allergy status to other anti-infective agents; Z88.2 Allergy status to sulfonamides; E11.9 Type 2 diabetes mellitus without complications; E78.00 Pure hypercholesterolemia, unspecified; Z86.73 Personal history of transient ischemic attack (TIA), and cerebral infarction without residual deficits; Z90.49 Acquired absence of other specified parts of digestive tract; Z91.048 Other nonmedicinal substance allergy status
CPT/HCPCS: 71046; 71250; 80048; 80053; 81003; 81015; 82248; 82570; 82607; 82728; 82746; 83010; 83516; 83615; 83735; 83880; 84100; 84156; 84484; 85014; 85018; 85025; 85027; 85045; 85384; 85610; 85652; 85730; 86160; 86850; 86870; 86900; 86901; 87015; 87070; 87207; 93005; 93971; 96374; 97163; 97166; 97535; 99285

== ENCOUNTER → 2025-05-22 08:10 | Outpatient (REF) | payer OTHER, SELFPAY | LOC: WDC 08:10 | PROVIDERS: ATTENDING PHYSICIAN Internal Medicine | DX: Z12.31 Encounter for screening mammogram for malignant neoplasm of breast (principal) | CPT/HCPCS: 77063; 77067 ==

== ENCOUNTER → 2025-05-29 12:32 | Outpatient (REF) | payer OTHER, SELFPAY ==
[2025-05-29 14:56] LABS: Blood Urea Nitrogen 31 mg/dl (7-17); Calcium 9.2 mg/dl (8.4-10.2); Carbon Dioxide 35 mmol/L (22-30); Chloride 96 mmol/L (98-107); Glucose 80 mg/dl (70-99); HDL Cholesterol 67 mg/dl; LDL Cholesterol, Calculated 67 mg/dl; Potassium 4.1 mmol/L (3.5-5.1); Sodium 137 mmol/L (135-145); Very Low Density Lipoprotein 16 mg/dl (0-30); eGFR > 60.00
== END ==
LOC: REG 12:32
PROVIDERS: ATTENDING PHYSICIAN Internal Medicine; FAMILY PHYSICIAN Internal Medicine; REFERRING PHYSICIAN Nurse Practitioner Family
DX: I50.32 Chronic diastolic (congestive) heart failure (principal); I65.21 Occlusion and stenosis of right carotid artery; E03.9 Hypothyroidism, unspecified
CPT/HCPCS: 36415; 80048; 80061; 84443

== ENCOUNTER 2025-05-31 08:32 | Outpatient (RCR) | payer OTHER, SELFPAY | END 2025-05-31 23:59 | disposition home or self-care (01) | LOC: RPT 08:32 | PROVIDERS: ATTENDING PHYSICIAN Internal Medicine; FAMILY PHYSICIAN Nurse Practitioner Family | DX: C81.90 Hodgkin lymphoma, unspecified, unspecified site (principal); R26.89 Other abnormalities of gait and mobility; Z73.6 Limitation of activities due to disability; R53.0 Neoplastic (malignant) related fatigue; M62.81 Muscle weakness (generalized); R26.2 Difficulty in walking, not elsewhere classified; Z92.3 Personal history of irradiation; Z95.2 Presence of prosthetic heart valve | CPT/HCPCS: 97163; 97530 ==

== ENCOUNTER → 2025-06-13 16:56 | Outpatient (REF) | payer OTHER, SELFPAY | LOC: RAD 16:56 | PROVIDERS: ATTENDING PHYSICIAN Internal Medicine Critical Care Medicine; FAMILY PHYSICIAN Internal Medicine | DX: J90 Pleural effusion, not elsewhere classified (principal) | CPT/HCPCS: 71046 ==

== ENCOUNTER → 2025-07-11 12:24 | Outpatient (REF) | payer OTHER, SELFPAY ==
[2025-07-11 13:39] LABS: Blood Urea Nitrogen 23 mg/dl (7-17); Calcium 8.7 mg/dl (8.4-10.2); Carbon Dioxide 31 mmol/L (22-30); Chloride 92 mmol/L (98-107); Glucose 86 mg/dl (70-99); Potassium 3.2 mmol/L (3.5-5.1); Sodium 132 mmol/L (135-145); eGFR > 60.00
== END ==
LOC: REG 12:24
PROVIDERS: ATTENDING PHYSICIAN Internal Medicine; FAMILY PHYSICIAN Internal Medicine
DX: I50.32 Chronic diastolic (congestive) heart failure (principal)
CPT/HCPCS: 36415; 80048

== ENCOUNTER → 2025-07-14 17:12 | Outpatient (REF) | payer OTHER, SELFPAY ==
[2025-07-14 18:22] LABS: Blood Urea Nitrogen 14 mg/dl (7-17); Calcium 8.9 mg/dl (8.4-10.2); Carbon Dioxide 35 mmol/L (22-30); Chloride 91 mmol/L (98-107); Glucose 120 mg/dl (70-99); Potassium 3.3 mmol/L (3.5-5.1); Sodium 133 mmol/L (135-145); eGFR > 60.00
== END ==
LOC: REG 17:12
PROVIDERS: ATTENDING PHYSICIAN Internal Medicine; FAMILY PHYSICIAN Internal Medicine
DX: I50.32 Chronic diastolic (congestive) heart failure (principal)
CPT/HCPCS: 36415; 80048

== ENCOUNTER 2025-07-18 21:06 | Inpatient (IN) | payer OTHER, SELFPAY ==
[2025-07-18] VITALS (21 sets, daily range): BP systolic 85–132; BP diastolic 31–69; BMI 18.5
[2025-07-18 16:47] LABS: Hematocrit 18.1 % (37.0-47.0); Hemoglobin 6.3 g/dL (12.0-16.0); Mean Corp Hgb Conc. 34.8 g/dL (33.0-37.0); Mean Corpuscular Volume 119.9 fL (81.0-99.0); Platelet Count 185 10^3/uL (130-400); Red Cell Dist. Width 24.8 % (11.5-14.5)
[2025-07-18 16:58] LABS: ALT (SGPT) 50 U/L (0-35); AST (SGOT) 129 U/L (14-36); Albumin 3.9 g/dl (3.5-5.0); Alkaline Phosphatase 219 U/L (38-126); Blood Urea Nitrogen 29 mg/dl (7-17); Calcium 9.3 mg/dl (8.4-10.2); Carbon Dioxide 26 mmol/L (22-30); Chloride 92 mmol/L (98-107); Glucose 116 mg/dl (70-99); Potassium 5.6 mmol/L (3.5-5.1); Sodium 128 mmol/L (135-145); Total Protein 7.6 g/dl (6.3-8.2); eGFR 42.27
[2025-07-18 17:02] LABS: Nucleated Red Blood Cells % 2.7 %
[2025-07-18 17:05] LABS: Normal RBC Morphology No
[2025-07-18 17:06] LABS: Anisocytosis 3+; Macrocytosis 1+; Microcytosis 2+; Polychromasia 2+
[2025-07-18 17:09] LABS: Spherocytes 3+
--- NOTE | 2025-07-18 18:07 | ED.GENMED ---
History of Present Illness
<Linh Ca PLASTIC BOAT PATCHER - Last Filed: 07/18/25 20:29>
General
Chief Complaint: Breathing Problem
Source: patient
Exam Limitations: none
Time Seen by Provider: 07/18/25 18:05
Nursing documentation reviewed up to this point in time: agreed with
History of Present Illness
History of Present Illness:
64-year-old female with history of A-fib on Eliquis, CHF, CAD, pacemaker, hypothyroid pleural effusion, aortic valve replacement, Hodgkin's lymphoma, pulmonary hypertension, restrictive lung disease, sleep apnea, asplenic, here for 'swelling in my
legs and feet,' shortness of breath, was nauseous and vomited once this a.m. She's also had pain across her upper abdomen 'wraps around like a band.'
Presents from home with her neighbor. States she's been feeling poorly for past few days.
Past History
<Linh Ca, PLASTIC BOAT PATCHER - Last Filed: 07/18/25 20:29>
Past History
ED Past Medical History: Cancer (A-fib on Eliquis, CCHF, CAD, pacemaker, hypothyroid pleural effusion, aortic valve replacement, Hodgkin's lymphoma, pulmonary hypertension, restrictive lung disease, sleep apnea, asplenic, ) and CHF
ED Past Surgical History: Appendectomy, Cardiac (AVR, pacemaker) and Other (Splenectomy)
Social History
Tobacco: Non-smoker
Alcohol: Occasional
Drug: None
Personal: Single
Living: alone
Family History
Family History: Other
Review of Systems
<Linh Ca, PLASTIC BOAT PATCHER - Last Filed: 07/18/25 20:29>
Review of Systems
Allergies reviewed?: Yes
All Other Systems: ROS reviewed and negative except as documented in HPI and ROS
Constitutional: Reports fatigue; Denies fever or chills
Respiratory: Reports trouble breathing; Denies cough
Cardiac: Denies chest pain
ABD/GI: Reports abdominal pain, nausea and vomiting; Denies diarrhea, bloody stools, black stools or anorexia
: Denies dysuria or difficulty voiding
Musculoskeletal: Reports edema
Skin: Reports no symptoms
Neurological: Denies dizzy, headache or weakness
Hematologic/Lymphatic: Denies bleeding
Phy Exam
<Linh Ca, PLASTIC BOAT PATCHER - Last Filed: 07/18/25 20:29>
Physical Exam
Physical Exam:
GENERAL: No acute distress. A&Ox3.
CONSTITUTIONAL: Afebrile.
EYES: clear, conjunctivae mildly icteric
ENMT: dry mucus membranes, Pharynx nl
RESPIRATORY: Regular respirations, nonlabored, lungs clear.
CARDIOVASCULAR: Regular rate and rhythm, + murmur, no rubs.
Rectal: Brown stool heme neg
GI: Soft, nontender, normal BS
MUSCULOSKELETAL: Moves with ease. Well perfused.
SKIN: Warm, dry, jaundiced
PSYCH: Normal mood and affect. Well kept, interactive and appropriate
NEUROLOGIC: Awake, alert and oriented. No focal neurological deficits
Scores
<Linh Ca, PLASTIC BOAT PATCHER - Last Filed: 07/18/25 20:29>
Heart Failure Risk
Heart Failure Risk Score: Yes
History of Stroke or TIA: No
History of intubation for respiratory distress: No
Heart rate on ED arrival >/= 110: No
SaO2 <90% on arrival on room air: No
HR >/=110 during 3min walk test (or too ill to perform test): Yes
ECG has acute ischemic changes: No
Urea >/=12mmol/L (BUN 33.6mg/dL): Yes
Serum CO2>/=35mmol/L: Yes
Troponin I or T elevated to [place] Level (0.4mg/dL): No
NT-proBNP >/=5,000ng/L (5,000pg/ml): Yes
HF Risk Score: 6
Admission Status: VERY HIGH RISK 55.3% Consider admission to hospital
<Paddy Rubin, DO - Last Filed: 07/18/25 20:45>
Heart Failure Risk
HF Risk Score: 6
Admission Status: VERY HIGH RISK 55.3% Consider admission to hospital
Sepsis
<Linh Ca, PLASTIC BOAT PATCHER - Last Filed: 07/18/25 20:29>
Sepsis Screening
Sepsis Assessment: Sepsis
Sepsis Screening: Lactate >/=4mmol/L, Hypotension and Bilirubin >2mg/dl
Sepsis Screen
Sepsis Screen: Sepsis
Date: 07/18/25
Time: 20:28
<Paddy Rubin, DO - Last Filed: 07/18/25 20:45>
Sepsis Screen
Sepsis Screen: Sepsis
Date: 07/18/25
Time: 20:43
Course
<Linh Ca, PLASTIC BOAT PATCHER - Last Filed: 07/18/25 20:29>
Orders/Labs/Results
Orders:
Orders
07/18/25 15:58
Electrocardiogram (*1) Urgent
Reason for Study: Shortness of Breath
EKG- Treatment ONCE
07/18/25 16:31
CBC/With Diff [Complete Blood Count/With Diff] Urgent
CMP [Comprehensive Metabolic Panel] Urgent
Serum Osmolality Urgent
Comment: ADD ON
07/18/25 17:31
Pro-BNP [NT-proBNP] Urgent
07/18/25 17:37
Type+Screen Urgent
07/18/25 18:25
* Blood Bank Products Routine
Blood Bank Products: *Packed RBC Leuko (PRBC's
Quantity: 1
Transfuse Today: Yes
Reason: Anemia
IV Insert/Care/Rem.- Treatment PRN
07/18/25 18:26
Urinalysis Reflex To Culture Urgent
0.9% Sodium Chloride 500 ml [Nss] 500 ml IV BOLUS
07/18/25 18:38
US Abdomen Limited Urgent
Comment:
Reason For Exam: elevated bilirubin, pain across upper abd, jaundic
07/18/25 18:41
Piperacillin/Tazo 3.375 Gram [Zosyn] 3.375 gram in 50 ml IV NOW
07/18/25 19:00
Lactic Acid Q4H
Comment: CANCEL 2nd LACTIC ACID IF 1st LACTIC ACID IS LESS THAN 2
PTT Stat
Prothrombin Time Urgent
Blood Culture Q30M
OZZY Source: Blood/Venous
Specimen Description:
Blood Culture Q30M
OZZY Source: Blood/Venous
Specimen Description:
07/18/25 19:08
CR Chest Portable - 1 View Urgent
Comment:
Reason For Exam: SOB
Reason Study Needs to be Portable: Patient Unstable
07/18/25 20:09
Ondansetron Injectable [Zofran] 4 mg .ROUTE .ST-MED ONE
07/18/25 20:10
Ondansetron Injectable [Zofran] 4 mg IV NOW STA
07/18/25 20:23
Add On- LAB Urgent
Tests Added?: serum osmolality
Add On- LAB Urgent
Tests Added?: urine osmolality, Urine sodium
07/18/25 20:25
COVID-19 Antigen Urgent
Source: Nasal Swab
Influenza A+B Rapid Molecular Urgent
OZZY Source: Nasal Swab
Specimen Description:
07/18/25 20:26
Osmolality, Random Urine Urgent
Comment: ADD ON
Urine Sodium Urgent
Comment: ADD ON
07/18/25 20:34
Admit/Transfer Patient As Directed
Co-Sign Provider:
Level of Care: Inpatient admission
Assign to:: Telemetry
Physician / Group: irais
Diagnosis: sepsis pneumonia
Reason for Telemetry: Arrhythmia
Date to Stop Telemetry: 07/21/25
Time to Stop Telemetry: 11:00
Reason for Hospitalization: sepsis pneumonia
Expected length of stay greater than two midnights?: Yes
ELOS- Estimated Length of Stay in days: 2
I certify the patient meets the requirements for IP care: Yes
PRN Pain Medication Management As Directed
May give lesser potent ordered pain med per pt: Yes
preference::
Protocol:: Medication orders for pain may be administered in a
manner that supports deferring to patient preference
when the pt is:
- Requesting an ordered lesser potent pain medication.
Least to most potent pain medications are defined
as: acetaminophen < NSAID < tramadol < opioids
(morphine, oxycodone, hydromorphone).
- Requesting a lesser dose of the same medication IF
ORDERED.
- Requesting a less intrusive route of administration
if both routes are prescribed by the provider (PO <
IV).
07/18/25 20:35
Code Status As Directed
Resuscitation Status: Full Code
07/18/25 20:40
Vancomycin 1 Gram/200 ml [Vancocin] 1 gram in 200 ml IV NOW
07/18/25 22:45
Lactic Acid Q4H
Comment: CANCEL 2nd LACTIC ACID IF 1st LACTIC ACID IS LESS THAN 2
07/21/25 11:00
DC Protocol for Telemetry ONCE
Abnormal Lab Results
07/18/25 07/18/25
16:31 19:00
WBC 30.4 H 10^3/uL
(4.8-10.8)
RBC 1.51 L 10^6/uL
(4.20-5.40)
Hgb 6.3 L* g/dL
(12.0-16.0)
Hct 18.1 L* %
(37.0-47.0)
MCV 119.9 H fL
(81.0-99.0)
MCH 41.7 H pg
(27.0-31.0)
RDW 24.8 H %
(11.5-14.5)
MPV 10.5 H fL
(7.4-10.4)
Abs Immat Gran (auto) 1.5 H 10^3/uL
(0-0.05)
Absolute Neuts (auto) 25.3 H 10^3/uL
(1.4-6.5)
Absolute Lymphs (auto) 0.6 L 10^3/uL
(1.2-3.4)
Absolute Monos (auto) 2.8 H 10^3/uL
(0.1-0.6)
Immature Gran % 5.1 H %
(0-0.5)
Neutrophils % 83.3 H %
(42.2-75.2)
Lymphocytes % 2.0 L %
(20.5-51.1)
PT 28.6 H Sec
(11.4-14.6)
APTT 38.9 H Sec
(23.4-35.0)
Sodium 128 L mmol/L
(135-145)
Potassium 5.6 H mmol/L
(3.5-5.1)
Chloride 92 L mmol/L
(98-107)
BUN 29 H mg/dl
(7-17)
Creatinine 1.4 H mg/dL
(0.6-1.0)
Glucose 116 H mg/dl
(70-99)
Lactic Acid 5.5 H* mmol/L
(0.7-2.0)
Total Bilirubin 11.3 H mg/dl
(0.2-1.3)
AST 129 H U/L
(14-36)
ALT 50 H U/L
(0-35)
Alkaline Phosphatase 219 H U/L
(38-126)
07/18/25 16:31
07/18/25 16:31
Vital Signs
Initial and Last Documented VS:
Initial Vital Signs
Temp Resp BP
97.9 F 12 95/40
07/18/25 16:02 07/18/25 16:02 07/18/25 16:02
Last Documented Vital Signs
Temp Pulse Resp BP Pulse Ox
97.9 F 73 33 124/37 97
07/18/25 16:02 07/18/25 19:15 07/18/25 19:15 07/18/25 19:15 07/18/25 19:15
Operations Dispatcher consulted with Physician
Operations Dispatcher consulted with physician?: Yes
Name of Physician Consulted: Scottie
<Paddy Rubin, DO - Last Filed: 07/18/25 20:45>
Orders/Labs/Results
Orders:
Orders
07/18/25 15:58
Electrocardiogram (*1) Urgent
Reason for Study: Shortness of Breath
EKG- Treatment ONCE
07/18/25 16:31
CBC/With Diff [Complete Blood Count/With Diff] Urgent
CMP [Comprehensive Metabolic Panel] Urgent
Serum Osmolality Urgent
Comment: ADD ON
07/18/25 17:31
Pro-BNP [NT-proBNP] Urgent
07/18/25 17:37
Type+Screen Urgent
07/18/25 18:25
* Blood Bank Products Routine
Blood Bank Products: *Packed RBC Leuko (PRBC's
Quantity: 1
Transfuse Today: Yes
Reason: Anemia
IV Insert/Care/Rem.- Treatment PRN
07/18/25 18:26
Urinalysis Reflex To Culture Urgent
0.9% Sodium Chloride 500 ml [Nss] 500 ml IV BOLUS
07/18/25 18:38
US Abdomen Limited Urgent
Comment:
Reason For Exam: elevated bilirubin, pain across upper abd, jaundic
07/18/25 18:41
Piperacillin/Tazo 3.375 Gram [Zosyn] 3.375 gram in 50 ml IV NOW
07/18/25 19:00
Lactic Acid Q4H
Comment: CANCEL 2nd LACTIC ACID IF 1st LACTIC ACID IS LESS THAN 2
PTT Stat
Prothrombin Time Urgent
Blood Culture Q30M
OZZY Source: Blood/Venous
Specimen Description:
Blood Culture Q30M
OZZY Source: Blood/Venous
Specimen Description:
07/18/25 19:08
CR Chest Portable - 1 View Urgent
Comment:
Reason For Exam: SOB
Reason Study Needs to be Portable: Patient Unstable
07/18/25 20:09
Ondansetron Injectable [Zofran] 4 mg .ROUTE .ST-MED ONE
07/18/25 20:10
Ondansetron Injectable [Zofran] 4 mg IV NOW STA
07/18/25 20:23
Add On- LAB Urgent
Tests Added?: serum osmolality
Add On- LAB Urgent
Tests Added?: urine osmolality, Urine sodium
07/18/25 20:25
COVID-19 Antigen Urgent
Source: Nasal Swab
Influenza A+B Rapid Molecular Urgent
OZZY Source: Nasal Swab
Specimen Description:
07/18/25 20:26
Osmolality, Random Urine Urgent
Comment: ADD ON
Urine Sodium Urgent
Comment: ADD ON
07/18/25 20:34
Admit/Transfer Patient As Directed
Co-Sign Provider:
Level of Care: Inpatient admission
Assign to:: Telemetry
Physician / Group: irais
Diagnosis: sepsis pneumonia
Reason for Telemetry: Arrhythmia
Date to Stop Telemetry: 07/21/25
Time to Stop Telemetry: 11:00
Reason for Hospitalization: sepsis pneumonia
Expected length of stay greater than two midnights?: Yes
ELOS- Estimated Length of Stay in days: 2
I certify the patient meets the requirements for IP care: Yes
PRN Pain Medication Management As Directed
May give lesser potent ordered pain med per pt: Yes
preference::
Protocol:: Medication orders for pain may be administered in a
manner that supports deferring to patient preference
when the pt is:
- Requesting an ordered lesser potent pain medication.
Least to most potent pain medications are defined
as: acetaminophen < NSAID < tramadol < opioids
(morphine, oxycodone, hydromorphone).
- Requesting a lesser dose of the same medication IF
ORDERED.
- Requesting a less intrusive route of administration
if both routes are prescribed by the provider (PO <
IV).
07/18/25 20:35
Code Status As Directed
Resuscitation Status: Full Code
07/18/25 20:40
Vancomycin 1 Gram/200 ml [Vancocin] 1 gram in 200 ml IV NOW
07/18/25 22:45
Lactic Acid Q4H
Comment: CANCEL 2nd LACTIC ACID IF 1st LACTIC ACID IS LESS THAN 2
07/21/25 11:00
DC Protocol for Telemetry ONCE
Abnormal Lab Results
07/18/25 07/18/25
16:31 19:00
WBC 30.4 H 10^3/uL
(4.8-10.8)
RBC 1.51 L 10^6/uL
(4.20-5.40)
Hgb 6.3 L* g/dL
(12.0-16.0)
Hct 18.1 L* %
(37.0-47.0)
MCV 119.9 H fL
(81.0-99.0)
MCH 41.7 H pg
(27.0-31.0)
RDW 24.8 H %
(11.5-14.5)
MPV 10.5 H fL
(7.4-10.4)
Abs Immat Gran (auto) 1.5 H 10^3/uL
(0-0.05)
Absolute Neuts (auto) 25.3 H 10^3/uL
(1.4-6.5)
Absolute Lymphs (auto) 0.6 L 10^3/uL
(1.2-3.4)
Absolute Monos (auto) 2.8 H 10^3/uL
(0.1-0.6)
Immature Gran % 5.1 H %
(0-0.5)
Neutrophils % 83.3 H %
(42.2-75.2)
Lymphocytes % 2.0 L %
(20.5-51.1)
PT 28.6 H Sec
(11.4-14.6)
APTT 38.9 H Sec
(23.4-35.0)
Sodium 128 L mmol/L
(135-145)
Potassium 5.6 H mmol/L
(3.5-5.1)
Chloride 92 L mmol/L
(98-107)
BUN 29 H mg/dl
(7-17)
Creatinine 1.4 H mg/dL
(0.6-1.0)
Glucose 116 H mg/dl
(70-99)
Lactic Acid 5.5 H* mmol/L
(0.7-2.0)
Total Bilirubin 11.3 H mg/dl
(0.2-1.3)
AST 129 H U/L
(14-36)
ALT 50 H U/L
(0-35)
Alkaline Phosphatase 219 H U/L
(38-126)
07/18/25 16:31
07/18/25 16:31
Vital Signs
Initial and Last Documented VS:
Initial Vital Signs
Temp Resp BP
97.9 F 12 95/40
07/18/25 16:02 07/18/25 16:02 07/18/25 16:02
Last Documented Vital Signs
Temp Pulse Resp BP Pulse Ox
97.9 F 73 33 124/37 97
07/18/25 16:02 07/18/25 19:15 07/18/25 19:15 07/18/25 19:15 07/18/25 19:15
<Linh Ca PLASTIC BOAT PATCHER - Last Filed: 07/18/25 20:29>
MDM/Problems Addressed
Differential Diagnosis Includes:
cholecystitis, choledocholithiasis
sepsis, CHF
MDM/Problems Addressed:
64-year-old female with history of A-fib on Eliquis, CHF, CAD, pacemaker, hypothyroid pleural effusion, aortic valve replacement, Hodgkin's lymphoma, pulmonary hypertension, restrictive lung disease, sleep apnea, asplenic, here for 'swelling in my
legs and feet,' shortness of breath, was nauseous and vomited once this a.m. She's also had pain across her upper abdomen 'wraps around like a band.'
Presents from home with her neighbor. States she's been feeling poorly for past few days.
Afebrile, tachypneic, ill appearing but in no acute distress
CBC: WBC 30.4 with a left shift, hemoglobin 6.3
CMP: Sodium 128 BUN/creat 29/1.4 mild elevation liver enzymes, Bilirubin 11.3
BNP 5390
Lactic: 5.5
IVF running softly as BNP elevated and awaiting CXR
Case discussed with Dr. Rubin who reviewed CXR, questionable R lower lung PNA,
Heme neg stool
Per lab, Pt has antibodies and it will be at least a couple of hours for Blood bank to get the blood
7:45 p.m.
[facility] radiology report read: IMPRESSION:
1. Moderate diffuse liver disease.
2. Gallbladder sludge.
3. No sonographic evidence for biliary obstruction.
8:[address] Rubin in and examined pt.
Agrees, admit: PNA, anemia, sepsis, hyponatremia
Covid and Influenza pending
Hospitalist notified of admission
<Linh Ca PLASTIC BOAT PATCHER - Last Filed: 07/18/25 20:29>
*Pulse Oximetry
SaO2: 100
Oxygen Mode of Delivery: Room air
Patient hypoxic: no
*Critical Care Note
Total Time (30-74mins, 75-104mins- exclusive of procedures): Not Applicable
ED Attending Note
<Linh Ca, PLASTIC BOAT PATCHER - Last Filed: 07/18/25 20:29>
-
Portions of this chart may have been created with voice recognition software.� Occasional wrong word or��sound alike� substitutions may have occurred due to the inherent limitations of voice recognition software.
<Paddy Rubin, - Last Filed: 07/18/25 20:45>
ED Attending Note
Patient seen and examined by attending physician: Yes
ED Attending Note:
64-year-old female with decreased breath sounds bilateral lungs. Right-sided pneumonia on x-ray. Hyponatremia and anemia. The hospitalist for further treatment.
Discharge Plan
Departure
Patient Disposition: Admit
Date of Disposition: 07/18/25
Time of Disposition: 19:52
Presentation/result/management discussed w/ accepting MD/DO: Hospitalist
Condition: Serious
Discharge Problem:
Pneumonia, Sepsis, Acute hyponatremia, Anemia
Prescriptions:
No Action
bupropion HCl 150 MG tablet extended release 24 hr
150 mg PO DAILY
pantoprazole 40 mg tablet,delayed release (DR/EC)
40 mg PO DAILY
ezetimibe 10 mg tablet
10 mg PO DAILY
torsemide 20 mg Tablet
20 mg PO DAILY
ferrous sulfate [iron] 325 mg (65 mg iron) Tablet
325 mg PO QPM
sertraline 50 mg Tablet
50 mg PO DAILY
cholecalciferol (vitamin D3) 50 mcg (2,000 unit) Capsule
50 mcg PO QPM
dapagliflozin propanediol [Farxiga] 10 mg Tablet
10 mg PO QPM
potassium chloride 20 mEq Tablet Extended Release
20 meq PO QPM
biotin 5,000 mcg Tablet,Chewable
5,000 mcg PO DAILY
levothyroxine 88 mcg Tablet
88 mcg PO DAILY@0400 Qty: 30 0RF
Eliquis 5 mg tablet
5 mg PO BID Qty: 60 0RF
spironolactone 25 mg Tablet
12.5 mg PO DAILY Qty: 30 0RF
prednisone 20 mg tablet
40 mg PO DAILY 21 Days Qty: 42 0RF
Referrals:
Kate Jade MD [Family Provider, Internal Medicine]
Interventions
Interventions:
*Risk Screen - Suicide Last Done: 07/18/25 16:02
*General Assessment Last Done: 07/18/25 16:02
*Neglect/Abuse Screening Last Done: 07/18/25 16:02
*ED COVID-19 Vaccine History Last Done: 07/18/25 16:02
*ED Influenza Vaccine History Last Done: 07/18/25 16:02
ED- Cardiac Assessment Last Done: 07/18/25 17:04
ED- Pulmonary Assessment Last Done: 07/18/25 17:04
Discharge Date and Time
Print Language: GHANAIAN
[2025-07-18] MEDS: NSS 500 IV (19:03)
[2025-07-18] MEDS: ZOSYN 50 IV ×2 (19:03→23:17)
[2025-07-18 19:26] LABS: INR 2.69; PT 28.6 Sec (11.4-14.6)
[2025-07-18 19:28] LABS: APTT 38.9 Sec (23.4-35.0)
[2025-07-18 20:45] LABS: COVID-19 Antigen Negative (Negative)
--- NOTE | 2025-07-18 20:46 | HPS.HSE ---
Family Physician
-
Family Physician: Kate Jade
Chief Complaint
-
swelling legs
History of Present Illness
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
loculated right pleural effusion, paroxysmal atrial fibrillation with leadless pacemaker, mitral valve replacement, aortic valve replacement, tricuspid valve repair with ring, bipolar depression, hypothyroidism, obstructive sleep apnea, restrictive
lung disease, presenting with swelling in the legs and feet and shortness of breath with nausea and vomiting once this morning. Denies any cough. Denies chest pain. Has chills but denies fever. Denies diarrhea.
She has been pain having chronic pain across the upper part of her belly but this has been chronic.
She has been having black stool which is chronic but she takes iron supplement. Denies any giselle blood in the stool.
She denies smoking or alcohol use at this time.
Medical History
Past Medical History
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
right pleural effusion, paroxysmal atrial fibrillation with leadless pacemaker, mitral valve)
Past Surgical History: Reports None
Social History
Tobacco: Non-smoker
Alcohol: None
Drug: None
Family History
Family History: Not pertinent
Allergies / Home Medications
Allergies reflects when Allergies were last updated in [facility].
Home Medications with original date entered in [facility]
Allergy/Medication List:
Allergies
Allergy/AdvReac Type Severity Reaction Status Date / Time
adhesive tape Allergy Rash Verified 05/10/25 20:31
nitrofurantoin Allergy Swelling Verified 05/10/25 20:31
Sulfa (Sulfonamide Allergy Nausea / Verified 05/10/25 20:31
Antibiotics) Vomiting
Home Medications
bupropion HCl 150 mg 24 hr tablet, extended release 150 mg PO DAILY Depression 11/23/13
ezetimibe 10 mg tablet 10 mg PO DAILY High Cholesterol 06/10/24
pantoprazole 40 mg tablet,delayed release 40 mg PO DAILY Gastrointestinal Issue 06/10/24
biotin 5,000 mcg chewable tablet 5,000 mcg PO DAILY Supplement 03/03/25
cholecalciferol (vitamin D3) 50 mcg (2,000 unit) capsule 50 mcg PO QPM Supplement 03/03/25
dapagliflozin propanediol 10 mg tablet (Farxiga) 10 mg PO QPM Diabetes 03/03/25
ferrous sulfate 325 mg (65 mg iron) tablet (iron) 325 mg PO QPM Supplement 03/03/25
potassium chloride 20 mEq tablet,extended release 20 meq PO QPM Supplement 03/03/25
sertraline 50 mg tablet 50 mg PO DAILY Mental Health/Anxiety 03/03/25
torsemide 20 mg tablet 20 mg PO DAILY Fluid Retention/Swelling 03/03/25
apixaban 5 mg tablet (Eliquis) 5 mg PO BID #60 tabs 03/07/25
levothyroxine 88 mcg tablet 88 mcg PO DAILY@0400 #30 tabs 03/07/25
spironolactone 25 mg tablet 12.5 mg (1/2 x 25 mg) PO DAILY #30 tabs 05/07/25
Held on 05/16/25. Instructions: Until seen by Dr. Ching in office
prednisone 20 mg tablet 40 mg (2 x 20 mg) PO DAILY 21 days #42 tabs 05/16/25
Review of Systems
-
Constitutional: Reports No Symptoms
EENT: Reports No Symptoms
Respiratory: Reports See HPI
Cardiac: Reports No Symptoms
Abdomen/GI: Reports See HPI
: Reports No Symptoms
Musculoskeletal: Reports No Symptoms
Skin: Reports No Symptoms
Neurological: Reports No Symptoms
Endocrine: Reports No Symptoms
Hematologic/Lymphatic: Reports No Symptoms
Psych: Reports No Symptoms
Physical Exam
Vital Signs
Vital Signs
Temp Pulse Resp BP Pulse Ox
97.9 F 73 33 124/37 97
07/18/25 16:02 07/18/25 19:15 07/18/25 19:15 07/18/25 19:15 07/18/25 19:15
Physical Exam
General: Well Developed, Well Nourished and No Apparent Distress
HEENT: NormoCephalic, Moist mucous membranes and Atraumatic
Respiratory: Clear
Cardiac: S1/S2 and Regular Rhythm; No Murmur or Rub
GI: Soft, Non Tender, Non Distended and Normal Bowel Sounds; No Organomegaly
Rectal: Deferred by Provider
Musculoskeletal: No Clubbing, No Cyanosis and No Edema
Skin: No Rash
Neuro: Nonfocal/grossly intact
Laboratory Results
-
07/18/25 16:31
07/18/25 16:31
Laboratory Results
PT 28.6 Sec (11.4-14.6) H 07/18/25 19:00
INR 2.69 07/18/25 19:00
APTT 38.9 Sec (23.4-35.0) H 07/18/25 19:00
Lactic Acid 5.5 mmol/L (0.7-2.0) H* 07/18/25 19:00
Total Bilirubin 11.3 mg/dl (0.2-1.3) H 07/18/25 16:31
AST 129 U/L (14-36) H 07/18/25 16:31
ALT 50 U/L (0-35) H 07/18/25 16:31
Alkaline Phosphatase 219 U/L (38-126) H 07/18/25 16:31
Data Reviewed
-
Lab Data: Labs Reviewed by me
Old Records: Reviewed
Impression/Plan
-
IMPRESSION:
PLAN:
# Sepsis (lactic acidosis, HANNY) secondary to possible pneumonia
-Chest x-ray appears to show consolidation in the right middle lower lobe, report pending
-Cardiac BNP 5400
- Check blood cultures
- IV fluids although caution given swelling, elevated BNP and history of HFpEF
- Vancomycin/Zosyn
# Acute on chronic macrocytic anemia highly concerning for hemolytic anemia
# History of warm autoimmune hemolytic anemia
-Bilirubin up to 11
- Hemoglobin of 6.3 from 9.1 last month
- Check iron studies, B12 and folate, reticulocyte count, LDH, haptoglobin
- Check direct bilirubin
- Hold Eliquis for now
- Check coags evaluate for DIC
-1 unit of blood
- Hematology consulted
# HANNY likely prerenal
# Hyperkalemia
- IV fluids
- Hold torsemide, spironolactone, dapagliflozin
# Hyponatremia from SIADH/volume
- Monitor with IV fluids
Leukocytoclastic vasculitis
- No rheumatological etiology could be followed and no treatment was offered
History of radiation pneumonitis
Hodgkin's lymphoma status post splenectomy
Chronic HFpEF
- Hold torsemide, dapagliflozin
History of right loculated pleural effusion
Paroxysmal atrial fibrillation with leadless pacemaker
-Hold Eliquis for
Mitral valve replacement
Aortic valve replacement
Tricuspid valve repair with ring
Bipolar depression
- Continue bupropion, sertraline
Hypothyroidism
- Continue levothyroxine
Obstructive sleep apnea
Restrictive lung disease
Full code
DVT prophylaxis�SCDs
Regular diet
[2025-07-18] MEDS: VANCOCIN 200 IV (20:59)
[2025-07-18 22:05] LABS: Reticulocyte Count 19.1 % (0.4-2.8)
[2025-07-18 22:20] LABS: Iron 135 ug/dl (37-170)
[2025-07-18 22:30] LABS: Total Iron Binding Capacity 360 ug/dl (265-497)
[2025-07-18 22:31] LABS: LDH 1447 U/L (120-246)
[2025-07-18] MEDS: NSS 1000 IV (23:09)
[2025-07-18 23:56] LABS: Ferritin 262.0 ng/ml (11.1-264.0)
[2025-07-19] VITALS (80 sets, daily range): BP systolic 81–152; BP diastolic 38–95
[2025-07-19 00:28] LABS: Folate 15.0 ng/ml (2.76-20); Vitamin B12 770 pg/ml (239-931)
[2025-07-19 03:58] LABS: ALT (SGPT) 53 U/L (0-35); AST (SGOT) 126 U/L (14-36); Albumin 3.4 g/dl (3.5-5.0); Alkaline Phosphatase 182 U/L (38-126); Blood Urea Nitrogen 31 mg/dl (7-17); Calcium 8.7 mg/dl (8.4-10.2); Carbon Dioxide 27 mmol/L (22-30); Chloride 95 mmol/L (98-107); Estimated Creatinine Clearance 29 ml/min; Glucose 101 mg/dl (70-99); Hematocrit 16.3 % (37.0-47.0); Hemoglobin 5.5 g/dL (12.0-16.0); Mean Corp Hgb Conc. 33.7 g/dL (33.0-37.0); Mean Corpuscular Volume 117.3 fL (81.0-99.0); Nucleated Red Blood Cells % 2.7 %; Platelet Count 167 10^3/uL (130-400); Potassium 5.3 mmol/L (3.5-5.1); Red Cell Dist. Width 22.6 % (11.5-14.5); Sodium 131 mmol/L (135-145); Total Protein 6.6 g/dl (6.3-8.2); eGFR 38.91
[2025-07-19] MEDS: LEVOPHED 250 IV ×2 (04:23→22:11)
[2025-07-19] MEDS: ZOSYN 50 IV ×3 (05:31→18:07)
[2025-07-19 05:46] LABS: Urine Character Clear (Clear)
[2025-07-19 06:09] LABS: Urine Red Blood Cell 0-2 /HPF (0-2); Urine Squamous Cell 0-2 /LPF (Few); Urine White Cell 0-2 /HPF (0-5)
[2025-07-19] MEDS: SYNTHROID 88 MCG PO (06:17)
--- NOTE | 2025-07-19 06:21 | PTCARENOTE ---
Rec'd pt from ED RN. Pt c/o urge to have BM. Unable to get OOB d/t SOB. Unable to void or have BM on bedpan. Bladder scan for >400mls. St cath performed with assistance of additional RN. Several attempts necessary to obtain st cath. Ordered
specimens sent to lab. Pt reports relief following procedure. Pt with BP dropping. DENTAL TECHNICIAN APPRENTICE notified. Levo hung per orders, see worklist for titrations. Hgb 5.5 on AM labs. Blood bank contacted and still no update on ETA for blood. Call farah within
reach. Care ongoing.
--- NOTE | 2025-07-19 08:09 | CON.CAR ---
Addendum entered and electronically signed by Isaac Ching MD 07/19/25 11:06:
I saw and examined the patient independently and performed majority of MDM.
The resident's note was reviewed and I agree with the note with changes/additions below.
Comment: 64 yo female with PMH of valvular HD secondary to radiation, chronic HFPEF, paroxysmal A fib on eliquis. Admitted with SOB. Found to have acute anemia. Exam with RRR, no murmurs, trace LE edema. Cr 1.5. Hgb 5.5. Tele: SR with occasional V
pacing.
Anemia, acute, severe and life threatening. Thought to be due to hemolytic anemia, and started on steroids. Trend Hgb. Hold eliquis.
Chronic HFPEF. Hold torsemide, farxiga, aldactone due to HANNY, Trend Cr.
Original Note:
Consultation
Consultation Request
Date/Time Consultation Requested: 07/19/2025; 04:46
Date/Time Consultation Performed: 07/19/2025; 08:09
Requesting Provider: Veronica Connor
Performing Provider: Dr. Isaac Ching; Dr. Tamir Woodard
Reason for Consultation: HF
Medical History
-
Chief Complaint: breathing problem
History of Present Illness:
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
lymphma 1982 s/p extensive radiation (no chemotherapy), pulmonary HTN, restrictive lung disease, asplenia.
History was taken at bedside and heme/onc attg also present for portions of the interview.
She presents to the ED for dyspnea, peripheral edema, nausea/vomiting. She also endorsed pain around upper abdomen. These symptoms have been going on for a few days. She reports no clear trigger; however, upon further interview, she mentioned that
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
She denies chest pressure that is related to exertion (apart from the upper abdomen band of tightness). She reports no dysuria but darker urine. She endorses dyspnea and a cough, but denies sputum. she denies sick contacts (lives alone) and no
recent travel.
She denies hematemesis, hematochezia, melena.
In the ED, initial labs n/f
Hgb of 6.3
reticulocytes of 19.1%
Tbili 11.3
LDH 1447
proBNP 5390
EKG showed SINUS RHYTHM WITH SINUS ARRHYTHMIA WITH OCCASIONAL ventricular-paced complexes.
Past Medical History
Past Medical History: Arrhythmias, CAD, Cancer, CHF and Valvular Disease
Past Surgical History: Appendectomy, Cardiac and Other (splenectomy)
Social History
Tobacco: Non-Smoker
Alcohol: Former (quit last year in 2023)
Drug: None
Personal: Single
Living: Alone
Allergies / Home Medications
Allergy/AdvReac Type Severity Reaction Status Date / Time
adhesive tape Allergy Rash Verified 05/10/25 20:31
nitrofurantoin Allergy Swelling Verified 05/10/25 20:31
Sulfa (Sulfonamide Allergy Nausea / Verified 05/10/25 20:31
Antibiotics) Vomiting
�Medication �Instructions �Recorded �Confirmed �Type
bupropion HCl 150 mg 24 hr tablet, 150 mg PO DAILY Depression 11/23/13 05/10/25 History
extended release
ezetimibe 10 mg tablet 10 mg PO DAILY High Cholesterol 06/10/24 05/10/25 History
pantoprazole 40 mg tablet,delayed 40 mg PO DAILY Gastrointestinal 06/10/24 05/10/25 History
release Issue
biotin 5,000 mcg chewable tablet 5,000 mcg PO DAILY Supplement 03/03/25 05/10/25 History
cholecalciferol (vitamin D3) 50 50 mcg PO QPM Supplement 03/03/25 05/10/25 History
mcg (2,000 unit) capsule
dapagliflozin propanediol 10 mg 10 mg PO QPM Diabetes 03/03/25 05/10/25 History
tablet (Farxiga)
ferrous sulfate 325 mg (65 mg 325 mg PO QPM Supplement 03/03/25 05/10/25 History
iron) tablet (iron)
potassium chloride 20 mEq 20 meq PO QPM Supplement 03/03/25 05/10/25 History
tablet,extended release
sertraline 50 mg tablet 50 mg PO DAILY Mental 03/03/25 05/10/25 History
Health/Anxiety
torsemide 20 mg tablet 20 mg PO DAILY Fluid 03/03/25 05/10/25 History
Retention/Swelling
apixaban 5 mg tablet (Eliquis) 5 mg PO BID #60 tabs 03/07/25 05/10/25 Rx
levothyroxine 88 mcg tablet 88 mcg PO DAILY@0400 #30 tabs 03/07/25 05/10/25 Rx
spironolactone 25 mg tablet 12.5 mg (1/2 x 25 mg) PO DAILY #30 05/07/25 05/10/25 Rx
Held on 05/16/25. tabs
Instructions: Until seen by
Dr. Ching in office
prednisone 20 mg tablet 40 mg (2 x 20 mg) PO DAILY 21 days 05/16/25 Rx
#42 tabs
Review of Systems
-
Constitutional: No Symptoms
Respiratory: Trouble Breathing
Cardiac: No Symptoms
Abdomen/GI: Abdominal Pain, Nausea and Vomiting
: Dark Urine
Musculoskeletal: Edema
Skin: No Symptoms
Neurological: No Symptoms
Physical Exam
Vital Signs
Temp Pulse Resp BP Pulse Ox
98.2 F 82 32 99/61 100
07/18/25 22:55 07/19/25 07:00 07/19/25 07:00 07/19/25 07:00 07/19/25 07:00
telemetry is sinus rhythm with intermittent ventricular paced complexes
Lab Results
07/19/25 03:15
07/19/25 03:15
Ffj-U-Zuwwbaqlssy Pept 5390 pg/ml 07/18/25 17:31
EKG 07/18/2025
Vent. Rate : 76 BPM Atrial Rate : 76 BPM
P-R Int : 166 ms QRS Dur : 66 ms
QT Int : 394 ms P-R-T Axes : 84 94 97 degrees
QTcB Int : 443 ms
SINUS RHYTHM WITH SINUS ARRHYTHMIA WITH OCCASIONAL ventricular-paced complexes
RIGHTWARD AXIS
ABNORMAL ECG
CXR 07/18/2025
IMPRESSION:
1. Mild acute interstitial and alveolar cardiogenic pulmonary edema.
2. Previous mitral valve repair and intraventricular cardiac pacemaker placement.
3. Minimal bilateral pleural effusions.
4. Bilateral breast implants in place.
Abdominal US 07/18/2025
IMPRESSION:
1. Moderate diffuse liver disease.
2. Gallbladder sludge.
3. No sonographic evidence for biliary obstruction.
Echocardiogram 03/06/2025
CONCLUSIONS
Normal left ventricular size, wall thickness and systolic function. Estimated
LVEF 55%.
Bioprosthetic mitral valve. Peak/mean gradients across the mitral valve are
26/6 mmHg. No mitral regurgitation is seen.
Bioprosthetic aortic valve. Peak/mean gradients across the aortic valve are 6/3
mmHg. No aortic regurgitation is seen.
Enlarged right ventricular size. Reduced right ventricular systolic function.
Abnormal (paradoxical) septal motion consistent with RV pacemaker.
s/p tricuspid valve ring with mean gradient of 3 mmHg. Mild/moderate tricuspid
regurgitation. Mildly elevated PASP. Estimated pulmonary artery pressure of 35-
40 mmHg.
Small pericardial effusion without evidence of hemodynamic compromise.
Physical Exam
General: No Apparent Distress
HEENT: Normocephalic and Anicteric
Respiratory: Wheezes (possible end expiratory wheezing)
Cardiac: Other (i could not appreciate any murmurs)
GI: Tender (tenderness in epigastric region to palpation)
Genito-urinary: No Costovertebral Tender
Musculoskeletal: Edema (1-2+ pitting edema in lower extremities)
Neuro: AO x 3 and No Motor Deficits
Psych: Calm
Impression / Plan
-
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
1A Hodgkin lymphma 1982 s/p extensive radiation (no chemotherapy), pulmonary HTN, restrictive lung disease, sleep apnea, asplenia p/w dyspnea, peripheral edema in the setting of reportedly stopping prednisone c/f an acute flare of autoimmune
hemolytic anemia
Chronic HFpEF
- proBNP elevated at 5390 (last admission, was in 3000s)
- lower extremity edema, dyspnea
- flare of hemolytic anemia is stressing her heart and overall system
- treatment of the underlying cause (hemolytic anemia) should alleviate strain on heart
- However, after blood/fluid resuscitation, she may go into a volume overloaded state, which may require diuresis
- there is also concern for sepsis, per documentation (opacity in CXR), in which fluids/abx would be indicated
Plan:
- Given HANNY and low Hgb; hold torsemide, dapagliflozin
- monitor I/Os, creatinine, weight
- overall, treat the acute hemolytic anemia, monitor volume status, and diuresis may be needed later during this hospitalization
- Recommendations are not final until discussed with Dr. Ching
acute autoimmune hemolytic anemia
- she stopped taking her prednisone while at home after discharge from last admission
- anemia, elevated bilirubin, elevated LDH, elevated reticulocytes all point towards intravascular hemolysis
- she has hx of Ishmael+ IgG autoimmune hemolytic anemia
- resolution of the hemolytic anemia should help resolve the likely HFpEF exacerbation
- it appears steroids have been started (on chart review)
- management is per Hematology
Possible sepsis due to pneumonia
Elevated lactate
Leukocytosis
- there is a concern that she may have possible sepsis from pneumonia documented on primary team's note
- labs are concerning for sepsis, leukocytosis, but she denies infectious symptoms apart from nonproductive cough and is afebrile
- elevated lactate could be attributed to severity of acute anemia (Hgb of 5.5 from baseline of 9ish), stressing overall system (diminished oxygen supply to the overall body)
- leukocytosis, could it be attributed to her steroid use? but prudent to complete an infectious workup
- lactate is now trending down, and she is on antibiotics
- f/u blood cultures
- management is per primary team
paroxysmal atrial fibrillation
- given anemia, hold apixaban
- monitor telemetry
HANNY
- Cr 1.5 from baseline of 0.7-0.8
Valvular heart disease
- last echo in February 2025, but repeat echo can be done outpatient
Pacemaker
- leadless, medtronic
- monitor telemetry
HLD
- can continue home ezetimibe once acute issues are resolved
--- NOTE | 2025-07-19 08:18 | W.PN.HOSP.TC ---
Addendum entered and electronically signed by Alexa Pond MD 07/19/25 16:50:
I saw and evaluated the patient independently. I reviewed and discussed the resident�s note and agree with findings and plan as documented by Dr. Kaba.
GENERAL: well developed, well nourished, pale and jaundiced appearing female in no apparent distress
HEENT: NC/AT--off O2
HEART: irreg irreg
LUNGS : clear to auscultation bilaterally, decreased BS
ABDOM: soft, nontender, nondistended, + bowel sounds
EXT: no cyanosis, clubbing-- 3+ LE edema bilaterally
NEUROLOGIC: grossly intact
Shock physiology--strongly suspect hypovolemia due to acute hemolytic anemia (total bilirubin elevated, LDH elevated, retic count elevated, haptoglobin pending)--has some features of septic shock with end organ damage (leukocytosis, lactic acidosis,
HANNY) from source? (PNA?, UTI?)--cardiogenic much less likely as a cause although pt with proBNP 5400 with HX of HFpEF--cont IVF, pressors, wean to off as able--really needs blood transfusion but has autoantibodies so difficult to obtain
blood--apprec heme, steroids started--trend HGB--UA also positive for blood but only 2-3 RBC/hpf--cont vanco/zosyn and await cultures--trend troponin
Acute on chronic anemia due hemolytic anemia--Hx warm autoimmune hemolytic anemia--HGB 6.3--apprec heme--starting steroids--await haptoglobin--needs transfusions--not iron deficient, folate/B12 WNL--agree with holding Eliquis for now
HANNY, likely prerenal--due to hypovolemia with shock physiology--baseline creat 0.8--creat on admission 1.4--cont IVF-- Hold torsemide, spironolactone, dapagliflozin--transfuse--if no better, consult renal
Hyperkalemia likely due to prerenal HANNY--follow on IVF--Potassium 5.6 on admission, 5.3 on 07/19/2025
Hypovolemic Hyponatremia-- Monitor with IV fluids
Acute hypoxemic resp insufficiency--Orthopnea, pedal edema, b/l pleural effusions--likely due to high output heart failure from severe anemia--suspect volume depletion so do not believe exacerbation of chronic HFpEF--hold on echo for now--wean O2
Hx Hodgkin's lymphoma status post splenectomy & mantle radiation/History of radiation pneumonitis--presumed treated--WBC 30K, follow
Chronic HFpEF without exacerbation- Hold torsemide, dapagliflozin
Paroxysmal atrial fibrillation with leadless pacemaker- Hold Eliquis given severe anemia due to hemolytic anemia
History of right loculated pleural effusion/Mitral valve replacement/Aortic valve replacement/Tricuspid valve repair with ring--apprec cards
Leukocytoclastic vasculitis- outpt follow up
Bipolar depression- Continue bupropion, sertraline
Hypothyroidism- Continue levothyroxine
Obstructive sleep apnea/Restrictive lung disease--CPAP/BiPAP as outpt?
code status --Full code
DVT prophylaxis�SCDs
Original Note:
Today's Communication/Plan
-
Suspecting hypovolemic shock from hemolysis, vs less likely septic and cardiogenic shock.
For suspected recurrence of warm AIHA, dexamethasone 40 mg IV daily for 4 days.
Hb dropped 6.3 to 5.5 despite 1 u pRBC. Ordered 2nd u pRBC. [place] searching for a match since she has many antibodies.
Hypotension: weaning 4g Levophed. Continuing gentle fluids NS at 60 ml/hr, given chronic HFpEF and possibility for exacerbation causing shock.
Continue Zosyn and vancomycin, pending blood cultures.
Assessment / Plan
Assessment / Plan
Impression
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
effusion, P A-fib (leadless pacemaker, Eliquis), mitral valve replacement, aortic valve replacement, tricuspid valve repair with ring, bipolar depression, hypothyroidism, BECCA, restrictive lung disease, pulmonary hypertension, who presented with
bilateral lower extremity edema, SOB, N/V once the morning of presentation, upper abdominal pain that (wraps around like a band).
Presents from home with her neighbor. States she's been feeling poorly for past few days.
Denied cough, chest pain, diarrhea. Had chills but denied fever.
She has been pain having chronic pain across the upper part of her belly but this has been chronic.
She has been having black stool which is chronic but she takes iron supplement. Denies giselle blood in the stool.
ED course
Afebrile, tachypneic, ill appearing but in no acute distress
CBC: WBC 30.4 with a left shift, hemoglobin 6.3
CMP: Sodium 128 BUN/creat 29/1.4 mild elevation liver enzymes, Bilirubin 11.3
BNP 5390
Lactic: 5.5
IVF running softly as BNP elevated and awaiting CXR
Dr. Rubin reviewed CXR, questionable R lower lung PNA
Heme neg stool
Per lab, Pt has antibodies and it will be at least a couple of hours for Blood bank to get the blood
US GB radiology report IMPRESSION:
1. Moderate diffuse liver disease.
2. Gallbladder sludge.
3. No sonographic evidence for biliary obstruction.
PLAN
#Shock (lactic acidosis, HANNY)
�Lactic acid 5.5 on admission, down trended to 2.3
#Hypovolemic shock due to hemolytic anemia most likely
�See hemolytic anemia notes
#Septic shock possible (most likely due to pneumonia)
Leukocytosis WBC 30 on admission, tachypnea
#Cardiogenic shock possible
�Hx HFpEF. Cardiac BNP 5400
Infectious workup
� COVID and flu negative
- Chest x-ray: appears to show consolidation in the right middle lower lobe per ED physician, but not noted by radiology 1. Mild acute interstitial and alveolar cardiogenic pulmonary edema. 2. Previous mitral valve repair and intraventricular
cardiac pacemaker placement. 3. Minimal bilateral pleural effusions. 4. Bilateral breast implants in place.
� UA 07/19/25 after initiating antibiotics: Nitrites positive leukocyte esterase 1+, few bacteria, 0-2 WBCs, 0-2 squamous epithelial cells
� Total bilirubin 11.3 on admission, 10.1 07/19/2025. Direct bilirubin 7.3. Likely due to hemolysis (versus cholecystitis)
� Abdominal ultrasound: 1. Moderate diffuse liver disease. 2. Gallbladder sludge. 3. No sonographic evidence for biliary obstruction.
- Blood cultures: pending
- Considering CT Chest, CT A/P
Interventions
- IV fluids although caution given swelling, elevated BNP and history of HFpEF
- Vancomycin/Zosyn
� Levophed 4 mg
- Serial TnI & EKGs
- 2nd unit pRBCs
# Hemolytic anemia
# Acute on chronic macrocytic anemia due hemolytic anemia
Hx warm autoimmune hemolytic anemia
Hemoglobin: BL 9.1 last month, 6.3 on admission 07/18/2025, 5.5 on 07/19/2025
Reticulocyte 19.1% elevated
PT 28.6, INR 2.69, APTT 38.9�all high
LDH 1447�hemolysis. Haptoglobin: pending
Total bilirubin 11.3 on admission, 10.1 07/19/2025. Direct bilirubin 7.3 (ossibly from mod liver disease)
Ion studies wnl
B12 770 and folate both wnl
- Held Eliquis for now
- Monitor for DIC
- [place] searching for a match for 2nd unit of blood
Hematology consulted
- Dexamethasone 40 mg p.o. daily for 4 days, followed by prednisone 50 mg daily for warm AIHA per hematology. Likely will need outpatient Rituxan
- recently admitted from 05/04/2025- 05/16/2025, lab test suggestive of hemolytic anemia; she was given high dose dexamethasone for 4 days with hemoglobinimprovement. Chart review notes JORGE attempted 3x at with inability to obtain results, thus
sent to [facility] for complex antibody analysis. KIMANI positive. She was discharged on Prednisone and had a follow up with Dr. Zimmerman, analytical data miner/oncologist, prednisone taper started and ended on 06/28/2025. She also had a follow-up with Dr. Junior, a
rubber vulcanizing machine operator, for an autoimmune disease work-up and reportedly came back normal.
# HANNY, likely prerenal
Creatinine: Baseline 0.8, 1.5 07/19/2025
- IV fluids
- Hold torsemide, spironolactone, dapagliflozin
# Hyperkalemia 2/2 prerenal HANNY
Potassium 5.6 on admission, 5.3 on 07/19/2025
- IV fluids
� EKG: Sinus rhythm with sinus arrhythmia with occasional ventricular�paced complexes
- Considering PM BMP. Expecting K to decrease with HANNY tx with fluids.
- If K increases, will consider iv ca gluconate, albuterol, insulin + glucose, Lokelma
# Hypovolemic Hyponatremia SIADH/volume
- Monitor with IV fluids
#Orthopnea, pedal edea. b/l pleural effusions iso acute severe anemia
#Concern for high output HF vs acute on chronic HFpEF
#Hypovolemic not volume overloaded, so
On 2L NC
Hx Hodgkin's lymphoma status post splenectomy & mantle radiation
History of radiation pneumonitis
- echo now would not belt changer so holding off (expecting high EF, but if low EF, would not diruese due to soft BPs on pressor)
Chronic HFpEF
- Hold torsemide, dapagliflozin
Paroxysmal atrial fibrillation with leadless pacemaker
- Hold Eliquis given severe anemia due to hemolytic anemia
History of right loculated pleural effusion
Mitral valve replacement
Aortic valve replacement
Tricuspid valve repair with ring
Leukocytoclastic vasculitis
- No rheumatological etiology. Could be followed and no treatment was offered
Bipolar depression
- Continue bupropion, sertraline
Hypothyroidism
- Continue levothyroxine
Obstructive sleep apnea
Restrictive lung disease
Full code
DVT prophylaxis�SCDs
Regular diet
Anticipated Discharge: > 48 hours
Subjective/Interval History
-
Date of Service: July 19, 2025
Hemoglobin dropped from 6.3-5.5 overnight despite 1 unit of blood. A second unit of blood ordered.
Patient developed significant orthopnea during minimal elevation of head of bed, which was requested by the patient for back pain. Her increased work of breathing/tachypnea decreased to normal after around 30 seconds. She stated that dyspnea has
occurred multiple times not at changes in position. She stated that she feels the shortness of breath on position change contributes to her anxiety, which exacerbates the tachypnea.
Objective Data
-
Labs:
Laboratory Results
07/19/25
03:15
WBC 29.2 H
Hgb 5.5 L*
Hct 16.3 L*
Plt Count 167
Sodium 131 L
Potassium 5.3 H
Chloride 95 L
Carbon Dioxide 27
BUN 31 H
Creatinine 1.5 H
Glucose 101 H
Calcium 8.7
Total Bilirubin 10.1 H
AST 126 H
ALT 53 H
Alkaline Phosphatase 182 H
Vital Signs:
Vital Signs
Temp Pulse Resp BP Pulse Ox
98.2 F 82 32 99/61 100
07/18/25 22:55 07/19/25 07:00 07/19/25 07:00 07/19/25 07:00 07/19/25 07:00
I&O
07/18/25 07/19/25 07/20/25
06:59 06:59 06:59
Intake Total 600 / 600
Output Total 500 / 500
Balance 100 / 100
Review of Systems
-
History Source: Patient
All other systems: Reviewed and negative
Constitutional: Reports Chills and Weakness; Denies Fever
EENT: Denies Blurry Vision
Respiratory: Reports Trouble Breathing; Denies Cough
Cardiac: Reports Orthopnea; Denies Chest Pain or Syncope
Abdomen/GI: Reports Abdominal Pain (LUQ pain), Constipated and Black Stools; Denies Diarrhea or Bloody Stools
Genitourinary: Denies Dysuria or Frequency
Musculoskeletal: Reports Edema (acute on chronic b/l LEs)
Neuro: Denies Weakness, Numbness or Lightheadedness
Endocrine: Reports Temp Intolerance
Hematologic / Lymphatic: Reports Lymphedema
Psych: Reports Anxious
Physical Exam
-
General: Well Developed, Well Nourished, No Apparent Distress, Comfortable, Conversant, Appears Chronically Ill and Cachectic
HEENT: Normocephalic, Atraumatic, Anicteric, No Ptosis, Nose Appears Normal and Ears Appear Normal; Negative Oxygen (satting 94%)
Respiratory: Crackles (extend higher on left posterior lung field) and Accessory Resp Muscle Use
Cardiac: Regular Rhythm and S1/S2
GI: Soft, Nontender, Nondistended, Normal Bowel Sounds and Flat
Musculoskeletal: No Clubbing, No Cyanosis, Edema, Right Lower Extrem and Edema, Left Lower Extrem
Skin: Warm and Dry
Neuro: Awake, Alert, Nonfocal/Grossly Intact and Central Nerve's Intact
Psych: Calm and Anxious
--- NOTE | 2025-07-19 08:55 | PHA.VAN.IN ---
Assessment
- Assessment
Renal Function: SCR Appears Elevated from baseline (SCR 1.5 vs ~0.7-0.8)
Concomitant Antimicrobials: piperacillin/tazobactam
Plan
- Plan
Initial / Loading Dose: 1000mg - 07/18 20:59
Maintenance Regimen: dosing by level - give 500mg x1 today
Monitoring: random 07/20 0600
MRSA Screen: Ordered per protocol
Pharmacokinetics Vancomycin I
- -
Patient Age: 64
Patient Sex: Female
Vancomycin Day #: 1
Indication: Pulmonary/Respiratory
Requesting Provider: Dr. Hughes
Pertinent Antimicrobial Allergies:
nitrofurantoin - swelling
sulfonamide antibiotics - N/V
Height / Weight:
Height 5 ft 2 in
Actual Weight 47.3 kg
IBW in k
Pertinent Past Medical History: BMI ~19; Hodgkin's lymphoma s/p splenectomy
- Vital Signs / Lab Results
Temp Pulse Resp BP Pulse Ox
98.2 F 81 20 112/63 100
07/18/25 22:55 07/19/25 08:30 07/19/25 08:30 07/19/25 08:30 07/19/25 08:30
Lab Results - Hematology
07/18/25 07/19/25
16:31 03:15
WBC 30.4 H 29.2 H
Lab Results - Chemistry
07/18/25 07/19/25
16:31 03:15
BUN 29 H 31 H
Creatinine 1.4 H 1.5 H
Estimated Creat Clear 29
Albumin 3.9 3.4 L
07/18/25 07/18/25 07/19/25
19:00 22:26 03:15
Lactic Acid 5.5 H* 4.3 H* 3.0 H
07/19/25
07:38
Lactic Acid 2.3 H
Lab Results - Urine
07/19/25
05:25
Urine Nitrite (Reflex) Positive A
Leukocyte Esterase Rfl 1+ A
Urine WBC (Reflex) 0-2
Ur Squamous Epith Cells 0-2
Urine Bacteria (Reflex) Few A
Microbiology Results
07/18/25 20:25 Influenza Types A & B (LAVERNE) - Final
Nasal Swab Negative for Influenza A & B, NAAT
Negative results must be combined with clinical observations
and patient history.
Nucleic Acid Amplification test (NAAT)performed on the
[employer] platform.
--- NOTE | 2025-07-19 09:41 | CM ---
Addendum entered by Katie Reynolds 07/19/25 17:06:
confirmed information with patient at bedside with physicians in IMU earlier today and patient plan is for home with VN watch for home O2 assessment needs vs SNF.
Original Note:
Pending assessment at bedside with physicians in IMU. CM will meet with patient and update assessment with patient; in prior assessment, Patient resides alone in a 2 story home with no steps. Independent in all areas, no DME use previously. Patient
previously engaged in pulmonary rehab [place] [facility] [place]. Denies SNF hx, prev known to [facility] for PT/OT. Patent uses Dr. Jade and the [facility] in [place] for pharmacy needs. CM will continue to follow for discharge planning needs.
Plan: tentative plan is Home, with VN vs SNF pending medical treatment plan
[2025-07-19 12:09] LABS: Hematocrit 19.4 % (37.0-47.0); Hemoglobin 6.0 g/dL (12.0-16.0)
[2025-07-19] MEDS: VANCOCIN HCL 500 MG 100 IV (12:29)
[2025-07-19] MEDS: NSS 1000 IV (12:29)
[2025-07-19] MEDS: DECADRON 40 MG IV (12:29)
[2025-07-19 13:21] LABS: Troponin I 0.024 ng/ml
--- NOTE | 2025-07-19 14:05 | CON.ONC ---
Consultation
-
Date Consultation Requested: 07/18/25
Date Consultation Performed: 07/19/25
Requesting Provider: Oswald Hughes MD
Performing Provider: Blair Solo MD; So, Dorothy Hung MD
Reason for Consultation: AIHA
Impression
Impression
Autoimmune Hemolytic Anemia
Leukocytosis
LFT elevation
Lower Extremity edema
Plan
Plan
Challenging as patient is currently seeing different physicians from different establishment.
Prior history of suspected AIHA, with improvement in hemoglobin with dexamethasone.
-Start dexamethasone 40mg/day-- transition to prednisone as outpatient, may consider Rituximab as outpatient per patient's facing slitter's direction.
-Haptoglobin to check for hemolysis-- reticulocyte, LDH elevated.
-Blood transfusion when available.
-Lower extremity edema likely related to diastolic dysfunction, cardiology following.
-Continue to follow with outpatient rheumatology and hematology
Patient History
History of Present Illness
64 year old female with PMH of Hodgkin's disease s/p radiation therapy, s/p exploratory staging with splenectomy/appendectomy, node biopsy (1981) , AIHA, leukocytoclastic small vessel vasculitis, radiation pneumonitis, Valvular heart disease s/p
AVR, chronic HFpEF, Acquired Hypothyroidism presenting bilateral leg edema.
The patient initially presented for bilateral edema which is noted to be chronic and has been ongoing since last year, but has recently gotten worse. She also reports upper abdominal pain, ongoing for a few days, described as pressure like,
radiating to the back and worsening when leaning forward, associated with 1 episode of vomiting--moderate amount, yellow, mostly liquid. Dark orange urine also reported.
As for the anemia, the patient was recently admitted from 05/04/2025- 05/16/2025, lab test suggestive of hemolytic anemia; she was given high dose dexamethasone for 4 days with hemoglobinimprovement. Chart review notes JORGE attempted 3x at with
inability to obtain results, thus sent to [facility] for complex antibody analysis. KIMANI positive. She was discharged on Prednisone and had a follow up with Dr. Zimmerman, facing slitter/oncologist, prednisone taper started and ended on 06/28/2025. She also
had a follow-up with Dr. Junior, a rrts, for an autoimmune disease work-up and reportedly came back normal.
Past-Medical/Surgical History
Hogkin's diease s/p radiation s/p exploratory staging with splenectomy/appendectomy, node biopsy (1981)
Hemolytic Anemia
Radiation pneumonitis
Valvular heart disease s/p AVR
Acquired Hypothyroidism
Basal Cell Carcinoma s/p excision
other Sx Hx: Thoracoscopy surgery with pleurodesis, Breast augmentation
Patient Medication
�Medication �Instructions �Recorded �Confirmed �Last Taken �Type
bupropion HCl 150 mg 24 hr tablet, 150 mg PO DAILY Depression 11/23/13 05/10/25 03/03/25 History
extended release
ezetimibe 10 mg tablet 10 mg PO DAILY High Cholesterol 06/10/24 05/10/25 03/03/25 History
pantoprazole 40 mg tablet,delayed 40 mg PO DAILY Gastrointestinal 06/10/24 05/10/25 03/03/25 History
release Issue
biotin 5,000 mcg chewable tablet 5,000 mcg PO DAILY Supplement 03/03/25 05/10/25 03/03/25 History
cholecalciferol (vitamin D3) 50 50 mcg PO QPM Supplement 03/03/25 05/10/25 03/02/25 History
mcg (2,000 unit) capsule
dapagliflozin propanediol 10 mg 10 mg PO QPM Diabetes 03/03/25 05/10/25 03/02/25 History
tablet (Farxiga)
ferrous sulfate 325 mg (65 mg 325 mg PO QPM Supplement 03/03/25 05/10/25 03/02/25 History
iron) tablet (iron)
potassium chloride 20 mEq 20 meq PO QPM Supplement 03/03/25 05/10/25 03/02/25 History
tablet,extended release
sertraline 50 mg tablet 50 mg PO DAILY Mental 03/03/25 05/10/25 03/03/25 History
Health/Anxiety
torsemide 20 mg tablet 20 mg PO DAILY Fluid 03/03/25 05/10/25 03/03/25 History
Retention/Swelling
apixaban 5 mg tablet (Eliquis) 5 mg PO BID #60 tabs 03/07/25 05/10/25 Unknown Rx
levothyroxine 88 mcg tablet 88 mcg PO DAILY@0400 #30 tabs 03/07/25 05/10/25 Unknown Rx
spironolactone 25 mg tablet 12.5 mg (1/2 x 25 mg) PO DAILY #30 05/07/25 05/10/25 Unknown Rx
Held on 05/16/25. tabs
Instructions: Until seen by
Dr. Ching in office
prednisone 20 mg tablet 40 mg (2 x 20 mg) PO DAILY 21 days 05/16/25 Unknown Rx
#42 tabs
Active Medications
Generic Name Dose Route Start Last Admin
Trade Name Freq PRN Reason Stop Dose Admin
Dexamethasone Sodium Phosphate 40 mg 07/19/25 12:00 07/19/25 12:29
Dexamethasone (4 Mg/Ml) 20 Mg/5 Ml Vial IV 07/23/25 11:59 40 mg
DAILY JASEN Administration
Sodium Chloride 1,000 mls @ 60 mls/hr 07/18/25 22:44 07/19/25 12:29
Nss IV 1,000 mls
.[id number] JASEN Administration
Vancomycin HCl 1 each/ Device 0 mls @ 0 mls/hr 07/18/25 22:44
IV
PER PROTOCOL JASEN
Protocol
As Directed
Piperacillin Sod/Tazobactam Sod 2.25 grams in 50 mls @ 100 mls/hr 07/19/25 00:00 07/19/25 11:35
Zosyn IV 50 mls
Q6H JASEN Administration
Norepinephrine Bitartrate 4 mg in 250 mls @ 0 mls/hr 07/19/25 04:15 07/19/25 04:23
Levophed IV 250 mls
PER PROTOCOL JASEN Administration
Protocol
Per Protocol
Levothyroxine Sodium 88 mcg 07/19/25 06:00 07/19/25 06:17
Levothyroxine 88 Mcg Tablet PO 08/16/25 05:59 88 mcg
DAILY @ 0600 JASEN Administration
Prednisone 50 mg 07/23/25 08:00
Prednisone 50 Mg Tablet PO 08/20/25 07:59
DAILY JASEN
Sodium Chloride 0 flush 07/18/25 23:00
Sodium Chloride 0.9% (Flush) Syringe IV 08/15/25 22:59
PER PROTOCOL JASEN
Review of Systems
-
History Source: Patient
Constitutional: Reports Weight Loss; Denies Fever
EENT: Reports No Symptoms
Respiratory: Reports Trouble Breathing
Cardiac: Denies Chest Pain or Palpitations
GI: Reports Other (Black stoolw)
: Reports Other (Dark colored urine)
Musculoskeletal: Reports Edema
Skin: Reports Rash
Neuro: Reports No Symptoms
Hematologic/Lymphatic: Reports Bruising
Psych: Reports No Symptoms
Physical Exam
-
General: No Apparent Distress, Conversant and Appears Chronically Ill
HEENT: Jaundice
Cardiology: Normal Sinus Rhythm, S1 and S2
Pulmonary: Other ((+) crackles on left lung)
GI: Normal Bowel Sounds, Hepatomegaly and Other (tender in upper quadrant)
Musculoskeletal: Edema, Right Lower Extrem and Edema, Left Lower Extrem
Extremities: Pulses Present
Skin: Warm
Psych: Calm
Labs
Lab Results
WBC 29.2 10^3/uL (4.8-10.8) H 07/19/25 03:15
RBC 1.39 10^6/uL (4.20-5.40) L 07/19/25 03:15
Hgb 6.0 g/dL (12.0-16.0) L* 07/19/25 11:51
Hct 19.4 % (37.0-47.0) L* 07/19/25 11:51
MCV 117.3 fL (81.0-99.0) H 07/19/25 03:15
MCH 39.6 pg (27.0-31.0) H 07/19/25 03:15
MCHC 33.7 g/dL (33.0-37.0) 07/19/25 03:15
RDW 22.6 % (11.5-14.5) H 07/19/25 03:15
Plt Count 167 10^3/uL (130-400) 07/19/25 03:15
MPV 10.7 fL (7.4-10.4) H 07/19/25 03:15
Abs Immat Gran (auto) 1.2 10^3/uL (0-0.05) H 07/19/25 03:15
Absolute Neuts (auto) 24.5 10^3/uL (1.4-6.5) H 07/19/25 03:15
Absolute Lymphs (auto) 0.4 10^3/uL (1.2-3.4) L 07/19/25 03:15
Absolute Monos (auto) 3.1 10^3/uL (0.1-0.6) H 07/19/25 03:15
Absolute Eos (auto) 0.0 10^3/uL (0-0.7) 07/19/25 03:15
Absolute Basos (auto) 0.1 10^3/uL (0-0.2) 07/19/25 03:15
Immature Gran % 4.0 % (0-0.5) H 07/19/25 03:15
Neutrophils % 83.9 % (42.2-75.2) H 07/19/25 03:15
Lymphocytes % 1.3 % (20.5-51.1) L 07/19/25 03:15
Monocytes % 10.6 % (1.7-9.3) H 07/19/25 03:15
Eosinophils % 0.0 % (0-6) 07/19/25 03:15
Basophils % 0.2 % (0-2) 07/19/25 03:15
Creatinine 1.5 mg/dL (0.6-1.0) H 07/19/25 03:15
Vital Signs
Vital Signs
Temp Pulse Resp BP Pulse Ox
97.8 F 81 19 92/49 100
07/19/25 12:35 07/19/25 13:00 07/19/25 13:00 07/19/25 13:00 07/19/25 13:00
--- NOTE | 2025-07-19 14:17 | PTCARENOTE ---
Rec'd pt this AM. Remains on levo 4mcg currently. 100% on 2L, duarte off O2, Sat drops to 94% but pt becomes very symptomatic, tachypnic and SOB. Recovers on 2L NC. OOB x2 to chair with min assist. poor appetite.
[2025-07-19 16:54] LABS: Blood Urea Nitrogen 29 mg/dl (7-17); Calcium 8.3 mg/dl (8.4-10.2); Carbon Dioxide 26 mmol/L (22-30); Chloride 91 mmol/L (98-107); Estimated Creatinine Clearance 33 ml/min; Glucose 342 mg/dl (70-99); Potassium 4.3 mmol/L (3.5-5.1); Sodium 123 mmol/L (135-145); eGFR 46.21
[2025-07-19 17:02] LABS: Troponin I 0.025 ng/ml
[2025-07-19 23:16] LABS: Troponin I 0.026 ng/ml
[2025-07-20] VITALS (25 sets, daily range): BP systolic 108–177; BP diastolic 60–112; BMI 19.5
[2025-07-20] MEDS: ZOSYN 50 IV ×5 (00:28→23:25)
--- NOTE | 2025-07-20 03:01 | PTCARENOTE ---
Assumed care for patient overnight. Pt AAOx3. Pt weaned to 1L NC, 98%. Levo weaned off. BP stable. VSS. Pt ambulated to BSC with assist of 1. Urine dark. IVF cont. IV abx cont. Awaiting blood. Labs in AM. Pt offers no complaints at this time. Call
farah is within reach.
[2025-07-20] MEDS: NSS 1000 IV (04:42)
[2025-07-20] MEDS: ANESTHETIC LOZENGE 1 LOZENGE PO (05:32)
[2025-07-20] MEDS: SYNTHROID 88 MCG PO (05:32)
[2025-07-20 05:58] LABS: Hematocrit 19.4 % (37.0-47.0); Hemoglobin 7.1 g/dL (12.0-16.0); Mean Corp Hgb Conc. 36.6 g/dL (33.0-37.0); Mean Corpuscular Volume 117.6 fL (81.0-99.0); Platelet Count 187 10^3/uL (130-400); Red Cell Dist. Width 23.4 % (11.5-14.5)
--- NOTE | 2025-07-20 06:11 | W.PN.UPDATE ---
Update Note
Progress Note Update
RN reports patient is having 'nagging cough' VSS stable. Lozenges ordered.
She reports back stating patient is still having cough with wheezes, some rales. hx of HF, Torsemide is on hold. on IV fluids
will order covid r/o, chest xray and duoneb in AM.
stable VS, no other new complaints.
[2025-07-20 06:17] LABS: ALT (SGPT) 72 U/L (0-35); AST (SGOT) 157 U/L (14-36); Albumin 3.2 g/dl (3.5-5.0); Alkaline Phosphatase 165 U/L (38-126); Blood Urea Nitrogen 26 mg/dl (7-17); Calcium 8.6 mg/dl (8.4-10.2); Carbon Dioxide 28 mmol/L (22-30); Chloride 98 mmol/L (98-107); Estimated Creatinine Clearance 43 ml/min; Glucose 146 mg/dl (70-99); Magnesium 2.4 mg/dl (1.6-2.3); Potassium 4.1 mmol/L (3.5-5.1); Sodium 134 mmol/L (135-145); Total Protein 6.4 g/dl (6.3-8.2); eGFR > 60.00
[2025-07-20 06:20] LABS: Troponin I 0.025 ng/ml
--- NOTE | 2025-07-20 06:26 | PTCARENOTE ---
Patient c/o persistent cough and a wheeze. Expiratory wheeze audible. Pt denies any SOB. Pt remains 98% on 1L NC. [employer] notified. Chest x-ray ordered, duoneb, and covid swab, collected and sent to the lab. PRN Lozenge given see NOV.
[2025-07-20 06:42] LABS: COVID-19 Antigen Negative (Negative)
[2025-07-20 07:00] LABS: Nucleated Red Blood Cells % 2.7 %
[2025-07-20] MEDS: DUONEB 3 ML INH ×2 (07:41→20:49)
--- NOTE | 2025-07-20 07:47 | W.PN.HOSP.TC ---
Addendum entered and electronically signed by Alexa Pond MD 07/20/25 14:05:
I saw and evaluated the patient independently. I reviewed and discussed the resident�s note and agree with findings and plan as documented by Dr. Kaba.
GENERAL: well developed, well nourished, pale and jaundiced appearing female in no apparent distress
HEENT: NC/AT--off O2
HEART: irreg irreg, tachycardic
LUNGS : tachypneic decreased BS
ABDOM: soft, nontender, nondistended, + bowel sounds
EXT: no cyanosis, clubbing-- 3+ LE edema bilaterally
NEUROLOGIC: grossly intact
Acute hypoxemic resp insufficiency with tachypnea--Orthopnea, pedal edema, b/l pleural effusions--likely due to high output heart failure from severe anemia, volume retention from large steroid dosing--stopped IVF and starting lasix IV today with
torsemide to restart in AM--s/p lasix 20 mg IV x 2 and giving 80mg IV now--STAT CXR portable, estrada--replete potassium with diuresis
Shock physiology--resolved- off pressors--strongly suspected hypovolemia due to acute hemolytic anemia--has some features of septic shock with end organ damage (leukocytosis, lactic acidosis, HANNY) from source? (PNA?, UTI?)--cardiogenic much less
likely although pt with proBNP 5400 with HX of HFpEF--stop IVF, pressors off--really needs blood transfusion but has autoantibodies so difficult to obtain blood--apprec heme, steroids started and large doing likely contributing to fluid retention--
HGB increased to 7.1 without transfusion yet--UA also positive for blood but only 2-3 RBC/hpf--cont zosyn (neg MRSA screen so vanco stopped) and await cultures--consideration for CT scan chest/ab/pelvis to eval for possible infectious source
Acute on chronic anemia due hemolytic anemia--Hx warm autoimmune hemolytic anemia--HGB 6.3 now up to 7.1--apprec heme--cont steroids--await haptoglobin--needs transfusions--not iron deficient, folate/B12 WNL--agree with holding Eliquis for
now--restart as soon as able
HANNY, likely prerenal--resolved--due to hypovolemia with shock physiology--baseline creat 0.8--creat on admission 1.4--stopped IVF-- Hold torsemide, spironolactone, dapagliflozin--transfuse--if no better, consult renal
Hyperkalemia likely due to prerenal HANNY--follow on IVF--Potassium 5.6 on admission, 5.3 on 07/19/2025--now hypokalemic--replete
Hypovolemic Hyponatremia-- follow
Hx Hodgkin's lymphoma status post splenectomy & mantle radiation/History of radiation pneumonitis--presumed treated--WBC 30K, follow
Chronic HFpEF without exacerbation- Hold torsemide, dapagliflozin
Paroxysmal atrial fibrillation with leadless pacemaker- Hold Eliquis given severe anemia due to hemolytic anemia
History of right loculated pleural effusion/Mitral valve replacement/Aortic valve replacement/Tricuspid valve repair with ring--apprec cards
Leukocytoclastic vasculitis- outpt follow up
Bipolar depression- Continue bupropion, sertraline
Hypothyroidism- Continue levothyroxine
Obstructive sleep apnea/Restrictive lung disease--CPAP/BiPAP as outpt?
code status --Full code
DVT prophylaxis�SCDs
Original Note:
Today's Communication/Plan
-
- Blood cultures: No growth in 24 hours
� Urine culture: No growth
- sputum cx pending collection
- Considering CT Chest if no HANNY on Lasix, CT A/P
- Vancomycin/Zosyn started in ED 07/18/2025. Vancomycin discontinued due to negative MRSA nares. Zosyn continued
- s/p 1unit pRBCs. 2nd unit: [place] searching for match for 1 day. Hemoglobin proved on dexamethasone. Canceled second unit PRBCs: Not pursuing further blood transfusions
� Levophed 4 mg weaned. Holding off on adding midodrine, since blood pressures have been stable
Early AM: persistent cough, bilateral crackles on lung exam. Suspect fluid overload. Did not renew NSS. CXR: Interstitial and alveolar edema. Small right and very small left pleural effusion adjacent atelectasis
� Furosemide 40 mg IV once
- Chest pain. ACS ruled out: Serial TnI (undetectable) & EKGs (sinus rhythm)
Assessment / Plan
Assessment / Plan
Impression
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
effusion, P A-fib (leadless pacemaker, Eliquis), mitral valve replacement, aortic valve replacement, tricuspid valve repair with ring, bipolar depression, hypothyroidism, BECCA, restrictive lung disease, pulmonary hypertension, who presented with
bilateral lower extremity edema, SOB, N/V once the morning of presentation, upper abdominal pain that (wraps around like a band).
Presents from home with her neighbor. States she's been feeling poorly for past few days.
Denied cough, chest pain, diarrhea. Had chills but denied fever.
She has been pain having chronic pain across the upper part of her belly but this has been chronic.
She has been having black stool which is chronic but she takes iron supplement. Denies giselle blood in the stool.
ED course
Afebrile, tachypneic, ill appearing but in no acute distress
CBC: WBC 30.4 with a left shift, hemoglobin 6.3
CMP: Sodium 128 BUN/creat 29/1.4 mild elevation liver enzymes, Bilirubin 11.3
BNP 5390
Lactic: 5.5
IVF running softly as BNP elevated and awaiting CXR
Dr. Rubin reviewed CXR, questionable R lower lung PNA
Heme neg stool
Per lab, Pt has antibodies and it will be at least a couple of hours for Blood bank to get the blood
US GB radiology report IMPRESSION:
1. Moderate diffuse liver disease.
2. Gallbladder sludge.
3. No sonographic evidence for biliary obstruction.
PLAN
#Shock (lactic acidosis, HANNY)
�Lactic acid 5.5 on admission, down trended to 2.3
#Hypovolemic shock due to hemolytic anemia most likely
�See hemolytic anemia notes
#Septic shock possible (most likely due to pneumonia)
Leukocytosis WBC 30 on admission, tachypnea
#Cardiogenic shock possible; chronic HFpEF; multivalvular disease
�Hx HFpEF. Cardiac BNP 5400
Infectious workup
� COVID and flu negative
- Chest x-ray: appears to show consolidation in the right middle lower lobe per ED physician, but not noted by radiology 1. Mild acute interstitial and alveolar cardiogenic pulmonary edema. 2. Previous mitral valve repair and intraventricular
cardiac pacemaker placement. 3. Minimal bilateral pleural effusions. 4. Bilateral breast implants in place.
� UA 07/19/25 not convincing for UTI. After initiating antibiotics: Nitrites positive leukocyte esterase 1+, few bacteria, 0-2 WBCs, 0-2 squamous epithelial cells
� Urine culture no growth
� Total bilirubin 11.3 on admission, 10.1 07/19/2025. Direct bilirubin 7.3. Likely due to hemolysis (versus cholecystitis)
� Abdominal ultrasound: 1. Moderate diffuse liver disease. 2. Gallbladder sludge. 3. No sonographic evidence for biliary obstruction.
- Blood cultures: No growth in 24 hours
- Considering CT Chest if no HANNY on Lasix, CT A/P
- Chest pain. ACS ruled out: Serial TnI (undetectable) & EKGs (sinus rhythm)
- sputum cx pending collection
Interventions
- Vancomycin/Zosyn started in ED 07/18/2025. Vancomycin discontinued due to negative MRSA nares. Zosyn continued
- s/p 1unit pRBCs. 2nd unit: [place] searching for match for 1 day. Hemoglobin proved on dexamethasone. Canceled second unit PRBCs: Not pursuing further blood transfusions
- IV fluids although caution given swelling, elevated BNP and history of HFpEF. Discontinued 07/20/2025
� Levophed 4 mg weaned. Holding off on adding midodrine, since blood pressures have been stable
� 07/20/25 early AM: persistent cough, bilateral crackles on lung exam. Suspect fluid overload. Did not renew NSS. CXR: Interstitial and alveolar edema. Small right and very small left pleural effusion adjacent atelectasis
� Furosemide 40 mg IV
Cardiology consulted
� Would a right heart cath to be useful/influence management?
# Hemolytic anemia
# Acute on chronic macrocytic anemia due hemolytic anemia
Hx warm autoimmune hemolytic anemia
Hemoglobin: BL 9.1 last month, 6.3 on admission 07/18/2025, 5.5 on 07/19/2025
Reticulocyte 19.1% elevated
PT 28.6, INR 2.69, APTT 38.9�all high
LDH 1447�hemolysis. Haptoglobin: pending
Total bili 11.3 on admission, downtrended to 7.5. Direct bili 7.3 (possibly from mod liver disease). Indirect hyperbili due to hemolysis
Ion studies wnl
B12 770 and folate both wnl
- Held Eliquis for now
- Monitor for DIC
- [place] searching for a match for 2nd unit of blood
Hematology consulted
- Dexamethasone 40 mg p.o. daily for 4 days, followed by prednisone 50 mg daily for warm AIHA per hematology. Likely will need outpatient Rituxan
- recently admitted from 05/04/2025- 05/16/2025, lab test suggestive of hemolytic anemia; she was given high dose dexamethasone for 4 days with hemoglobin improvement. Chart review notes JORGE attempted 3x at with inability to obtain results, thus
sent to [facility] for complex antibody analysis. KIMANI positive. She was discharged on Prednisone and had a follow up with Dr. Zimmerman, billiard player/oncologist, prednisone taper started and ended on 06/28/2025. She also had a follow-up with Dr. Junior, a
certified hearing instrument dispenser, for an autoimmune disease work-up and reportedly came back normal.
# Hypovolemic Hyponatremia SIADH/volume
- Monitor with IV fluids
NA decreased from 131 to 123 07/19/2020 5 PM and increased back to 134 07/20/2020 5 AM. Likely lab error
#Orthopnea, pedal edea. b/l pleural effusions iso acute severe anemia
#Concern for high output HF vs acute on chronic HFpEF
#Hypovolemic not volume overloaded
On 2L NC
Hx Hodgkin's lymphoma status post splenectomy & mantle radiation
History of radiation pneumonitis
- echo now would not post exchange manager so holding off (expecting high EF, but if low EF, would not diruese due to soft BPs on pressor)
07/20/25 early AM: persistent cough and wheezing
- Suspect fluid overload. Did not renew NSS. CXR Interstitial and alveolar edema. Small right and very small left pleural effusion adjacent atelectasis. Lasix 40 mg IV once
# HANNY, likely prerenal�resolved 07/20/2025
Creatinine: Baseline 0.8, 1.5 07/19/2025
- IV fluids. stopped
- Hold torsemide, spironolactone, dapagliflozin
# Hyperkalemia�resolved 07/20/25
Likely due to HANNY
Potassium 5.6 on admission, 5.3 on 07/19/2025
- IV fluids
� EKG: Sinus rhythm with sinus arrhythmia with occasional ventricular�paced complexes
Chronic HFpEF
- Hold torsemide, dapagliflozin due to shock on presentation
Paroxysmal atrial fibrillation with leadless pacemaker
- Hold Eliquis given severe anemia due to hemolytic anemia
History of right loculated pleural effusion
Mitral valve replacement
Aortic valve replacement
Tricuspid valve repair with ring
Leukocytoclastic vasculitis
- No rheumatological etiology. Could be followed and no treatment was offered
Bipolar depression
- Continue bupropion, sertraline
Hypothyroidism
- Continue levothyroxine
Obstructive sleep apnea
Restrictive lung disease
Full code
DVT prophylaxis�SCDs
Regular diet
Dispo: Lives at home alone
� Pending PT and OT when medically stable
Anticipated Discharge: > 48 hours
Subjective/Interval History
-
Date of Service: July 20, 2025
6 AM today, patient c/o persistent cough and a wheeze. Expiratory wheeze audible. Pt denies any SOB. Pt remains 98% on 1L NC. L[employer]IN[employer] SPINNER [facility] notified. Chest x-ray ordered, duoneb, and covid swab, collected and sent to the lab. PRN Lozenge given; see
MAR - received 1 lozenge.
Patient's shortness of breath improved after DuoNebs. Since she had increased crackles bilaterally, she was suspected to be fluid overloaded and was given 40 mg Lasix IV. Fluids were stopped
Objective Data
-
Labs:
Laboratory Results
07/20/25
04:40
WBC 29.4 H
Hgb 7.1 L
Hct 19.4 L*
Plt Count 187
Sodium 134 L D
Potassium 4.1
Chloride 98
Carbon Dioxide 28
BUN 26 H
Creatinine 1.0
Glucose 146 H
Calcium 8.6
Total Bilirubin 7.5 H
AST 157 H
ALT 72 H
Alkaline Phosphatase 165 H
Microbiology Results - Entire Visit
07/18/25 19:00 Blood/Venous Blood Culture - Preliminary
No Growth in 24 hours- Final report to follow
07/18/25 19:00 Blood/Venous Blood Culture - Preliminary
No Growth in 24 hours- Final report to follow
07/19/25 03:15 Nose Nasal Screen MRSA (PCR) - Final
MRSA not detected - performed by PCR methodology.
07/18/25 20:25 Nasal Swab Influenza Types A & B (LAVERNE) - Final
Negative for Influenza A & B, NAAT
Negative results must be combined with clinical observations
and patient history.
Nucleic Acid Amplification test (NAAT)performed on the
[employer] NOW platform.
Hematology and Coagulation - Last 24 hours
07/19/25 07/19/25 07/20/25 Range/Units
03:15 11:51 04:40
WBC 29.4 H (4.8-10.8) 10^3/uL
RBC 1.65 L (4.20-5.40) 10^6/uL
Hgb 6.0 L* 7.1 L (12.0-16.0) g/dL
Hct 19.4 L* 19.4 L* (37.0-47.0) %
MCV 117.6 H (81.0-99.0) fL
MCH 43.0 H (27.0-31.0) pg
MCHC 36.6 (33.0-37.0) g/dL
RDW 23.4 H (11.5-14.5) %
Plt Count 187 (130-400) 10^3/uL
MPV 10.9 H (7.4-10.4) fL
Abs Immat Gran (auto) 0.8 H (0-0.05) 10^3/uL
Absolute Neuts (auto) 26.4 H (1.4-6.5) 10^3/uL
Absolute Lymphs (auto) 0.3 L (1.2-3.4) 10^3/uL
Absolute Monos (auto) 1.8 H (0.1-0.6) 10^3/uL
Absolute Eos (auto) 0.0 (0-0.7) 10^3/uL
Absolute Basos (auto) 0.0 (0-0.2) 10^3/uL
CBC Comment
Immature Gran % 2.6 H (0-0.5) %
Neutrophils % 89.9 H (42.2-75.2) %
Lymphocytes % 1.1 L (20.5-51.1) %
Monocytes % 6.2 (1.7-9.3) %
Eosinophils % 0.1 (0-6) %
Basophils % 0.1 (0-2) %
Nucleated RBC % 2.7 %
Haptoglobin Pending
Blood Gas and Chemistry - Last 24 hours
07/19/25 07/19/25 07/19/25 Range/Units
07:38 11:51 12:39
Sodium (135-145) mmol/L
Potassium (3.5-5.1) mmol/L
Chloride (98-107) mmol/L
Carbon Dioxide (22-30) mmol/L
BUN (7-17) mg/dl
Creatinine (0.6-1.0) mg/dL
Estimated Creat Clear ml/min
eGFR
Glucose (70-99) mg/dl
Lactic Acid 2.3 H (0.7-2.0) mmol/L
Calcium (8.4-10.2) mg/dl
Magnesium (1.6-2.3) mg/dl
Total Bilirubin (0.2-1.3) mg/dl
AST (14-36) U/L
ALT (0-35) U/L
Alkaline Phosphatase (38-126) U/L
Troponin I Cancelled 0.024
Total Protein (6.3-8.2) g/dl
Albumin (3.5-5.0) g/dl
07/19/25 07/19/25 07/20/25 Range/Units
16:31 22:45 04:40
Sodium 123 L D 134 L D (135-145) mmol/L
Potassium 4.3 4.1 (3.5-5.1) mmol/L
Chloride 91 L 98 (98-107) mmol/L
Carbon Dioxide 26 28 (22-30) mmol/L
BUN 29 H 26 H (7-17) mg/dl
Creatinine 1.3 H 1.0 (0.6-1.0) mg/dL
Estimated Creat Clear 33 43 ml/min
eGFR 46.21 > 60.00
Glucose 342 H 146 H (70-99) mg/dl
Lactic Acid (0.7-2.0) mmol/L
Calcium 8.3 L 8.6 (8.4-10.2) mg/dl
Magnesium 2.4 H (1.6-2.3) mg/dl
Total Bilirubin 7.5 H (0.2-1.3) mg/dl
AST 157 H (14-36) U/L
ALT 72 H (0-35) U/L
Alkaline Phosphatase 165 H (38-126) U/L
Troponin I 0.025 0.026 0.025
Total Protein 6.4 (6.3-8.2) g/dl
Albumin 3.2 L (3.5-5.0) g/dl
Blood Bank Tests - Last 24 hours
07/18/25 Range/Units
17:37
Antibody Identification See Comments
Crossmatch IS Only See Detail
MTS Gel Crossmatch See Detail
Other lab results - Last 24 hours
07/20/25 07/20/25 Range/Units
04:40 06:20
Random Vancomycin 9.7 ug/ml
SARS-CoV-2 Antigen Negative (Negative)
Vital Signs:
Vital Signs
Temp Pulse Resp BP Pulse Ox
97.8 F 87 16 120/67 97
07/20/25 07:00 07/20/25 07:44 07/20/25 07:44 07/20/25 06:00 07/20/25 07:44
I&O
07/19/25 07/20/25 07/21/25
06:59 06:59 06:59
Intake Total 600 / 600 1180 / 1180
Output Total 500 / 500
Balance 100 / 100 1180 / 1180
Review of Systems
-
History Source: Patient
All other systems: Reviewed and negative
Physical Exam
-
General: Well Developed, No Apparent Distress, Comfortable, Conversant and Cachectic
HEENT: Normocephalic, Atraumatic, Anicteric, No Ptosis, Nose Appears Normal, Ears Appear Normal and Oxygen
Respiratory: Crackles (Diffuse crackles bilaterally appreciated on anterior lung reardon; did not ask patient to sit up for posterior lung exam due to significant orthopnea on slight head of bed elevation yesterday)
Cardiac: Regular Rhythm and S1/S2
GI: Soft, Nontender, Nondistended and Normal Bowel Sounds
Musculoskeletal: No Clubbing, No Cyanosis and No Edema
Skin: Warm and Dry
Neuro: Awake and Alert
Psych: Calm and Anxious
[2025-07-20] MEDS: DECADRON 40 MG IV (08:29)
--- NOTE | 2025-07-20 09:39 | PTCARENOTE ---
Pt with increased work of breathing this AM, requiring O2 to keep Sats above 92%, lung sounds with course crackles. chest xray done this AM. Stopped IV Fluids, notified Dr. Pond and Dr. Collazo (resident). BP stable, Stat IV lasix ordered, CT to
be done this afternoon with BMP at 1130. student life advisor and instructor at bedside. See NOV.
[2025-07-20] MEDS: LASIX 20 MG IV ×2 (09:40→11:17)
--- NOTE | 2025-07-20 10:05 | W.PN.ONC ---
Today's Communication / Plan
-
-recommend GI consult
-Continue dexamethasone 40mg/day-- transition to prednisone as outpatient
-Starting famotidine 20 BID for gastroprotection with steroid use
-Start Folic acid 1mg OD PO
-ordered Fractionate bilirubin
-recommend Rituximab as outpatient per patient's property and casualty insurance agent's direction.
-Would hold off on blood transfusion for now as hemoglobin is improving.
-Continue to follow with outpatient rheumatology and hematology
Impression
Impression
Autoimmune Hemolytic Anemia
Leukocytosis
LFT elevation
Lower Extremity edema
Plan
Plan
JORGE: IgG pos, C3 pos
Improving: Hgb: 9.8 (06/20/2025)--> 6.3--> 7.1 today.; Total bilirubin: 11.3--> 10.5--> 7.5
direct hemoglobin elevation with concurrent LFT elevation suggest element of hepatic problem, possibly autoimmune, though previous study showed elevation in F-actin IgG ab, but normal Smooth muscle Ab titer, and no improvement in LFT with
dexamethosone.
-coarse lung crackles, bilateral suggesting fluid overload
-recommend GI consult
-Continue dexamethasone 40mg/day-- transition to prednisone as outpatient
-Starting famotidine 20 BID for gastroprotection with steroid use
-Start Folic acid 1mg OD PO
-ordered Fractionate bilirubin
-recommend Rituximab as outpatient per patient's property and casualty insurance agent's direction.
-Haptoglobin to check for hemolysis-- reticulocyte, LDH elevated.
-Would hold off on blood transfusion for now as hemoglobin is improving.
-Coarse crackles suggesting fluid overload- appreciate primary and cardiology team
-Continue to follow with outpatient rheumatology and hematology
Subjective/Objective
Subjective/Objective
The patient reports feeling more out of breath today. Abdominal pain feels better. Denies ongoing bleeding, palpitations, headache, weakness, N/V.
Vital Signs:
Vital Signs
Temp Pulse Resp BP Pulse Ox
97.8 F 97 32 129/67 96
07/20/25 07:00 07/20/25 09:40 07/20/25 09:17 07/20/25 09:40 07/20/25 09:17
Lab Results:
Laboratory Data
WBC 29.4 10^3/uL (4.8-10.8) H 07/20/25 04:40
Hgb 7.1 g/dL (12.0-16.0) L 07/20/25 04:40
Plt Count 187 10^3/uL (130-400) 07/20/25 04:40
PT 28.6 Sec (11.4-14.6) H 07/18/25 19:00
INR 2.69 07/18/25 19:00
APTT 38.9 Sec (23.4-35.0) H 07/18/25 19:00
eGFR > 60.00 07/20/25 04:40
--- NOTE | 2025-07-20 10:45 | W.PN.CD ---
Today's Communication / Plan
-
assess to resume diuretic tomorrow
hold eliquis
Impression / Plan
-
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
1A Hodgkin lymphma 1982 s/p extensive radiation (no chemotherapy), pulmonary HTN, restrictive lung disease, sleep apnea, asplenia p/w dyspnea, peripheral edema in the setting of reportedly stopping prednisone c/f an acute flare of autoimmune
hemolytic anemia
Chronic HFpEF
- holding torsemide, dapagliflozin with HANNY on admission
- assess to resume diuretic tomorrow
acute autoimmune hemolytic anemia
- she stopped taking her prednisone while at home after discharge from last admission
- anemia, elevated bilirubin, elevated LDH, elevated reticulocytes all point towards intravascular hemolysis
- she has hx of Ishmael+ IgG autoimmune hemolytic anemia
- management is per Hematology
Possible sepsis
Elevated lactate
Leukocytosis
- there is a concern that she may have possible sepsis from pneumonia documented on primary team's note
- management is per primary team: on Abx
paroxysmal atrial fibrillation
- given anemia, hold apixaban
- monitor telemetry
Valvular heart disease
- last echo in February 2025: see below
Pacemaker
- leadless, medtronic
- monitor telemetry
HLD
- can continue home ezetimibe once acute issues are resolved
Echo 03/06/25
Normal left ventricular size, wall thickness and systolic function. Estimated
LVEF 55%.
Bioprosthetic mitral valve. Peak/mean gradients across the mitral valve are
26/6 mmHg. No mitral regurgitation is seen.
Bioprosthetic aortic valve. Peak/mean gradients across the aortic valve are 6/3
mmHg. No aortic regurgitation is seen.
Enlarged right ventricular size. Reduced right ventricular systolic function.
Abnormal (paradoxical) septal motion consistent with RV pacemaker.
s/p tricuspid valve ring with mean gradient of 3 mmHg. Mild/moderate tricuspid
regurgitation. Mildly elevated PASP. Estimated pulmonary artery pressure of 35-
40 mmHg.
Small pericardial effusion without evidence of hemodynamic compromise.
Physical Exam
Vital Signs/Labs
Vital Signs
Temp Pulse Resp BP Pulse Ox
97.8 F 97 32 129/67 95
07/20/25 07:00 07/20/25 09:40 07/20/25 09:17 07/20/25 09:40 07/20/25 10:09
07/19/25 07/20/25 07/21/25
06:59 06:59 06:59
Actual Weight 47.3 kg 48.2 kg
07/20/25 04:40
PT 28.6 Sec (11.4-14.6) H 07/18/25 19:00
INR 2.69 07/18/25 19:00
APTT 38.9 Sec (23.4-35.0) H 07/18/25 19:00
Magnesium 2.4 mg/dl (1.6-2.3) H 07/20/25 04:40
07/18/25
17:31
Joc-A-[id number] Pept 5390
LAB Results
07/19/25 07/19/25 07/19/25
11:51 12:39 16:31
Troponin I Cancelled 0.024 0.025
07/19/25 07/20/25
22:45 04:40
Troponin I 0.026 0.025
Physical Exam
Constitutional: No acute distress and Comfortable
EENT: Moist mucous membranes
Cardiovascular: Rhythm & rate is regular, Pedal edema is absent, JVD pressure is normal and Systolic murmur absent
Respiratory: Respiratory effort normal and Lungs clear to auscul.
Neuro/Psych: AO x 3
Data Reviewed
-
Date of Service: July 20, 2025
EKG: Other (Tele: SR 80s)
Labs: Labs Reviewed by me
[2025-07-20 12:57] LABS: Blood Urea Nitrogen 25 mg/dl (7-17); Calcium 8.7 mg/dl (8.4-10.2); Carbon Dioxide 29 mmol/L (22-30); Chloride 98 mmol/L (98-107); Estimated Creatinine Clearance 49 ml/min; Glucose 173 mg/dl (70-99); Potassium 3.4 mmol/L (3.5-5.1); Sodium 132 mmol/L (135-145); eGFR > 60.00
--- NOTE | 2025-07-20 13:32 | PTCARENOTE ---
Pt sp 40mg IV lasix, voiding well but still feeling very short of breath, luns remain very course. Reports some relief when O2 sat higher. now on 4L NC with sat 99%. updated
[2025-07-20] MEDS: LASIX 80 MG IV (13:54)
[2025-07-20] MEDS: KCL ELIXIR 40 MEQ PO ×2 (14:11→17:46)
--- NOTE | 2025-07-20 15:23 | CM ---
Patient seen at bedside in IMU with physician. Patient c/o of being short of breath. Patient for further evaluation. CM will continue to follow for discharge planning needs.
Plan; home with VN watch for home O2 needs vs SNF
[2025-07-20 16:12] LABS: Blood Urea Nitrogen 25 mg/dl (7-17); Calcium 8.4 mg/dl (8.4-10.2); Carbon Dioxide 29 mmol/L (22-30); Chloride 98 mmol/L (98-107); Estimated Creatinine Clearance 49 ml/min; Glucose 196 mg/dl (70-99); Potassium 4.1 mmol/L (3.5-5.1); Sodium 135 mmol/L (135-145); eGFR > 60.00
[2025-07-20] MEDS: LOPRESSOR 5 MG IV (18:35)
--- NOTE | 2025-07-20 18:47 | PTCARENOTE ---
Pt with sudden onset of tachychardia. EKG completed showing A Flutter, Dr. Pond updated. 5mg Stat IV Lopressor given, Pt taken for STAT CT PE study with Nightshift RN and PCT.
[2025-07-20] MEDS: PEPCID 20 MG PO (20:15)
[2025-07-20] MEDS: ATIVAN 0.25 MG IV (20:43)
--- NOTE | 2025-07-20 21:16 | PTCARENOTE ---
Caring for patient overnight. Took pt down for a STAT Chest CT PE study. Pt tachypneic RR 30. Pt coarse, rhonchi throughout w/ expiratory wheeze. RT gave pt duoneb. Pt is 98% on 4L NC. Pt states feeling 'very short of breath' and 'unable to catch
(her) breath'. Pt anxious and fatigued. Pt has a weak cough. HIDE CLEANER Hephziba bedside to assess pt. One time dose of IV Ativan administered, see NOV. Pt voiding on the commode, pt becoming increasingly fatigued and SOB, however maintaining O2 sat. Care
is ongoing.
[2025-07-21] VITALS (33 sets, daily range): BP systolic 34–150; BP diastolic 19–98; BMI 19.4
--- NOTE | 2025-07-21 01:29 | W.PN.UPDATE ---
Update Note
Progress Note Update
CT results noted, discussed with trash man.
patient seen at the bedside.
patient is anxious,conversant, RR 30 90-110, irregular, Lungs coarse, rhonchi, wheezes, states feels little better after neb treatment.
2029 IV Ativan 0.25mg x1
RN reports IV Ativan seem to help patient
Patient anxious, tachypneic, HR 120s sustaining, BP 135/82 30's 98% 4l
0145 IV Ativan o.25mg IVx1, Metoprolol 5mg IV x1
neb tx x 1
0230 patient seen
Patient is lethargic, moans with name calling, arousable more with sternal rub. RR shallow 20 122 135/88 O2sat 91% 8l. lungs diminished
Stat labs stat ABG
results noted.
trend H&H
0415 104/65 HR 110 IV lasix 40mg x1
prior giving lasix 40mg IV BP 87/69 will hold off on lasix 40mg IV now
0530 patient seen again
Patient drowsy, conversant, weak but trying to get out of bed to urinate.
bladder scan
lungs congested, audible BP106/90 120 22 98% 4L
Lasix 20 mg IVx1 now
Fall precautions
[2025-07-21] MEDS: ATIVAN 0.25 MG IV (01:46)
[2025-07-21] MEDS: LOPRESSOR 5 MG IV (01:46)
[2025-07-21] MEDS: DUONEB 3 ML INH ×4 (02:01→15:20)
--- NOTE | 2025-07-21 02:42 | PTCARENOTE ---
Patient tachypneic and tachycardic HR maintaining 120s. KEY ACCOUNT EXECUTIVE [employer] made aware, orders for IV metoprolol and IV ativan, administered see NOV. KEY ACCOUNT EXECUTIVE bedside to assess. Pt with increase WOB. SpO2 90% on 5L NC. Bumped up to 8L NC. Pt extremely
lethargic.
[2025-07-21 02:57] LABS: B.E. 3.5 mmol/L; HCO3 27.8 mmol/L (21-28); O2 Saturation % 99.1 % (94-98); PCO2 40 mmHg (32-35); PO2 107 mmHg (83-108)
[2025-07-21 03:04] LABS: Hematocrit 19.1 % (37.0-47.0); Hemoglobin 6.9 g/dL (12.0-16.0); Mean Corp Hgb Conc. 36.1 g/dL (33.0-37.0); Mean Corpuscular Volume 120.9 fL (81.0-99.0); Platelet Count 169 10^3/uL (130-400); Red Cell Dist. Width 26.1 % (11.5-14.5)
[2025-07-21 03:26] LABS: ALT (SGPT) 82 U/L (0-35); AST (SGOT) 139 U/L (14-36); Albumin 3.4 g/dl (3.5-5.0); Alkaline Phosphatase 200 U/L (38-126); Blood Urea Nitrogen 25 mg/dl (7-17); Calcium 8.6 mg/dl (8.4-10.2); Carbon Dioxide 30 mmol/L (22-30); Chloride 99 mmol/L (98-107); Estimated Creatinine Clearance 49 ml/min; Glucose 122 mg/dl (70-99); Magnesium 2.4 mg/dl (1.6-2.3); Potassium 4.5 mmol/L (3.5-5.1); Sodium 133 mmol/L (135-145); Total Protein 7.0 g/dl (6.3-8.2); eGFR > 60.00
[2025-07-21] MEDS: LASIX 20 MG IV (05:40)
[2025-07-21] MEDS: SYNTHROID PO (05:46)
[2025-07-21] MEDS: ZOSYN 50 IV ×2 (05:46→13:03)
[2025-07-21 06:53] LABS: Nucleated Red Blood Cells % 3.9 %
[2025-07-21 07:02] LABS: Glucose - Point of Care 181 mg/dl (70-99)
--- NOTE | 2025-07-21 07:05 | PTCARENOTE ---
Received patient from VENE[facility] TRIMMER d/t increased WOB and increased Lethargy, AO&0, moaning to painful stimuli, unable to follow any commands, B/L pupils 4mm Brisk to Light, Yellow sclera, Afib w/ PVCs, BP WNL, JVD distention, +1 radial pulses, Doppler DP
pulses, NPO, Wagner in place.
[2025-07-21 07:22] LABS: INR 1.49; PT 18.6 Sec (11.4-14.6)
[2025-07-21 07:23] LABS: APTT 27.7 Sec (23.4-35.0); Venous Blood Gas B.E. -2.0 mmol/L (-4 to +4); Venous Blood Gas O2 Sat % 90.2 %
[2025-07-21 07:25] LABS: Hematocrit 22.7 % (37.0-47.0); Hemoglobin 7.7 g/dL (12.0-16.0); Mean Corp Hgb Conc. 33.9 g/dL (33.0-37.0); Mean Corpuscular Volume 121.4 fL (81.0-99.0); Platelet Count 159 10^3/uL (130-400); Red Cell Dist. Width 24.1 % (11.5-14.5)
[2025-07-21] MEDS: DECADRON 40 MG IV (07:26)
[2025-07-21 07:31] LABS: Blood Urea Nitrogen 27 mg/dl (7-17); Calcium 8.9 mg/dl (8.4-10.2); Carbon Dioxide 25 mmol/L (22-30); Chloride 99 mmol/L (98-107); Estimated Creatinine Clearance 44 ml/min; Glucose 163 mg/dl (70-99); Potassium 4.7 mmol/L (3.5-5.1); Sodium 136 mmol/L (135-145); eGFR > 60.00
--- NOTE | 2025-07-21 07:32 | CON.INTV ---
Consultation
Consultation Request
Date/Time Consultation Requested: 07/21/2025-7 AM
Date/Time Consultation Performed: 07/21/25-7:30 AM
Requesting Provider: Hospitalist
Performing Provider: Dr. Meng
Reason for Consultation: Hypotension/anemia/ventilator/critical care management
Medical History
-
Chief Complaint: Shortness of breath
History of Present Illness:
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
loculated right pleural effusion, paroxysmal atrial fibrillation status post mitral and aortic valve replacement, bipolar, sleep apnea, restrictive lung disease presented with swelling in the feet, nausea, vomiting, noted to be hypotensive, anemic
started on steroids and had progressive shortness of breath requiring transfer to ICU and intubation now on pressors-wind commissioning technician consulted for hypotension/ventilator/critical care management 07/21/2025. Patient is intubated and review of systems was
unobtainable.
Past Medical History
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 Radiation pneumonitis from Hodgkin's lymphoma. Hodgkin's lymphoma status post splenectomy. Chronic heart failure preserved EF. Loculated right pleural
effusion. PAF. MVR/AVR/tricuspid valve repair. Bipolar. Hypothyroid. BECCA.)
Social History
Tobacco: Non-smoker
Alcohol: None
Drug: None
Occupational Exposures: No known asbestos exposure
Environmental Exposures: No known tuberculosis exposure
Family History
Family History: Reviewed & Not Pertinent (Father-lung cancer. Mother-Alzheimer's.)
Allergies / Home Medications
Allergies
Allergy/AdvReac Type Severity Reaction Status Date / Time
adhesive tape Allergy Rash Verified 05/10/25 20:31
nitrofurantoin Allergy Swelling Verified 05/10/25 20:31
Sulfa (Sulfonamide Allergy Nausea / Verified 05/10/25 20:31
Antibiotics) Vomiting
Home Medications
�Medication �Instructions �Recorded �Confirmed �Last Taken �Type
bupropion HCl 150 mg 24 hr tablet, 150 mg PO DAILY Depression 11/23/13 07/20/25 03/03/25 History
extended release
ezetimibe 10 mg tablet 10 mg PO DAILY High Cholesterol 06/10/24 07/20/25 03/03/25 History
pantoprazole 40 mg tablet,delayed 40 mg PO DAILY Gastrointestinal 06/10/24 07/20/25 03/03/25 History
release Issue
biotin 5,000 mcg chewable tablet 5,000 mcg PO DAILY Supplement 03/03/25 07/20/25 03/03/25 History
cholecalciferol (vitamin D3) 50 50 mcg PO QPM Supplement 03/03/25 07/20/25 03/02/25 History
mcg (2,000 unit) capsule
dapagliflozin propanediol 10 mg 10 mg PO QPM Diabetes 03/03/25 07/20/25 03/02/25 History
tablet (Farxiga)
ferrous sulfate 325 mg (65 mg 325 mg PO QPM Supplement 03/03/25 07/20/25 03/02/25 History
iron) tablet (iron)
potassium chloride 20 mEq 40 meq PO BID Supplement 03/03/25 07/20/25 03/02/25 History
tablet,extended release
sertraline 50 mg tablet 50 mg PO DAILY Mental 03/03/25 07/20/25 03/03/25 History
Health/Anxiety
torsemide 20 mg tablet 20 mg PO BID Fluid 03/03/25 07/20/25 03/03/25 History
Retention/Swelling
apixaban 5 mg tablet (Eliquis) 5 mg PO BID Blood Clot 07/20/25 07/20/25 Unknown History
Prevention/Tx
levothyroxine 88 mcg tablet 88 mcg PO DAILY Thyroid 07/20/25 07/20/25 Unknown History
Review of Systems
-
Unable to Obtain full review of systems at this time due to: Patient Intubation
Vitals / Labs / Diagnostic Testing
Vital Signs
Temp Pulse Resp BP Pulse Ox
97.0 F 123 18 106/91 99
07/21/25 06:08 07/21/25 05:40 07/21/25 04:12 07/21/25 05:40 07/21/25 04:12
Lab Data
07/21/25 07:05
Laboratory Results
07/21/25
02:49
pH 7.45
pCO2 40 H
pO2 107
HCO3 27.8
O2 Delivery Level
Microbiology
07/18/25 19:00 Blood/Venous Blood Culture - Preliminary
No Growth in 48 hours- Final report to follow
07/18/25 19:00 Blood/Venous Blood Culture - Preliminary
No Growth in 48 hours- Final report to follow
07/19/25 05:25 Urine Urine Culture - Final
NO GROWTH
07/19/25 03:15 Nose Nasal Screen MRSA (PCR) - Final
MRSA not detected - performed by PCR methodology.
07/18/25 20:25 Nasal Swab Influenza Types A & B ([facility]NE) - Final
Negative for Influenza A & B, NAAT
Negative results must be combined with clinical observations
and patient history.
Nucleic Acid Amplification test (NAAT)performed on the
[employer] platform.
Diagnostic Testing:
Physical Exam
-
Exam:
Well-nourished and well-developed in no apparent distress
HEENT-atraumatic, normocephalic, mild temporal wasting, oral tracheal intubation
Neck-supple, no JVD, no bruit
Heart-regular rate and rhythm-no murmurs, rubs or gallops
Chest-clear to auscultation, no wheezes, crackles
Back-no tenderness
Abdomen-soft, nontender, nondistended, no hepatosplenomegaly
Extremities-no cyanosis, clubbing, edema and good peripheral pulses
Integument-intact, no rashes, lesions or ecchymosis
Neurologically not alert, not oriented and not moving extremities now intubated and sedated
Assessment
-
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
loculated right pleural effusion, paroxysmal atrial fibrillation status post mitral and aortic valve replacement, bipolar, sleep apnea, restrictive lung disease presented with swelling in the feet, nausea, vomiting, noted to be hypotensive, anemic
started on steroids and had progressive shortness of breath requiring transfer to ICU and intubation now on pressors-wind commissioning technician consulted for hypotension/ventilator/critical care management 07/21/2025.
Sepsis unresponsive to fluids requiring pressors
Ventilator dependent respiratory failure-multifocal pneumonia
intubated 07/21/2025
Extubated
Lactic acidosis
Elevated LFTs
Multifocal [id number]
Hemolytic anemia-hemoglobin 6.0-macrocytic
HANNY
Hyperkalemia
Hyponatremia from SIADH
Leukocytoclastic vasculitis
Leukocytosis
Mild hyponatremia
Hyperglycemia
Conditions present prior to admission:
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
Radiation pneumonitis from Hodgkin's lymphoma.
Hodgkin's lymphoma status post splenectomy-stage Ia 1981 status post extensive radiation no chemotherapy
Chronic prednisone-? Dose-stop taking after last discharge.
Chronic heart failure preserved EF.
Loculated right pleural effusion.
PAF-was on Eliquis
MVR/AVR/tricuspid valve repair-[place] 05/26/2024
Bipolar.
Hypothyroid.
Pulmonary hypertension
BECCA.
Restrictive lung disease
Decreased diffusing capacity-32%
Family history lung cancer
History of pleurodesis at [facility] June 2024
Appendectomy/splenectomy 1981. Breast augmentation 2009. AVR/MVR/tricuspid valve repair 05/2024.
Plan
Admit patient to medical intensive care unit for persistent hypotension despite fluid resuscitation requiring pressors
Patient known with significant restrictive lung disease and severe reduction in diffusing capacity
Patient intubated and mechanically ventilated
ABGs reviewed
Ventilator adjusted
Increase minute ventilation
Monitor Plateau pressure and auto PEEP
Follow chest x-ray
Obtain cultures-previously on prednisone-check for routine, AFB and fungal in the sputum
Empiric antibiotics-to cover atypicals as well
Urine Legionella and streptococcal antigen
Consider Infectious disease consultation
Monitor leukocytosis
Fluid resuscitation with 30 mL/kg crystalloid-preferably lactated ringer-(less HANNY) with subsequent boluses as needed
Monitor lactate
Follow CVP if possible
Attempt noninvasive bedside tissue perfusion evaluation to see if fluid bolus responsive
Measure pulse pressure and stroke volume variation if patient on ventilator, passively breathing without arrhythmia and with temporary large tidal volume ventilation and if > 13% then likely fluid bolus responsive
If patient active then consider measuring bedside leg lift for 3 minutes and if cardiac output increases or if there is a rise of 2-4 on end-tidal CO2 then fluid bolus
If bedside ultrasound available then measure IVC diameter variation to evaluate for fluid bolus responsiveness
Begin pressors as needed for MAP goal of 65-Norepinephrine first, then Vasopressin and consider Angiotensin II if continues to be hypotensive
Consider methylene blue if available-specific inhibitor of induced nitric oxide synthase iNOS and its downstream enzyme soluble guanylate cyclase-noninferiority study shown to reduce time to vasopressor discontinuation, decreased ICU length of stay,
hospital stay but no change in mortality-published Critical Care 11/24/2022
If persistently hypotensive then consider checking random cortisol-hydrocortisone if random less than 3, if 3-15 then consider ACTH stimulation test
If persistently hyperthermic then correcting hyperthermia can decrease pressor requirements, increased chances of reversal of shock and decrease mortality
Follow hemoglobin
Transfuse as needed-multiple antibodies and significant potential for reactions
Hematology following
Steroids initiated
Follow LFTs
Monitor renal function
Bicarb
Replace electrolytes
Consider nephrology evaluation
DVT prophylaxis
Early nutrition if possible-patient quite cachectic
Early mobilization/bedside range of motion
Last saw Dr. Arguelles in the pulmonary office-has appointment 1:30 PM 08/14/2025
Critical care statement: A total of 95 minutes of critical care time was provided for this patient today. This includes management of unstable vital signs, evaluation of the patient at bedside, reviewing the patient�s pertinent medical records
including radiographs, ventilator management, pressor management, microbiology, laboratory evaluations, and��discussion with primary team, consultants, pharmacy, nutrition, physical therapy, case management, charge nurse, critical care nursing, and
respiratory therapy.
Diagnostic data:
Chest x-ray 06/06/2024-small to moderate bilateral pleural effusions
Chest x-ray12/21/24-tiny bilateral pleural effusions
Chest x-ray 05/04/2025-stable bilateral small pleural effusions
Chest x-ray 07/18/25-mild interstitial and alveolar cardiogenic pulmonary edema,
Chest x-ray 07/20/2025-increased edematous changes
CT chest 05/13/2025-loculated pleural effusions which extend anteriorly on the right associated with mild pleural thickening, small nodular opacifications surrounding growth ground glass opacifications in bilateral lower lobes
CT chest 07/20/2025-severe bilateral airspace disease increased since 08/08, severe bilateral pneumonia and possibly acute alveolar edema or inflammatory pneumonitis, small to moderate-sized loculated right pleural effusion and mild interstitial
cardiogenic pulmonary edema
Brain MRI 03/03/2025-no acute intracranial abnormalities, small focus of encephalomalacia
[place] 05/7525: FVC 1.18/38%, FEV1 1.15/40%, ratio 97.� TLC 3.99/81%
PFT 01/27/25: FVC 1.44/47%,FEV1 1.18/50%, ratio 82.� TLC 2.37/50%, DLCO 6.82/32%.� Moderate restriction with severe gas exchange defect.� Compared to 2023, this has worsened
Echo 03/06/2025: Normal LV size and function. EF 55%. Bioprosthetic mitral valve.� Bioprosthetic aortic valve.� Enlarged RV size and reduced RV systolic function. Abnormal septal motion consistent with RV pacemaker.� Mild to moderate TR. Mildly
elevated PASP.� Estimated PA pressure 35-40. Small pericardial effusion.
Data Reviewed
-
EKG: Report reviewed by me
Radiology: Image personally visualized and interpreted and Report reviewed by me
CT Scan: Image personally visualized and interpreted and Report reviewed by me
Medical Tests (Nuc Med, Echo etc): Report reviewed by me
Labs: Labs reviewed by me
Old Records: Reviewed
Critical Care Time (in minutes): 95
--- NOTE | 2025-07-21 07:37 | RR ---
A Rapid Response was called on this patient, please see Rapid Response form.
O2 80% on 6L NC. Pt less responsive but arousable to verbal, change from previous baseline. Pt breathing severely labored. Pt placed on the NRB mask. Pt transported to ICU.
[2025-07-21] MEDS: LEVOPHED 250 IV ×2 (07:50→10:49)
--- NOTE | 2025-07-21 07:58 | W.PN.HOSP.TC ---
Addendum entered and electronically signed by Alexa Pond MD 07/21/25 18:02:
I saw and evaluated the patient independently. I reviewed and discussed the resident�s note and agree with findings and plan as documented by Dr. Kaba.
GENERAL: well developed, well nourished, pale and jaundiced appearing female in no apparent distress
HEENT: NC/AT--intubated
HEART: irreg irreg, tachycardic
LUNGS : tachypneic decreased BS
ABDOM: soft, nontender, nondistended, + bowel sounds
EXT: no cyanosis, clubbing-- 3+ LE edema bilaterally
NEUROLOGIC: grossly intact
Acute hypoxemic resp insufficiency with tachypnea--Orthopnea, pedal edema, b/l pleural effusions--likely due to high output heart failure from severe anemia, volume retention from large steroid dosing--stopped IVF and started lasix IV 07/20 with
torsemide to restart in AM 07/21--s/p lasix 20 mg IV x 2 and giving 80mg IV now--replete potassium with diuresis--unfortunately, patient had rapid response on the morning of 07/21/2025 requiring intubation. Patient continued to deteriorate despite
being on max doses of 4 different pressor medications (Levophed, vasopressin, cirilo, epi). Sister was called and explained criticalness of situation. She did arrive at the bedside. Seeing how critical the patient was, she did make her sister DO NOT
RESUSCITATE. Frequent blood work and bicarbonate pushes were stopped. Unable to do anything further with withdrawal of care since the patient on July 21, 2025 at 15:40.
Shock physiology--was off pressors--strongly suspected hypovolemia due to acute hemolytic anemia but looked more like septic shock with CT scan neg for PE but positive for significant airspace disease--vanco and zosyn were continued as well as high
dose steroids--HX of HFpEF, ECHO with severely dilated and hypokinetic right ventricle but CT neg for PE as mentioned, with severe pulm HTN--really needed blood transfusion but had autoantibodies so was difficult to obtain blood--apprec heme
Acute on chronic anemia due hemolytic anemia--Hx warm autoimmune hemolytic anemia--HGB 6.3 now up to 7.1 and back down again--apprec heme--cont steroids--await haptoglobin was <10--needs transfusions--not iron deficient, folate/B12 WNL--agree with
holding Eliquis for now
HANNY, likely prerenal--resolved but increased again--due to hypovolemia with shock physiology--baseline creat 0.8--creat on admission 1.4--stopped IVF-- Hold torsemide, spironolactone, dapagliflozin--transfuse
Hyperkalemia likely due to prerenal HANNY--follow on IVF--Potassium 5.6 on admission, 5.3 on 07/19/2025--now hypokalemic--replete
Hypovolemic Hyponatremia-- follow
Hx Hodgkin's lymphoma status post splenectomy & mantle radiation/History of radiation pneumonitis--presumed treated--WBC 30K, follow
Chronic HFpEF without exacerbation- Hold torsemide, dapagliflozin
Paroxysmal atrial fibrillation with leadless pacemaker- Hold Eliquis given severe anemia due to hemolytic anemia
History of right loculated pleural effusion/Mitral valve replacement/Aortic valve replacement/Tricuspid valve repair with ring--apprec cards
Leukocytoclastic vasculitis- outpt follow up
Bipolar depression- Continue bupropion, sertraline
Hypothyroidism- Continue levothyroxine
Obstructive sleep apnea/Restrictive lung disease--CPAP/BiPAP as outpt?
code status --Full code
DVT prophylaxis�SCDs
Patient on July 21, 2025 at 3:40 PM--family at bedside
Original Note:
Today's Communication/Plan
-
Patient had recurrent episodes of acute distress overnight. This morning she grew hypotensive to 34/19. She was able to return to normotension with addition of a third pressor, bicarb, and fluid resuscitation. She grew unstable throughout the
day. Later in the day, her sister and niece arrived. Her sister is her healthcare power of commercial real estate attorney. They gradually withdrew care, including stopping labs. Pastoral care came to offer support. Her long-term traffic inspector came to offer his
regards. She passed at 3:40 PM.
Assessment / Plan
Assessment / Plan
Impression
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
effusion, P A-fib (leadless pacemaker, Eliquis), mitral valve replacement, aortic valve replacement, tricuspid valve repair with ring, bipolar depression, hypothyroidism, BECCA, restrictive lung disease, pulmonary hypertension, who presented with
bilateral lower extremity edema, SOB, N/V once the morning of presentation, upper abdominal pain that (wraps around like a band).
Presents from home with her neighbor. States she's been feeling poorly for past few days.
Denied cough, chest pain, diarrhea. Had chills but denied fever.
She has been pain having chronic pain across the upper part of her belly but this has been chronic.
She has been having black stool which is chronic but she takes iron supplement. Denies giselle blood in the stool.
ED course
Afebrile, tachypneic, ill appearing but in no acute distress
CBC: WBC 30.4 with a left shift, hemoglobin 6.3
CMP: Sodium 128 BUN/creat 29/1.4 mild elevation liver enzymes, Bilirubin 11.3
BNP 5390
Lactic: 5.5
IVF running softly as BNP elevated and awaiting CXR
Dr. Rubin reviewed CXR, questionable R lower lung PNA
Heme neg stool
Per lab, Pt has antibodies and it will be at least a couple of hours for Blood bank to get the blood
US GB radiology report IMPRESSION:
1. Moderate diffuse liver disease.
2. Gallbladder sludge.
3. No sonographic evidence for biliary obstruction.
CT PE 07/20/2025
1. SEVERE BILATERAL AIRSPACE CONSOLIDATION in the lower lobes, right middle lobe, and left upper lobe which has increased since 07/18/2025. SEVERE BILATERAL PNEUMONIA is considered most likely. Alveolar pulmonary edema or an inflammatory
pneumonitis are less likely diagnostic possibilities.
2. Small to moderate-sized loculated right pleural effusion.
3. Small loculated left pleural effusion.
4. Mild interstitial cardiogenic pulmonary edema.
5. Previous mitral and tricuspid valve repair.
PLAN
#Shock (lactic acidosis, HANNY)
�Lactic acid 5.5 on admission, down trended to 2.3
#Hypovolemic shock due to hemolytic anemia most likely
�See hemolytic anemia notes
#Septic shock possible (most likely due to pneumonia)
Leukocytosis WBC 30 on admission, tachypnea
#Cardiogenic shock possible; chronic HFpEF; multivalvular disease
�Hx HFpEF. Cardiac BNP 5400
Infectious workup
� COVID and flu negative
- CXR 07/18/2025 on admission: appears to show consolidation in the right middle lower lobe per ED physician, but not noted by radiology 1. Mild acute interstitial and alveolar cardiogenic pulmonary edema. 2. Previous mitral valve repair and
intraventricular cardiac pacemaker placement. 3. Minimal bilateral pleural effusions. 4. Bilateral breast implants in place.
� UA 07/19/25 not convincing for UTI. After initiating antibiotics: Nitrites positive leukocyte esterase 1+, few bacteria, 0-2 WBCs, 0-2 squamous epithelial cells
� Urine culture no growth
� Total bilirubin 11.3 on admission, 10.1 07/19/2025. Direct bilirubin 7.3. Likely due to hemolysis (versus cholecystitis)
� Abdominal ultrasound: 1. Moderate diffuse liver disease. 2. Gallbladder sludge. 3. No sonographic evidence for biliary obstruction.
- Blood cultures: No growth in 48 hours
- Considering CT Chest if no HANNY on Lasix, CT A/P
- Chest pain. ACS ruled out: Serial TnI (undetectable) & EKGs (sinus rhythm)
- sputum cx pending collection
� Triglycerides pending
Interventions
- Vancomycin/Zosyn started in ED 07/18/2025. Vancomycin discontinued due to negative MRSA nares. Continue Zosyn 07/18/2025�. Discussed with art psychotherapist or therapist and ID pharmacist, who recommend continuing Zosyn and may consider atypical coverage with
azithromycin (but toxic to veins). Also considering switching to cefepime
- s/p 1unit pRBCs. 2nd unit: [place] searching for match for 1 day. Hemoglobin proved on dexamethasone. Canceled second unit PRBCs: Not pursuing further blood transfusions
- IV fluids although caution given swelling, elevated BNP and history of HFpEF. Discontinued 07/20/2025
� Levophed 4 mg weaned
07/20/25 early AM: persistent cough, bilateral crackles on lung exam. Suspect fluid overload. Did not renew NSS. CXR: Interstitial and alveolar edema. Small right and very small left pleural effusion adjacent atelectasis
� Furosemide 120 mg IV 07/20/2025
� Consider resuming home torsemide
� Steroids are probably contributing to volume overload (mineralocorticoid agonist)
� CT chest 07/20/2025: SEVERE BILATERAL AIRSPACE CONSOLIDATION in the lower lobes, right middle lobe, and left upper lobe which has increased since 07/18/2025. SEVERE BILATERAL PNEUMONIA is considered most likely. Alveolar pulmonary edema or an
inflammatory pneumonitis are less likely diagnostic possibilities.
07/21/2025: After multiple episodes of respiratory distress overnight, intubated with light sedation with propofol and fentanyl
� CXR 07/21/2025: Placement of an endotracheal tube with the tip located 4.4 cm above the mariola.
Increasing bilateral airspace opacities compared to the chest radiograph from 07/20/2025. Small bilateral pleural effusions. Loculated fluid within the right minor fissure. No pneumothorax. Sternotomy wires, cardiac valve prosthesis, and implantable
loop recorder. Surgical clips in the left upper quadrant.
� EKG 07/21/2025: A-flutter with 2-1 AV conduction
07/21/25 Hypotension, resolved with bicarb, 500cc LR,
- ABG
- CMP, Mg, Ph,
- Lactate
- TnI
- Coag
- CBC
Updated sister Crissy Meyers, who states she is the patient's POA and has forms. She wants full code for the patient.
- Niece is traveling to visit patient. Edith Carey [phone]
Cardiology consulted
� Would a right heart cath to be useful/influence management once patient is stable?
# Hemolytic anemia
# Acute on chronic macrocytic anemia due hemolytic anemia
Hx warm autoimmune hemolytic anemia
Hemoglobin: BL 9.1 last month, 6.3 on admission 07/18/2025, 5.5 on 07/19/2025
Reticulocyte 19.1% elevated
PT 28.6, INR 2.69, APTT 38.9�all high
LDH 1447�hemolysis. Haptoglobin: pending
Total bili 11.3 on admission, downtrended to 7.5. Direct bili 7.3 (possibly from mod liver disease). Indirect hyperbili due to hemolysis
Ion studies wnl
B12 770 and folate both wnl
- Held Eliquis for now
- Monitor for DIC
- [place] searching for a match for 2nd unit of blood
Hematology consulted
- Dexamethasone 40 mg p.o. daily for 4 days, followed by prednisone 50 mg daily for warm AIHA per hematology. Likely will need outpatient Rituxan
- recently admitted from 05/04/2025- 05/16/2025, lab test suggestive of hemolytic anemia; she was given high dose dexamethasone for 4 days with hemoglobin improvement. Chart review notes JORGE attempted 3x at with inability to obtain results, thus
sent to [facility] for complex antibody analysis. KIMANI positive. She was discharged on Prednisone and had a follow up with Dr. Zimmerman, property administrator/oncologist, prednisone taper started and ended on 06/28/2025. She also had a follow-up with Dr. Junior, a
strap machine operator automatic, for an autoimmune disease work-up and reportedly came back normal.
# Hypovolemic Hyponatremia SIADH/volume
- Monitor with IV fluids
NA decreased from 131 to 123 07/19/2020 5 PM and increased back to 134 07/20/2020 5 AM. Likely lab error
#Orthopnea, pedal edea. b/l pleural effusions iso acute severe anemia
#Concern for high output HF vs acute on chronic HFpEF
#Hypovolemic not volume overloaded
On 2L NC
Hx Hodgkin's lymphoma status post splenectomy & mantle radiation
History of radiation pneumonitis
- echo now would not exchange administrator so holding off (expecting high EF, but if low EF, would not diruese due to soft BPs on pressor)
07/20/25 early AM: persistent cough and wheezing
- Suspect fluid overload. Did not renew NSS. CXR Interstitial and alveolar edema. Small right and very small left pleural effusion adjacent atelectasis. Lasix 40 mg IV once
- Ventilator settings 07/21: RR 14, 100% FiO2 - weaning while maintaining SpO2 > 93%, TV 350 ml, PEEP for PNA causing alveolar collapse
# HANNY, likely prerenal�resolved 07/20/2025
Creatinine: Baseline 0.8, 1.5 07/19/2025
- IV fluids. stopped
- Hold torsemide, spironolactone, dapagliflozin
# Hyperkalemia�resolved 07/20/25
Likely due to HANNY
Potassium 5.6 on admission, 5.3 on 07/19/2025
- IV fluids
� EKG: Sinus rhythm with sinus arrhythmia with occasional ventricular�paced complexes
Chronic HFpEF
- Hold torsemide, dapagliflozin due to shock on presentation
Paroxysmal atrial fibrillation with leadless pacemaker
- Hold Eliquis given severe anemia due to hemolytic anemia
History of right loculated pleural effusion
Mitral valve replacement
Aortic valve replacement
Tricuspid valve repair with ring
Leukocytoclastic vasculitis
- No rheumatological etiology. Could be followed and no treatment was offered
Bipolar depression
- Continue bupropion, sertraline
Hypothyroidism
- Continue levothyroxine
Obstructive sleep apnea
Restrictive lung disease
Full code
DVT prophylaxis�SCDs
Regular diet
Dispo: Lives at home alone
� Pending PT and OT when medically stable
Anticipated Discharge: Today
Subjective/Interval History
-
Date of Service: July 21, 2025
Patient was reassessed periodically overnight due to respiratory distress and tachycardia: At 10:30 PM, 1:45 AM, 2:30 AM, 4:15 AM, 5:30 AM, and 6:[address] results noted, discussed with patrol sergeant sheriff's office. Suggested severe bilateral pneumonia
patient seen at the bedside.
patient is anxious,conversant, RR 30 90-110, irregular, Lungs coarse, rhonchi, wheezes, states feels little better after neb treatment.
2029 IV Ativan 0.25mg x1
RN reports IV Ativan seem to help patient
Patient anxious, tachypneic, HR 120s sustaining, BP 135/82 30's 98% 4l
0145 IV Ativan o.25mg IVx1, Metoprolol 5mg IV x1
neb tx x 1
0230 patient seen
Patient is lethargic, moans with name calling, arousable more with sternal rub. RR shallow 20 122 135/88 O2sat 91% 8l. lungs diminished
stat ABG: pH 7.45, CO2 40 high, pO2 107, bicarb 27.8, base excess 3.5, satting at 91% on 8 L
� Hypercapnic
Stat labs: NA 133, BUN 25, total bili 7.4, direct bili 5.3 yesterday, LFTs elevated, triglycerides pending
trend H&H
0415 104/65 HR 110 IV lasix 40mg x1
prior giving lasix 40mg IV BP 87/69 will hold off on lasix 40mg IV now
0530 patient seen again
Patient drowsy, conversant, weak but trying to get out of bed to urinate.
bladder scan
lungs congested, audible BP106/90 120 22 98% 4L
Lasix 20 mg IVx1 now
Fall precautions
0650
Decision was made to intubate the patient and transfer her to the ICU
VBG: pH 7.24 low, pCO2 60 high, pO2 67 high, bicarb 25.7, 90.2%, VBG base excess -2
Later this morning, hypotensive.
Called sister Crissy Meyers and discussed poor prognosis. Crissy states she is the POA and would like Ms. Burt to remain full code. Pat will try to see the patient soon (lives [address] cannot [address] because she has cataracts. 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
Objective Data
-
Labs:
Microbiology Results - Entire Visit
07/18/25 19:00 Blood/Venous Blood Culture - Preliminary
No Growth in 48 hours- Final report to follow
07/18/25 19:00 Blood/Venous Blood Culture - Preliminary
No Growth in 48 hours- Final report to follow
07/19/25 05:25 Urine Urine Culture - Final
NO GROWTH
07/19/25 03:15 Nose Nasal Screen MRSA (PCR) - Final
MRSA not detected - performed by PCR methodology.
07/18/25 20:25 Nasal Swab Influenza Types A & B (LAVERNE) - Final
Negative for Influenza A & B, NAAT
Negative results must be combined with clinical observations
and patient history.
Nucleic Acid Amplification test (NAAT)performed on the
[employer] platform.
Hematology and Coagulation - Last 24 hours
07/19/25 07/21/25 07/21/25 Range/Units
03:15 02:40 07:05
WBC 32.3 H 32.8 H (4.8-10.8) 10^3/uL
RBC 1.58 L 1.87 L (4.20-5.40) 10^6/uL
Hgb 6.9 L* 7.7 L (12.0-16.0) g/dL
Hct 19.1 L* 22.7 L (37.0-47.0) %
MCV 120.9 H 121.4 H (81.0-99.0) fL
MCH 43.7 H 41.2 H (27.0-31.0) pg
MCHC 36.1 33.9 (33.0-37.0) g/dL
RDW 26.1 H 24.1 H (11.5-14.5) %
Plt Count 169 159 (130-400) 10^3/uL
MPV 10.6 H 10.7 H (7.4-10.4) fL
Abs Immat Gran (auto) 0.6 H (0-0.05) 10^3/uL
Absolute Neuts (auto) 29.1 H (1.4-6.5) 10^3/uL
Absolute Lymphs (auto) 0.2 L (1.2-3.4) 10^3/uL
Absolute Monos (auto) 2.3 H (0.1-0.6) 10^3/uL
Absolute Eos (auto) 0.0 (0-0.7) 10^3/uL
Absolute Basos (auto) 0.1 (0-0.2) 10^3/uL
CBC Comment
Immature Gran % 2.0 H (0-0.5) %
Neutrophils % 90.0 H (42.2-75.2) %
Lymphocytes % 0.5 L (20.5-51.1) %
Monocytes % 7.2 (1.7-9.3) %
Eosinophils % 0.1 (0-6) %
Basophils % 0.2 (0-2) %
Nucleated RBC % 3.9 %
Haptoglobin <10 L (30-200) mg/dL
PT 18.6 H (11.4-14.6) Sec
INR 1.49
APTT 27.7 (23.4-35.0) Sec
07/21/25 07/21/25 07/21/25 Range/Units
08:00 10:27 12:28
WBC 31.0 H 39.1 H (4.8-10.8) 10^3/uL
RBC 1.46 L 1.57 L (4.20-5.40) 10^6/uL
Hgb Cancelled 5.2 L* D 5.5 L* (12.0-16.0) g/dL
Hct Cancelled 17.9 L* 19.7 L* (37.0-47.0) %
MCV 122.6 H 125.5 H (81.0-99.0) fL
MCH 35.6 H 35.0 H (27.0-31.0) pg
MCHC 29.1 L 27.9 L (33.0-37.0) g/dL
RDW 20.2 H 21.3 H (11.5-14.5) %
Plt Count 101 L D 91 L (130-400) 10^3/uL
MPV 11.2 H 11.3 H (7.4-10.4) fL
Abs Immat Gran (auto) 2.2 H 3.6 H (0-0.05) 10^3/uL
Absolute Neuts (auto) 25.7 H 30.8 H (1.4-6.5) 10^3/uL
Absolute Lymphs (auto) 0.7 L 1.0 L (1.2-3.4) 10^3/uL
Absolute Monos (auto) 2.4 H 3.4 H (0.1-0.6) 10^3/uL
Absolute Eos (auto) 0.1 0.1 (0-0.7) 10^3/uL
Absolute Basos (auto) 0.1 0.1 (0-0.2) 10^3/uL
CBC Comment
Immature Gran % 6.9 H 9.3 H (0-0.5) %
Neutrophils % 82.9 H 78.9 H (42.2-75.2) %
Lymphocytes % 2.2 L 2.5 L (20.5-51.1) %
Monocytes % 7.6 8.8 (1.7-9.3) %
Eosinophils % 0.2 0.3 (0-6) %
Basophils % 0.2 0.2 (0-2) %
Nucleated RBC % 4.0 3.6 %
Haptoglobin (30-200) mg/dL
PT 22.6 H (11.4-14.6) Sec
INR 1.97
APTT (23.4-35.0) Sec
07/21/25 07/21/25 Range/Units
14:00 20:00
WBC (4.8-10.8) 10^3/uL
RBC (4.20-5.40) 10^6/uL
Hgb Cancelled Cancelled (12.0-16.0) g/dL
Hct Cancelled Cancelled (37.0-47.0) %
MCV (81.0-99.0) fL
MCH (27.0-31.0) pg
MCHC (33.0-37.0) g/dL
RDW (11.5-14.5) %
Plt Count (130-400) 10^3/uL
MPV (7.4-10.4) fL
Abs Immat Gran (auto) (0-0.05) 10^3/uL
Absolute Neuts (auto) (1.4-6.5) 10^3/uL
Absolute Lymphs (auto) (1.2-3.4) 10^3/uL
Absolute Monos (auto) (0.1-0.6) 10^3/uL
Absolute Eos (auto) (0-0.7) 10^3/uL
Absolute Basos (auto) (0-0.2) 10^3/uL
CBC Comment
Immature Gran % (0-0.5) %
Neutrophils % (42.2-75.2) %
Lymphocytes % (20.5-51.1) %
Monocytes % (1.7-9.3) %
Eosinophils % (0-6) %
Basophils % (0-2) %
Nucleated RBC % %
Haptoglobin (30-200) mg/dL
PT (11.4-14.6) Sec
INR
APTT (23.4-35.0) Sec
Blood Gas and Chemistry - Last 24 hours
07/20/25 07/21/25 07/21/25 Range/Units
15:40 02:40 02:49
pH 7.45 (7.35-7.45)
pCO2 40 H (32-35) mmHg
pO2 107 (83-108) mmHg
HCO3 27.8 (21-28) mmol/L
Base Excess 3.5 mmol/L
ABG O2 Sat (Measured) 99.1 H (94-98) %
VBG pH (7.32-7.43)
VBG pCO2 (35-48) mmHg
VBG pO2 (30-50) mmHg
VBG HCO3 (22-27) mmol/L
VBG O2 Sat (Natalya) %
VBG Base Excess (-4 to +4) mmol/L
VBG O2 Therapy
O2 Delivery Level
Sodium 135 133 L (135-145) mmol/L
Potassium 4.1 4.5 (3.5-5.1) mmol/L
Chloride 98 99 (98-107) mmol/L
Carbon Dioxide 29 30 (22-30) mmol/L
BUN 25 H 25 H (7-17) mg/dl
Creatinine 0.9 0.9 (0.6-1.0) mg/dL
Estimated Creat Clear 49 49 ml/min
eGFR > 60.00 > 60.00
Glucose 196 H 122 H (70-99) mg/dl
Lactic Acid (0.7-2.0) mmol/L
Calcium 8.4 8.6 (8.4-10.2) mg/dl
Phosphorus
Magnesium 2.4 H (1.6-2.3) mg/dl
Total Bilirubin 7.4 H (0.2-1.3) mg/dl
AST 139 H (14-36) U/L
ALT 82 H (0-35) U/L
Alkaline Phosphatase 200 H (38-126) U/L
Troponin I
Total Protein 7.0 (6.3-8.2) g/dl
Albumin 3.4 L (3.5-5.0) g/dl
Triglycerides
07/21/25 07/21/25 07/21/25 Range/Units
07:05 08:12 08:35
pH 7.15 L* (7.35-7.45)
pCO2 48 H (32-35) mmHg
pO2 232 H (83-108) mmHg
HCO3 16.7 L (21-28) mmol/L
Base Excess -11.2 mmol/L
ABG O2 Sat (Measured) 99.2 H (94-98) %
VBG pH 7.24 L (7.32-7.43)
VBG pCO2 60 H (35-48) mmHg
VBG pO2 67 H (30-50) mmHg
VBG HCO3 25.7 (22-27) mmol/L
VBG O2 Sat (Natalya) 90.2 %
VBG Base Excess -2.0 (-4 to +4) mmol/L
VBG O2 Therapy Not Reportable
O2 Delivery Level
Sodium 136 (135-145) mmol/L
Potassium 4.7 (3.5-5.1) mmol/L
Chloride 99 (98-107) mmol/L
Carbon Dioxide 25 (22-30) mmol/L
BUN 27 H (7-17) mg/dl
Creatinine 1.0 (0.6-1.0) mg/dL
Estimated Creat Clear 44 ml/min
eGFR > 60.00
Glucose 163 H (70-99) mg/dl
Lactic Acid 6.3 H* (0.7-2.0) mmol/L
Calcium 8.9 (8.4-10.2) mg/dl
Phosphorus
Magnesium (1.6-2.3) mg/dl
Total Bilirubin (0.2-1.3) mg/dl
AST (14-36) U/L
ALT (0-35) U/L
Alkaline Phosphatase (38-126) U/L
Troponin I
Total Protein (6.3-8.2) g/dl
Albumin (3.5-5.0) g/dl
Triglycerides Cancelled 152 H
07/21/25 07/21/25 07/21/25 Range/Units
10:26 10:27 10:27
pH 7.18 L* (7.35-7.45)
pCO2 41 H (32-35) mmHg
pO2 130 H (83-108) mmHg
HCO3 15.3 L* (21-28) mmol/L
Base Excess -11.9 mmol/L
ABG O2 Sat (Measured) 98.1 H (94-98) %
VBG pH (7.32-7.43)
VBG pCO2 (35-48) mmHg
VBG pO2 (30-50) mmHg
VBG HCO3 (22-27) mmol/L
VBG O2 Sat (Natalya) %
VBG Base Excess (-4 to +4) mmol/L
VBG O2 Therapy
O2 Delivery Level
Sodium Cancelled (135-145) mmol/L
Potassium Cancelled (3.5-5.1) mmol/L
Chloride Cancelled (98-107) mmol/L
Carbon Dioxide Cancelled (22-30) mmol/L
BUN Cancelled (7-17) mg/dl
Creatinine Cancelled (0.6-1.0) mg/dL
Estimated Creat Clear Cancelled ml/min
eGFR Cancelled
Glucose Cancelled (70-99) mg/dl
Lactic Acid (0.7-2.0) mmol/L
Calcium Cancelled (8.4-10.2) mg/dl
Phosphorus Cancelled Cancelled
Magnesium Cancelled (1.6-2.3) mg/dl
Total Bilirubin Cancelled (0.2-1.3) mg/dl
AST Cancelled (14-36) U/L
ALT Cancelled (0-35) U/L
Alkaline Phosphatase Cancelled (38-126) U/L
Troponin I Cancelled
Total Protein Cancelled (6.3-8.2) g/dl
Albumin Cancelled (3.5-5.0) g/dl
Triglycerides
07/21/25 07/21/25 07/21/25 Range/Units
10:59 11:55 12:28
pH (7.35-7.45)
pCO2 (32-35) mmHg
pO2 (83-108) mmHg
HCO3 (21-28) mmol/L
Base Excess mmol/L
ABG O2 Sat (Measured) (94-98) %
VBG pH (7.32-7.43)
VBG pCO2 (35-48) mmHg
VBG pO2 (30-50) mmHg
VBG HCO3 (22-27) mmol/L
VBG O2 Sat (Natalya) %
VBG Base Excess (-4 to +4) mmol/L
VBG O2 Therapy
O2 Delivery Level
Sodium Cancelled Cancelled (135-145) mmol/L
Potassium Cancelled Cancelled (3.5-5.1) mmol/L
Chloride Cancelled Cancelled (98-107) mmol/L
Carbon Dioxide Cancelled Cancelled (22-30) mmol/L
BUN Cancelled Cancelled (7-17) mg/dl
Creatinine Cancelled Cancelled (0.6-1.0) mg/dL
Estimated Creat Clear Cancelled Cancelled ml/min
eGFR Cancelled Cancelled
Glucose Cancelled Cancelled (70-99) mg/dl
Lactic Acid Cancelled (0.7-2.0) mmol/L
Calcium Cancelled Cancelled (8.4-10.2) mg/dl
Phosphorus Cancelled Cancelled
Magnesium Cancelled Cancelled (1.6-2.3) mg/dl
Total Bilirubin Cancelled Cancelled (0.2-1.3) mg/dl
AST Cancelled Cancelled (14-36) U/L
ALT Cancelled Cancelled (0-35) U/L
Alkaline Phosphatase Cancelled Cancelled (38-126) U/L
Troponin I Cancelled Cancelled
Total Protein Cancelled Cancelled (6.3-8.2) g/dl
Albumin Cancelled Cancelled (3.5-5.0) g/dl
Triglycerides
07/21/25 07/21/25 07/21/25 Range/Units
13:16 13:37 14:26
pH 7.14 L* (7.35-7.45)
pCO2 33 (32-35) mmHg
pO2 142 H (83-108) mmHg
HCO3 11.2 L* (21-28) mmol/L
Base Excess -16.3 mmol/L
ABG O2 Sat (Measured) 99.5 H (94-98) %
VBG pH (7.32-7.43)
VBG pCO2 (35-48) mmHg
VBG pO2 (30-50) mmHg
VBG HCO3 (22-27) mmol/L
VBG O2 Sat (Natalya) %
VBG Base Excess (-4 to +4) mmol/L
VBG O2 Therapy
O2 Delivery Level
Sodium Cancelled Pending (135-145) mmol/L
Potassium Cancelled 5.8 H (3.5-5.1) mmol/L
Chloride Cancelled Pending (98-107) mmol/L
Carbon Dioxide Cancelled Pending (22-30) mmol/L
BUN Cancelled Pending (7-17) mg/dl
Creatinine Cancelled Pending (0.6-1.0) mg/dL
Estimated Creat Clear Cancelled ml/min
eGFR Cancelled
Glucose Cancelled Pending (70-99) mg/dl
Lactic Acid (0.7-2.0) mmol/L
Calcium Cancelled Pending (8.4-10.2) mg/dl
Phosphorus Cancelled Pending
Magnesium Cancelled Pending (1.6-2.3) mg/dl
Total Bilirubin Cancelled Pending (0.2-1.3) mg/dl
AST Cancelled Pending (14-36) U/L
ALT Cancelled Pending (0-35) U/L
Alkaline Phosphatase Cancelled Pending (38-126) U/L
Troponin I Cancelled Pending
Total Protein Cancelled Pending (6.3-8.2) g/dl
Albumin Cancelled Pending (3.5-5.0) g/dl
Triglycerides
Miscellaneous Lab Results - Last 24 hours
07/21/25 07/21/25 07/21/25 Range/Units
06:51 13:51 14:07
POC Glucose 181 H 27 L* 94 (70-99) mg/dl
Vital Signs:
Vital Signs
Temp Pulse Resp BP Pulse Ox
97.0 F 123 18 106/91 99
07/21/25 06:08 07/21/25 05:40 07/21/25 04:12 07/21/25 05:40 07/21/25 04:12
Pulse steadily increasing from 90s to 120s overnight, prior to intubation
Grew hypertensive to 170s at 6 PM yesterday, but decreased to 80s to 100s
Tachypneic overnight
Satting in 90s
I&O
07/20/25 07/21/25 07/22/25
06:59 06:59 06:59
Intake Total 1180 / 1180 550 / 550
Output Total 3100 / 3100
Balance 1180 / 1180 -2550 / -2550
Review of Systems
-
Unable to obtain full review of systems at this time due to: Patient Intubation
Physical Exam
-
General: Intubated and Cachectic
HEENT: Normocephalic, Atraumatic, Nose Appears Normal and Ears Appear Normal
Musculoskeletal: No Clubbing, No Cyanosis and No Edema
Skin: Jaundice
Neuro: Sedated (intubated)
[2025-07-21] MEDS: NSS 500 IV (08:00)
--- NOTE | 2025-07-21 08:07 | W.PN.ANESINT ---
Anesthesia Intubation Note
- Intubation Note
Intubation Note:
Diagnosis: hemolytic anemia, respiratory failure
Blade: MAC 4
Tube Size: 8.0
Depth: 21 cm at lip
Side Taped: Right
Drugs Used: 60mg Propofol, 50mg Succinylcholine, 50 mg Rocuronium, 200 mcg Phenylephrine
Grade View: 1
EtCO2 Present: yes
Atraumatic: yes
Attempts: 1
Insertion Start and Stop Time: 07:15 - 07:19
SaO2 Pre: 91
SaO2 Post: 99
Glidescope Used: yes
Other Airway Adjustments: na
Pre-Oxygenated: yes
Portable Chest X-Ray: ordered
RSI: yes
Suctioned: no
Bilateral Breath Sounds Confirmed: yes
Vent Settings: per respiratory
Settings per ___Attending Physician
--- NOTE | 2025-07-21 08:13 | W.PN.ANS.LIN ---
Anesthesia IV & A-Line Note
- IV/Arterial Line
Left Radial
Diagnosis: respiratory failure
IV Line Comments: Uneventful Procedure
Allens test completed pre-procedure: No
A-Line Comments: Sterile technique as per standard protocol, Uneventful procedure, Seldinger technique used, Ultrasound guided insertion, Biopatch applied
Funtioning A-line in situ: Yes
A-line Insertion Start Time: 07:30
A-line Insertion Stop Time: 07:45
[2025-07-21] MEDS: NEO-SYNEPHRINE 250 IV (08:15)
--- NOTE | 2025-07-21 08:24 | CON.INTV ---
Consultation
Consultation Request
Date/Time Consultation Requested: 07/21/2025 7:14
Date/Time Consultation Performed: 07/21/2025 8:24
Requesting Provider: Kingston Camacho MD
Performing Provider: Kali Meng MD
Reason for Consultation: Acute Ventilator Dependent Respiratory Failure
Medical History
-
Chief Complaint: Shortness of Breath
History of Present Illness:
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
history of splenectomy who presented to the ED on 07/18/2025 with increased swelling of the legs and feet accompanied by shortness of breath. She also had nausea and vomiting that same morning.
In the ED vital signs showed pulse of 62, RR 26, BP 93/46, O2 of 100% on Room air. She was noticed to be jaundiced. Labs revealed a WBC of 30.4, hemoglobin of 6.3, sodium of 128, potassium of 5.6, BUN of 29, creatinine of 1.4 (compared to 0.7 4 days
prior), BNP 5390, Lactic acid of 5.5. AST 129, ALT 50, Alk Phos 219, Lactate dehydrogenase 1447. Her stool was heme negative. US abdomen showed moderate diffuse liver disease and gallbladder sludge, but no evidence for biliary obstruction. Chest
X-ray showed mild acute interstitial and alveolar cariogenic pulmonary edema, minimal bilateral pleural effusions. She was admitted to the hospital for further management.
On 07/19/2025 she was started on dexamethasone 40mg IV for 4 days due to concern for recurrence of warm autoimmune hemolytic anemia. Her hemoglobin had decreased to 5.5 but unfortunately no blood products could be provided due to her many antibodies.
On 07/20 a chest x-ray showed interstitial and alveolar edema with small right and very small left pleural effusions with adjacent atelectasis. She compared of increased shortness of breath, so a repeat chest X-ray showed increased edematous changes
compared to prior exam. A CT of the chest was performed which showed severe bilateral airspace consolidation in the lower lobes, suspicious for severe bilateral pneumonia.
Overnight her HR increased to 90-110. She was given IV Ativan 0.25mg x1. She was given a second dose as well as metoprolol 5mg IV 5 hours later. Approximately one hour later, she became lethargic, moaning. An ABG was ordered at 2AM which showed pH
7.45, CO2 40, Bicarb 27.8, O2 107. Around 7AM she was being turned when her O2 saturation dropped and failed to recover, prompting her to be intubated. At the time of my visit she was intubated and sedated. An attempt was made to collect a sputum
culture while I was in the room, which she had no reaction to.
Past Medical History
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
Past Surgical History: Other (Aortic valve replacement, Spleenectomy)
Social History
Tobacco: Non-smoker
Alcohol: None
Drug: None
Family History
Family History: Reviewed & Not Pertinent
Allergies / Home Medications
Allergies
Allergy/AdvReac Type Severity Reaction Status Date / Time
adhesive tape Allergy Rash Verified 05/10/25 20:31
nitrofurantoin Allergy Swelling Verified 05/10/25 20:31
Sulfa (Sulfonamide Allergy Nausea / Verified 05/10/25 20:31
Antibiotics) Vomiting
Home Medications
�Medication �Instructions �Recorded �Confirmed �Last Taken �Type
bupropion HCl 150 mg 24 hr tablet, 150 mg PO DAILY Depression 11/23/13 07/20/25 03/03/25 History
extended release
ezetimibe 10 mg tablet 10 mg PO DAILY High Cholesterol 06/10/24 07/20/25 03/03/25 History
pantoprazole 40 mg tablet,delayed 40 mg PO DAILY Gastrointestinal 06/10/24 07/20/25 03/03/25 History
release Issue
biotin 5,000 mcg chewable tablet 5,000 mcg PO DAILY Supplement 03/03/25 07/20/25 03/03/25 History
cholecalciferol (vitamin D3) 50 50 mcg PO QPM Supplement 03/03/25 07/20/25 03/02/25 History
mcg (2,000 unit) capsule
dapagliflozin propanediol 10 mg 10 mg PO QPM Diabetes 03/03/25 07/20/25 03/02/25 History
tablet (Farxiga)
ferrous sulfate 325 mg (65 mg 325 mg PO QPM Supplement 03/03/25 07/20/25 03/02/25 History
iron) tablet (iron)
potassium chloride 20 mEq 40 meq PO BID Supplement 03/03/25 07/20/25 03/02/25 History
tablet,extended release
sertraline 50 mg tablet 50 mg PO DAILY Mental 03/03/25 07/20/25 03/03/25 History
Health/Anxiety
torsemide 20 mg tablet 20 mg PO BID Fluid 03/03/25 07/20/25 03/03/25 History
Retention/Swelling
apixaban 5 mg tablet (Eliquis) 5 mg PO BID Blood Clot 07/20/25 07/20/25 Unknown History
Prevention/Tx
levothyroxine 88 mcg tablet 88 mcg PO DAILY Thyroid 07/20/25 07/20/25 Unknown History
Review of Systems
-
Unable to Obtain full review of systems at this time due to: Patient Intubation
Vitals / Labs / Diagnostic Testing
Vital Signs
Temp Pulse Resp BP Pulse Ox
97.0 F 65 14 106/91 98
07/21/25 06:08 07/21/25 07:59 07/21/25 07:59 07/21/25 05:40 07/21/25 08:01
Lab Data
07/21/25 20:00
07/21/25 07:05
Laboratory Results
07/21/25 07/21/25
02:49 07:05
PT 18.6 H
INR 1.49
APTT 27.7
pH 7.45
pCO2 40 H
pO2 107
HCO3 27.8
O2 Delivery Level
Microbiology
07/18/25 19:00 Blood/Venous Blood Culture - Preliminary
No Growth in 48 hours- Final report to follow
07/18/25 19:00 Blood/Venous Blood Culture - Preliminary
No Growth in 48 hours- Final report to follow
07/19/25 05:25 Urine Urine Culture - Final
NO GROWTH
07/19/25 03:15 Nose Nasal Screen MRSA (PCR) - Final
MRSA not detected - performed by PCR methodology.
07/18/25 20:25 Nasal Swab Influenza Types A & B (LAVERNE) - Final
Negative for Influenza A & B, NAAT
Negative results must be combined with clinical observations
and patient history.
Nucleic Acid Amplification test (NAAT)performed on the
[employer] platform.
Diagnostic Testing:
Physical Exam
-
HEENT: Normocephalic and Anicteric
Cardiovascular: S1/S2 and Regular Rhythm
Respiratory: Non-Labored Respirations and Other (Sedated and ventilated, 14 - 350 - 5 - 100)
Neurology: Other (No cough noted during attempt at sputum collection)
Skin: Warm and Dry
Assessment
-
Assessment:
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
history of splenectomy who presented to the ED on 07/18/2025 with increased swelling of the legs and feet accompanied by shortness of breath who was found by CT scan to have severe pneumonia, now sedated and ventilated for acute respiratory failure.
Plan:
Sepsis 2/2 to pneumonia
Acute Ventilator Dependent Respiratory Failure
Lactic Acidosis
Patient presented with shortness of breath, WBC of 30.4, Lactic acid of 5.5. WBC remain elevated, though she is on steroids.
Initial ED X-ray: Mild acute interstitial and alveolar cariogenic pulmonary edema, minimal bilateral pleural effusions.
CT Chest 07/20: A CT of the chest was performed which showed severe bilateral airspace consolidation in the lower lobes, suspicious for severe bilateral pneumonia.
Was initially on pressor support but was weaned off 07/20. Seemed to deteriorate overnight with sudden desaturation of O2 in the morning of 07/21 requiring intubation and sedation, as well as large doses of pressor support again.
Current vent settings: 14 -350 -5 -100
ABG this AM showed worsened pH of 7.15 with retention of CO2 and Lactic Acid of 6.6. Adjusted rate to 20, will repeat ABG in ~1 hr
Continue pressors to maintain MAP >65
Continue Zosyn. Add Azithromycin today
Will aim to switch propofol to fentanyl for sedation
Needs sputum culture, though unfortunately she has been rather dry thus far. Will send for AFB, Fungal and routine studies once able to obtain
Ordered urine legionella and strep
Continue to follow lactate
Unfortunately must be cautious with potential fluid resuscitation due to HFpEF
Start tube feeds, changed all medications to tube, added sliding scale insulin
Acute on Chronic microcytic anemia
Warm autoimmune hemolytic anemia
Atrial Fibrillation
Patient with history of warm autoimmune hemolytic anemia presenting with hemoglobin of 6.3, now >7
Had been discharged from prior hospitalization on 40mg prednisone daily for 21 days. Reviewed with pharmacy, it seems she was placed on a short taper and has not been taking prednisone since
Unfortunately transfusion is not feasible at this time given her extensive antibodies.
Hematology is following, will appreciate their insight into her case
Anticoagulation has been held thus far due to anemia
Continue to follow H&H
HANNY - Resolving
Creatinine on arrival 1.4 (compared to 0.7 4 days prior)
Now 1.0
Continue to monitor
Acute on Chronic HFpEF
Valvular disease s/p Aortic Valve replacement in 2023
Most recent Echo from 03/06/2025 showed EF of 55%, bioprosthetic aortic valve
BNP on arrival 5390
Cardiology is following, will appreciate their insight
[2025-07-21] MEDS: PITRESSIN 100 IV ×2 (08:30→14:04)
--- NOTE | 2025-07-21 08:30 | PTCARENOTE ---
07:40, Patient intubated, ET tube size 8.0 @21cm Lip.
08:00, Patient BP dropped after intubation, Levophed initiated and NS 500cc Bolus given.
08:30, Added additional pressors to maintain MAP greater than 65.
--- NOTE | 2025-07-21 08:37 | W.PN.UPDATE ---
Update Note
Progress Note Update
LATE ENTRY:
Called to bedside for rapid response at 7 AM. Patient already moved to intensive care unit. Arrived at bedside to find patient in respiratory distress. Plans made for intubation of the patient.
GENERAL: elderly frail female in resp distress--not responsive, just moaning
HEENT: NC/AT--100% NRB mask
HEART: regular rate and rhythm, +S1, +S2, tachycardic
LUNGS : ronchi bilaterally
ABDOM: soft, nontender, nondistended, + bowel sounds
EXT: no cyanosis, clubbing, or edema
NEUROLOGIC: not coherent
PLAN:
attempted to get ABG--unsuccessful
anesthesia arrived to intubate--initial vent settings AC 12, 350, 100%, PEEP 5
urgent glass melt operator consult
A-line by anesthesia
Dr. Kingston Camacho called family to update on clinical status
Total Critical Care Time 35 minutes. I was immediately available to the patient and staff. I personally examined, reviewed labs, diagnostic images/reports, interpretations, treatment plans, discussed patient care with other providers and family
or caregivers (if patient is unable to make decisions), entered orders as appropriate and documented the medical record.
[2025-07-21 08:46] LABS: B.E. -11.2 mmol/L; HCO3 16.7 mmol/L (21-28); O2 Saturation % 99.2 % (94-98); PCO2 48 mmHg (32-35); PO2 232 mmHg (83-108)
--- NOTE | 2025-07-21 08:55 | W.PN.CD ---
Today's Communication / Plan
-
s/p IV lasix; may need additional dose later dose
now intubated
Impression / Plan
-
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
lymphma 1982 s/p extensive radiation (no chemotherapy), pulmonary HTN, restrictive lung disease, sleep apnea, asplenia p/w dyspnea, peripheral edema in the setting of reportedly stopping prednisone c/f an acute flare of autoimmune hemolytic anemia
Vent dependent respiratory failure
-patient is critically ill
-lactate is elevated; WBC is elevated, but also getting steroids for AIHA
-CT scan from 07/20: PNA suspected
-IV ABX, infectious eval
-intubated this AM
Acute on Chronic HFpEF
-s/p IV lasix this AM
- to consider PM dose based on clinical status
acute autoimmune hemolytic anemia
- she stopped taking her prednisone while at home after discharge from last admission
- anemia, elevated bilirubin, elevated LDH, elevated reticulocytes all point towards intravascular hemolysis
- she has hx of Ishmael+ IgG autoimmune hemolytic anemia
- management is per Hematology
paroxysmal atrial fibrillation
- given anemia, hold apixaban
- monitor telemetry
Valvular heart disease
- last echo in February 2025: see below
Pacemaker
- leadless, medtronic
- monitor telemetry
HLD
- can continue home ezetimibe once acute issues are resolved
CCT 35 min.
Echo 03/06/25
Normal left ventricular size, wall thickness and systolic function. Estimated
LVEF 55%.
Bioprosthetic mitral valve. Peak/mean gradients across the mitral valve are
26/6 mmHg. No mitral regurgitation is seen.
Bioprosthetic aortic valve. Peak/mean gradients across the aortic valve are 6/3
mmHg. No aortic regurgitation is seen.
Enlarged right ventricular size. Reduced right ventricular systolic function.
Abnormal (paradoxical) septal motion consistent with RV pacemaker.
s/p tricuspid valve ring with mean gradient of 3 mmHg. Mild/moderate tricuspid
regurgitation. Mildly elevated PASP. Estimated pulmonary artery pressure of 35-
40 mmHg.
Small pericardial effusion without evidence of hemodynamic compromise.
Physical Exam
Vital Signs/Labs
Vital Signs
Temp Pulse Resp BP Pulse Ox
97.0 F 63 14 104/62 98
07/21/25 06:08 07/21/25 08:30 07/21/25 08:30 07/21/25 08:01 07/21/25 08:01
07/20/25 07/21/25 07/22/25
06:59 06:59 06:59
Actual Weight 48.2 kg 48 kg
07/21/25 20:00
07/21/25 07:05
PT 18.6 Sec (11.4-14.6) H 07/21/25 07:05
INR 1.49 07/21/25 07:05
APTT 27.7 Sec (23.4-35.0) 07/21/25 07:05
Magnesium 2.4 mg/dl (1.6-2.3) H 07/21/25 02:40
Triglycerides Cancelled 07/21/25 08:12
07/18/25
17:31
Nym-K-Hxyplmddflt Pept 5390
LAB Results
07/19/25 07/19/25 07/19/25
11:51 12:39 16:31
Troponin I Cancelled 0.024 0.025
07/19/25 07/20/25
22:45 04:40
Troponin I 0.026 0.025
Physical Exam
Constitutional: Other (intubated)
EENT: Moist mucous membranes
Cardiovascular: Rhythm & rate is regular, Pedal edema is absent, JVD pressure is normal and Systolic murmur absent
Respiratory: Other (mechanical ventilation)
Data Reviewed
-
Date of Service: July 21, 2025
EKG: Other (Tele: A fib, V pacing)
Labs: Labs Reviewed by me
Critical Care Time (in minutes): 35
--- NOTE | 2025-07-21 09:23 | CM ---
Patient now intubated as of this am and in ICU. CM will continue to follow for disharge planning needs.
Plan; pending medical treatment plan. watch for SNF vs home with VN
[2025-07-21 09:41] LABS: Triglycerides 152 mg/dl (10-149)
[2025-07-21] MEDS: LR 500 IV (10:30)
[2025-07-21 10:32] LABS: B.E. -11.9 mmol/L; O2 Saturation % 98.1 % (94-98); PCO2 41 mmHg (32-35); PO2 130 mmHg (83-108)
[2025-07-21 10:37] LABS: HCO3 15.3 mmol/L (21-28)
[2025-07-21] MEDS: NSS (PRESERVATIVE FREE) 10 ML IV (10:47)
[2025-07-21] MEDS: PROTONIX IV 40 MG IV (10:47)
[2025-07-21] MEDS: SODIUM BICARBONATE 1150 MEQ IV (10:48)
[2025-07-21 10:49] LABS: Hematocrit 17.9 % (37.0-47.0); Hemoglobin 5.2 g/dL (12.0-16.0); Mean Corp Hgb Conc. 29.1 g/dL (33.0-37.0); Mean Corpuscular Volume 122.6 fL (81.0-99.0); Platelet Count 101 10^3/uL (130-400); Red Cell Dist. Width 20.2 % (11.5-14.5)
[2025-07-21 10:56] LABS: INR 1.97; PT 22.6 Sec (11.4-14.6)
[2025-07-21 11:03] LABS: Nucleated Red Blood Cells % 4.0 %
--- NOTE | 2025-07-21 12:30 | PTCARENOTE ---
Reassessed the patient, B/L pupils 5mm sluggish to light, no corneal reflex, no cough/gag reflex, continue increasing pressors dosage to maintain MAP goal of 65.
[2025-07-21 12:41] LABS: Hematocrit 19.7 % (37.0-47.0); Hemoglobin 5.5 g/dL (12.0-16.0); Mean Corp Hgb Conc. 27.9 g/dL (33.0-37.0); Mean Corpuscular Volume 125.5 fL (81.0-99.0); Red Cell Dist. Width 21.3 % (11.5-14.5)
[2025-07-21] MEDS: ZITHROMAX INFUSION 250 IV (13:27)
[2025-07-21 13:45] LABS: B.E. -16.3 mmol/L; O2 Saturation % 99.5 % (94-98); PCO2 33 mmHg (32-35); PO2 142 mmHg (83-108)
[2025-07-21 13:45] LABS: Nucleated Red Blood Cells % 3.6 %; Platelet Count 91 10^3/uL (130-400)
[2025-07-21 13:47] LABS: HCO3 11.2 mmol/L (21-28)
[2025-07-21 13:52] LABS: Glucose - Point of Care 27 mg/dl (70-99)
[2025-07-21] MEDS: DEXTROSE 50% SYRINGE 12.5 GRAMS IV (13:54)
--- NOTE | 2025-07-21 14:00 | PTCARENOTE ---
This RN attempted to draw BMP and Troponin multiple times from Arterial line, PICC line, and Peripheral stick, all tubes came back hemolyzed. Lab will send a public records researcher to attempt one more time.
[2025-07-21 14:08] LABS: Glucose - Point of Care 94 mg/dl (70-99)
[2025-07-21] MEDS: ADRENALIN 250 IV (14:23)
[2025-07-21] MEDS: SODIUM BICARBONATE 50 MEQ IV (14:23)
--- NOTE | 2025-07-21 15:01 | W.PN.UPDATE ---
Update Note
Progress Note Update
Multiple reevaluations of patient's declining multiorgan failure throughout the day
Ventilator adjusted several times for persistent severe acidosis
Multiple bicarb pushed as pressors were not working when patient was severely acidotic
Patient remained severely hypotensive and now on 4 pressors maxed out and on a bicarb drip
Broad-spectrum antibiotics have been provided
Sister-JAY and niece at the bedside and Dr. Meng had lengthy conversation-updated on current clinical situation and goals of care discussed
POA agree no CPR, shocking or coding situation and no more bicarb or lab draws
Continue drips and ventilator for now-they are thinking about withdrawal
Quality Process Engineer present as well for spiritual support
Dr. Pond updated
Critical care nursing and respiratory therapy updated
Total critical care time today 95 minutes
[2025-07-21 15:04] LABS: Potassium 5.8 mmol/L (3.5-5.1)
--- NOTE | 2025-07-21 15:05 | PTCARENOTE ---
Patient's sister Pat and Niece came to see the patient. Recreation Teacher updated family on patient's medical conditions, now patient is DNR. Family would like to keep current pressors ongoing at this time.
[2025-07-21 15:14] LABS: Troponin I 0.214 ng/ml
[2025-07-21 15:26] LABS: Estimated Creatinine Clearance 40 ml/min; Sodium 135 mmol/L (135-145); eGFR 56.46
[2025-07-21 15:27] LABS: Blood Urea Nitrogen 24 mg/dl (7-17); Glucose 118 mg/dl (70-99)
[2025-07-21 15:28] LABS: Carbon Dioxide 17 mmol/L (22-30); Chloride 99 mmol/L (98-107)
[2025-07-21 15:29] LABS: Alkaline Phosphatase 110 U/L (38-126); Calcium 7.9 mg/dl (8.4-10.2)
[2025-07-21 15:32] LABS: Albumin 2.8 g/dl (3.5-5.0); Total Protein 5.6 g/dl (6.3-8.2)
[2025-07-21 15:33] LABS: AST (SGOT) 411 U/L (14-36); Magnesium 2.6 mg/dl (1.6-2.3)
--- NOTE | 2025-07-21 15:40 | PTCARENOTE ---
Patient @15:40, pronounced by Dr. Pond, families updated at bedside.
--- NOTE | 2025-07-21 15:42 | W.PN.DEATH ---
Pronouncement of
-
Called to see patient to pronounce.
No spontaneous heart tones or respirations noted.
Patient not responsive to verbal stimuli.
Patient is pronounced .
Time of : 15:40
Date of : 07/21/25
Cause of : Multiorgan system failure from shock (septic and hemolytic), autoimmune hemolytic anemia, pneumonia
Family Notified: Yes
[2025-07-21 15:49] LABS: ALT (SGPT) 142 U/L (0-35)
--- NOTE | 2025-07-21 15:51 | CHAP ---
Emotional and spiritual support given for family at bedside. Prayer blanket given.
--- NOTE | 2025-07-21 16:39 | W.DCSUMMARY ---
Addendum entered and electronically signed by Alexa Pond MD 07/21/25 18:04:
Read, reviewed, and agree. See same day progress note for additional details. Time spent coordinating care, DC planning, review of DC plan of care with resident, transition of care, review of records in EMR, med rec, consults, notes, d/w
consultants, nursing, family, and CM = 55 minutes
Original Note:
Discharge Summary
Discharge Data
Date of Admission: 07/18/25
Date of Discharge: 07/21/25
Total time spent discharging patient (in min): 55
-
Pending Results: No
Hospital Course
Discharging Physician : Dr. Pond and Dr. Kaba
Primary care physician : Kate Jade
Principal Discharge diagnosis : Multiorgan failure due to shock (septic and hemolytic)
Chronic Discharge diagnosis :
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
History of Hodgkin's lymphoma
HFpEF
CAD
Paroxysmal A-fib
Restrictive lung disease
Mitral valve, aortic valve, tricuspid valve repair
Bipolar depression
Hypothyroidism
Hospital Course :
Ms. Quin Burt scratched presented with bilateral lower extremity edema, SOB, N/V once the morning of presentation, and chronic upper abdominal pain.
ED course
Afebrile, tachypneic, ill appearing but in no acute distress
CBC: WBC 30.4 with a left shift, hemoglobin 6.3
CMP: Sodium 128 BUN/creat 29/1.4 mild elevation liver enzymes, Bilirubin 11.3
BNP 5390
Lactic: 5.5
IVF running softly as BNP elevated and awaiting CXR
Dr. Rubin reviewed CXR, questionable R lower lung PNA
Heme neg stool
Per lab, Pt has antibodies and it will be at least a couple of hours for Blood bank to get the blood
US [facility] radiology report IMPRESSION:
1. Moderate diffuse liver disease.
2. Gallbladder sludge.
3. No sonographic evidence for biliary obstruction.
CT PE 07/20/2025
1. SEVERE BILATERAL AIRSPACE CONSOLIDATION in the lower lobes, right middle lobe, and left upper lobe which has increased since 07/18/2025. SEVERE BILATERAL PNEUMONIA is considered most likely. Alveolar pulmonary edema or an inflammatory
pneumonitis are less likely diagnostic possibilities.
2. Small to moderate-sized loculated right pleural effusion.
3. Small loculated left pleural effusion.
4. Mild interstitial cardiogenic pulmonary edema.
5. Previous mitral and tricuspid valve repair.
Problem 1: Hemolytic anemia and hypovolemic shock
Recurrence of warm autoimmune hemolytic anemia. Presented with hemoglobin 6.3 on admission and received 1 unit of blood in the ED. Hematology consulted. Since had a lot of antibodies in her blood, hematology recommended to not transfuse unless an
exact match was found. [place] was searching for an exact match. Elevated bilirubin consistent with hemolysis. Patient was jaundiced. Hematology started the patient on dexamethasone 40 mg daily for 4 days, followed by prednisone 50 mg daily
for warm AIHA. Patient's hemoglobin increased.
Problem 2: Septic shock due to pneumonia, and respiratory distress
On admission, leukocytosis with WBC of 30, tachypnea, and lactic acidosis. Vancomycin and Zosyn started. Vancomycin was discontinued due to negative MRSA nares. Zosyn was continued. Chest CT suggested severe pneumonia.
Patient's shortness of breath was thought to be due to pulmonary edema from IV fluids initially, so fluids were discontinued and she was diuresed. Overnight 07/20/2025, she developed repeated episodes of respiratory distress. The next morning, she
grew hypotensive to 34/19. She returned to normotension with addition of a third pressor, bicarb, and fluid resuscitation. She grew unstable throughout the day. Later in the day, her sister and niece arrived. Her sister was her healthcare power
of [employer]. They gradually withdrew care, including stopping labs. Pastoral care came to offer support. Her long-term manager sound came to offer his regards. She passed at 3:40 PM.
Problem 3: HANNY
Creatinine 1.5 on admission. Baseline creatinine was 0.8. Torsemide, spironolactone, and dapagliflozin were held. IV fluids were started. Creatinine returned to baseline and HANNY resolved.
Problem 4: Hyperkalemia
With IV fluids, potassium 5.6 decreased to normal. EKG demonstrated sinus rhythm.
Important imaging findings :
Abdominal x-ray 07/18/25
1. Moderate diffuse liver disease.
2. Gallbladder sludge.
3. No sonographic evidence for biliary obstruction.
Chest CT 07/20/2025
1. SEVERE BILATERAL AIRSPACE CONSOLIDATION in the lower lobes, right middle lobe, and left upper lobe which has increased since 07/18/2025. SEVERE BILATERAL PNEUMONIA is considered most likely. Alveolar pulmonary edema or an inflammatory
pneumonitis are less likely diagnostic possibilities.
2. Small to moderate-sized loculated right pleural effusion.
3. Small loculated left pleural effusion.
4. Mild interstitial cardiogenic pulmonary edema.
5. Previous mitral and tricuspid valve repair.
Chest x-ray 07/18/25
1. Mild acute interstitial and alveolar cardiogenic pulmonary edema.
2. Previous mitral valve repair and intraventricular cardiac pacemaker placement.
3. Minimal bilateral pleural effusions.
4. Bilateral breast implants in place.
Chest x-ray 07/21/2025
Placement of a right PICC with the catheter tip at the cavoatrial junction.
Stable position of the endotracheal tube.
Bilateral pulmonary parenchymal opacities and small bilateral pleural effusions, similar compared to the previous chest radiograph. No pneumothorax. Stable cardiomediastinal silhouette. Sternotomy wires, cardiac valve prosthesis, and implantable
loop recorder. Surgical clips in the left upper quadrant.
Procedure findings :
Discharge Plan
-
Patient Disposition:
Date/Time
Date/Time: 07/21/25 15:40
Discharge Date and Time
Print Language: UKRAINIAN
--- NOTE | 2025-07-21 17:00 | PTCARENOTE ---
Patient's sister took all the belongings except prayer's blanket. This RN put the prayer's blanket into a belonging bag and sent with the patient to [facility].
[facility] was notified and patient was declined.
== END 2025-07-21 15:40 | disposition expired | DRG 871 ==
LOC: ICU 21:06
PROVIDERS: Internal Medicine Hematology & Oncology; Nurse Practitioner Gerontology; Registered Nurse; ADMITTING PHYSICIAN Hospitalist; ATTENDING PHYSICIAN Internal Medicine; CONSULT PHYSICIAN Internal Medicine Critical Care Medicine; EMERGENCY PHYSICIAN Emergency Medicine; FAMILY PHYSICIAN Internal Medicine; OTHER PHYSICIAN Internal Medicine; OTHER PHYSICIAN Internal Medicine Hematology & Oncology
PROC: 5A1935Z Respiratory Ventilation, Less than 24 Consecutive Hours (ICD-10-PCS; 2025-07-21)
PROC: 0CHY7BZ Insertion of Airway into Mouth and Throat, Via Natural or Artificial Opening (ICD-10-PCS; 2025-07-21)
DX: A41.89 Other specified sepsis (principal); I50.33 Acute on chronic diastolic (congestive) heart failure; R65.21 Severe sepsis with septic shock; J96.00 Acute respiratory failure, unspecified whether with hypoxia or hypercapnia; R57.1 Hypovolemic shock; J18.9 Pneumonia, unspecified organism; N17.9 Acute kidney failure, unspecified; E87.20 Acidosis, unspecified; F31.30 Bipolar disorder, current episode depressed, mild or moderate severity, unspecified; R64 Cachexia; Z68.1 Body mass index [BMI] 19.9 or less, adult; D59.11 Warm autoimmune hemolytic anemia; M31.0 Hypersensitivity angiitis; E22.2 Syndrome of inappropriate secretion of antidiuretic hormone; E87.5 Hyperkalemia; I48.0 Paroxysmal atrial fibrillation; E03.9 Hypothyroidism, unspecified; Z11.52 Encounter for screening for COVID-19; Z79.01 Long term (current) use of anticoagulants; Z79.899 Other long term (current) drug therapy
CPT/HCPCS: 36600; 71045; 71275; 76705; 80048; 80053; 80202; 81003; 81015; 82248; 82607; 82728; 82746; 82805; 82962; 83010; 83540; 83550; 83605; 83615; 83735; 83880; 83930; 83935; 84100; 84300; 84478; 84484; 85014; 85018; 85025; 85027; 85045; 85610; 85730; 86850; 86870; 86900; 86901; 86902; 86920; 87040; 87086; 87449; 87502; 87641; 87811; 87899; 93005; 93306; 94002; 94640; 96374; 96375; 99285; Q9967